=== PATIENT | male | born 1935 | race Caucasian/White ===

== ENCOUNTER 2017-06-01 05:54 | Day surgery (SDC) | END 2017-06-01 11:50 | disposition home or self-care (01) ==

== ENCOUNTER 2018-05-30 15:20 | Inpatient (IN) | payer OTHER ==
[~2018-05-30] VITALS: Ht 180.3 cm; Wt 90.9 kg
[~2018-05-30 15:20] MED LIST: ATOR40TA68 PO; CHOL100062 PO; CLOP75TA27 PO; HYDR25TA6 PO; INSU100V3 IJ; LANT3I SC; LISI-471 PO; NIFE30TA23 PO; RANI150T5 PO
--- NOTE | 2018-05-30 15:32 | ERD ---
ER Documentation Chief Complaint Chief Complaint weakness HPI The patient is a 83-year-old male, presenting to the ER because of generalized weakness for 1 week. The history is mostly obtained from his son because he is unable to provide any history due to language barrier. He normally walks with a cane however he has not been able to do that for the last week, complains of decreased appetite, not feeling well in general, abdominal distention for the last 2 weeks. He was seen by his oncologist Dr. Michelle today in the office who sent him to the ER for admission. He is being worked up for cancer He fell about 4 weeks ago and was told that he has L3-L4 compression fracture Past medical history: History of CVA, history of proximal atrial fibrillation, dyslipidemia, diabetes mellitus, hypertension, chronic kidney disease on hemodialysis Wednesday, Wednesday, Wednesday, cholelithiasis Past surgical history: Left AV fistula, appendectomy ROS All systems reviewed and are negative except as per history of present illness. Medications Home Meds Reported Medications Insulin Regular, Human (Humulin R) 100 Unit/1 Ml Vial, IJ, VIAL 06/01/17 Cholecalciferol* (Vitamin D3*) 1,000 Unit Tablet, 2000 UNIT PO DAILY, TAB 06/01/17 Atorvastatin* (Atorvastatin*) 40 Mg Tablet, 40 MG PO QHS, #30 TAB 06/01/17 Ranitidine Hcl* (Ranitidine Hcl*) 150 Mg Tablet, 150 MG PO HS, #30 TAB 06/01/17 Clopidogrel Bisulfate (Clopidogrel) 75 Mg Tablet, 75 MG PO DAILY, #30 TAB 06/01/17 Insulin Glargine* (Lantus*) 100 Unit/Ml Soln, 42 UNIT SC DAILY, #1 VIAL 06/01/17 Hydrochlorothiazide* (Hydrochlorothiazide*) 25 Mg Tab, 25 MG PO BID, #60 TAB 06/01/17 Lisinopril* (Lisinopril*) 20 Mg Tablet, 20 MG PO BID, #30 TAB 06/01/17 Nifedipine* (Nifedipine ER*) 30 Mg Tablet.sa, 30 MG PO DAILY, TAB.SA 06/01/17 Allergies Allergies: Coded Allergies: Penicillins (Unverified Allergy, Unknown, 05/31/17) Sulfa (Sulfonamide Antibiotics) (Unverified Allergy, Unknown, 05/31/17) PMhx/Soc History of Surgery: Yes (appendectomy) Anesthesia Reaction: No Hx Neurological Disorder: No Hx Respiratory Disorders: No Hx Cardiac Disorders: Yes (htn, high cholest) Hx Psychiatric Problems: No Hx Miscellaneous Medical Probl: No Hx Alcohol Use: No Hx Substance Use: No Hx Tobacco Use: No Physical Exam Vitals Vital Signs Date Temp Pulse Resp B/P (MAP) Pulse Ox O2 O2 Flow FiO2 Time Delivery Rate 05/30/18 102 15 134/70 94 Room Air 19:00 (91) 05/30/18 97.8 96 18 127/65 98 Nasal 2.0 17:42 (85) Cannula 05/30/18 97.5 94 18 139/63 94 15:28 (88) Physical Exam Const: No acute distress. Head: Atraumatic. Eyes: Normal Conjunctiva. ENT: Normal External Ears, Nose and Mouth. Neck: Full range of motion. No meningismus. Resp: Clear to auscultation bilaterally. Cardio: Regular rate and rhythm. Abd: Soft, mild ascites, normal bowel sounds, non tender. Skin: No petechiae or rashes. Back: No midline or flank tenderness. Ext: No cyanosis, or edema. Neur: Awake and alert. No focal deficit Psych: Normal Mood and Affect. Result Diagram: 05/30/18 1607 05/30/18 1607 Results 24 hrs Laboratory Tests Test 05/30/18 16:07 White Blood Count 4.1 10^3/ul Red Blood Count 2.62 10^6/ul Hemoglobin 8.3 g/dl Hematocrit 25.9 % Mean Corpuscular Volume 98.9 fl Mean Corpuscular Hemoglobin 31.7 pg Mean Corpuscular Hemoglobin Concent 32.0 g/dl Red Cell Distribution Width 18.8 % Platelet Count 93 10^3/UL Mean Platelet Volume 11.4 fl Immature Granulocytes % 0.500 % Neutrophils % 74.1 % Lymphocytes % 9.2 % Monocytes % 11.4 % Eosinophils % 4.1 % Basophils % 0.7 % Nucleated Red Blood Cells % 0.0 /100WBC Immature Granulocytes # 0.020 10^3/ul Neutrophils # 3.0 10^3/ul Lymphocytes # 0.4 10^3/ul Monocytes # 0.5 10^3/ul Eosinophils # 0.2 10^3/ul Basophils # 0.0 10^3/ul Nucleated Red Blood Cells # 0.0 10^3/ul Prothrombin Time 17.7 Sec Prothrombin Time Ratio 1.4 INR International Normalized Ratio 1.45 Activated Partial Thromboplast Time 37.4 Sec Sodium Level 138 mmol/L Potassium Level 4.1 mmol/L Chloride Level 92 mmol/L Carbon Dioxide Level 25 mmol/L Anion Gap 21 Blood Urea Nitrogen 36 mg/dl Creatinine 6.02 mg/dl Est Glomerular Filtrat Rate mL/min mL/min Glucose Level 98 mg/dl Calcium Level 10.5 mg/dl Total Bilirubin 0.3 mg/dl Direct Bilirubin 0.00 mg/dl Indirect Bilirubin 0.3 mg/dl Aspartate Amino Transf (AST/SGOT) 23 IU/L Alanine Aminotransferase (ALT/SGPT) 10 IU/L Alkaline Phosphatase 190 IU/L Lactate Dehydrogenase 350 IU/L Total Protein 12.5 g/dl Albumin 3.9 g/dl Globulin 8.60 g/dl Albumin/Globulin Ratio 0.45 Lipase 212 U/L [facility]/[place] [address] Radiology Main Line: [phone] DIAGNOSTIC IMAGING REPORT Patient: BORIS AWAD : 1935 Age: 83 Sex: M MR #: [id number] DOS: 05/30/18 [facility] Ordering MD: LISSETT TONEY MD Location: E/R Room/Bed: PROCEDURE: CT Abdomen and Pelvis Without Intravenous Contrast CLINICAL INDICATION: Abdominal pain. TECHNIQUE: Axial computed tomography images of the abdomen and pelvis without intravenous contrast. Sagittal and coronal reformatted images were created and reviewed. CTDIvol (mGy) = 17.96; total DLP (mGy-cm) = 1238.86. This CT exam was performed using one or more of the following dose reduction techniques: automated exposure control, adjustment of the mA and/or kV according to patient size, and/or use of iterative reconstruction technique. DICOM images are available. COMPARISON: None FINDINGS: LUNG BASES: Atelectasis versus consolidation/infiltrate at the lung bases, right worse than left. PLEURAL SPACE: Small bilateral pleural effusions, right larger than left. HEART: Small pericardial effusion. Mild cardiomegaly noted. ABDOMEN: LIVER: Unremarkable. GALLBLADDER AND BILE DUCTS: Multiple small calcified gallstones are demonstrated in the gallbladder. No gallbladder wall thickening. No biliary dilatation. PANCREAS: Unremarkable. No ductal dilation. SPLEEN: Unremarkable. No splenomegaly. ADRENALS: Unremarkable. No mass. KIDNEYS AND URETERS: Bilateral renal cysts noted, measuring up to 5.5 cm in diameter. Vascular calcifications are noted in the kidneys. No nephrolithiasis or hydronephrosis. STOMACH AND BOWEL: Moderate retained stool throughout the colon. No inflammatory changes of the colon. The stomach is unremarkable in appearance. No acute abnormality of the small bowel. No obstruction. No mucosal thickening. PELVIS: APPENDIX: No findings to suggest acute appendicitis. BLADDER: Unremarkable. No stones. REPRODUCTIVE: Unremarkable as visualized. ABDOMEN and PELVIS: INTRAPERITONEAL SPACE: Mild ascites in the abdomen and pelvis. No free air. BONES/JOINTS: Nondisplaced acute fracture of the left ischial tuberosity. The fracture appears to have occurred through a preexisting lucent bone lesion, and is consistent with pathologic fracture. Infiltrated appearance of the L3 and the vertebra. There is moderate acute compression fracture of L3. This also concerning for osseous metastatic disease. No dislocation. SOFT TISSUES: Mild gynecomastia bilaterally. Small bilateral inguinal hernias noted, containing only fat. Small umbilical hernia noted, containing only fat. Mild diffuse subcutaneous edema. VASCULATURE: The abdominal aorta is atherosclerotic. No aneurysm. LYMPH NODES: Unremarkable. No enlarged lymph nodes. IMPRESSION: 1. Nondisplaced acute fracture of the left ischial tuberosity. The fracture appears to have occurred through a preexisting lucent bone lesion, and is consistent with pathologic fracture. This is suspicious for osseous metastatic disease. A primary neoplastic lesion is not identified on this study. 2. Atelectasis versus consolidation/infiltrate at the lung bases, right worse than left. 3. Small bilateral pleural effusions, right larger than left. 4. Mild ascites in the abdomen and pelvis. 5. Multiple small calcified gallstones are demonstrated in the gallbladder. No gallbladder wall thickening. No biliary dilatation. 6. Bilateral renal cysts noted, measuring up to 5.5 cm in diameter. Vascular calcifications are noted in the kidneys. No nephrolithiasis or hydronephrosis. RPTAT: [facility] R-Anderson Blount, Physician Hospital Receptionist Date Time Electronically viewed and signed by Ethan Blount Physician Hospital Receptionist on 05/30/2018 18:26 RmC/ CC: LISSETT TONEY MD [id number] [place] [address] Radiology Main Line: [phone] DIAGNOSTIC IMAGING REPORT Patient: BORIS AWAD : 1935 Age: 83 Sex: M MR #: [id number] DOS: 05/30/18 1556 Ordering MD: LISSETT TONEY MD Location: E/R Room/Bed: PROCEDURE: US Abdomen (right upper quadrant). CLINICAL INDICATION: Right upper quadrant abdomen pain. TECHNIQUE: Multiple real-time longitudinal and transverse images of the right upper quadrant of the abdomen were acquired utilizing a curved array transducer. Images were reviewed on a high-resolution PACS workstation. COMPARISON: None FINDINGS: The liver is normal in size and normal in echogenicity. There is no focal hepatic lesion. Color Doppler and pulsed Doppler sonography demonstrate normal antegrade flow in the portal vein. The gallbladder contains gallstones. There is no gallbladder wall thickening or fluid around the gallbladder. The bile ducts are normal with the common bile duct measuring 4.4 mm in diameter. The pancreas is not visualized due to overlying bowel gas. There is mild ascites. There is a right pleural effusion. The right kidney measures 10.1 cm. There is diffusely increased echogenicity of the right kidney. There is no perinephric fluid collection. No hydronephrosis, mass, or calculus is seen. IMPRESSION: 1. Gallstones in the gallbladder. No evidence of cholecystitis. 2. Pancreas not visualized. 3. Mild ascites. 4. Right pleural effusion. 5. Hyperechoic right kidney which may indicate medical renal disease. 6. Otherwise unremarkable right upper quadrant abdomen ultrasound. RPTAT: QQ .Joe Norman MD, MD Date Time Electronically viewed and signed by .Joe Norman MD, MD on 05/30/2018 17:04 .R/ CC: LISSETT TONEY MD [id number] Pending MEDICAL MAKING DECISION: The patient is a 83-year-old male, presented with acute pathologic fracture of the left ischial tuberosity, acute ascites, pancytopenia, bilateral pleural effusion, coagulopathy. He is able to the emergency department The differential diagnoses considered include but are not limited to metastatic CA, multiple myeloma, hematological disorder Consultation: I discussed the patient with oncologist Dr. Smith 06:40 pm, who was made aware of the lab, the treatment and she accepted the consult I discussed the patient with the oncall orthopedist Dr. Burton 06:45 pm, who was made aware of the lab, the treatment and she accepted the consult Departure Diagnosis: Primary Impression: Pathologic fracture of ischium Additional Impressions: Pancytopenia Bilateral pleural effusion Ascites Cholelithiasis Coagulopathy Abnormal LFTs Condition: Stable Comments I discussed the findings with the patient. I discussed the patient with the hospitalist Dr Santos at 6:50 p who was made aware of the lab, the treatment, the patient condition. The patient is admitted to [facility]. He was aware that Dr. Smith recommended SPEP and skeletal survey and and would perform bone marrow biopsy tomorrow Disclaimer: Inadvertent spelling and grammatical errors are likely due to EHR/dictation software use and do not reflect on the overall quality of patient care. Also, please note that the electronic time recorded on this note does not necessarily reflect the actual time of the patient encounter. LISSETT TONEY MD May 30, 2018 15:32
--- NOTE | 2018-05-30 19:38 | HP ---
Date/Time of Note Date/Time of Note DATE: 05/30/18 TIME: 19:30 Assessment/Plan VTE Prophylaxis Pharmacological prophylaxis: heparin Assessment/Plan Hospital Course 83 yo male with ESRD, DMII who has been referred for MM workup after found to have hypercalcemia and pathologic hip fracture Multiple myeloma: - Workup per Dr khoury - ELLIE, skeletal survery, bone marrow biopsy ESRD: - HD per renal - Last dialyzed today Pancytopenia: - likely consistent with MM Cholelithiasis: - Unlikely causing any symptoms at this time. Had planned for elective cholecystectomy as outpatient but no acute indication DMII: - Basal/bolus insulin Hypercalcemia: - Consistent with MM, mild, no acute need for intervention Pathologic hip fracture: - management per Dr Burton Result Diagram: 05/30/18 1607 05/30/18 1607 Results 24hrs Laboratory Tests Test 05/30/18 16:07 White Blood Count 4.1 L Red Blood Count 2.62 L Hemoglobin 8.3 L Hematocrit 25.9 L Mean Corpuscular Volume 98.9 Mean Corpuscular Hemoglobin 31.7 Mean Corpuscular Hemoglobin Concent 32.0 Red Cell Distribution Width 18.8 H Platelet Count 93 L Mean Platelet Volume 11.4 H Immature Granulocytes % 0.500 H Neutrophils % 74.1 Lymphocytes % 9.2 L Monocytes % 11.4 H Eosinophils % 4.1 Basophils % 0.7 Nucleated Red Blood Cells % 0.0 Immature Granulocytes # 0.020 Neutrophils # 3.0 Lymphocytes # 0.4 L Monocytes # 0.5 Eosinophils # 0.2 Basophils # 0.0 Nucleated Red Blood Cells # 0.0 Prothrombin Time 17.7 H Prothrombin Time Ratio 1.4 INR International Normalized Ratio 1.45 Activated Partial Thromboplast Time 37.4 H Sodium Level 138 Potassium Level 4.1 Chloride Level 92 L Carbon Dioxide Level 25 Anion Gap 21 H Blood Urea Nitrogen 36 H Creatinine 6.02 H Est Glomerular Filtrat Rate mL/min Glucose Level 98 Calcium Level 10.5 H Total Bilirubin 0.3 Direct Bilirubin 0.00 Indirect Bilirubin 0.3 Aspartate Amino Transf (AST/SGOT) 23 Alanine Aminotransferase (ALT/SGPT) 10 L Alkaline Phosphatase 190 H Lactate Dehydrogenase 350 Total Protein 12.5 H Albumin 3.9 Globulin 8.60 H Albumin/Globulin Ratio 0.45 Lipase 212 HPI/ROS Admit Date/Time Admit Date/Time Hx of Present Illness 37 yo male with ho DMII and ESRD who has been referred by Dr Khoury for multiple myeloma workup Patient suffered fall a few weeks ago leading to pain in hip. Pain has continued and become more and more severe. [employer] has also noticed worsening hypercalcemia. He was thus referred to Dr Khoury for onc workup who has found evidence of MM and he has been referred here. He has also noticed progressive abdominal distension. Major comlaint is of pain in hip/buttocks ROS Constitutional: no complaints, improved Eyes: no complaints ENT: no complaints Respiratory: no complaints Cardiovascular: no complaints Gastrointestinal: no complaints Genitourinary: no complaints Musculoskeletal: no complaints Skin: no complaints Neurologic: no complaints Endocrine: no complaints Lymphatic: no complaints Psychological: no complaints, nl mood/affect Immunologic: no complaints PMH/Family/Social Past Medical History Medical History: diabetes, renal disease Coded Allergies: Penicillins (Unverified Allergy, Unknown, 05/31/17) Sulfa (Sulfonamide Antibiotics) (Unverified Allergy, Unknown, 05/31/17) Past Surgical History Past Surgical Hx: no surgical history Family History Significant Family History: no pertinent family hx Social History Alcohol Use: none Smoking Status: Never smoker Drug Use: none Exam/Review of Systems Vital Signs Vitals Vital Signs Date Temp Pulse Resp B/P (MAP) Pulse Ox O2 O2 Flow FiO2 Time Delivery Rate 05/30/18 97.8 96 18 127/65 98 Nasal 2.0 17:42 (85) Cannula Exam Exam Appears well, no distress AOx3 Comfortable + JVD RRR Breathing comfortably Abdomen firm/distended but nontender Ext warm without edema SRAVANTHI THOMPSON MD May 30, 2018 19:38
[2018-05-30] MEDS ORDERED: INSULIN GLARGINE [LANTus] (100 UNITS/ML) SYG SC SCH (20:00)
[2018-05-30] MEDS ORDERED: HYDROmorphONE 0.5 MG/0.5 ML SYG IV PRN (20:00)
[2018-05-30] MEDS ORDERED: NACL 0.9% 3 ML SYG IV SCH (20:00)
[2018-05-30] MEDS ORDERED: GLUCOSE GEL 15 GRAM TUBE PO PRN ×2 (20:30)
[2018-05-30] MEDS ORDERED: GLUCAGON 1 MG INJ IM PRN (20:30)
[2018-05-30] MEDS ORDERED: GLUCOSE GEL 15 GRAM TUBE BUCCAL PRN (20:30)
[2018-05-30] MEDS ORDERED: DEXTROSE 50% 50 ML SYRINGE IV PRN ×2 (20:30)
[2018-05-30 20:53] VITALS: Ht 180.3 cm; Wt 90.9 kg
[2018-05-30] MEDS ORDERED: LISINOPRIL 20 MG TAB PO SCH (21:00)
[2018-05-30] MEDS ORDERED: INSULIN ASPART [NOVOLOG] 3 ML PEN SC SCH (21:00)
[2018-05-30] MEDS: RANITIDINE 150 MG TAB PO SCH (21:00)
[2018-05-30] MEDS ORDERED: CARV25TA79 PO (21:15)
[2018-05-30] MEDS ORDERED: APIX2.5T PO (21:15)
[2018-05-30] MEDS ORDERED: CARV12.579 PO (21:15)
[2018-05-30 21:19] VITALS: BP 122/56; PULSE 112
[2018-05-31] VITALS (19 sets, daily range): BP systolic 89–141; BP diastolic 48–83; PULSE 89–109; RESP 11–24
[2018-05-31] MEDS ORDERED: ACCU-CHEK XX SCH (02:00)
[2018-05-31] MEDS ORDERED: ATROPINE 1 MG/10 ML SYRINGE ONE (07:00)
[2018-05-31] MEDS: APIXABAN 5 MG TABLET PO SCH (09:00)
[2018-05-31] MEDS ORDERED: NIFEdipine (XL) 30 MG TAB PO SCH (09:00)
[2018-05-31] MEDS: CLOPIDOGREL 75 MG TAB PO SCH (09:00)
--- NOTE | 2018-05-31 09:09 | CONS ---
DATE OF ADMISSION: 05/30/2018 DATE OF CONSULTATION: 05/31/2018 REASON FOR CONSULTATION: End-stage renal disease. PHYSICIAN REQUESTING CONSULT: Dr. Santos. HISTORY OF PRESENT ILLNESS: This is an 83-year-old male with a past medical history of end-stage anna marie al disease on dialysis Wednesday, Wednesday, Wednesday, access left AV fistula. Primary clinical appeals rn is un clear. History of hypertension, history of diabetes who presented to [facility] to generalized weakness. The patient also noted 4 weeks ago to have a compression fracture L3-L4 a nd has had dominant hypercalcemia. The patient was subsequently admitted to med/surg for further mykel luation. Upon my evaluation of the patient at this time, he is currently stable. He denies any fevers, chills , nausea, or vomiting. PAST MEDICAL HISTORY: As stated above, history of end-stage renal disease, history of diabetes. PAST SURGICAL HISTORY: History of pancytopenia. FAMILY HISTORY: No family history of kidney disease. SOCIAL HISTORY: He does not drink, smoke, or do drugs. MEDICATIONS: The patient's medications have been reviewed. ALLERGIES: PLEASE SEE LIST. REVIEW OF SYSTEMS: A 14-point review of systems was conducted. Pertinent positives stated in HPI, o therwise negative. PHYSICAL EXAMINATION: VITAL SIGNS: Blood pressure is 135/72, respirations 20, pulse 109, temperature 98.0. HEENT: Head is normocephalic. NECK: Supple. HEART: Regular rate. LUNGS: Show diminished breath sounds at the base. ABDOMEN: Soft, nontender to palpation without rebound or guarding. EXTREMITIES: Negative for clubbing, cyanosis, no edema. DERMATOLOGIC: No rashes. MUSCULOSKELETAL: No joint effusion. NEUROLOGIC: No focal deficits. LABORATORY DATA: Reviewed. ASSESSMENT AND PLAN: This is an 83-year-old male who presents with: 1. End-stage renal disease. The patient is on dialysis Wednesday, Wednesday, Wednesday with access left A V fistula. Plan is for hemodialysis tomorrow. We will dialyze for 3 hours 2k bath, calcium 2.5, ult rafiltrate as tolerated. 2. Anemia. Continue to monitor hemoglobin and hematocrit levels. We will give Epogen as needed. 3. Mineral bone disorder. The patient is hypocalcemic, continue dialysis on low calcium bath and mo nitor. 4. Hypertension. Continue current blood pressure regimen. 5. Diabetes. Continue current insulin regimen. 6. Hypercalcemia. The patient is being worked up for possible multiple myeloma, pending bone marrow biopsy and follow up with hematology. 7. Cholelithiasis. Continue to monitor. 8. Pathological hip fracture. We will follow up with orthopedist, Dr. Burton. Thank you, Dr. Santos, for this interesting consult. It will be a pleasure to follow patient with aj olguin throughout the hospital course. Dictated By: TAYLOR GROVE DO NR/NTS Conf#: [id number] DID#: [id number] CC: CHEYENNE BURTON MD; SRAVANTHI SANTOS MD;*[facility]*
[2018-05-31] MEDS: HYDROCODONE/APAP (5/325) TAB PO PRN ×2 (09:57→22:20)
--- NOTE | 2018-05-31 11:46 | PREAC ---
Date/Time of Note Date/Time of Note DATE: 05/31/18 TIME: 11:43 Anesthesia Eval and Record Evaluation Time Pre-Procedure Interview DATE: 05/31/18 TIME: 11:43 Age 83 Sex male NPO: 8 hrs Preoperative diagnosis lt leg pathological fracture Planned procedure Bone diaz aspiration Past Medical History Past Medical History: Includes Cardio: HTN, Dyslipidemia Endo: Diabetes GI: GERD Heme: Anemia Surgery & Anesthesia Issues No known issue Meds Anticoagulation: No Beta Clarence within 24 hr: No Reason Beta Clarence not given: Pt. not on B-Clarence Reported Medications Carvedilol* (Carvedilol*) 12.5 Mg Tablet, 12.5 MG PO QHS, #60 TAB 05/30/18 Carvedilol* (Carvedilol*) 25 Mg Tablet, 25 MG PO DAILY, #60 TAB 05/30/18 Apixaban* (Eliquis*) 2.5 Mg Tablet, 2.5 MG PO DAILY, TAB 05/30/18 Insulin Regular, Human (Humulin R) 100 Unit/1 Ml Vial, IJ, VIAL 06/01/17 Cholecalciferol* (Vitamin D3*) 1,000 Unit Tablet, 2000 UNIT PO DAILY, TAB 06/01/17 Atorvastatin* (Atorvastatin*) 40 Mg Tablet, 40 MG PO QHS, #30 TAB 06/01/17 Ranitidine Hcl* (Ranitidine Hcl*) 150 Mg Tablet, 150 MG PO HS, #30 TAB 06/01/17 Clopidogrel Bisulfate (Clopidogrel) 75 Mg Tablet, 75 MG PO DAILY, #30 TAB 06/01/17 Insulin Glargine* (Lantus*) 100 Unit/Ml Soln, 42 UNIT SC DAILY, #1 VIAL 06/01/17 Hydrochlorothiazide* (Hydrochlorothiazide*) 25 Mg Tab, 25 MG PO BID, #60 TAB 06/01/17 Lisinopril* (Lisinopril*) 20 Mg Tablet, 20 MG PO BID, #30 TAB 06/01/17 Nifedipine* (Nifedipine ER*) 30 Mg Tablet.sa, 30 MG PO DAILY, TAB.SA 06/01/17 Current Medications IV Flush (NS 3 ml) 3 ml PER PROTOCOL IV ; Start 05/30/18 at 20:00 Hydromorphone HCl (Dilaudid) 0.5 mg Q4H PRN IV .SEVERE PAIN 7-10 Last administered on 05/30/18at 21:36; Admin Dose 0.5 MG; Start 05/30/18 at 20:00 Ranitidine HCl (Zantac) 150 mg HS PO ; Start 05/30/18 at 21:00 Miscellaneous Information 1 ea NOTE XX ; Start 05/30/18 at 20:30 Glucose (Glutose) 15 gm Q15M PRN PO DECREASED GLUCOSE; Start 05/30/18 at 20:30 Glucose (Glutose) 22.5 gm Q15M PRN PO DECREASED GLUCOSE; Start 05/30/18 at 20:30 Dextrose (D50w Syringe) 25 ml Q15M PRN IV DECREASED GLUCOSE; Start 05/30/18 at 20:30 Dextrose (D50w Syringe) 50 ml Q15M PRN IV DECREASED GLUCOSE; Start 05/30/18 at 20:30 Glucagon (Glucagen) 1 mg Q15M PRN IM DECREASED GLUCOSE; Start 05/30/18 at 20:30 Glucose (Glutose) 15 gm Q15M PRN BUCCAL DECREASED GLUCOSE; Start 05/30/18 at 20:30 Apixaban (Eliquis) 2.5 mg DAILY PO ; Start 05/31/18 at 09:00 Atorvastatin Calcium (Lipitor) 40 mg QHS PO ; Start 05/31/18 at 21:00 Carvedilol (Coreg) 12.5 mg QHS PO ; Start 05/31/18 at 21:00 Carvedilol (Coreg) 25 mg DAILY PO Last administered on 05/31/18at 09:55; Admin Dose 25 MG; Start 05/31/18 at 09:00 Clopidogrel Bisulfate (plaVIX) 75 mg DAILY PO ; Start 05/31/18 at 09:00 Acetaminophen/ Hydrocodone Bitart ([place] (5/325)) 1 tab Q4H PRN PO MODERATE PAIN LEVEL 4-6 Last administered on 05/31/18at 09:57; Admin Dose 1 TAB; Start 05/31/18 at 00:00 Meds reviewed: Yes Allergies Coded Allergies: Penicillins (Unverified Allergy, Unknown, 05/31/17) Sulfa (Sulfonamide Antibiotics) (Unverified Allergy, Unknown, 05/31/17) Allergies Reviewed: Yes Labs/Studies Labs Reviewed: Reviewed by anesthesiologist Result Diagram: 05/31/1842105/31/18421 Laboratory Tests 05/31/18 04:22 test: N/A Studies: ECG Pre-procedure Exam Last vitals Vital Signs Date Temp Pulse Resp B/P (MAP) Pulse Ox O2 O2 Flow FiO2 Time Delivery Rate 05/31/18 98.0 109 20 135/72 96 07:22 (93) 05/30/18 Nasal 2.0 21:00 Cannula Airway: Adequate mouth opening, Adequate thyromental dist Mallampati: Mallampati II Teeth: Normal Lung: Normal Heart: Normal ASA Physical Status ASA physical status: 4 Emergency: None Planned Anesthetic General/MAC: MAC Planned Pain Management Parenteral pain med Pre-operative Attestations Prior to commencing anesthesia and surgery, the patient was re-evaluated, there was verification of: *The patient's identity *The results of appropriate recent lab work and preoperative vital signs *The above evaluation not changing prior to induction *Anesthetic plan, risk benefits, alternative and complications discussed with patient/family; questions answered; patient/family understands, accepts and wishes to proceed. MADELINE LEON MD May 31, 2018 11:46
[2018-05-31] MEDS ORDERED: MIDAZOLAM 1 MG/ML 2 ML INJ ONE (11:47)
[2018-05-31] MEDS ORDERED: FENTAnyl 50 MCG/ML VIAL ONE (11:47)
[2018-05-31] MEDS ORDERED: LIDOCAINE 2% (SDV) 5 ML INJ ONE (11:47)
[2018-05-31] MEDS ORDERED: PROPOFOL 40 ML ONE (11:47)
[2018-05-31] MEDS ORDERED: LIDOCAINE 1% (MDV) 20 ML INJ ONE (12:01)
[2018-05-31] MEDS ORDERED: EPHEDrine 25 MG/5 ML SYG ONE (12:38)
[2018-05-31] MEDS ORDERED: GLYCOPYRROLATE 0.4 MG INJ ONE (12:38)
--- NOTE | 2018-05-31 13:00 | CONS ---
Assessment/Plan Assessment/Plan Hospital Course (Demo Recall) #Monoclonal protein -I am franky concerned for multiple myeloma especially given the IgG level of greater than 7 grams -will follow up SPEP, Marion/ Lambda Free Light chain ratio and serum immunofix ation -f/u skeletal survey -pt to have bone marrow bx today #BAck pain -pt has L3 compression fracture on CT -will order MRI without contrast of T and L spine #ESRD -continue HD #DM -continue current medications #HTN -continue current medications Thank you for the opportunity to participate in this patients care A total of 40 minutes of face to face time was spent speaking with the patient, of which greater than 50% was spent in counseling and coordination of care and the detailed question and answer session. Consultation Date/Type/Reason Admit Date/Time May 30 Date of Consultation: May 31, 2018 Type of Consult oncology Reason for Consultation concern for multiple myeloma Requesting Provider: SRAVANTHI YEPEZ MD Date/Time of Note DATE: 05/31/18 TIME: 11:41 Hx of Present Illness 82 yo [place] speaking male with concern for multiple myeloma whose history is as follows: 12/2017 pt was diagnosed with Diabetic Nephropathy and was started on Dialysis1 03/2018 started experiencing Chest pain. was diagnosed with Afib and started on Coreg, Diltiazam, and Eliquis. Admitted to [facility] 04/2015 1 week after discharge from [facility] pt experienced hypotension and was in the ICU. Pt was eventually discharged on Coreg alone as it was though that the Diltiazam caused the severe hypotension. 04/2015 after dc from [facility] pt presented to wednesday am dialysis and fell and supposedly sustained a L3/L5 fracture and has since become progressively weaker. On labs patients Ca was also noted to be elevated to 11.9. Out patient myeloma labs were drawn and were very concerning for multiple myeloma with an abnormal band 6.4 [place] Free Light chain 210, total protein of 11.3 Patient's son states he is getting progressively weaker and that his abdomen is more severely distended. 05/30/17 admitted to [facility] for further workup. CT A/P reveals a Nondisplaced acute fracture of the left ischial tuberosity as well as an acute compression fracture of the L3 vertebrae. PT was also noted have mild ascites and mild pleural effus ions Constitutional: diaphoresis, poor po ENT: no complaints Respiratory: shortness of breath Cardiovascular: no complaints, lightheadedness Gastrointestinal: no complaints Musculoskeletal: back pain Skin: no complaints Neurologic: no complaints Endocrine: no complaints Lymphatic: no complaints Psychological: anxiety, depression Past Medical History Medical History: diabetes, renal disease Home Meds Reported Medications Carvedilol* (Carvedilol*) 12.5 Mg Tablet, 12.5 MG PO QHS, #60 TAB 05/30/18 Carvedilol* (Carvedilol*) 25 Mg Tablet, 25 MG PO DAILY, #60 TAB 05/30/18 Apixaban* (Eliquis*) 2.5 Mg Tablet, 2.5 MG PO DAILY, TAB 05/30/18 Insulin Regular, Human (Humulin R) 100 Unit/1 Ml Vial, IJ, VIAL 06/01/17 Cholecalciferol* (Vitamin D3*) 1,000 Unit Tablet, 2000 UNIT PO DAILY, TAB 06/01/17 Atorvastatin* (Atorvastatin*) 40 Mg Tablet, 40 MG PO QHS, #30 TAB 06/01/17 Ranitidine Hcl* (Ranitidine Hcl*) 150 Mg Tablet, 150 MG PO HS, #30 TAB 06/01/17 Clopidogrel Bisulfate (Clopidogrel) 75 Mg Tablet, 75 MG PO DAILY, #30 TAB 06/01/17 Insulin Glargine* (Lantus*) 100 Unit/Ml Soln, 42 UNIT SC DAILY, #1 VIAL 06/01/17 Hydrochlorothiazide* (Hydrochlorothiazide*) 25 Mg Tab, 25 MG PO BID, #60 TAB 06/01/17 Lisinopril* (Lisinopril*) 20 Mg Tablet, 20 MG PO BID, #30 TAB 06/01/17 Nifedipine* (Nifedipine ER*) 30 Mg Tablet.sa, 30 MG PO DAILY, TAB.SA 06/01/17 Medications Current Medications IV Flush (NS 3 ml) 3 ml PER PROTOCOL IV ; Start 05/30/18 at 20:00 Hydromorphone HCl (Dilaudid) 0.5 mg Q4H PRN IV .SEVERE PAIN 7-10 Last administered on 05/30/18at 21:36; Admin Dose 0.5 MG; Start 05/30/18 at 20:00 Ranitidine HCl (Zantac) 150 mg HS PO ; Start 05/30/18 at 21:00 Miscellaneous Information 1 ea NOTE XX ; Start 05/30/18 at 20:30 Glucose (Glutose) 15 gm Q15M PRN PO DECREASED GLUCOSE; Start 05/30/18 at 20:30 Glucose (Glutose) 22.5 gm Q15M PRN PO DECREASED GLUCOSE; Start 05/30/18 at 20:30 Dextrose (D50w Syringe) 25 ml Q15M PRN IV DECREASED GLUCOSE; Start 05/30/18 at 20:30 Dextrose (D50w Syringe) 50 ml Q15M PRN IV DECREASED GLUCOSE; Start 05/30/18 at 2 0:30 Glucagon (Glucagen) 1 mg Q15M PRN IM DECREASED GLUCOSE; Start 05/30/18 at 20:30 Glucose (Glutose) 15 gm Q15M PRN BUCCAL DECREASED GLUCOSE; Start 05/30/18 at 20:30 Apixaban (Eliquis) 2.5 mg DAILY PO ; Start 05/31/18 at 09:00 Atorvastatin Calcium (Lipitor) 40 mg QHS PO ; Start 05/31/18 at 21:00 Carvedilol (Coreg) 12.5 mg QHS PO ; Start 05/31/18 at 21:00 Carvedilol (Coreg) 25 mg DAILY PO Last administered on 05/31/18at 09:55; Admin Dose 25 MG; Start 05/31/18 at 09:00 Clopidogrel Bisulfate (plaVIX) 75 mg DAILY PO ; Start 05/31/18 at 09:00 Acetaminophen/ Hydrocodone Bitart ([place] (5/325)) 1 tab Q4H PRN PO MODERATE PAIN LEVEL 4-6 Last administered on 05/31/18at 09:57; Admin Dose 1 TAB; Start 05/31/18 at 00:00 Allergies: Coded Allergies: Penicillins (Unverified Allergy, Unknown, 05/31/17) Sulfa (Sulfonamide Antibiotics) (Unverified Allergy, Unknown, 05/31/17) Past Surgical History Past Surgical Hx: no surgical history Family History Significant Family History: no pertinent family hx Social History Alcohol Use: none Smoking Status: Never smoker Drug Use: none Exam/Review of Systems Exam Vitals Vital Signs Date Temp Pulse Resp B/P (MAP) Pulse Ox O2 O2 Flow FiO2 Time Delivery Rate 05/31/18 98.0 109 20 135/72 96 07:22 (93) 05/30/18 Nasal 2.0 21:00 Cannula Constitutional: alert, oriented, distress, frail Psych: anxiety, depression Head: normocephalic Eyes: nl conjunctiva ENMT: nl external ears & nose Neck: supple Respiratory: diminished breath sounds Cardiovascular: irregular rhythm Gastrointestinal: distended Musculoskeletal: nl extremities to inspection Results Result Diagram: 05/31/18 0422 05/31/18 0422 Results 24hrs Laboratory Tests Test 05/30/18 16:04 05/30/18 16:07 05/31/18 04:22 Immunoglobulin A 45 L Immunoglobulin G 7083 H Immunoglobulin M < 25 L White Blood Count 4.1 L 4.8 Red Blood Count 2.62 L 2.67 L Hemoglobin 8.3 L 8.6 L Hematocrit 25.9 L 26.6 L Mean Corpuscular Volume 98.9 99.6 Mean Corpuscular Hemoglobin 31.7 32.2 Mean Corpuscular Hemoglobin Concent 32.0 32.3 Red Cell Distribution Width 18.8 H 19.2 H Platelet Count 93 L 92 L Mean Platelet Volume 11.4 H 12.8 H Immature Granulocytes % 0.500 H 0.400 Neutrophils % 74.1 75.3 Lymphocytes % 9.2 L 10.1 L Monocytes % 11.4 H 10.5 Eosinophils % 4.1 2.9 Basophils % 0.7 0.8 Nucleated Red Blood Cells % 0.0 0.0 Immature Granulocytes # 0.020 0.020 Neutrophils # 3.0 3.6 Lymphocytes # 0.4 L 0.5 L Monocytes # 0.5 0.5 Eosinophils # 0.2 0.1 Basophils # 0.0 0.0 Nucleated Red Blood Cells # 0.0 0.0 Prothrombin Time 17.7 H Prothrombin Time Ratio 1.4 INR International Normalized Ratio 1.45 Activated Partial Thromboplast Time 37.4 H Sodium Level 138 140 Potassium Level 4.1 4.4 Chloride Level 92 L 93 L Carbon Dioxide Level 25 25 Anion Gap 21 H 22 H Blood Urea Nitrogen 36 H 46 H Creatinine 6.02 H 6.85 H Est Glomerular Filtrat Rate mL/min Glucose Level 98 98 Calcium Level 10.5 H 10.8 H Total Bilirubin 0.3 0.3 Direct Bilirubin 0.00 0.00 Indirect Bilirubin 0.3 0.3 Aspartate Amino Transf (AST/SGOT) 23 25 Alanine Aminotransferase (ALT/SGPT) 10 L 11 L Alkaline Phosphatase 190 H 174 H Lactate Dehydrogenase 350 Total Protein 12.5 H 12.1 H Albumin 3.9 3.7 Globulin 8.60 H 8.40 H Albumin/Globulin Ratio 0.45 0.44 Lipase 212 Hemoglobin A1c 5.6 Medications Medication Current Medications IV Flush (NS 3 ml) 3 ml PER PROTOCOL IV ; Start 05/30/18 at 20:00 Hydromorphone HCl (Dilaudid) 0.5 mg Q4H PRN IV .SEVERE PAIN 7-10 Last administered on 05/30/18at 21:36; Admin Dose 0.5 MG; Start 05/30/18 at 20:00 Ranitidine HCl (Zantac) 150 mg HS PO ; Start 05/30/18 at 21:00 Miscellaneous Information 1 ea NOTE XX ; Start 05/30/18 at 20:30 Glucose (Glutose) 15 gm Q15M PRN PO DECREASED GLUCOSE; Start 05/30/18 at 20:30 Glucose (Glutose) 22.5 gm Q15M PRN PO DECREASED GLUCOSE; Start 05/30/18 at 20:30 Dextrose (D50w Syringe) 25 ml Q15M PRN IV DECREASED GLUCOSE; Start 05/30/18 at 20:30 Dextrose (D50w Syringe) 50 ml Q15M PRN IV DECREASED GLUCOSE; Start 05/30/18 at 20:30 Glucagon (Glucagen) 1 mg Q15M PRN IM DECREASED GLUCOSE; Start 05/30/18 at 20:30 Glucose (Glutose) 15 gm Q15M PRN BUCCAL DECREASED GLUCOSE; Start 05/30/18 at 20:30 Apixaban (Eliquis) 2.5 mg DAILY PO ; Start 05/31/18 at 09:00 Atorvastatin Calcium (Lipitor) 40 mg QHS PO ; Start 05/31/18 at 21:00 Carvedilol (Coreg) 12.5 mg QHS PO ; Start 05/31/18 at 21:00 Carvedilol (Coreg) 25 mg DAILY PO Last administered on 05/31/18at 09:55; Admin Dose 25 MG; Start 05/31/18 at 09:00 Clopidogrel Bisulfate (plaVIX) 75 mg DAILY PO ; Start 05/31/18 at 09:00 Acetaminophen/ Hydrocodone Bitart ([place] (5/325)) 1 tab Q4H PRN PO MODERATE PAIN LEVEL 4-6 Last administered on 05/31/18at 09:57; Admin Dose 1 TAB; Start 05/31/18 at 00:00 LITA BASS M.D. May 31, 2018 13:00
--- NOTE | 2018-05-31 13:19 | HPN ---
Date/Time of Note Date/Time of Note DATE: 05/31/18 TIME: 13:18 Interval H&P Admission Note Pt. seen H&P reviewed: Systems changes noted below ASA Category 3. Therefore consulted Anesthesia. KATEY ELISE MD May 31, 2018 13:19
--- NOTE | 2018-05-31 13:32 | PAC ---
Date/Time of Note Date/Time of Note DATE: 05/31/18 TIME: 13:14 Post-Anesthesia Notes Post-Anesthesia Note Last documented vital signs Vital Signs Date Temp Pulse Resp B/P (MAP) Pulse Ox O2 O2 Flow FiO2 Time Delivery Rate 05/31/18 98.0 109 20 135/72 96 07:22 (93) 05/30/18 Nasal 2.0 21:00 Cannula Activity: Other (Patient repond to stimuli, open eyes and moving extremities) Respiratory function: Other (Pt was intubated by Anesthesia bc respiratory insufficiency) Cardiovascular function: WNL Mental status: Baseline (Pt open eyes and respond to stimuli) Pain reasonably controlled: Yes Hydration appropriate: Yes Nausea/Vomiting absent: Yes Comments Pt became apnic and bradycardic with HR dropping to 40s and saturation to 70% at the end of the procedure before being transferred to bed.He was ambu baged and intubated by Anesthesiologist and Transferred to ICU. Pt was extubated within 5 minutes of arrival in ICU in stable condition by Anesthesiologist. BP:116/67, P:88, Spo2:98% on 2 lit NC,T:98,9 MADELINE LEON MD May 31, 2018 13:28
[2018-05-31] MEDS ORDERED: NALOXONE (0.4 MG/ML) INJ ONE (14:08)
[2018-05-31] MEDS ORDERED: NALOXONE (0.4 MG/ML) INJ IV ONE (14:30)
--- NOTE | 2018-05-31 16:20 | PN ---
Date/Time of Note Date/Time of Note DATE: 05/31/18 TIME: 16:19 Assessment/Plan VTE Prophylaxis Risk score (from Ns)>0 risk: 5 SCD applied (from Nsg): Yes Pharmacological prophylaxis: heparin Lines/Catheters IV Catheter Type (from Nrsg): Saline Lock Urinary Cath still in place: No Assessment/Plan Hospital Course 83 yo male with ESRD, DMII who has been referred for MM workup after found to have hypercalcemia and pathologic hip fracture Oversedation reaction: - Monitor for narcotic effect. Narcan PRN Multiple myeloma: - Workup per Dr khoury - ELLIE, skeletal survery, bone marrow biopsy completed ESRD: - HD per renal Atrial fibrillation: - Hold AC for now Pancytopenia: - likely consistent with MM Cholelithiasis: - Unlikely causing any symptoms at this time. Had planned for elective cholecystectomy as outpatient but no acute indication DMII: - Basal/bolus insulin Hypercalcemia: - Consistent with MM, mild, no acute need for intervention Pathologic hip fracture: - management per Dr Burton Result Diagram: 05/31/182 05/31/18 0422 Results 24hrs Laboratory Tests Test 05/31/18 04:22 White Blood Count 4.8 Red Blood Count 2.67 L Hemoglobin 8.6 L Hematocrit 26.6 L Mean Corpuscular Volume 99.6 Mean Corpuscular Hemoglobin 32.2 Mean Corpuscular Hemoglobin Concent 32.3 Red Cell Distribution Width 19.2 H Platelet Count 92 L Mean Platelet Volume 12.8 H Immature Granulocytes % 0.400 Neutrophils % 75.3 Lymphocytes % 10.1 L Monocytes % 10.5 Eosinophils % 2.9 Basophils % 0.8 Nucleated Red Blood Cells % 0.0 Immature Granulocytes # 0.020 Neutrophils # 3.6 Lymphocytes # 0.5 L Monocytes # 0.5 Eosinophils # 0.1 Basophils # 0.0 Nucleated Red Blood Cells # 0.0 Sodium Level 140 Potassium Level 4.4 Chloride Level 93 L Carbon Dioxide Level 25 Anion Gap 22 H Blood Urea Nitrogen 46 H Creatinine 6.85 H Est Glomerular Filtrat Rate mL/min Glucose Level 98 Hemoglobin A1c 5.6 Calcium Level 10.8 H Total Bilirubin 0.3 Direct Bilirubin 0.00 Indirect Bilirubin 0.3 Aspartate Amino Transf (AST/SGOT) 25 Alanine Aminotransferase (ALT/SGPT) 11 L Alkaline Phosphatase 174 H Total Protein 12.1 H Albumin 3.7 Globulin 8.40 H Albumin/Globulin Ratio 0.44 Subjective 24 Hr Interval Summary Free Text/Dictation Had BM biopsy today and bradycardia/apneic reaction requiring intubation and transfer to ICU. Promptly extubated Exam/Review of Systems Exam Vitals Vital Signs Date Temp Pulse Resp B/P (MAP) Pulse Ox O2 O2 Flow FiO2 Time Delivery Rate 05/31/18 95 5.0 14:12 05/31/18 98 13:05 05/31/18 98.0 20 135/72 07:22 (93) 05/30/18 Nasal 21:00 Cannula Constitutional: alert, oriented, well developed Psych: no complaints, nl mood/affect Head: normocephalic, atraumatic Eyes: nl conjunctiva, EOMI, nl lids, nl sclera, PERRL ENMT: nl external ears & nose, nl lips & teeth, nl nasal mucosa & septum Neck: supple, non-tender Respiratory: clear to auscultation, normal air movement Cardiovascular: regular rate and rhythm, nl pulses Gastrointestinal: soft, nl liver, spleen, non-tender Musculoskeletal: nl extremities to inspection, nl gait and stance Extremities: normal pulses Neurological: DIRECTOR [employer] II-XII intact, nl mental status, nl speech, nl strength Skin: nl turgor; No rash or lesions Lymph: nl lymph nodes Results Results 24hrs Laboratory Tests Test 05/31/18 04:22 White Blood Count 4.8 Red Blood Count 2.67 L Hemoglobin 8.6 L Hematocrit 26.6 L Mean Corpuscular Volume 99.6 Mean Corpuscular Hemoglobin 32.2 Mean Corpuscular Hemoglobin Concent 32.3 Red Cell Distribution Width 19.2 H Platelet Count 92 L Mean Platelet Volume 12.8 H Immature Granulocytes % 0.400 Neutrophils % 75.3 Lymphocytes % 10.1 L Monocytes % 10.5 Eosinophils % 2.9 Basophils % 0.8 Nucleated Red Blood Cells % 0.0 Immature Granulocytes # 0.020 Neutrophils # 3.6 Lymphocytes # 0.5 L Monocytes # 0.5 Eosinophils # 0.1 Basophils # 0.0 Nucleated Red Blood Cells # 0.0 Sodium Level 140 Potassium Level 4.4 Chloride Level 93 L Carbon Dioxide Level 25 Anion Gap 22 H Blood Urea Nitrogen 46 H Creatinine 6.85 H Est Glomerular Filtrat Rate mL/min Glucose Level 98 Hemoglobin A1c 5.6 Calcium Level 10.8 H Total Bilirubin 0.3 Direct Bilirubin 0.00 Indirect Bilirubin 0.3 Aspartate Amino Transf (AST/SGOT) 25 Alanine Aminotransferase (ALT/SGPT) 11 L Alkaline Phosphatase 174 H Total Protein 12.1 H Albumin 3.7 Globulin 8.40 H Albumin/Globulin Ratio 0.44 Medications Medication Current Medications IV Flush (NS 3 ml) 3 ml PER PROTOCOL IV ; Start 05/30/18 at 20:00 Hydromorphone HCl (Dilaudid) 0.5 mg Q4H PRN IV .SEVERE PAIN 7-10 Last administered on 05/30/18at 21:36; Admin Dose 0.5 MG; Start 05/30/18 at 20:00 Ranitidine HCl (Zantac) 150 mg HS PO ; Start 05/30/18 at 21:00 Miscellaneous Information 1 ea NOTE XX ; Start 05/30/18 at 20:30 Glucose (Glutose) 15 gm Q15M PRN PO DECREASED GLUCOSE; Start 05/30/18 at 20:30 Glucose (Glutose) 22.5 gm Q15M PRN PO DECREASED GLUCOSE; Start 05/30/18 at 20:30 Dextrose (D50w Syringe) 25 ml Q15M PRN IV DECREASED GLUCOSE; Start 05/30/18 at 20:30 Dextrose (D50w Syringe) 50 ml Q15M PRN IV DECREASED GLUCOSE; Start 05/30/18 at 20:30 Glucagon (Glucagen) 1 mg Q15M PRN IM DECREASED GLUCOSE; Start 05/30/18 at 20:30 Glucose (Glutose) 15 gm Q15M PRN BUCCAL DECREASED GLUCOSE; Start 05/30/18 at 20:30 Apixaban (Eliquis) 2.5 mg DAILY PO ; Start 05/31/18 at 09:00 Atorvastatin Calcium (Lipitor) 40 mg QHS PO ; Start 05/31/18 at 21:00 Carvedilol (Coreg) 12.5 mg QHS PO ; Start 05/31/18 at 21:00 Carvedilol (Coreg) 25 mg DAILY PO Last administered on 05/31/18at 09:55; Admin D ose 25 MG; Start 05/31/18 at 09:00 Clopidogrel Bisulfate (plaVIX) 75 mg DAILY PO ; Start 05/31/18 at 09:00 Acetaminophen/ Hydrocodone Bitart ([place] (5/325)) 1 tab Q4H PRN PO MODERATE PAIN LEVEL 4-6 Last administered on 05/31/18at 09:57; Admin Dose 1 TAB; Start 05/31/18 at 00:00 SRAVANTHI YEPEZ MD May 31, 2018 16:20
[2018-05-31] MEDS ORDERED: BISACODYL (EC) 5 MG TAB PO ONE (18:30)
--- NOTE | 2018-05-31 19:09 | CONS ---
DATE OF ADMISSION: 05/30/2018 DATE OF CONSULTATION: 05/31/2018 TYPE OF CONSULTATION: Orthopedic surgical. HISTORY OF PRESENT ILLNESS: The patient is an 83-year-old male with a known history of multiple myel norris who was admitted on 05/30/2018 when he came to the emergency room complaining of generalized weak ness of 1 week's duration. According to available information, he was usually ambulatory with a cane ; however, he was not able to walk for a couple of weeks now. He reportedly had a fall on his buttoc k and back about 4 weeks ago and at that time, he was seen in an emergency room and was told that he had compression fracture involving his spine. PAST MEDICAL HISTORY: He is known to have multiple medical problems including history of CVA, histor y of atrial fibrillation, diabetes mellitus, hypertension, chronic kidney disease on dialysis, cholel ithiasis. PAST SURGICAL HISTORY: He had an appendectomy and the creation of the left AV fistula in the past. PHYSICAL EXAMINATION: My examination revealed an 83-year-old male who seems to be alert and oriented at this time. He was complaining of some pain in the right side of the low back with some radiation to the right buttock area. There was no other localized tenderness over both buttocks right over th e ischial tuberosity. There were no signs of radiculopathy such as change in the sensation or motor weakness in the lower extremities. Straight leg raising was positive on the right side at about 60 d egrees. During the leg raising, he did not have any pain or discomfort over the area of ischial tube rosity. DIAGNOSTIC DATA: CT scan of the abdomen and pelvis revealed the followin. There was fracture over the left ischial tuberosity through the area of possible metastatic lesio n. There was a fracture over the tip of left ischial tuberosity through the area which seems to have a metastatic lesion. The fracture itself is in good alignment. 2. There is a compression fracture involving the vertebral body of L3 and L5. The compression fract ure of the L3 seems to be through recent area in the vertebral body of L3 most probably involving the area of bony metastasis. There was a minimal retropulsion at the fracture site causing mild spinal stenosis, similar-appearing compression fracture involving the vertebral body of L5 also again involv ing the area of bony lucency suggesting that it is involving the area of metastatic lesion. DIAGNOSTIC IMPRESSION: 1. Pathologic fracture involving the left ischial tuberosity probably pathologic in nature, in accep table alignment and minimally symptomatic. 2. Pathologic fracture involving vertebral body of L3 and L5 causing minimal spinal stenosis and for aminal stenosis at the level of L3 without any obvious signs of radiculopathy. RECOMMENDATIONS FOR TREATMENT: 1. Lumbosacral brace for the compression fracture of the L3 and L5 and this has been ordered. 2. Ambulation as tolerated with PT with weightbearing as tolerated. Dictated By: CHEYENNE WATSON MD IK/NTS Conf#: [id number] DID#: [id number] CC: SRAVANTHI YEPEZ MD;*EndCC*
[2018-05-31] MEDS: ATORVASTATIN 40 MG TAB PO SCH (20:34)
[2018-05-31] MEDS: RANITIDINE 150 MG TAB PO SCH (20:35)
[2018-06-01] VITALS (20 sets, daily range): BP systolic 85–128; BP diastolic 46–59; PULSE 80–106; RESP 16–18
[2018-06-01] MEDS ORDERED: ONDANSETRON 4 MG INJ IV PRN
--- NOTE | 2018-06-01 09:27 | PN ---
DATE: 06/01/2018 SUBJECTIVE: Yesterday, the patient after a bone marrow biopsy was hypotensive, was intubated, transf erred to intensive care unit where he was extubated and transferred back to med/surg. The patient re zoya confused scheduled for hemodialysis today. No other events noted. OBJECTIVE: VITAL SIGNS: Blood pressure is 114/59, respirations 18, pulse 103, temperature 98.0. HEENT: Head is normocephalic. NECK: Supple. HEART: Regular rate. LUNGS: Show diminished breath sounds at the base. ABDOMEN: Soft, nontender to palpation without rebound or guarding. EXTREMITIES: Negative for clubbing, cyanosis, no edema. DERMATOLOGIC: No rashes. MUSCULOSKELETAL: No joint effusion. NEUROLOGIC: No change in exam. MEDICATIONS: Reviewed. LABORATORY DATA: From 05/31/2018 was reviewed. ASSESSMENT AND PLAN: 1. End-stage renal disease. Plan is for hemodialysis today. We will dialyze for 3 hours 3k bath, c alcium 2.5. 2. Anemia. Monitor hemoglobin and hematocrit levels. We will give Epogen as needed. 3. Mineral bone disorder, monitor calcium and phosphorus levels. The patient is hypocalcemic. Cont inue dialysis on low calcium bath. 4. Hypertension. Continue current blood pressure regimen. 5. Diabetes. Continue current insulin regimen. 6. Hypercalcemia. The patient is being monitored for possible multiple myeloma. The patient is sta tus post biopsy. Continue to monitor. Follow up with pathology. Follow up with hematology. 7. Pathological hip fracture. Continue to monitor. Follow up with orthopedist, Dr. Watson. 8. Status post respiratory failure, likely due to anesthesia, resolved. Continue to monitor. Dictated By: TAYLOR GROVE DO NR/NTS Conf#: [id number] DID#: [id number] CC: CHEYENNE WATSON MD; SRAVANTHI YEPEZ MD;*EndCC*
[2018-06-01] MEDS: CLOPIDOGREL 75 MG TAB PO SCH (09:46)
[2018-06-01] MEDS: APIXABAN 5 MG TABLET PO SCH (09:48)
--- NOTE | 2018-06-01 10:10 | RADRPT ---
Vent Rate: 99 bpm RR Interval: 0 msec MI Interval: 174 msec QRS Duration: 84 msec QT Interval: 366 msec QTC Interval: 469 msec P-R-T [place]: -11 - 64 - 0 degrees Normal sinus rhythm Marked ST abnormality, possible inferior subendocardial injury Abnormal ECG Electronically Signed By: Jose L Carrera
[2018-06-01] MEDS ORDERED: PAMIDRONATE 30 MG in SOD CHLORIDE 0.9% 500 ML IV ONE (12:00)
[2018-06-01] MEDS ORDERED: NA PHOSPHATE/BIPHOS 133 ML ENEMA PR ONE (12:00)
--- NOTE | 2018-06-01 14:04 | CONS ---
Assessment/Plan Assessment/Plan Hospital Course (Demo Recall) #Monoclonal protein -I am very concerned for multiple myeloma especially given the IgG level of greater than 7 grams -will follow up SPEP, [place]/ Lambda Free [place] chain ratio and serum immunofi xation -f/u skeletal survey -pt to have bone marrow bx today #BAck pain -pt has L3 compression fracture on CT -will order MRI without contrast of T and L spine #Hypercalcemia -will given pamidronate 30 mg today #ESRD -continue HD #DM -continue current medications #HTN -continue current medications Thank you for the opportunity to participate in this patients care A total of 40 minutes of face to face time was spent speaking with the patient, of which greater than 50% was spent in counseling and coordination of care and the detailed question and answer session. Consultation Date/Type/Reason Admit Date/Time May 30, 2018 at 19:04 Initial Consult Date 05/31/18 Type of Consult oncology Reason for Consultation multiple myeloma Requesting Provider: SRAVANTHI YEPEZ MD Date/Time of Note DATE: 06/01/18 TIME: 13:11 24 HR Interval Summary Free Text/Dictation pt c/o diarrhea Exam/Review of Systems Exam Vitals Vital Signs Date Temp Pulse Resp B/P (MAP) Pulse Ox O2 O2 Flow FiO2 Time Delivery Rate 06/01/18 98.0 103 18 114/59 98 Nasal 07:45 (77) Cannula 06/01/18 3.0 04:26 Intake and Output 05/31/18 05/31/18 06/01/18 1515:00 23:00 07:00 IntakeIntake Total 120 ml BalanceBalance 120 ml Constitutional: alert, oriented Psych: anxiety, depression ENMT: nl external ears & nose Neck: supple Respiratory: clear to auscultation Cardiovascular: regular rate and rhythm Gastrointestinal: soft Musculoskeletal: nl extremities to inspection Extremities: normal pulses Results Result Diagram: 05/31/1842105/31/18421 Medications Medication Current Medications IV Flush (NS 3 ml) 3 ml PER PROTOCOL IV ; Start 05/30/18 at 20:00 Hydromorphone HCl (Dilaudid) 0.5 mg Q4H PRN IV .SEVERE PAIN 7-10 Last administered on 05/30/18at 21:36; Admin Dose 0.5 MG; Start 05/30/18 at 20:00 Ranitidine HCl (Zantac) 150 mg HS PO ; Start 05/30/18 at 21:00 Miscellaneous Information 1 ea NOTE XX ; Start 05/30/18 at 20:30 Glucose (Glutose) 15 gm Q15M PRN PO DECREASED GLUCOSE; Start 05/30/18 at 20:30 Glucose (Glutose) 22.5 gm Q15M PRN PO DECREASED GLUCOSE; Start 05/30/18 at 20:30 Dextrose (D50w Syringe) 25 ml Q15M PRN IV DECREASED GLUCOSE; Start 05/30/18 at 20:30 Dextrose (D50w Syringe) 50 ml Q15M PRN IV DECREASED GLUCOSE; Start 05/30/18 at 20:30 Glucagon (Glucagen) 1 mg Q15M PRN IM DECREASED GLUCOSE; Start 05/30/18 at 20:30 Glucose (Glutose) 15 gm Q15M PRN BUCCAL DECREASED GLUCOSE; Start 05/30/18 at 20:30 Apixaban (Eliquis) 2.5 mg DAILY PO Last administered on 06/01/18at 09:48; Admin Dose 2.5 MG; Start 05/31/18 at 09:00 Atorvastatin Calcium (Lipitor) 40 mg QHS PO Last administered on 05/31/18at 20:34; Admin Dose 40 MG; Start 05/31/18 at 21:00 Carvedilol (Coreg) 12.5 mg QHS PO Last administered on 05/31/18at 20:35; Admin Dose 12.5 MG; Start 05/31/18 at 21:00 Carvedilol (Coreg) 25 mg DAILY PO Last administered on 06/01/18 09:47; Admin Dose 25 MG; Start 05/31/18 at 09:00 Clopidogrel Bisulfate (plaVIX) 75 mg DAILY PO Last administered on 06/01/18 09:46; Admin Dose 75 MG; Start 05/31/18 at 09:00 Acetaminophen/ Hydrocodone Bitart ([place] (5/325)) 1 tab Q4H PRN PO MODERATE PAIN LEVEL 4-6 Last administered on 05/31/18at 22:20; Admin Dose 1 TAB; Start 05/31/18 at 00:00 Ondansetron HCl (Zofran Inj) 4 mg Q4H PRN IV NAUSEA AND/OR VOMITING Last administered on 4/3/19at 00:10; Admin Dose 4 MG; Start 06/01/18 at 00:00 Pamidronate Disodium 30 mg/ Sodium Chloride 500 ml @ 83.333 mls/ hr Q6H ONCE IV ; Start 06/01/18 at 12:00; Stop 06/01/18 at 17:59 LITA BASS M.D. Jun 01, 2018 13:23
[2018-06-01] MEDS: BALSAM PERU/CASTOR OIL 60 GM TUBE TOP SCH ×2 (16:33→20:46)
[2018-06-01] MEDS: HYDROCODONE/APAP (5/325) TAB PO PRN ×2 (16:41→22:01)
--- NOTE | 2018-06-01 17:13 | PN ---
Date/Time of Note Date/Time of Note DATE: 06/01/18 TIME: 17:09 Assessment/Plan VTE Prophylaxis Risk score (from Nsg)>0 risk: 6 SCD applied (from Nsg): Yes Pharmacological prophylaxis: heparin Lines/Catheters IV Catheter Type (from Nrsg): [place] Urinary Cath still in place: No Assessment/Plan Hospital Course 83 yo male with ESRD, DMII who has been referred for MM workup after found to have hypercalcemia and pathologic hip fracture Oversedation reaction: - resolved Multiple myeloma: - Awaits MRI - Workup per Dr khoury - ELLIE, skeletal survery, bone marrow biopsy completed ESRD: - HD per renal Atrial fibrillation: - Continue AC Pancytopenia: - likely consistent with MM Cholelithiasis: - Unlikely causing any symptoms at this time. Had planned for elective cholecystectomy as outpatient but no acute indication DMII: - Basal/bolus insulin Hypercalcemia: - Consistent with MM, mild, no acute need for intervention Pathologic hip fracture: - management per Dr Burton Discharge home following MRI Result Diagram: 05/31/18 0422 05/31/18 0422 Results 24hrs Laboratory Tests Test 06/01/18 12:43 Hepatitis B Surface Antigen NEGATIVE Hepatitis B Core Total Antibody NEGATIVE Hepatitis C Antibody NEGATIVE Subjective 24 Hr Interval Summary Free Text/Dictation Patient stable today Received HD Pain in hip is only complaint Exam/Review of Systems Exam Vitals Vital Signs Date Temp Pulse Resp B/P (MAP) Pulse Ox O2 O2 Flow FiO2 Time Delivery Rate 06/01/18 106 114/59 98 Nasal 2.0 15:46 (77) Cannula 06/01/18 98.1 17 14:23 Intake and Output 05/31/18 05/31/18 06/01/18 1515:00 23:00 07:00 IntakeIntake Total 120 ml BalanceBalance 120 ml Constitutional: alert, oriented, well developed Psych: no complaints, nl mood/affect Head: normocephalic, atraumatic Eyes: nl conjunctiva, EOMI, nl lids, nl sclera, PERRL ENMT: nl external ears & nose, nl lips & teeth, nl nasal mucosa & septum Neck: supple, non-tender Respiratory: clear to auscultation, normal air movement Cardiovascular: regular rate and rhythm, nl pulses Gastrointestinal: soft, nl liver, spleen, non-tender Musculoskeletal: nl extremities to inspection, nl gait and stance Extremities: normal pulses Neurological: BLOCK CAPTAIN II-XII intact, nl mental status, nl speech, nl strength Skin: nl turgor; No rash or lesions Lymph: nl lymph nodes Results Results 24hrs Laboratory Tests Test 06/01/18 12:43 Hepatitis B Surface Antigen NEGATIVE Hepatitis B Core Total Antibody NEGATIVE Hepatitis C Antibody NEGATIVE Medications Medication Current Medications IV Flush (NS 3 ml) 3 ml PER PROTOCOL IV ; Start 05/30/18 at 20:00 Hydromorphone HCl (Dilaudid) 0.5 mg Q4H PRN IV .SEVERE PAIN 7-10 Last administered on 05/30/18at 21:36; Admin Dose 0.5 MG; Start 05/30/18 at 20:00 Ranitidine HCl (Zantac) 150 mg HS PO ; Start 05/30/18 at 21:00 Miscellaneous Information 1 ea NOTE XX ; Start 05/30/18 at 20:30 Glucose (Glutose) 15 gm Q15M PRN PO DECREASED GLUCOSE; Start 05/30/18 at 20:30 Glucose (Glutose) 22.5 gm Q15M PRN PO DECREASED GLUCOSE; Start 05/30/18 at 20:30 Dextrose (D50w Syringe) 25 ml Q15M PRN IV DECREASED GLUCOSE; Start 05/30/18 at 20:30 Dextrose (D50w Syringe) 50 ml Q15M PRN IV DECREASED GLUCOSE; Start 05/30/18 at 20:30 Glucagon (Glucagen) 1 mg Q15M PRN IM DECREASED GLUCOSE; Start 05/30/18 at 20:30 Glucose (Glutose) 15 gm Q15M PRN BUCCAL DECREASED GLUCOSE; Start 05/30/18 at 20:30 Apixaban (Eliquis) 2.5 mg DAILY PO Last administered on 06/01/18at 09:48; Admin Dose 2.5 MG; Start 05/31/18 at 09:00 Atorvastatin Calcium (Lipitor) 40 mg QHS PO Last administered on 05/31/18at 20:34; Admin Dose 40 MG; Start 05/31/18 at 21:00 Carvedilol (Coreg) 12.5 mg QHS PO Last administered on 05/31/18at 20:35; Admin Dose 12.5 MG; Start 05/31/18 at 21:00 Carvedilol (Coreg) 25 mg DAILY PO Last administered on 06/01/18 09:47; Admin Dose 25 MG; Start 05/31/18 at 09:00 Clopidogrel Bisulfate (plaVIX) 75 mg DAILY PO Last administered on 06/01/18 09:46; Admin Dose 75 MG; Start 05/31/18 at 09:00 Acetaminophen/ Hydrocodone Bitart ([place] (5/325)) 1 tab Q4H PRN PO MODERATE PAIN LEVEL 4-6 Last administered on 06/01/18 16:41; Admin Dose 1 TAB; Start 05/31/18 at 00:00 Ondansetron HCl (Zofran Inj) 4 mg Q4H PRN IV NAUSEA AND/OR VOMITING Last administered on 06/01/18 00:10; Admin Dose 4 MG; Start 06/01/18 at 00:00 Pamidronate Disodium 30 mg/ Sodium Chloride 500 ml @ 83.333 mls/ hr Q6H ONCE IV Last administered on 06/01/18 16:33; Admin Dose 83.333 MLS/HR; Start 06/01/18 at 12:00; Stop 06/01/18 at 17:59 SRAVANTHI YEPEZ MD Jun 01, 2018 17:13
[2018-06-01] MEDS: RANITIDINE 150 MG TAB PO SCH (20:45)
[2018-06-01] MEDS: ATORVASTATIN 40 MG TAB PO SCH (20:45)
[2018-06-02] VITALS (76 sets, daily range): BP systolic 74–184; BP diastolic 44–119; PULSE 43–104; RESP 14–24
[2018-06-02] MEDS ORDERED: NORepinephrine 8MG/250 ML (PMX 250 ML ONE (02:13)
[2018-06-02] MEDS: NORepinephrine 8MG/250 ML (PMX 250 ML IV SCH ×2 (02:16→09:30)
[2018-06-02] MEDS ORDERED: SOD CHLORIDE 0.9% 500 ML IV ONE (03:00)
[2018-06-02] MEDS ORDERED: NALOXONE (0.4 MG/ML) INJ IV ONE ×2 (03:00→04:30)
--- NOTE | 2018-06-02 03:04 | EN ---
Date/Time of Note Date/Time of Note DATE: 06/02/18 TIME: 02:54 Event Note Medicine Medicine Event Note Acute event note/CODE BLUE note CODE BLUE was called overhead and initiated at approximately 1:15 AM. Patient originally was in the room and the last well-known time was 1 AM. Nurse reported that she went to the room and the patient was doing fine at 1 AM. When she returned at approximately 1:13 AM she noticed that the patient was not breathing. Unsure of total down time. No pulses were noted. CODE BLUE was initiated. High-grade chest compressions with ACLS were initiated. The ED physician along with the CODE BLUE team arrived at the bedside. Please see code sheet for full details of rhythms and medications etc. Code was run for approximately 8 minutes and and MICKY was established at approximately 1:23 AM. During this time patient was also intubated and a central line was placed by the ED physician. Patient was taken emergently to the CT scanner for a CT scan of the brain without contrast. And then taken to the ICU. Nurse reports that he did receive a [place] earlier in the night secondary to pain. Post code physical exam: General: Patient nonresponsive, pupils sluggish to light bilaterally CVS: Atrial fibrillation Lungs: Coarse breath sounds bilaterally Neuro: Pupils sluggish to light bilaterally, slightly pinpoint Assessment and plan: #1 cardiopulmonary arrest: Etiology unknown at the current time. Transfer patient to ICU for closer monitoring. Stat CBC CMP cardiac enzymes, lactic acid blood cultures. Stat EKG. Stat chest x-ray for ET tube placement, and central line confirmation.. Stat CT of the brain without contrast. Echocardiogram in the a.m., consult cardiology Given that the patient does have possible underlying multiple myeloma this may be exclusion criteria for hypothermia protocol. The bitumastic applier on-call has been paged will discuss the case with him in regards to whether we need to ini tiate hypothermia protocol. I did speak with the son on the phone after the code as well as at the bedside he is aware of the patient's clinical condition. Greater than 45 minutes of critical care time spent on care management this patient. PHILOMENA JONSE Jun 02, 2018 03:04
[2018-06-02] MEDS ORDERED: EPINEPHrine 0.1 MG/ML SYG ONE (04:00)
[2018-06-02] MEDS ORDERED: CA CHLORIDE 10% 10 ML SYRINGE ONE (04:00)
[2018-06-02] MEDS ORDERED: DEXTROSE 50% 50 ML SYRINGE ONE (04:00)
[2018-06-02] MEDS ORDERED: SUCCINYLCHOLINE CHLORIDE 100 MG/5 ML SYG IV ONE (04:00)
[2018-06-02] MEDS ORDERED: NA BICARBONATE 8.4% 50 ML SYG ONE (04:00)
[2018-06-02] MEDS ORDERED: ETOMIDATE 20 MG INJ ONE (04:00)
[2018-06-02] MEDS ORDERED: SOD CHLORIDE 0.9% 1,000 ML IV SCH (04:30)
[2018-06-02] MEDS ORDERED: INSULIN ASPART [NOVOLOG] 3 ML PEN SC SCH (05:00)
[2018-06-02] MEDS ORDERED: PROPOFOL 100 ML ONE (06:22)
[2018-06-02] MEDS: ACCU-CHEK XX SCH ×6 (07:00→20:00)
[2018-06-02] MEDS ORDERED: ACETAMINOPHEN 650MG/20.3ML CUP PO PRN (07:00)
[2018-06-02] MEDS ORDERED: DEXTROSE 50% 50 ML SYRINGE IV PRN ×4 (07:00→09:30)
[2018-06-02] MEDS ORDERED: ACETAMINOPHEN 650 MG SUPP PR PRN (07:00)
[2018-06-02] MEDS ORDERED: MEPERIDINE 25 MG INJ IV PRN ×3 (07:00→07:30)
[2018-06-02] MEDS ORDERED: VECURONIUM 10 MG VIAL IV SCH (07:30)
[2018-06-02] MEDS ORDERED: BUSPIRONE 5 MG TAB GTB SCH (07:30)
[2018-06-02] MEDS ORDERED: PROPOFOL 100 ML IV ONE (07:30)
[2018-06-02] MEDS ORDERED: VECURONIUM 100 MG in DEXTROSE 5% 100 ML IV PRN (07:30)
[2018-06-02] MEDS ORDERED: INSULIN HUMAN REGULAR 100 UNIT in SOD CHLORIDE 0.9% 99 ML IV SCH (08:00)
--- NOTE | 2018-06-02 08:32 | PN ---
DATE: 06/02/2018 SUBJECTIVE: The patient yesterday underwent cardiac arrest early in the morning. The patient was th en subsequently transferred to the intensive care unit. The patient has been initiated on hypothermi c protocol. The patient yesterday also received dialysis earlier in the afternoon and tolerated well . No other events noted. The patient is also noted to be intubated on full ventilatory support. OBJECTIVE: VITAL SIGNS: Blood pressure is 135/64, respirations 20, pulse 90, temperature 98.6. HEENT: Head is normocephalic. NECK: Supple. HEART: Regular rate. LUNGS: Show diminished breath sounds at the base. ABDOMEN: Soft, nontender to palpation without rebound or guarding. EXTREMITIES: Negative for clubbing, cyanosis, no edema. DERMATOLOGIC: No rashes. MUSCULOSKELETAL: No joint effusion. NEUROLOGIC: No change in exam. MEDICATIONS: Reviewed. LABORATORY DATA: Shows sodium 141, potassium 5.0, BUN 36, creatinine 5.73, calcium 11.0. White coun t 5.6, hemoglobin 8.1, platelet count is 87. The patient's immunology has been reviewed. IMAGING STUDIES: Reviewed. ASSESSMENT AND PLAN: 1. End-stage renal disease. The patient had hemodialysis yesterday, tolerated well. Plan is for he modialysis tomorrow. The patient is hemodynamically stable. 2. Cardiac arrest. Etiology is unclear, possible cardiac versus respiratory. The patient's EKG was reviewed. CT scan of the brain was reviewed. CBC and BMP were reviewed. At this point, we will co ntinue to monitor. Continue hypothermic protocol. Follow up with Cardiology for recommendations. 3. Anemia. Monitor hemoglobin and hematocrit levels. 4. Hypercalcemia, etiology is concerning for possible multiple myeloma. The patient's calcium level s remain elevated. We will continue dialysis on a low calcium bath. Consider bisphosphonate. We wi ll follow up with hematology. 5. Hypertension. Continue current blood pressure regimen. 6. Diabetes. Continue current insulin regimen. 7. Pathological hip fracture. Continue to monitor. Follow up with orthopedist. 8. Ventilator-dependent respiratory failure. Vent settings and ABG was reviewed. Continue to monit or. Please note I spent over 30 minutes of critical care time with this patient. Dictated By: TAYLOR MCCRAY/KILLIAN Conf#: [id number] DID#: [id number] CC: CHEYENNE WATSON MD; SRAVANTHI YEPEZ MD;*[facility]*
[2018-06-02] MEDS: APIXABAN 5 MG TABLET PO SCH (09:00)
[2018-06-02] MEDS: BALSAM PERU/CASTOR OIL 60 GM TUBE TOP SCH ×2 (09:00→23:20)
[2018-06-02] MEDS: CLOPIDOGREL 75 MG TAB PO SCH (09:00)
[2018-06-02] MEDS ORDERED: GLUCOSE GEL 15 GRAM TUBE BUCCAL PRN (09:30)
[2018-06-02] MEDS ORDERED: GLUCAGON 1 MG INJ IM PRN (09:30)
[2018-06-02] MEDS ORDERED: (Nursing Note) XX SCH (09:30)
[2018-06-02] MEDS ORDERED: GLUCOSE GEL 15 GRAM TUBE PO PRN ×2 (09:30)
--- NOTE | 2018-06-02 09:48 | CONS ---
Assessment/Plan Assessment/Plan Assessment/Plan (Daily) Chest x-ray showing bilateral pneumonia with pleural effusions. Ventilator setting; AC of 16, tidal volume 500, PEEP of 5, 50% FiO2. Patient is currently on propofol 42 mics per kilogram per minute, off Levophed. Assessment recommendations; 1. Patient with history of chronic renal failure admitted for workup of multiple myeloma, status post 2 cardiac arrest events. Currently on hypothermia protocol. 2. Bilateral pneumonia with pleural effusions. 3. Anemia and thrombocytopenia. 4. Interval resolution of hypotension. 5. History of hypertension. Continue with supportive care. Add vancomycin and Azactam. Obtain follow-up chest x-ray 24 hours. Prognosis is guarded at this point. 40 minutes of critical care time was spent evaluating the patient. Consultation Date/Type/Reason Admit Date/Time May 30, 2018 at 19:04 Date of Consultation: Jun 02, 2018 Type of Consult Pulmonary/critical care Patient is an 83-year-old male who was admitted for workup for possible multiple myeloma with history of hypercalcemia and pathological fracture. Patient underwent bone marrow biopsy but had a cardiac arrest event requiring intubation. Patient required brief intubation was extubated transferred to medical floor where the patient again had a cardiac arrest event last evening requiring CPR lasting 10 minutes, currently patient is orally intubated and is on hypothermia protocol. History was obtained from medical records. Past medical history; 1. Chronic renal failure, on hemodialysis. 2. Possibly underlying multiple myeloma. 3. Anemia and thrombocytopenia. 4. History of hypertension. Medications; reviewed. Allergies; penicillin. Social history; not available. Family history; not available, apparently he has a supportive family. Occupational history; not available. Review of system; unable to be obtained. General exam; elderly male, orally intubated, on hypothermia protocol. Date/Time of Note DATE: 06/02/18 TIME: 09:44 Past Medical History Medical History: diabetes, renal disease Home Meds Reported Medications Carvedilol* (Carvedilol*) 12.5 Mg Tablet, 12.5 MG PO QHS, #60 TAB 05/30/18 Carvedilol* (Carvedilol*) 25 Mg Tablet, 25 MG PO DAILY, #60 TAB 05/30/18 Apixaban* (Eliquis*) 2.5 Mg Tablet, 2.5 MG PO DAILY, TAB 05/30/18 Insulin Regular, Human (Humulin R) 100 Unit/1 Ml Vial, IJ, VIAL 06/01/17 Cholecalciferol* (Vitamin D3*) 1,000 Unit Tablet, 2000 UNIT PO DAILY, TAB 06/01/17 Atorvastatin* (Atorvastatin*) 40 Mg Tablet, 40 MG PO QHS, #30 TAB 06/01/17 Ranitidine Hcl* (Ranitidine Hcl*) 150 Mg Tablet, 150 MG PO HS, #30 TAB 06/01/17 Clopidogrel Bisulfate (Clopidogrel) 75 Mg Tablet, 75 MG PO DAILY, #30 TAB 06/01/17 Insulin Glargine* (Lantus*) 100 Unit/Ml Soln, 42 UNIT SC DAILY, #1 VIAL 06/01/17 Hydrochlorothiazide* (Hydrochlorothiazide*) 25 Mg Tab, 25 MG PO BID, #60 TAB 06/01/17 Lisinopril* (Lisinopril*) 20 Mg Tablet, 20 MG PO BID, #30 TAB 06/01/17 Nifedipine* (Nifedipine ER*) 30 Mg Tablet.sa, 30 MG PO DAILY, TAB.SA 06/01/17 Medications Current Medications IV Flush (NS 3 ml) 3 ml PER PROTOCOL IV ; Start 05/30/18 at 20:00 Ranitidine HCl (Zantac) 150 mg HS PO Last administered on 06/01/18 20:45; Admin Dose 150 MG; Start 05/30/18 at 21:00 Apixaban (Eliquis) 2.5 mg DAILY PO Last administered on 06/01/18 09:48; Admin Dose 2.5 MG; Start 05/31/18 at 09:00 Atorvastatin Calcium (Lipitor) 40 mg QHS PO Last administered on 06/01/18 20:45; Admin Dose 40 MG; Start 05/31/18 at 21:00 Carvedilol (Coreg) 12.5 mg QHS PO Last administered on 05/31/18 20:35; Admin Dose 12.5 MG; Start 05/31/18 at 21:00 Carvedilol (Coreg) 25 mg DAILY PO Last administered on 06/01/18 09:47; Admin Dose 25 MG; Start 05/31/18 at 09:00 Clopidogrel Bisulfate (plaVIX) 75 mg DAILY PO Last administered on 06/01/18 09:46; Admin Dose 75 MG; Start 05/31/18 at 09:00 Ondansetron HCl (Zofran Inj) 4 mg Q4H PRN IV NAUSEA AND/OR VOMITING Last administered on 06/01/18at 00:10; Admin Dose 4 MG; Start 06/01/18 at 00:00 Norepinephrine 250 ml @ 1.875 mls/ hr TITRATE IV Last administered on 06/02/18at 02:16; Admin Dose 1.875 MLS/HR; Start 06/02/18 at 02:30 Sodium Chloride 1,000 ml @ 40 mls/hr Q24H IV Last administered on 06/02/18at 04:40; Admin Dose 40 MLS/HR; Start 06/02/18 at 04:30 Acetaminophen (Tylenol Supp) 650 mg Q4H PRN NV TEMP > 37C; Start 06/02/18 at 07:00 Acetaminophen (Tylenol Liquid) 650 mg Q4H PRN PO TEMP > 37C; Start 06/02/18 at 07:00 Acetaminophen (Tylenol Supp) 500 mg Q6H NV ; Start 06/03/18 at 07:00 Acetaminophen (Tylenol Liquid) 500 mg Q6H PO ; Start 06/03/18 at 07:00 Meperidine HCl (Demerol) 12.5 mg Q4H PRN IV POST OPERATIVE SHIVERING; Start 06/02/18 at 07:00 Meperidine HCl (Demerol) 25 mg Q4H PRN IV POST OPERATIVE SHIVERING; Start 06/02/18 at 07:00 Eye Lubricant (Artificial Tears Oph) 2 drop Q6 BOTH EYES ; Start 06/02/18 at 12:00 Diagnostic Test (Pha) (Accu-Chek) 1 ea Q1H XX ; Start 06/02/18 at 07:00 Insulin Human Regular 100 unit/ Sodium Chloride 100 ml @ 0.2 mls/hr PER PROTOCOL IV ; Start 06/02/18 at 08:00 Miscellaneous Information (* Miscellaneous Pharmacy Order) Treatment of Hypoglycemia: 1.BG 51... Per protocol XX ; Start 06/02/18 at 07:00 Dextrose (D50w Syringe) 25 ml Q15M PRN IV .DECREASED GLUCOSE; Start 06/02/18 at 07:00 Dextrose (D50w Syringe) 50 ml Q15M PRN IV .DECREASED GLUCOSE; Start 06/02/18 at 07:00 Vecuronium Union 100 mg/ Dextrose 100 ml @ 4.55 mls/hr TITRATE PRN IV POST OPERATIVE SHIVERING; Start 06/02/18 at 07:30 Meperidine HCl (Demerol) 12.5 mg Q2 PRN IV POST OPERATIVE SHIVERING; Start 06/02/18 at 07:30 Hypromellose (Genteal Severe) 1 applic Q6 BOTH EYES ; Start 06/02/18 at 12:00 Miscellaneous Information 1 ea NOTE XX ; Start 06/02/18 at 09:30; Status UNV Glucose (Glutose) 15 gm Q15M PRN PO DECREASED GLUCOSE; Start 06/02/18 at 09:30; Status UNV Glucose (Glutose) 22.5 gm Q15M PRN PO DECREASED GLUCOSE; Start 06/02/18 at 09:3 0; Status UNV Dextrose (D50w Syringe) 25 ml Q15M PRN IV DECREASED GLUCOSE; Start 06/02/18 at 09:30; Status UNV Dextrose (D50w Syringe) 50 ml Q15M PRN IV DECREASED GLUCOSE; Start 06/02/18 at 09:30; Status UNV Glucagon (Glucagen) 1 mg Q15M PRN IM DECREASED GLUCOSE; Start 06/02/18 at 09:30; Status UNV Glucose (Glutose) 15 gm Q15M PRN BUCCAL DECREASED GLUCOSE; Start 06/02/18 at 09:30; Status UNV Eye Lubricant (Akwa Oint) 1 applic Q6 BOTH EYES ; Start 06/02/18 at 12:00; Status UNV Miscellaneous Information (* Miscellaneous Pharmacy Order) Discontinue all previ... PROTOCOL ONCE XX ; Start 06/02/18 at 09:30; Stop 06/02/18 at 09:31; Status UNV Allergies: Coded Allergies: Penicillins (Unverified Allergy, Unknown, 05/31/17) Sulfa (Sulfonamide Antibiotics) (Unverified Allergy, Unknown, 05/31/17) Past Surgical History Past Surgical Hx: no surgical history Social History Alcohol Use: none Smoking Status: Never smoker Drug Use: none Exam/Review of Systems Exam Vitals Vital Signs Date Temp Pulse Resp B/P (MAP) Pulse Ox O2 O2 Flow FiO2 Time Delivery Rate 06/02/18 94.1 57 16 90/50 (63) 100 09:00 65 06/02/18 40 05:40 06/02/18 Mechanical 05:00 Ventilator 06/01/18 2.0 20:00 Intake and Output 06/01/18 06/01/18 06/02/18 1515:00 23:00 07:00 IntakeIntake Total 500 ml 98.75 ml OutputOutput Total 200 ml 700 ml 10 ml BalanceBalance -200 ml -200 ml 88.75 ml Exam H EENT exam; supple neck, no JVD. No lymphadenopathy. Midline trachea. No thyromegaly. Orally intubated. Patient has fair dentition. No neck masses. Chest exam; diminished breath sounds throughout. S1-S2 audible, no murmurs. Regular rhythm. Abdomen exam; soft, no organomegaly. Bowel sounds are sluggish to absent.. Extremity exam; no peripheral edema. HEEL COMPRESSOR exam; patient is sedated. Results Result Diagram: 06/02/18 0500 06/02/18 0500 Results 24hrs Laboratory Tests Test 06/01/18 12:43 06/02/18 01:19 06/02/18 02:26 06/02/18 02:52 Hepatitis B NEGATIVE Surface Antigen Hepatitis B Core NEGATIVE Total Antibody Hepatitis C NEGATIVE Antibody Bedside Glucose 135 Blood Gas Blood arterial Specimen Source Arterial Blood 06/02/2018 2:50:24 Date Drawn AM Arterial Blood 7.358 pH (Temp corrected) Arterial Blood 41.0 pCO2 (Temp correct) Arterial Blood 103.1 H pO2 (Temp corrected) Arterial Blood 22.5 HCO3 Arterial Blood -2.7 Base Excess Arterial Blood 96.8 Oxygen Saturatio n Ramon Test ACCEPTAB Arterial Blood Right Radial Gas Puncture Site Arterial 0.8 Blood Carboxyhem oglobin Arterial Blood 0.2 Methemoglobin Blood Gas A-a O2 207.3 H Differential Oxyhemoglobin 95.8 Percent Blood Gas 37.0 Temperature Blood Gas 16.0 Respiration Rate Blood Gas Actual 16 Respiration Rate Blood Gas VENT - AC Modality FiO2 50.0 Blood Gas Tidal 500.0 Volume Blood Gas Low 5.0 PEEP Setting Blood Gas [place] Notified Whom Blood Gas 06/02/2018 3:01:12 Notified Time AM White Blood 4.5 L Count Red Blood Count 2.47 L Hemoglobin 7.8 L Hematocrit 25.1 L Mean Corpuscular 101.6 H Volume Mean Corpuscular 31.6 Hemoglobin Mean Corpuscular 31.1 L Hemoglobin Mary nt Red Cell 19.3 H Distribution Width Platelet Count 77 L Mean Platelet 12.4 H Volume Immature 1.600 H Granulocytes % Neutrophils % 83.6 H Lymphocytes % 7.2 L Monocytes % 5.6 Eosinophils % 1.6 Basophils % 0.4 Nucleated Red 0.0 Blood Cells % Immature 0.070 H Granulocytes # Neutrophils # 3.7 Lymphocytes # 0.3 L Monocytes # 0.3 Eosinophils # 0.1 Basophils # 0.0 Nucleated Red 0.0 Blood Cells # Lactic Acid 3.4 *H Level Creatine Kinase 103 Creatine Kinase 1.7 Index Creatinine 1.76 Kinase MB (Mass) Troponin I 0.040 Test 06/02/18 02:53 06/02/18 04:58 06/02/18 05:00 06/02/18 06:38 Sodium Level 143 141 Potassium Level 4.7 5.0 Chloride Level 103 # 99 Carbon Dioxide 23 23 Level Anion Gap 17 H 19 H Blood Urea 34 #H 36 H Nitrogen Creatinine 5.67 H 5.73 H Est Glomerular Filtrat Rate mL/min Glucose Level 122 142 Bedside Glucose 102 121 Calcium Level 11.1 H 11.0 H Total Bilirubin 0.3 Direct Bilirubin 0.00 Indirect 0.3 Bilirubin Aspartate Amino 48 #H Transf (AST/SGOT ) Alanine 27 Aminotransferase (ALT/SGPT) Alkaline 171 H Phosphatase Total Protein 10.7 H Albumin 3.3 Globulin 7.40 H Albumin/Globulin 0.44 Ratio White Blood 5.6 # Count Red Blood Count 2.57 L Hemoglobin 8.1 L Hematocrit 25.9 L Mean Corpuscular 100.8 Volume Mean Corpuscular 31.5 Hemoglobin Mean Corpuscular 31.3 L Hemoglobin Mary nt Red Cell 19.4 H Distribution Width Platelet Count 87 L Mean Platelet 12.5 H Volume Immature 0.700 H Granulocytes % Neutrophils % 79.9 H Lymphocytes % 9.6 L Monocytes % 8.9 Eosinophils % 0.5 Basophils % 0.4 Nucleated Red 0.4 H Blood Cells % Immature 0.040 H Granulocytes # Neutrophils # 4.5 Lymphocytes # 0.5 L Monocytes # 0.5 Eosinophils # 0.0 Basophils # 0.0 Nucleated Red 0.0 Blood Cells # Phosphorus Level 7.6 H Magnesium Level 2.0 Blood Gas Blood arterial Specimen Source Arterial Blood 06/02/2018 7:13:47 Date Drawn AM Arterial Blood 7.448 pH (Temp corrected) Arterial Blood 34.9 L pCO2 (Temp correct) Arterial Blood 115.6 H pO2 (Temp corrected) Arterial Blood 23.7 HCO3 Arterial Blood -0.3 Base Excess Arterial Blood 98.2 Oxygen Saturatio n Ramon Test ACCEPTAB Arterial Blood Right Radial Gas Puncture Site Arterial 0.6 Blood Carboxyhem oglobin Arterial Blood 0.1 Methemoglobin Blood Gas A-a O2 202.7 H Differential Oxyhemoglobin 97.5 Percent Blood Gas 36.2 Temperature Blood Gas 16.0 Respiration Rate Blood Gas Actual 19 Respiration Rate Blood Gas VENT - AC Modality FiO2 50.0 Blood Gas Tidal 500.0 Volume Blood Gas Low 5.0 PEEP Setting Blood Gas TM Notified Whom Blood Gas 06/02/2018 8:02:48 Notified Time AM Test 06/02/18 07:37 06/02/18 09:16 Prothrombin Time 20.3 H Prothrombin Time 1.6 Ratio INR 1.73 International Normalized Ratio Activated 36.3 H Partial Thrombop last Time Fibrinogen 239.0 D-Dimer 5884.17 H D-Dimer Comment Lactic Acid 1.4 Level Phosphorus Level 7.8 H Magnesium Level 2.1 Creatine Kinase 79 Creatine Kinase 3.5 Index Creatinine 2.77 H Kinase MB (Mass) Troponin I 0.222 *H Amylase Level 57 Lipase 133 Bedside Glucose 143 Medications Medication Current Medications IV Flush (NS 3 ml) 3 ml PER PROTOCOL IV ; Start 05/30/18 at 20:00 Ranitidine HCl (Zantac) 150 mg HS PO Last administered on 06/01/18at 20:45; Admin Dose 150 MG; Start 05/30/18 at 21:00 Apixaban (Eliquis) 2.5 mg DAILY PO Last administered on 06/01/18 09:48; Admin Dose 2.5 MG; Start 05/31/18 at 09:00 Atorvastatin Calcium (Lipitor) 40 mg QHS PO Last administered on 06/01/18 20:45; Admin Dose 40 MG; Start 05/31/18 at 21:00 Carvedilol (Coreg) 12.5 mg QHS PO Last administered on 05/31/18at 20:35; Admin Dose 12.5 MG; Start 05/31/18 at 21:00 Carvedilol (Coreg) 25 mg DAILY PO Last administered on 06/01/18at 09:47; Admin Dose 25 MG; Start 05/31/18 at 09:00 Clopidogrel Bisulfate (plaVIX) 75 mg DAILY PO Last administered on 06/01/18at 09:46; Admin Dose 75 MG; Start 05/31/18 at 09:00 Ondansetron HCl (Zofran Inj) 4 mg Q4H PRN IV NAUSEA AND/OR VOMITING Last administered on 06/01/18at 00:10; Admin Dose 4 MG; Start 06/01/18 at 00:00 Norepinephrine 250 ml @ 1.875 mls/ hr TITRATE IV Last administered on 06/02/18at 02:16; Admin Dose 1.875 MLS/HR; Start 06/02/18 at 02:30 Sodium Chloride 1,000 ml @ 40 mls/hr Q24H IV Last administered on 06/02/18at 04:40; Admin Dose 40 MLS/HR; Start 06/02/18 at 04:30 Acetaminophen (Tylenol Supp) 650 mg Q4H PRN NV TEMP > 37C; Start 06/02/18 at 07:00 Acetaminophen (Tylenol Liquid) 650 mg Q4H PRN PO TEMP > 37C; Start 06/02/18 at 07:00 Acetaminophen (Tylenol Supp) 500 mg Q6H NV ; Start 06/03/18 at 07:00 Acetaminophen (Tylenol Liquid) 500 mg Q6H PO ; Start 06/03/18 at 07:00 Meperidine HCl (Demerol) 12.5 mg Q4H PRN IV POST OPERATIVE SHIVERING; Start 06/02/18 at 07:00 Meperidine HCl (Demerol) 25 mg Q4H PRN IV POST OPERATIVE SHIVERING; Start 06/02/18 at 07:00 Eye Lubricant (Artificial Tears Oph) 2 drop Q6 BOTH EYES ; Start 06/02/18 at 12:00 Diagnostic Test (Pha) (Accu-Chek) 1 ea Q1H XX ; Start 06/02/18 at 07:00 Insulin Human Regular 100 unit/ Sodium Chloride 100 ml @ 0.2 mls/hr PER PROTOCOL IV ; Start 06/02/18 at 08:00 Miscellaneous Information (* Miscellaneous Pharmacy Order) Treatment of Hypoglycemia: 1.BG 51... Per protocol XX ; Start 06/02/18 at 07:00 Dextrose (D50w Syringe) 25 ml Q15M PRN IV .DECREASED GLUCOSE; Start 06/02/18 at 07:00 Dextrose (D50w Syringe) 50 ml Q15M PRN IV .DECREASED GLUCOSE; Start 06/02/18 at 07:00 Vecuronium Union 100 mg/ Dextrose 100 ml @ 4.55 mls/hr TITRATE PRN IV POST OPERATIVE SHIVERING; Start 06/02/18 at 07:30 Meperidine HCl (Demerol) 12.5 mg Q2 PRN IV POST OPERATIVE SHIVERING; Start 06/02/18 at 07:30 Hypromellose (Genteal Severe) 1 applic Q6 BOTH EYES ; Start 06/02/18 at 12:00 Miscellaneous Information 1 ea NOTE XX ; Start 06/02/18 at 09:30; Status UNV Glucose (Glutose) 15 gm Q15M PRN PO DECREASED GLUCOSE; Start 06/02/18 at 09:30; Status UNV Glucose (Glutose) 22.5 gm Q15M PRN PO DECREASED GLUCOSE; Start 06/02/18 at 09:30; Status UNV Dextrose (D50w Syringe) 25 ml Q15M PRN IV DECREASED GLUCOSE; Start 06/02/18 at 09:30; Status UNV Dextrose (D50w Syringe) 50 ml Q15M PRN IV DECREASED GLUCOSE; Start 06/02/18 at 09:30; Status UNV Glucagon (Glucagen) 1 mg Q15M PRN IM DECREASED GLUCOSE; Start 06/02/18 at 09:30; Status UNV Glucose (Glutose) 15 gm Q15M PRN BUCCAL DECREASED GLUCOSE; Start 06/02/18 at 09:30; Status UNV Eye Lubricant (Akwa Oint) 1 applic Q6 BOTH EYES ; Start 06/02/18 at 12:00; S maciej UNV Miscellaneous Information (* Miscellaneous Pharmacy Order) Discontinue all previ... PROTOCOL ONCE XX ; Start 06/02/18 at 09:30; Stop 06/02/18 at 09:31; Status UNV UDAY CHRISTENSEN Jun 02, 2018 09:48
[2018-06-02] MEDS ORDERED: VANCOMYCIN IV PER PHARMACY XX SCH (10:00)
--- NOTE | 2018-06-02 10:46 | CONS ---
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 Consultation Date/Type/Reason Admit Date/Time May 30, 2018 at 19:04 Initial Consult Date 05/31/18 Type of Consult oncology Reason for Consultation multiple myeloma Requesting Provider: SRAVANTHI YEPEZ MD Date/Time of Note DATE: 06/02/18 TIME: 10:41 24 HR Interval Summary Free Text/Dictation pt had a code BLue last night and is now intubated in ICU. currently on sedation but was now arousable prior to sedation Exam/Review of Systems Exam Vitals Vital Signs Date Temp Pulse Resp B/P (MAP) Pulse Ox O2 O2 Flow FiO2 Time Delivery Rate 06/02/18 43 09:50 06/02/18 94.1 16 90/50 (63) 100 09:00 06/02/18 40 05:40 06/02/18 Mechanical 05:00 Ventilator 06/01/18 2.0 20:00 Intake and Output 06/01/18 06/01/18 06/02/18 1515:00 23:00 07:00 IntakeIntake Total 500 ml 98.75 ml OutputOutput Total 200 ml 700 ml 10 ml BalanceBalance -200 ml -200 ml 88.75 ml Psych: no complaints Head: normocephalic Eyes: nl conjunctiva ENMT: nl external ears & nose, intubated Neck: supple Respiratory: clear to auscultation Cardiovascular: regular rate and rhythm Gastrointestinal: distended Musculoskeletal: nl extremities to inspection Results Result Diagram: 06/02/18 0500 06/02/18 0500 Results 24hrs Laboratory Tests Test 06/01/18 12:43 06/02/18 01:19 06/02/18 02:26 06/02/18 02:52 Hepatitis B NEGATIVE Surface Antigen Hepatitis B Core NEGATIVE Total Antibody Hepatitis C NEGATIVE Antibody Bedside Glucose 135 Blood Gas Blood arterial Specimen Source Arterial Blood 06/02/2018 2:50:24 Date Drawn AM Arterial Blood 7.358 pH (Temp corrected) Arterial Blood 41.0 pCO2 (Temp correct) Arterial Blood 103.1 H pO2 (Temp corrected) Arterial Blood 22.5 HCO3 Arterial Blood -2.7 Base Excess Arterial Blood 96.8 Oxygen Saturatio n Ramon Test ACCEPTAB Arterial Blood Right Radial Gas Puncture Site Arterial 0.8 Blood Carboxyhem oglobin Arterial Blood 0.2 Methemoglobin Blood Gas A-a O2 207.3 H Differential Oxyhemoglobin 95.8 Percent Blood Gas 37.0 Temperature Blood Gas 16.0 Respiration Rate Blood Gas Actual 16 Respiration Rate Blood Gas VENT - AC Modality FiO2 50.0 Blood Gas Tidal 500.0 Volume Blood Gas Low 5.0 PEEP Setting Blood Gas NC Notified Whom Blood Gas 06/02/2018 3:01:12 Notified Time AM White Blood 4.5 L Count Red Blood Count 2.47 L Hemoglobin 7.8 L Hematocrit 25.1 L Mean Corpuscular 101.6 H Volume Mean Corpuscular 31.6 Hemoglobin Mean Corpuscular 31.1 L Hemoglobin Mary nt Red Cell 19.3 H Distribution Width Platelet Count 77 L Mean Platelet 12.4 H Volume Immature 1.600 H Granulocytes % Neutrophils % 83.6 H Lymphocytes % 7.2 L Monocytes % 5.6 Eosinophils % 1.6 Basophils % 0.4 Nucleated Red 0.0 Blood Cells % Immature 0.070 H Granulocytes # Neutrophils # 3.7 Lymphocytes # 0.3 L Monocytes # 0.3 Eosinophils # 0.1 Basophils # 0.0 Nucleated Red 0.0 Blood Cells # Lactic Acid 3.4 *H Level Creatine Kinase 103 Creatine Kinase 1.7 Index Creatinine 1.76 Kinase MB (Mass) Troponin I 0.040 Test 06/02/18 02:53 4/4/19 04:58 06/02/18 05:00 06/02/18 06:38 Sodium Level 143 141 Potassium Level 4.7 5.0 Chloride Level 103 # 99 Carbon Dioxide 23 23 Level Anion Gap 17 H 19 H Blood Urea 34 #H 36 H Nitrogen Creatinine 5.67 H 5.73 H Est Glomerular Filtrat Rate mL/min Glucose Level 122 142 Bedside Glucose 102 121 Calcium Level 11.1 H 11.0 H Total Bilirubin 0.3 Direct Bilirubin 0.00 Indirect 0.3 Bilirubin Aspartate Amino 48 #H Transf (AST/SGOT ) Alanine 27 Aminotransferase (ALT/SGPT) Alkaline 171 H Phosphatase Total Protein 10.7 H Albumin 3.3 Globulin 7.40 H Albumin/Globulin 0.44 Ratio White Blood 5.6 # Count Red Blood Count 2.57 L Hemoglobin 8.1 L Hematocrit 25.9 L Mean Corpuscular 100.8 Volume Mean Corpuscular 31.5 Hemoglobin Mean Corpuscular 31.3 L Hemoglobin Mary nt Red Cell 19.4 H Distribution Width Platelet Count 87 L Mean Platelet 12.5 H Volume Immature 0.700 H Granulocytes % Neutrophils % 79.9 H Lymphocytes % 9.6 L Monocytes % 8.9 Eosinophils % 0.5 Basophils % 0.4 Nucleated Red 0.4 H Blood Cells % Immature 0.040 H Granulocytes # Neutrophils # 4.5 Lymphocytes # 0.5 L Monocytes # 0.5 Eosinophils # 0.0 Basophils # 0.0 Nucleated Red 0.0 Blood Cells # Phosphorus Level 7.6 H Magnesium Level 2.0 Blood Gas Blood arterial Specimen Source Arterial Blood 06/02/2018 7:13:47 Date Drawn AM Arterial Blood 7.448 pH (Temp corrected) Arterial Blood 34.9 L pCO2 (Temp correct) Arterial Blood 115.6 H pO2 (Temp corrected) Arterial Blood 23.7 HCO3 Arterial Blood -0.3 Base Excess Arterial Blood 98.2 Oxygen Saturatio n Ramon Test ACCEPTAB Arterial Blood Right Radial Gas Puncture Site Arterial 0.6 Blood Carboxyhem oglobin Arterial Blood 0.1 Methemoglobin Blood Gas A-a O2 202.7 H Differential Oxyhemoglobin 97.5 Percent Blood Gas 36.2 Temperature Blood Gas 16.0 Respiration Rate Blood Gas Actual 19 Respiration Rate Blood Gas VENT - AC Modality FiO2 50.0 Blood Gas Tidal 500.0 Volume Blood Gas Low 5.0 PEEP Setting Blood Gas TM Notified Whom Blood Gas 06/02/2018 8:02:48 Notified Time AM Test 06/02/18 07:37 06/02/18 09:16 Prothrombin Time 20.3 H Prothrombin Time 1.6 Ratio INR 1.73 International Normalized Ratio Activated 36.3 H Partial Thrombop last Time Fibrinogen 239.0 D-Dimer 5884.17 H D-Dimer Comment Lactic Acid 1.4 Level Phosphorus Level 7.8 H Magnesium Level 2.1 Creatine Kinase 79 Creatine Kinase 3.5 Index Creatinine 2.77 H Kinase MB (Mass) Troponin I 0.222 *H Amylase Level 57 Lipase 133 Bedside Glucose 143 Medications Medication Current Medications IV Flush (NS 3 ml) 3 ml PER PROTOCOL IV ; Start 05/30/18 at 20:00 Ranitidine HCl (Zantac) 150 mg HS PO Last administered on 06/01/18 20:45; Admin Dose 150 MG; Start 05/30/18 at 21:00 Apixaban (Eliquis) 2.5 mg DAILY PO Last administered on 06/01/18 09:48; Admin Dose 2.5 MG; Start 05/31/18 at 09:00 Atorvastatin Calcium (Lipitor) 40 mg QHS PO Last administered on 06/01/18 20:45 ; Admin Dose 40 MG; Start 05/31/18 at 21:00 Carvedilol (Coreg) 12.5 mg QHS PO Last administered on 05/31/18 20:35; Admin Dose 12.5 MG; Start 05/31/18 at 21:00 Carvedilol (Coreg) 25 mg DAILY PO Last administered on 06/01/18 09:47; Admin Dose 25 MG; Start 05/31/18 at 09:00 Clopidogrel Bisulfate (plaVIX) 75 mg DAILY PO Last administered on 06/01/18 09:46; Admin Dose 75 MG; Start 05/31/18 at 09:00 Ondansetron HCl (Zofran Inj) 4 mg Q4H PRN IV NAUSEA AND/OR VOMITING Last administered on 06/01/18 00:10; Admin Dose 4 MG; Start 06/01/18 at 00:00 Norepinephrine 250 ml @ 1.875 mls/ hr TITRATE IV Last administered on 06/02/18 02:16; Admin Dose 1.875 MLS/HR; Start 06/02/18 at 02:30 Sodium Chloride 1,000 ml @ 40 mls/hr Q24H IV Last administered on 06/02/18at 04:40; Admin Dose 40 MLS/HR; Start 06/02/18 at 04:30 Acetaminophen (Tylenol Supp) 650 mg Q4H PRN [place] TEMP > 37C; Start 06/02/18 at 07:00 Acetaminophen (Tylenol Liquid) 650 mg Q4H PRN PO TEMP > 37C; Start 06/02/18 at 07:00 Acetaminophen (Tylenol Supp) 500 mg Q6H [place] ; Start 06/03/18 at 07:00 Acetaminophen (Tylenol Liquid) 500 mg Q6H PO ; Start 06/03/18 at 07:00 Meperidine HCl (Demerol) 12.5 mg Q4H PRN IV POST OPERATIVE SHIVERING; Start 06/02/18 at 07:00 Meperidine HCl (Demerol) 25 mg Q4H PRN IV POST OPERATIVE SHIVERING; Start 06/02/18 at 07:00 Eye Lubricant (Artificial Tears Oph) 2 drop Q6 BOTH EYES ; Start 06/02/18 at 12:00 Diagnostic Test (Pha) (Accu-Chek) 1 ea Q1H XX ; Start 06/02/18 at 07:00 Insulin Human Regular 100 unit/ Sodium Chloride 100 ml @ 0.2 mls/hr PER PROTOCOL IV ; Start 06/02/18 at 08:00 Miscellaneous Information (* Miscellaneous Pharmacy Order) Treatment of Hypoglycemia: 1.BG 51... Per protocol XX ; Start 06/02/18 at 07:00 Dextrose (D50w Syringe) 25 ml Q15M PRN IV .DECREASED GLUCOSE; Start 06/02/18 at 07:00 Dextrose (D50w Syringe) 50 ml Q15M PRN IV .DECREASED GLUCOSE; Start 06/02/18 at 07:00 Vecuronium [place] 100 mg/ Dextrose 100 ml @ 4.55 mls/hr TITRATE PRN IV POST OPERATIVE SHIVERING Last administered on 06/02/18at 09:55; Admin Dose 4.55 MLS/HR; Start 06/02/18 at 07:30 Meperidine HCl (Demerol) 12.5 mg Q2 PRN IV POST OPERATIVE SHIVERING; Start 06/02/18 at 07:30 Hypromellose (Genteal Severe) 1 applic Q6 BOTH EYES ; Start 06/02/18 at 12:00 Eye Lubricant ([place] Oint) 1 applic Q6 BOTH EYES ; Start 06/02/18 at 12:00 Aztreonam 50 ml @ 100 mls/hr Q12 IVPB Last administered on 06/02/18at 10:38; Admin Dose 100 MLS/HR; Start 06/02/18 at 11:00 Vancomycin HCl (Vanco Iv Per Pharmacy) VANCOMYCIN PER PHARMACY PER PROTOCOL XX ; Start 06/02/18 at 10:00 Vancomycin HCl 1.75 gm/Sodium Chloride 500 ml @ 125 mls/hr ONCE ONCE IVPB ; Start 06/02/18 at 12:00; Stop 06/02/18 at 15:59 Famotidine (Pepcid Iv) 20 mg DAILY IV ; Start 06/03/18 at 09:00; Status UNV Propofol 100 ml @ 2.727 mls/ hr Q12H IV ; Start 06/02/18 at 12:00; Status UNV LITA BASS M.D. Jun 02, 2018 10:46
[2018-06-02] MEDS ORDERED: AZTREONAM 1 GM/NS (PMX) 50 ML IVPB SCH (11:00)
--- NOTE | 2018-06-02 11:16 | CONS ---
Assessment/Plan Assessment/Plan Hospital Course 83 M c/ multiple comorbidities, who is admitted to the [facility] ICU following cardiac arrest. Now undergoing TTM.. Head CT 06/02 is unremarkable. P: Continue TTM per protocol Will follow with you Consultation Date/Type/Reason Admit Date/Time May 30, 2018 at 19:04 Type of Consult Neurology Reason for Consultation ams Requesting Provider: CARMEN STERLING MD, [facility] Date/Time of Note DATE: 06/02/18 TIME: 11:15 Hx of Present Illness Patient is comatose, unable to contribute a Hx. It is elsewhere noted: 83 yo male with ho DMII and ESRD who has been referred for multiple myeloma workup. Patient suffered fall a few weeks ago leading to pain in hip. Pain continued and became more and more severe. Life Skills Specialist noticed worsening hypercalcemia. He was thus referred for onc workup, and was since found to have evidence of MM...for which he was ultimately admitted for further evaluation and management. A couple of days into his hospitalization, he was found unresponsive -- > code blue. limited by critical illness Subjective hx not possible: pt non-verbal, pt critical Exam/Review of Systems Exam Vitals Vital Signs Date Temp Pulse Resp B/P (MAP) Pulse Ox O2 O2 Flow FiO2 Time Delivery Rate 06/02/18 43 09:50 06/02/18 94.1 16 90/50 (63) 100 09:00 06/02/18 40 05:40 06/02/18 Mechanical 05:00 Ventilator 06/01/18 2.0 20:00 Intake and Output 06/01/18 06/01/18 06/02/18 1515:00 23:00 07:00 IntakeIntake Total 500 ml 98.75 ml OutputOutput Total 200 ml 700 ml 10 ml BalanceBalance -200 ml -200 ml 88.75 ml Exam PE: Gen Appearance: No Apparent Distress HEENT: Intubated Cardiovascular: Regular rate Abdomen: Soft Extremities: Dry NE: The patient was comatose Cranial nerve examination was limited by mental status. Pupils were equal and reactive to light. There was no afferent pupillary defect. Funduscopic examination was limited. Face was grossly symmetric, w/ present corneal and cough reflexes. Tone was normal. Muscle bulk was normal. I did not see fasciculations. The patient minimally withdrew to noxious stimulation on the L Coordination and gait testing was limited by mental status. Arm and leg reflexes were within normal limits and symmetric. Willams's sign was absent. Plantar responses were flexor. Results Result Diagram: 06/02/18 0500 06/02/18 0500 Results 24hrs Laboratory Tests Test 06/01/18 12:43 06/02/18 01:19 06/02/18 02:26 06/02/18 02:52 Hepatitis B NEGATIVE Surface Antigen Hepatitis B Core NEGATIVE Total Antibody Hepatitis C NEGATIVE Antibody Bedside Glucose 135 Blood Gas Blood arterial Specimen Source Arterial Blood 06/02/2018 2:50:24 Date Drawn AM Arterial Blood 7.358 pH (Temp corrected) Arterial Blood 41.0 pCO2 (Temp correct) Arterial Blood 103.1 H pO2 (Temp corrected) Arterial Blood 22.5 HCO3 Arterial Blood -2.7 Base Excess Arterial Blood 96.8 Oxygen Saturatio n Ramon Test ACCEPTAB Arterial Blood Right Radial Gas Puncture Site Arterial 0.8 Blood Carboxyhem oglobin Arterial Blood 0.2 Methemoglobin Blood Gas A-a O2 207.3 H Differential Oxyhemoglobin 95.8 Percent Blood Gas 37.0 Temperature Blood Gas 16.0 Respiration Rate Blood Gas Actual 16 Respiration Rate Blood Gas VENT - AC Modality FiO2 50.0 Blood Gas Tidal 500.0 Volume Blood Gas Low 5.0 PEEP Setting Blood Gas IL Notified Whom Blood Gas 06/02/2018 3:01:12 Notified Time AM White Blood 4.5 L Count Red Blood Count 2.47 L Hemoglobin 7.8 L Hematocrit 25.1 L Mean Corpuscular 101.6 H Volume Mean Corpuscular 31.6 Hemoglobin Mean Corpuscular 31.1 L Hemoglobin Mary nt Red Cell 19.3 H Distribution Width Platelet Count 77 L Mean Platelet 12.4 H Volume Immature 1.600 H Granulocytes % Neutrophils % 83.6 H Lymphocytes % 7.2 L Monocytes % 5.6 Eosinophils % 1.6 Basophils % 0.4 Nucleated Red 0.0 Blood Cells % Immature 0.070 H Granulocytes # Neutrophils # 3.7 Lymphocytes # 0.3 L Monocytes # 0.3 Eosinophils # 0.1 Basophils # 0.0 Nucleated Red 0.0 Blood Cells # Lactic Acid 3.4 *H Level Creatine Kinase 103 Creatine Kinase 1.7 Index Creatinine 1.76 Kinase MB (Mass) Troponin I 0.040 Test 4/4/19 02:53 06/02/18 04:58 06/02/18 05:00 06/02/18 06:38 Sodium Level 143 141 Potassium Level 4.7 5.0 Chloride Level 103 # 99 Carbon Dioxide 23 23 Level Anion Gap 17 H 19 H Blood Urea 34 #H 36 H Nitrogen Creatinine 5.67 H 5.73 H Est Glomerular Filtrat Rate mL/min Glucose Level 122 142 Bedside Glucose 102 121 Calcium Level 11.1 H 11.0 H Total Bilirubin 0.3 Direct Bilirubin 0.00 Indirect 0.3 Bilirubin Aspartate Amino 48 #H Transf (AST/SGOT ) Alanine 27 Aminotransferase (ALT/SGPT) Alkaline 171 H Phosphatase Total Protein 10.7 H Albumin 3.3 Globulin 7.40 H Albumin/Globulin 0.44 Ratio White Blood 5.6 # Count Red Blood Count 2.57 L Hemoglobin 8.1 L Hematocrit 25.9 L Mean Corpuscular 100.8 Volume Mean Corpuscular 31.5 Hemoglobin Mean Corpuscular 31.3 L Hemoglobin Mary nt Red Cell 19.4 H Distribution Width Platelet Count 87 L Mean Platelet 12.5 H Volume Immature 0.700 H Granulocytes % Neutrophils % 79.9 H Lymphocytes % 9.6 L Monocytes % 8.9 Eosinophils % 0.5 Basophils % 0.4 Nucleated Red 0.4 H Blood Cells % Immature 0.040 H Granulocytes # Neutrophils # 4.5 Lymphocytes # 0.5 L Monocytes # 0.5 Eosinophils # 0.0 Basophils # 0.0 Nucleated Red 0.0 Blood Cells # Phosphorus Level 7.6 H Magnesium Level 2.0 Blood Gas Blood arterial Specimen Source Arterial Blood 06/02/2018 7:13:47 Date Drawn AM Arterial Blood 7.448 pH (Temp corrected) Arterial Blood 34.9 L pCO2 (Temp correct) Arterial Blood 115.6 H pO2 (Temp corrected) Arterial Blood 23.7 HCO3 Arterial Blood -0.3 Base Excess Arterial Blood 98.2 Oxygen Saturatio n Ramon Test ACCEPTAB Arterial Blood Right Radial Gas Puncture Site Arterial 0.6 Blood Carboxyhem oglobin Arterial Blood 0.1 Methemoglobin Blood Gas A-a O2 202.7 H Differential Oxyhemoglobin 97.5 Percent Blood Gas 36.2 Temperature Blood Gas 16.0 Respiration Rate Blood Gas Actual 19 Respiration Rate Blood Gas VENT - AC Modality FiO2 50.0 Blood Gas Tidal 500.0 Volume Blood Gas Low 5.0 PEEP Setting Blood Gas TM Notified Whom Blood Gas 06/02/2018 8:02:48 Notified Time AM Test 06/02/18 07:37 06/02/18 09:16 Prothrombin Time 20.3 H Prothrombin Time 1.6 Ratio INR 1.73 International Normalized Ratio Activated 36.3 H Partial Thrombop last Time Fibrinogen 239.0 D-Dimer 5884.17 H D-Dimer Comment Lactic Acid 1.4 Level Phosphorus Level 7.8 H Magnesium Level 2.1 Creatine Kinase 79 Creatine Kinase 3.5 Index Creatinine 2.77 H Kinase MB (Mass) Troponin I 0.222 *H Amylase Level 57 Lipase 133 Bedside Glucose 143 Medications Medication Current Medications IV Flush (NS 3 ml) 3 ml PER PROTOCOL IV ; Start 05/30/18 at 20:00 Ranitidine HCl (Zantac) 150 mg HS PO Last administered on 06/01/18 20:45; Admin Dose 150 MG; Start 05/30/18 at 21:00 Apixaban (Eliquis) 2.5 mg DAILY PO Last administered on 06/01/18 09:48; Admin Dose 2.5 MG; Start 05/31/18 at 09:00 Atorvastatin Calcium (Lipitor) 40 mg QHS PO Last administered on 06/01/18 20:45; Admin Dose 40 MG; Start 05/31/18 at 21:00 Carvedilol (Coreg) 12.5 mg QHS PO Last administered on 05/31/18 20:35; Admin Dose 12.5 MG; Start 05/31/18 at 21:00 Carvedilol (Coreg) 25 mg DAILY PO Last administered on 06/01/18 09:47; Admin Dose 25 MG; Start 05/31/18 at 09:00 Clopidogrel Bisulfate (plaVIX) 75 mg DAILY PO Last administered on 06/01/18 09:46; Admin Dose 75 MG; Start 05/31/18 at 09:00 Ondansetron HCl (Zofran Inj) 4 mg Q4H PRN IV NAUSEA AND/OR VOMITING Last administered on 06/01/18 00:10; Admin Dose 4 MG; Start 06/01/18 at 00:00 Norepinephrine 250 ml @ 1.875 mls/ hr TITRATE IV Last administered on 06/02/18 02:16; Admin Dose 1.875 MLS/HR; Start 06/02/18 at 02:30 Sodium Chloride 1,000 ml @ 40 mls/hr Q24H IV Last administered on 06/02/18at 04:40; Admin Dose 40 MLS/HR; Start 06/02/18 at 04:30 Acetaminophen (Tylenol Supp) 650 mg Q4H PRN MD TEMP > 37C; Start 06/02/18 at 07:00 Acetaminophen (Tylenol Liquid) 650 mg Q4H PRN PO TEMP > 37C; Start 06/02/18 at 07:00 Acetaminophen (Tylenol Supp) 500 mg Q6H MD ; Start 06/03/18 at 07:00 Acetaminophen (Tylenol Liquid) 500 mg Q6H PO ; Start 06/03/18 at 07:00 Meperidine HCl (Demerol) 12.5 mg Q4H PRN IV POST OPERATIVE SHIVERING; Start 06/02/18 at 07:00 Meperidine HCl (Demerol) 25 mg Q4H PRN IV POST OPERATIVE SHIVERING; Start 06/02/18 at 07:00 Eye Lubricant (Artificial Tears Oph) 2 drop Q6 BOTH EYES ; Start 06/02/18 at 12:00 Diagnostic Test (Pha) (Accu-Chek) 1 ea Q1H XX ; Start 06/02/18 at 07:00 Insulin Human Regular 100 unit/ Sodium Chloride 100 ml @ 0.2 mls/hr PER PROTOCOL IV ; Start 06/02/18 at 08:00 Miscellaneous Information (* Miscellaneous Pharmacy Order) Treatment of Hypoglycemia: 1.BG 51... Per protocol XX ; Start 06/02/18 at 07:00 Dextrose (D50w Syringe) 25 ml Q15M PRN IV .DECREASED GLUCOSE; Start 06/02/18 at 07:00 Dextrose (D50w Syringe) 50 ml Q15M PRN IV .DECREASED GLUCOSE; Start 06/02/18 at 07:00 Vecuronium Galva 100 mg/ Dextrose 100 ml @ 4.55 mls/hr TITRATE PRN IV POST OPERATIVE SHIVERING Last administered on 06/02/18at 09:55; Admin Dose 4.55 MLS/HR; Start 06/02/18 at 07:30 Meperidine HCl (Demerol) 12.5 mg Q2 PRN IV POST OPERATIVE SHIVERING; Start 06/02/18 at 07:30 Hypromellose (Genteal Severe) 1 applic Q6 BOTH EYES ; Start 06/02/18 at 12:00 Eye Lubricant (Akwa Oint) 1 applic Q6 BOTH EYES ; Start 06/02/18 at 12:00 Aztreonam 50 ml @ 100 mls/hr Q12 IVPB Last administered on 06/02/18at 10:38; Admin Dose 100 MLS/HR; Start 06/02/18 at 11:00 Vancomycin HCl (Vanco Iv Per Pharmacy) VANCOMYCIN PER PHARMACY PER PROTOCOL XX ; Start 06/02/18 at 10:00 Vancomycin HCl 1.75 gm/Sodium Chloride 500 ml @ 125 mls/hr ONCE ONCE IVPB ; Start 06/02/18 at 12:00; Stop 06/02/18 at 15:59 Famotidine (Pepcid Iv) 20 mg DAILY IV ; Start 06/03/18 at 09:00; Status UNV Propofol 100 ml @ 2.727 mls/ hr Q12H IV ; Start 06/02/18 at 12:00; Status UNV Past Medical History Medical History: diabetes, renal disease Home Meds Reported Medications Carvedilol* (Carvedilol*) 12.5 Mg Tablet, 12.5 MG PO QHS, #60 TAB 05/30/18 Carvedilol* (Carvedilol*) 25 Mg Tablet, 25 MG PO DAILY, #60 TAB 05/30/18 Apixaban* (Eliquis*) 2.5 Mg Tablet, 2.5 MG PO DAILY, TAB 05/30/18 Insulin Regular, Human (Humulin R) 100 Unit/1 Ml Vial, IJ, VIAL 06/01/17 Cholecalciferol* (Vitamin D3*) 1,000 Unit Tablet, 2000 UNIT PO DAILY, TAB 06/01/17 Atorvastatin* (Atorvastatin*) 40 Mg Tablet, 40 MG PO QHS, #30 TAB 06/01/17 Ranitidine Hcl* (Ranitidine Hcl*) 150 Mg Tablet, 150 MG PO HS, #30 TAB 06/01/17 Clopidogrel Bisulfate (Clopidogrel) 75 Mg Tablet, 75 MG PO DAILY, #30 TAB 06/01/17 Insulin Glargine* (Lantus*) 100 Unit/Ml Soln, 42 UNIT SC DAILY, #1 VIAL 06/01/17 Hydrochlorothiazide* (Hydrochlorothiazide*) 25 Mg Tab, 25 MG PO BID, #60 TAB 06/01/17 Lisinopril* (Lisinopril*) 20 Mg Tablet, 20 MG PO BID, #30 TAB 06/01/17 Nifedipine* (Nifedipine ER*) 30 Mg Tablet.sa, 30 MG PO DAILY, TAB.SA 06/01/17 Medications Current Medications IV Flush (NS 3 ml) 3 ml PER PROTOCOL IV ; Start 05/30/18 at 20:00 Ranitidine HCl (Zantac) 150 mg HS PO Last administered on 06/01/18 20:45; Admin Dose 150 MG; Start 05/30/18 at 21:00 Apixaban (Eliquis) 2.5 mg DAILY PO Last administered on 06/01/18 09:48; Admin Dose 2.5 MG; Start 05/31/18 at 09:00 Atorvastatin Calcium (Lipitor) 40 mg QHS PO Last administered on 06/01/18 20:45; Admin Dose 40 MG; Start 05/31/18 at 21:00 Carvedilol (Coreg) 12.5 mg QHS PO Last administered on 05/31/18 20:35; Admin Dose 12.5 MG; Start 05/31/18 at 21:00 Carvedilol (Coreg) 25 mg DAILY PO Last administered on 06/01/18 09:47; Admin Dose 25 MG; Start 05/31/18 at 09:00 Clopidogrel Bisulfate (plaVIX) 75 mg DAILY PO Last administered on 06/01/18 09:46; Admin Dose 75 MG; Start 05/31/18 at 09:00 Ondansetron HCl (Zofran Inj) 4 mg Q4H PRN IV NAUSEA AND/OR VOMITING Last administered on 06/01/18 00:10; Admin Dose 4 MG; Start 06/01/18 at 00:00 Norepinephrine 250 ml @ 1.875 mls/ hr TITRATE IV Last administered on 06/02/18 02:16; Admin Dose 1.875 MLS/HR; Start 06/02/18 at 02:30 Sodium Chloride 1,000 ml @ 40 mls/hr Q24H IV Last administered on 06/02/18 04:40; Admin Dose 40 MLS/HR; Start 06/02/18 at 04:30 Acetaminophen (Tylenol Supp) 650 mg Q4H PRN MD TEMP > 37C; Start 06/02/18 at 07:00 Acetaminophen (Tylenol Liquid) 650 mg Q4H PRN PO TEMP > 37C; Start 06/02/18 at 0 7:00 Acetaminophen (Tylenol Supp) 500 mg Q6H MD ; Start 06/03/18 at 07:00 Acetaminophen (Tylenol Liquid) 500 mg Q6H PO ; Start 06/03/18 at 07:00 Meperidine HCl (Demerol) 12.5 mg Q4H PRN IV POST OPERATIVE SHIVERING; Start 06/02/18 at 07:00 Meperidine HCl (Demerol) 25 mg Q4H PRN IV POST OPERATIVE SHIVERING; Start 06/02/18 at 07:00 Eye Lubricant (Artificial Tears Oph) 2 drop Q6 BOTH EYES ; Start 06/02/18 at 12:00 Diagnostic Test (Pha) (Accu-Chek) 1 ea Q1H XX ; Start 06/02/18 at 07:00 Insulin Human Regular 100 unit/ Sodium Chloride 100 ml @ 0.2 mls/hr PER PROTOCOL IV ; Start 06/02/18 at 08:00 Miscellaneous Information (* Miscellaneous Pharmacy Order) Treatment of Hypoglycemia: 1.BG 51... Per protocol XX ; Start 06/02/18 at 07:00 Dextrose (D50w Syringe) 25 ml Q15M PRN IV .DECREASED GLUCOSE; Start 06/02/18 at 07:00 Dextrose (D50w Syringe) 50 ml Q15M PRN IV .DECREASED GLUCOSE; Start 06/02/18 at 07:00 Vecuronium Galva 100 mg/ Dextrose 100 ml @ 4.55 mls/hr TITRATE PRN IV POST OPERATIVE SHIVERING Last administered on 06/02/18at 09:55; Admin Dose 4.55 MLS/HR; Start 06/02/18 at 07:30 Meperidine HCl (Demerol) 12.5 mg Q2 PRN IV POST OPERATIVE SHIVERING; Start 06/02/18 at 07:30 Hypromellose (Genteal Severe) 1 applic Q6 BOTH EYES ; Start 06/02/18 at 12:00 Eye Lubricant (Akwa Oint) 1 applic Q6 BOTH EYES ; Start 06/02/18 at 12:00 Aztreonam 50 ml @ 100 mls/hr Q12 IVPB Last administered on 06/02/18at 10:38; Admin Dose 100 MLS/HR; Start 06/02/18 at 11:00 Vancomycin HCl (Vanco Iv Per Pharmacy) VANCOMYCIN PER PHARMACY PER PROTOCOL XX ; Start 06/02/18 at 10:00 Vancomycin HCl 1.75 gm/Sodium Chloride 500 ml @ 125 mls/hr ONCE ONCE IVPB ; Start 06/02/18 at 12:00; Stop 06/02/18 at 15:59 Famotidine (Pepcid Iv) 20 mg DAILY IV ; Start 06/03/18 at 09:00; Status UNV Propofol 100 ml @ 2.727 mls/ hr Q12H IV ; Start 06/02/18 at 12:00; Status UNV Allergies: Coded Allergies: Penicillins (Unverified Allergy, Unknown, 05/31/17) Sulfa (Sulfonamide Antibiotics) (Unverified Allergy, Unknown, 05/31/17) Past Surgical History Past Surgical Hx: no surgical history Social History Alcohol Use: none Smoking Status: Never smoker Drug Use: none MARY JO HOLMAN Jun 02, 2018 11:15 CAMRYN GARRIDO NP Jun 02, 2018 14:54
[2018-06-02] MEDS ORDERED: OCULAR LUBRICANT 3.5 GM OPH OINT BOTH EYES SCH ×2 (12:00)
[2018-06-02] MEDS ORDERED: VANCOMYCIN HCL 1.75 GM in SOD CHLORIDE 0.9% 500 ML IVPB ONE (12:00)
[2018-06-02] MEDS: ARTIFICIAL TEARS 15 ML OPH BOTH EYES SCH ×3 (12:04→23:21)
[2018-06-02] MEDS: HYPROMELLOSE OPHTHALMIC LUBRICANT GEL (10 GM) BOTH EYES SCH ×3 (12:06→23:22)
[2018-06-02] MEDS: PROPOFOL 100 ML IV SCH ×2 (12:07→18:02)
--- NOTE | 2018-06-02 14:28 | CONS ---
Assessment/Plan Assessment/Plan Assessment/Plan (Daily) Status post cardiac arrest x2 currently on hypothermia protocol Bilateral pneumonia with pleural effusions Pancytopenia Questionable history of multiple myeloma Hypercalcemia Chronic renal disease on hemodialysis Type 2 diabetes Hypertension For now I will remain available follow patient's clinical course throughout the day review medical records. Only introduced myself to family members as barba pportive care. Consultation Date/Type/Reason Admit Date/Time May 30, 2018 at 19:04 Date/Time of Note DATE: 06/02/18 TIME: 14:25 Hx of Present Illness Asked to see this 83-year-old gentleman palliative care consultation. This gentleman has end-stage renal disease type 2 diabetes, atrial fibrillation cholelithiasis and was admitted to [facility] for workup of multiple myeloma. All information is taken from patient's medical records. Comorbid medical problems include a history of hypertension presented with generalized weakness. Other comorbid problems include a 1 month history of compression fracture of L3-L4 and a history of hypercalcemia. Also was noted on CT scan the patient has a fracture over the left ischial tuberosity through an area of possible metastatic lesion also history of elevated IgG levels greater than 7 gms, pancytopenia. On on 06/01/2018 patient was transferred to the in tensive care unit post cardiac arrest currently on hypothermia protocol. At the time I examined him he has been on protocol for 2 hours. On 05/31/2018 during bone marrow biopsy patient became apneic and bradycardic heart rate 40 patient was intubated at that time. Past Medical History Medical History: diabetes, renal disease Home Meds Reported Medications Carvedilol* (Carvedilol*) 12.5 Mg Tablet, 12.5 MG PO QHS, #60 TAB 05/30/18 Carvedilol* (Carvedilol*) 25 Mg Tablet, 25 MG PO DAILY, #60 TAB 05/30/18 Apixaban* (Eliquis*) 2.5 Mg Tablet, 2.5 MG PO DAILY, TAB 05/30/18 Insulin Regular, Human (Humulin R) 100 Unit/1 Ml Vial, IJ, VIAL 06/01/17 Cholecalciferol* (Vitamin D3*) 1,000 Unit Tablet, 2000 UNIT PO DAILY, TAB 06/01/17 Atorvastatin* (Atorvastatin*) 40 Mg Tablet, 40 MG PO QHS, #30 TAB 06/01/17 Ranitidine Hcl* (Ranitidine Hcl*) 150 Mg Tablet, 150 MG PO HS, #30 TAB 06/01/17 Clopidogrel Bisulfate (Clopidogrel) 75 Mg Tablet, 75 MG PO DAILY, #30 TAB 06/01/17 Insulin Glargine* (Lantus*) 100 Unit/Ml Soln, 42 UNIT SC DAILY, #1 VIAL 06/01/17 Hydrochlorothiazide* (Hydrochlorothiazide*) 25 Mg Tab, 25 MG PO BID, #60 TAB 06/01/17 Lisinopril* (Lisinopril*) 20 Mg Tablet, 20 MG PO BID, #30 TAB 06/01/17 Nifedipine* (Nifedipine ER*) 30 Mg Tablet.sa, 30 MG PO DAILY, TAB.SA 06/01/17 Medications Current Medications IV Flush (NS 3 ml) 3 ml PER PROTOCOL IV ; Start 05/30/18 at 20:00 Ranitidine HCl (Zantac) 150 mg HS PO Last administered on 06/01/18at 20:45; Admin Dose 150 MG; Start 05/30/18 at 21:00 Apixaban (Eliquis) 2.5 mg DAILY PO Last administered on 06/01/18 09:48; Admin Dose 2.5 MG; Start 05/31/18 at 09:00 Atorvastatin Calcium (Lipitor) 40 mg QHS PO Last administered on 06/01/18 20:45; Admin Dose 40 MG; Start 05/31/18 at 21:00 Carvedilol (Coreg) 12.5 mg QHS PO Last administered on 05/31/18 20:35; Admin Dose 12.5 MG; Start 05/31/18 at 21:00 Carvedilol (Coreg) 25 mg DAILY PO Last administered on 06/01/18 09:47; Admin Dose 25 MG; Start 05/31/18 at 09:00 Clopidogrel Bisulfate (plaVIX) 75 mg DAILY PO Last administered on 06/01/18 09:46; Admin Dose 75 MG; Start 05/31/18 at 09:00 Ondansetron HCl (Zofran Inj) 4 mg Q4H PRN IV NAUSEA AND/OR VOMITING Last administered on 06/01/18at 00:10; Admin Dose 4 MG; Start 06/01/18 at 00:00 Norepinephrine 250 ml @ 1.875 mls/ hr TITRATE IV Last administered on 06/02/18at 02:16; Admin Dose 1.875 MLS/HR; Start 06/02/18 at 02:30 Sodium Chloride 1,000 ml @ 40 mls/hr Q24H IV Last administered on 06/02/18at 04:40; Admin Dose 40 MLS/HR; Start 06/02/18 at 04:30 Acetaminophen (Tylenol Supp) 650 mg Q4H PRN CA TEMP > 37C; Start 06/02/18 at 07:00 Acetaminophen (Tylenol Liquid) 650 mg Q4H PRN PO TEMP > 37C; Start 06/02/18 at 07:00 Acetaminophen (Tylenol Supp) 500 mg Q6H CA ; Start 06/03/18 at 07:00 Acetaminophen (Tylenol Liquid) 500 mg Q6H PO ; Start 06/03/18 at 07:00 Meperidine HCl (Demerol) 12.5 mg Q4H PRN IV POST OPERATIVE SHIVERING; Start at 07:00 Meperidine HCl (Demerol) 25 mg Q4H PRN IV POST OPERATIVE SHIVERING; Start 06/02/18 at 07:00 Eye Lubricant (Artificial Tears Oph) 2 drop Q6 BOTH EYES Last administered on 06/02/18at 12:04; Admin Dose 2 DROP; Start 06/02/18 at 12:00 Diagnostic Test (Pha) (Accu-Chek) 1 ea Q1H XX ; Start 06/02/18 at 07:00 Insulin Human Regular 100 unit/ Sodium Chloride 100 ml @ 0.2 mls/hr PER PROTOCOL IV ; Start 06/02/18 at 08:00 Miscellaneous Information (* Miscellaneous Pharmacy Order) Treatment of Hyp oglycemia: 1.BG 51... Per protocol XX ; Start 06/02/18 at 07:00 Dextrose (D50w Syringe) 25 ml Q15M PRN IV .DECREASED GLUCOSE; Start 06/02/18 at 07:00 Dextrose (D50w Syringe) 50 ml Q15M PRN IV .DECREASED GLUCOSE; Start 06/02/18 at 07:00 Vecuronium [place] 100 mg/ Dextrose 100 ml @ 4.55 mls/hr TITRATE PRN IV POST OPERATIVE SHIVERING Last administered on 06/02/18at 09:55; Admin Dose 4.55 MLS/HR; Start 06/02/18 at 07:30 Meperidine HCl (Demerol) 12.5 mg Q2 PRN IV POST OPERATIVE SHIVERING; Start 06/02/18 at 07:30 Hypromellose (Genteal Severe) 1 applic Q6 BOTH EYES Last administered on 06/02/18at 12:06; Admin Dose 1 APPLIC; Start 06/02/18 at 12:00 Eye Lubricant (Akwa Oint) 1 applic Q6 BOTH EYES ; Start 06/02/18 at 12:00 Aztreonam 50 ml @ 100 mls/hr Q12 IVPB Last administered on 06/02/18at 10:38; Admin Dose 100 MLS/HR; Start 06/02/18 at 11:00 Vancomycin HCl (Vanco Iv Per Pharmacy) VANCOMYCIN PER PHARMACY PER PROTOCOL XX ; Start 06/02/18 at 10:00 Vancomycin HCl 1.75 gm/Sodium Chloride 500 ml @ 125 mls/hr ONCE ONCE IVPB Last administered on 06/02/18at 14:04; Admin Dose 125 MLS/HR; Start 06/02/18 at 1 2:00; Stop 06/02/18 at 15:59 Famotidine (Pepcid Iv) 20 mg DAILY IV ; Start 06/03/18 at 09:00 Propofol 100 ml @ 2.727 mls/ hr Q12H IV Last administered on 06/02/18at 12:07; Admin Dose 21.816 MLS/HR; Start 06/02/18 at 12:00 Allergies: Coded Allergies: Penicillins (Unverified Allergy, Unknown, 05/31/17) Sulfa (Sulfonamide Antibiotics) (Unverified Allergy, Unknown, 05/31/17) Past Surgical History Past Surgical Hx: no surgical history Social History Alcohol Use: none Smoking Status: Never smoker Drug Use: none Exam/Review of Systems Exam Vitals Vital Signs Date Temp Pulse Resp B/P (MAP) Pulse Ox O2 O2 Flow FiO2 Time Delivery Rate 06/02/18 89.9 62 16 114/60 100 12:00 (78) 06/02/18 40 11:15 06/02/18 Mechanical 05:00 Ventilator 06/01/18 2.0 20:00 Intake and Output 06/01/18 06/01/18 06/02/18 1515:00 23:00 07:00 IntakeIntake Total 500 ml 98.75 ml OutputOutput Total 200 ml 700 ml 10 ml BalanceBalance -200 ml -200 ml 88.75 ml Exam Deferred as patient is on hypothermia protocol at this time Results Result Diagram: 06/02/18 1213 06/02/18 1213 Results 24hrs Laboratory Tests Test 06/02/18 01:19 06/02/18 02:26 06/02/18 02:52 06/02/18 02:53 Bedside Glucose 135 102 Blood Gas Blood arterial Specimen Source Arterial Blood 06/02/2018 2:50:2 Date Drawn 4 AM Arterial Blood 7.358 pH (Temp corrected ) Arterial Blood 41.0 pCO2 (Temp correct) Arterial Blood 103.1 H pO2 (Temp corrected ) Arterial Blood 22.5 HCO3 Arterial Blood -2.7 Base Excess Arterial Blood 96.8 Oxygen Saturati on Ramon Test ACCEPTAB Arterial Blood Right Radial Gas Puncture Site Arterial 0.8 Blood Carboxyhe moglobin Arterial Blood 0.2 Methemoglobin Blood Gas A-a 207.3 H O2 Differential Oxyhemoglobin 95.8 Percent Blood Gas 37.0 Temperature Blood Gas 16.0 Respiration Rate Blood Gas 16 Actual Respiration Rat e Blood Gas VENT - AC Modality FiO2 50.0 Blood Gas Tidal 500.0 Volume Blood Gas Low 5.0 PEEP Setting Blood Gas [place] Notified Whom Blood Gas 06/02/2018 3:01:1 Notified Time 2 AM White Blood 4.5 L Count Red Blood Count 2.47 L Hemoglobin 7.8 L Hematocrit 25.1 L Mean 101.6 H Corpuscular Volume Mean 31.6 Corpuscular Hemoglobin Mean 31.1 L Corpuscular Hemoglobin Conc ent Red Cell 19.3 H Distribution Width Platelet Count 77 L Mean Platelet 12.4 H Volume Immature 1.600 H Granulocytes % Neutrophils % 83.6 H Lymphocytes % 7.2 L Monocytes % 5.6 Eosinophils % 1.6 Basophils % 0.4 Nucleated Red 0.0 Blood Cells % Immature 0.070 H Granulocytes # Neutrophils # 3.7 Lymphocytes # 0.3 L Monocytes # 0.3 Eosinophils # 0.1 Basophils # 0.0 Nucleated Red 0.0 Blood Cells # Lactic Acid 3.4 *H Level Creatine Kinase 103 Creatine Kinase 1.7 Index Creatinine 1.76 Kinase MB (Mass) Troponin I 0.040 Amylase Level 67 Lipase 122 Sodium Level 143 Potassium Level 4.7 Chloride Level 103 # Carbon Dioxide 23 Level Anion Gap 17 H Blood Urea 34 #H Nitrogen Creatinine 5.67 H Est Glomerular Filtrat Rate mL/min Glucose Level 122 Calcium Level 11.1 H Total Bilirubin 0.3 Direct 0.00 Bilirubin Indirect 0.3 Bilirubin Aspartate Amino 48 #H Transf (AST/SGO T) Alanine 27 Aminotransferas e (ALT/SGPT) Alkaline 171 H Phosphatase Total Protein 10.7 H Albumin 3.3 Globulin 7.40 H Albumin/Globuli 0.44 n Ratio Test 06/02/18 04:58 06/02/18 05:00 06/02/18 06:38 06/02/18 07:37 Bedside Glucose 121 White Blood 5.6 # Count Red Blood Count 2.57 L Hemoglobin 8.1 L Hematocrit 25.9 L Mean 100.8 Corpuscular Volume Mean 31.5 Corpuscular Hemoglobin Mean 31.3 L Corpuscular Hemoglobin Conc ent Red Cell 19.4 H Distribution Width Platelet Count 87 L Mean Platelet 12.5 H Volume Immature 0.700 H Granulocytes % Neutrophils % 79.9 H Lymphocytes % 9.6 L Monocytes % 8.9 Eosinophils % 0.5 Basophils % 0.4 Nucleated Red 0.4 H Blood Cells % Immature 0.040 H Granulocytes # Neutrophils # 4.5 Lymphocytes # 0.5 L Monocytes # 0.5 Eosinophils # 0.0 Basophils # 0.0 Nucleated Red 0.0 Blood Cells # Sodium Level 141 Potassium Level 5.0 Chloride Level 99 Carbon Dioxide 23 Level Anion Gap 19 H Blood Urea 36 H Nitrogen Creatinine 5.73 H Est Glomerular Filtrat Rate mL/min Glucose Level 142 Calcium Level 11.0 H Phosphorus 7.6 H 7.8 H Level Magnesium Level 2.0 2.1 Blood Gas Blood arterial Specimen Source Arterial Blood 06/02/2018 7:13:4 Date Drawn 7 AM Arterial Blood 7.448 pH (Temp corrected ) Arterial Blood 34.9 L pCO2 (Temp correct) Arterial Blood 115.6 H pO2 (Temp corrected ) Arterial Blood 23.7 HCO3 Arterial Blood -0.3 Base Excess Arterial Blood 98.2 Oxygen Saturati on Ramon Test ACCEPTAB Arterial Blood Right Radial Gas Puncture Site Arterial 0.6 Blood Carboxyhe moglobin Arterial Blood 0.1 Methemoglobin Blood Gas A-a 202.7 H O2 Differential Oxyhemoglobin 97.5 Percent Blood Gas 36.2 Temperature Blood Gas 16.0 Respiration Rate Blood Gas 19 Actual Respiration Rat e Blood Gas VENT - AC Modality FiO2 50.0 Blood Gas Tidal 500.0 Volume Blood Gas Low 5.0 PEEP Setting Blood Gas TM Notified Whom Blood Gas 06/02/2018 8:02:4 Notified Time 8 AM Prothrombin 20.3 H Time Prothrombin 1.6 Time Ratio INR 1.73 International Normalized Rati o Activated 36.3 H Partial Thrombo plast Time Fibrinogen 239.0 D-Dimer 5884.17 H D-Dimer Comment Lactic Acid 1.4 Level Creatine Kinase 79 Creatine Kinase 3.5 Index Creatinine 2.77 H Kinase MB (Mass) Troponin I 0.222 *H Amylase Level 57 Lipase 133 Test 06/02/18 09:16 06/02/18 12:12 06/02/18 12:13 06/02/18 12:16 Bedside Glucose 143 141 Prothrombin 20.9 H Time Prothrombin 1.6 Time Ratio INR 1.79 International Normalized Rati o Activated 36.2 H Partial Thrombo plast Time Fibrinogen 233.0 White Blood 5.0 Count Red Blood Count 2.54 L Hemoglobin 8.2 L Hematocrit 25.6 L Mean 100.8 Corpuscular Volume Mean 32.3 Corpuscular Hemoglobin Mean 32.0 Corpuscular Hemoglobin Conc ent Red Cell 19.2 H Distribution Width Platelet Count 70 L Mean Platelet 12.1 H Volume Immature 0.800 H Granulocytes % Neutrophils % 83.4 H Lymphocytes % 7.9 L Monocytes % 7.5 Eosinophils % 0.2 Basophils % 0.2 Nucleated Red 0.0 Blood Cells % Immature 0.040 H Granulocytes # Neutrophils # 4.1 Lymphocytes # 0.4 L Monocytes # 0.4 Eosinophils # 0.0 Basophils # 0.0 Nucleated Red 0.0 Blood Cells # Sodium Level 142 Potassium Level 4.4 Chloride Level 99 Carbon Dioxide 21 Level Anion Gap 22 H Blood Urea 39 H Nitrogen Creatinine 6.41 H Est Glomerular Filtrat Rate mL/min Glucose Level 147 Lactic Acid 1.2 Level Calcium Level 11.0 H Phosphorus 8.2 H Level Magnesium Level 2.1 Creatine Kinase 67 Creatine Kinase 4.9 Index Creatinine 3.26 H Kinase MB (Mass) Troponin I 0.291 *H Test 06/02/18 12:38 Blood Gas Blood arterial Specimen Source Arterial Blood 06/02/2018 12:53: Date Drawn 07 PM Arterial Blood 7.469 H pH (Temp corrected ) Arterial Blood 32.6 L pCO2 (Temp correct) Arterial Blood 69.1 L pO2 (Temp corrected ) Arterial Blood 24.1 HCO3 Arterial Blood -0.5 Base Excess Arterial Blood 96.2 Oxygen Saturati on Ramon Test ACCEPTAB Arterial Blood Right Radial Gas Puncture Site Arterial 0.7 Blood Carboxyhe moglobin Arterial Blood 0.3 Methemoglobin Blood Gas A-a 182.7 H O2 Differential Oxyhemoglobin 95.2 Percent Blood Gas 32.6 Temperature Blood Gas 16.0 Respiration Rate Blood Gas 16 Actual Respiration Rat e Blood Gas VENT - AC Modality FiO2 40.0 Blood Gas Tidal 500.0 Volume Blood Gas Low 5.0 PEEP Setting Blood Gas RR Notified Whom Blood Gas 06/02/2018 1:08:3 Notified Time 0 PM Medications Medication Current Medications IV Flush (NS 3 ml) 3 ml PER PROTOCOL IV ; Start 05/30/18 at 20:00 Ranitidine HCl (Zantac) 150 mg HS PO Last administered on 06/01/18 20:45; Admin Dose 150 MG; Start 05/30/18 at 21:00 Apixaban (Eliquis) 2.5 mg DAILY PO Last administered on 06/01/18 09:48; Admin Dose 2.5 MG; Start 05/31/18 at 09:00 Atorvastatin Calcium (Lipitor) 40 mg QHS PO Last administered on 06/01/18 20:45; Admin Dose 40 MG; Start 05/31/18 at 21:00 Carvedilol (Coreg) 12.5 mg QHS PO Last administered on 05/31/18 20:35; Admin Dose 12.5 MG; Start 05/31/18 at 21:00 Carvedilol (Coreg) 25 mg DAILY PO Last administered on 06/01/18 09:47; Admin Dose 25 MG; Start 05/31/18 at 09:00 Clopidogrel Bisulfate (plaVIX) 75 mg DAILY PO Last administered on 06/01/18 09:46; Admin Dose 75 MG; Start 05/31/18 at 09:00 Ondansetron HCl (Zofran Inj) 4 mg Q4H PRN IV NAUSEA AND/OR VOMITING Last administered on 06/01/18 00:10; Admin Dose 4 MG; Start 06/01/18 at 00:00 Norepinephrine 250 ml @ 1.875 mls/ hr TITRATE IV Last administered on 06/02/18at 02:16; Admin Dose 1.875 MLS/HR; Start 06/02/18 at 02:30 Sodium Chloride 1,000 ml @ 40 mls/hr Q24H IV Last administered on 06/02/18at 04:40; Admin Dose 40 MLS/HR; Start 06/02/18 at 04:30 Acetaminophen (Tylenol Supp) 650 mg Q4H PRN CA TEMP > 37C; Start 06/02/18 at 07:00 Acetaminophen (Tylenol Liquid) 650 mg Q4H PRN PO TEMP > 37C; Start 06/02/18 at 07:00 Acetaminophen (Tylenol Supp) 500 mg Q6H CA ; Start 06/03/18 at 07:00 Acetaminophen (Tylenol Liquid) 500 mg Q6H PO ; Start 06/03/18 at 07:00 Meperidine HCl (Demerol) 12.5 mg Q4H PRN IV POST OPERATIVE SHIVERING; Start 06/02/18 at 07:00 Meperidine HCl (Demerol) 25 mg Q4H PRN IV POST OPERATIVE SHIVERING; Start 06/02/18 at 07:00 Eye Lubricant (Artificial Tears Oph) 2 drop Q6 BOTH EYES Last administered on 06/02/18at 12:04; Admin Dose 2 DROP; Start 06/02/18 at 12:00 Diagnostic Test (Pha) (Accu-Chek) 1 ea Q1H XX ; Start 06/02/18 at 07:00 Insulin Human Regular 100 unit/ Sodium Chloride 100 ml @ 0.2 mls/hr PER PROTOCOL IV ; Start 06/02/18 at 08:00 Miscellaneous Information (* Miscellaneous Pharmacy Order) Treatment of Hypoglycemia: 1.BG 51... Per protocol XX ; Start 06/02/18 at 07:00 Dextrose (D50w Syringe) 25 ml Q15M PRN IV .DECREASED GLUCOSE; Start 06/02/18 at 07:00 Dextrose (D50w Syringe) 50 ml Q15M PRN IV .DECREASED GLUCOSE; Start 06/02/18 at 07:00 Vecuronium [place] 100 mg/ Dextrose 100 ml @ 4.55 mls/hr TITRATE PRN IV POST OPERATIVE SHIVERING Last administered on 06/02/18at 09:55; Admin Dose 4.55 MLS/HR; Start 06/02/18 at 07:30 Meperidine HCl (Demerol) 12.5 mg Q2 PRN IV POST OPERATIVE SHIVERING; Start 06/02/18 at 07:30 Hypromellose (Genteal Severe) 1 applic Q6 BOTH EYES Last administered on 06/02/18at 12:06; Admin Dose 1 APPLIC; Start 06/02/18 at 12:00 Eye Lubricant (Akwa Oint) 1 applic Q6 BOTH EYES ; Start 06/02/18 at 12:00 Aztreonam 50 ml @ 100 mls/hr Q12 IVPB Last administered on 06/02/18at 10:38; Admin Dose 100 MLS/HR; Start 06/02/18 at 11:00 Vancomycin HCl (Vanco Iv Per Pharmacy) VANCOMYCIN PER PHARMACY PER PROTOCOL XX ; Start 06/02/18 at 10:00 Vancomycin HCl 1.75 gm/Sodium Chloride 500 ml @ 125 mls/hr ONCE ONCE IVPB Last administered on 06/02/18at 14:04; Admin Dose 125 MLS/HR; Start 06/02/18 at 12:00; Stop 06/02/18 at 15:59 Famotidine (Pepcid Iv) 20 mg DAILY IV ; Start 06/03/18 at 09:00 Propofol 100 ml @ 2.727 mls/ hr Q12H IV Last administered on 06/02/18at 12:07; Admin Dose 21.816 MLS/HR; Start 06/02/18 at 12:00 CHRISTA SANCHEZ Jun 02, 2018 14:28
--- NOTE | 2018-06-02 15:21 | PN ---
Date/Time of Note Date/Time of Note DATE: 06/02/18 TIME: 15:19 Assessment/Plan VTE Prophylaxis Risk score (from Ns)>0 risk: 17 SCD applied (from Ns): Yes Pharmacological prophylaxis: heparin Lines/Catheters IV Catheter Type (from Nrsg): Central Line Central line still needed: Yes Urinary Cath still in place: Yes Reason Cath still needed: urinary retention Assessment/Plan Hospital Course 83 yo male with ESRD, DMII who has been referred for MM workup after found to have hypercalcemia and pathologic hip fracture. Then suffered cardiac arrest. Now underoing hypothermia protocol Cardiac arrest: - Unclear precipitant - Therapeutic hypothermia underway Multiple myeloma: - Awaits MRI - Workup per Dr khoury - ELLIE, skeletal survery, bone marrow biopsy completed ESRD: - HD per renal Atrial fibrillation: - Continue AC Pancytopenia: - likely consistent with MM Cholelithiasis: - Unlikely causing any symptoms at this time. Had planned for elective cholecystectomy as outpatient but no acute indication DMII: - Basal/bolus insulin Hypercalcemia: - Consistent with MM, mild, no acute need for intervention Pathologic hip fracture: - management per Dr Burton Discharge home following MRI Result Diagram: 06/02/18 1213 06/02/18 1213 Results 24hrs Laboratory Tests Test 06/02/18 01:19 06/02/18 02:26 06/02/18 02:52 06/02/18 02:53 Bedside Glucose 135 102 Blood Gas Blood arterial Specimen Source Arterial Blood 06/02/2018 2:50:2 Date Drawn 4 AM Arterial Blood 7.358 pH (Temp corrected ) Arterial Blood 41.0 pCO2 (Temp correct) Arterial Blood 103.1 H pO2 (Temp corrected ) Arterial Blood 22.5 HCO3 Arterial Blood -2.7 Base Excess Arterial Blood 96.8 Oxygen Saturati on Ramon Test ACCEPTAB Arterial Blood Right Radial Gas Puncture Site Arterial 0.8 Blood Carboxyhe moglobin Arterial Blood 0.2 Methemoglobin Blood Gas A-a 207.3 H O2 Differential Oxyhemoglobin 95.8 Percent Blood Gas 37.0 Temperature Blood Gas 16.0 Respiration Rate Blood Gas 16 Actual Respiration Rat e Blood Gas VENT - AC Modality FiO2 50.0 Blood Gas Tidal 500.0 Volume Blood Gas Low 5.0 PEEP Setting Blood Gas [place] Notified Whom Blood Gas 06/02/2018 3:01:1 Notified Time 2 AM White Blood 4.5 L Count Red Blood Count 2.47 L Hemoglobin 7.8 L Hematocrit 25.1 L Mean 101.6 H Corpuscular Volume Mean 31.6 Corpuscular Hemoglobin Mean 31.1 L Corpuscular Hemoglobin Conc ent Red Cell 19.3 H Distribution Width Platelet Count 77 L Mean Platelet 12.4 H Volume Immature 1.600 H Granulocytes % Neutrophils % 83.6 H Lymphocytes % 7.2 L Monocytes % 5.6 Eosinophils % 1.6 Basophils % 0.4 Nucleated Red 0.0 Blood Cells % Immature 0.070 H Granulocytes # Neutrophils # 3.7 Lymphocytes # 0.3 L Monocytes # 0.3 Eosinophils # 0.1 Basophils # 0.0 Nucleated Red 0.0 Blood Cells # Lactic Acid 3.4 *H Level Creatine Kinase 103 Creatine Kinase 1.7 Index Creatinine 1.76 Kinase MB (Mass) Troponin I 0.040 Amylase Level 67 Lipase 122 Sodium Level 143 Potassium Level 4.7 Chloride Level 103 # Carbon Dioxide 23 Level Anion Gap 17 H Blood Urea 34 #H Nitrogen Creatinine 5.67 H Est Glomerular Filtrat Rate mL/min Glucose Level 122 Calcium Level 11.1 H Total Bilirubin 0.3 Direct 0.00 Bilirubin Indirect 0.3 Bilirubin Aspartate Amino 48 #H Transf (AST/SGO T) Alanine 27 Aminotransferas e (ALT/SGPT) Alkaline 171 H Phosphatase Total Protein 10.7 H Albumin 3.3 Globulin 7.40 H Albumin/Globuli 0.44 n Ratio Test 06/02/18 04:58 06/02/18 05:00 06/02/18 06:38 06/02/18 07:37 Bedside Glucose 121 White Blood 5.6 # Count Red Blood Count 2.57 L Hemoglobin 8.1 L Hematocrit 25.9 L Mean 100.8 Corpuscular Volume Mean 31.5 Corpuscular Hemoglobin Mean 31.3 L Corpuscular Hemoglobin Conc ent Red Cell 19.4 H Distribution Width Platelet Count 87 L Mean Platelet 12.5 H Volume Immature 0.700 H Granulocytes % Neutrophils % 79.9 H Lymphocytes % 9.6 L Monocytes % 8.9 Eosinophils % 0.5 Basophils % 0.4 Nucleated Red 0.4 H Blood Cells % Immature 0.040 H Granulocytes # Neutrophils # 4.5 Lymphocytes # 0.5 L Monocytes # 0.5 Eosinophils # 0.0 Basophils # 0.0 Nucleated Red 0.0 Blood Cells # Sodium Level 141 Potassium Level 5.0 Chloride Level 99 Carbon Dioxide 23 Level Anion Gap 19 H Blood Urea 36 H Nitrogen Creatinine 5.73 H Est Glomerular Filtrat Rate mL/min Glucose Level 142 Calcium Level 11.0 H Phosphorus 7.6 H 7.8 H Level Magnesium Level 2.0 2.1 Blood Gas Blood arterial Specimen Source Arterial Blood 06/02/2018 7:13:4 Date Drawn 7 AM Arterial Blood 7.448 pH (Temp corrected ) Arterial Blood 34.9 L pCO2 (Temp correct) Arterial Blood 115.6 H pO2 (Temp corrected ) Arterial Blood 23.7 HCO3 Arterial Blood -0.3 Base Excess Arterial Blood 98.2 Oxygen Saturati on Ramon Test ACCEPTAB Arterial Blood Right Radial Gas Puncture Site Arterial 0.6 Blood Carboxyhe moglobin Arterial Blood 0.1 Methemoglobin Blood Gas A-a 202.7 H O2 Differential Oxyhemoglobin 97.5 Percent Blood Gas 36.2 Temperature Blood Gas 16.0 Respiration Rate Blood Gas 19 Actual Respiration Rat e Blood Gas VENT - AC Modality FiO2 50.0 Blood Gas Tidal 500.0 Volume Blood Gas Low 5.0 PEEP Setting Blood Gas TM Notified Whom Blood Gas 06/02/2018 8:02:4 Notified Time 8 AM Prothrombin 20.3 H Time Prothrombin 1.6 Time Ratio INR 1.73 International Normalized Rati o Activated 36.3 H Partial Thrombo plast Time Fibrinogen 239.0 D-Dimer 5884.17 H D-Dimer Comment Lactic Acid 1.4 Level Creatine Kinase 79 Creatine Kinase 3.5 Index Creatinine 2.77 H Kinase MB (Mass) Troponin I 0.222 *H Amylase Level 57 Lipase 133 Test 06/02/18 09:16 06/02/18 12:12 06/02/18 12:13 06/02/18 12:16 Bedside Glucose 143 141 Prothrombin 20.9 H Time Prothrombin 1.6 Time Ratio INR 1.79 International Normalized Rati o Activated 36.2 H Partial Thrombo plast Time Fibrinogen 233.0 White Blood 5.0 Count Red Blood Count 2.54 L Hemoglobin 8.2 L Hematocrit 25.6 L Mean 100.8 Corpuscular Volume Mean 32.3 Corpuscular Hemoglobin Mean 32.0 Corpuscular Hemoglobin Conc ent Red Cell 19.2 H Distribution Width Platelet Count 70 L Mean Platelet 12.1 H Volume Immature 0.800 H Granulocytes % Neutrophils % 83.4 H Lymphocytes % 7.9 L Monocytes % 7.5 Eosinophils % 0.2 Basophils % 0.2 Nucleated Red 0.0 Blood Cells % Immature 0.040 H Granulocytes # Neutrophils # 4.1 Lymphocytes # 0.4 L Monocytes # 0.4 Eosinophils # 0.0 Basophils # 0.0 Nucleated Red 0.0 Blood Cells # Sodium Level 142 Potassium Level 4.4 Chloride Level 99 Carbon Dioxide 21 Level Anion Gap 22 H Blood Urea 39 H Nitrogen Creatinine 6.41 H Est Glomerular Filtrat Rate mL/min Glucose Level 147 Lactic Acid 1.2 Level Calcium Level 11.0 H Phosphorus 8.2 H Level Magnesium Level 2.1 Creatine Kinase 67 Creatine Kinase 4.9 Index Creatinine 3.26 H Kinase MB (Mass) Troponin I 0.291 *H Test 06/02/18 12:38 Blood Gas Blood arterial Specimen Source Arterial Blood 06/02/2018 12:53: Date Drawn 07 PM Arterial Blood 7.469 H pH (Temp corrected ) Arterial Blood 32.6 L pCO2 (Temp correct) Arterial Blood 69.1 L pO2 (Temp corrected ) Arterial Blood 24.1 HCO3 Arterial Blood -0.5 Base Excess Arterial Blood 96.2 Oxygen Saturati on Ramon Test ACCEPTAB Arterial Blood Right Radial Gas Puncture Site Arterial 0.7 Blood Carboxyhe moglobin Arterial Blood 0.3 Methemoglobin Blood Gas A-a 182.7 H O2 Differential Oxyhemoglobin 95.2 Percent Blood Gas 32.6 Temperature Blood Gas 16.0 Respiration Rate Blood Gas 16 Actual Respiration Rat e Blood Gas VENT - AC Modality FiO2 40.0 Blood Gas Tidal 500.0 Volume Blood Gas Low 5.0 PEEP Setting Blood Gas RR Notified Whom Blood Gas 06/02/2018 1:08:3 Notified Time 0 PM Subjective 24 Hr Interval Summary Free Text/Dictation The patient suffered a spontaneous cardiac arrest last night. CPR given. ROSC achieved. Now undergoing therapuetic hypothermia Exam/Review of Systems Exam Vitals Vital Signs Date Temp Pulse Resp B/P (MAP) Pulse Ox O2 O2 Flow FiO2 Time Delivery Rate 06/02/18 89.9 62 16 114/60 100 12:00 (78) 06/02/18 40 11:15 06/02/18 Mechanical 05:00 Ventilator 06/01/18 2.0 20:00 Intake and Output 06/01/18 06/01/18 06/02/18 1515:00 23:00 07:00 IntakeIntake Total 500 ml 98.75 ml OutputOutput Total 200 ml 700 ml 10 ml BalanceBalance -200 ml -200 ml 88.75 ml Exam Intubated, sedated on paralytics Clear anteriorly Belly is soft No edema Results Results 24hrs Laboratory Tests Test 06/02/18 01:19 06/02/18 02:26 06/02/18 02:52 06/02/18 02:53 Bedside Glucose 135 102 Blood Gas Blood arterial Specimen Source Arterial Blood 06/02/2018 2:50:2 Date Drawn 4 AM Arterial Blood 7.358 pH (Temp corrected ) Arterial Blood 41.0 pCO2 (Temp correct) Arterial Blood 103.1 H pO2 (Temp corrected ) Arterial Blood 22.5 HCO3 Arterial Blood -2.7 Base Excess Arterial Blood 96.8 Oxygen Saturati on Ramon Test ACCEPTAB Arterial Blood Right Radial Gas Puncture Site Arterial 0.8 Blood Carboxyhe moglobin Arterial Blood 0.2 Methemoglobin Blood Gas A-a 207.3 H O2 Differential Oxyhemoglobin 95.8 Percent Blood Gas 37.0 Temperature Blood Gas 16.0 Respiration Rate Blood Gas 16 Actual Respiration Rat e Blood Gas VENT - AC Modality FiO2 50.0 Blood Gas Tidal 500.0 Volume Blood Gas Low 5.0 PEEP Setting Blood Gas AK Notified Whom Blood Gas 06/02/2018 3:01:1 Notified Time 2 AM White Blood 4.5 L Count Red Blood Count 2.47 L Hemoglobin 7.8 L Hematocrit 25.1 L Mean 101.6 H Corpuscular Volume Mean 31.6 Corpuscular Hemoglobin Mean 31.1 L Corpuscular Hemoglobin Conc ent Red Cell 19.3 H Distribution Width Platelet Count 77 L Mean Platelet 12.4 H Volume Immature 1.600 H Granulocytes % Neutrophils % 83.6 H Lymphocytes % 7.2 L Monocytes % 5.6 Eosinophils % 1.6 Basophils % 0.4 Nucleated Red 0.0 Blood Cells % Immature 0.070 H Granulocytes # Neutrophils # 3.7 Lymphocytes # 0.3 L Monocytes # 0.3 Eosinophils # 0.1 Basophils # 0.0 Nucleated Red 0.0 Blood Cells # Lactic Acid 3.4 *H Level Creatine Kinase 103 Creatine Kinase 1.7 Index Creatinine 1.76 Kinase MB (Mass) Troponin I 0.040 Amylase Level 67 Lipase 122 Sodium Level 143 Potassium Level 4.7 Chloride Level 103 # Carbon Dioxide 23 Level Anion Gap 17 H Blood Urea 34 #H Nitrogen Creatinine 5.67 H Est Glomerular Filtrat Rate mL/min Glucose Level 122 Calcium Level 11.1 H Total Bilirubin 0.3 Direct 0.00 Bilirubin Indirect 0.3 Bilirubin Aspartate Amino 48 #H Transf (AST/SGO T) Alanine 27 Aminotransferas e (ALT/SGPT) Alkaline 171 H Phosphatase Total Protein 10.7 H Albumin 3.3 Globulin 7.40 H Albumin/Globuli 0.44 n Ratio Test 06/02/18 04:58 06/02/18 05:00 06/02/18 06:38 06/02/18 07:37 Bedside Glucose 121 White Blood 5.6 # Count Red Blood Count 2.57 L Hemoglobin 8.1 L Hematocrit 25.9 L Mean 100.8 Corpuscular Volume Mean 31.5 Corpuscular Hemoglobin Mean 31.3 L Corpuscular Hemoglobin Conc ent Red Cell 19.4 H Distribution Width Platelet Count 87 L Mean Platelet 12.5 H Volume Immature 0.700 H Granulocytes % Neutrophils % 79.9 H Lymphocytes % 9.6 L Monocytes % 8.9 Eosinophils % 0.5 Basophils % 0.4 Nucleated Red 0.4 H Blood Cells % Immature 0.040 H Granulocytes # Neutrophils # 4.5 Lymphocytes # 0.5 L Monocytes # 0.5 Eosinophils # 0.0 Basophils # 0.0 Nucleated Red 0.0 Blood Cells # Sodium Level 141 Potassium Level 5.0 Chloride Level 99 Carbon Dioxide 23 Level Anion Gap 19 H Blood Urea 36 H Nitrogen Creatinine 5.73 H Est Glomerular Filtrat Rate mL/min Glucose Level 142 Calcium Level 11.0 H Phosphorus 7.6 H 7.8 H Level Magnesium Level 2.0 2.1 Blood Gas Blood arterial Specimen Source Arterial Blood 06/02/2018 7:13:4 Date Drawn 7 AM Arterial Blood 7.448 pH (Temp corrected ) Arterial Blood 34.9 L pCO2 (Temp correct) Arterial Blood 115.6 H pO2 (Temp corrected ) Arterial Blood 23.7 HCO3 Arterial Blood -0.3 Base Excess Arterial Blood 98.2 Oxygen Saturati on Ramon Test ACCEPTAB Arterial Blood Right Radial Gas Puncture Site Arterial 0.6 Blood Carboxyhe moglobin Arterial Blood 0.1 Methemoglobin Blood Gas A-a 202.7 H O2 Differential Oxyhemoglobin 97.5 Percent Blood Gas 36.2 Temperature Blood Gas 16.0 Respiration Rate Blood Gas 19 Actual Respiration Rat e Blood Gas VENT - AC Modality FiO2 50.0 Blood Gas Tidal 500.0 Volume Blood Gas Low 5.0 PEEP Setting Blood Gas TM Notified Whom Blood Gas 06/02/2018 8:02:4 Notified Time 8 AM Prothrombin 20.3 H Time Prothrombin 1.6 Time Ratio INR 1.73 International Normalized Rati o Activated 36.3 H Partial Thrombo plast Time Fibrinogen 239.0 D-Dimer 5884.17 H D-Dimer Comment Lactic Acid 1.4 Level Creatine Kinase 79 Creatine Kinase 3.5 Index Creatinine 2.77 H Kinase MB (Mass) Troponin I 0.222 *H Amylase Level 57 Lipase 133 Test 06/02/18 09:16 06/02/18 12:12 06/02/18 12:13 06/02/18 12:16 Bedside Glucose 143 141 Prothrombin 20.9 H Time Prothrombin 1.6 Time Ratio INR 1.79 International Normalized Rati o Activated 36.2 H Partial Thrombo plast Time Fibrinogen 233.0 White Blood 5.0 Count Red Blood Count 2.54 L Hemoglobin 8.2 L Hematocrit 25.6 L Mean 100.8 Corpuscular Volume Mean 32.3 Corpuscular Hemoglobin Mean 32.0 Corpuscular Hemoglobin Conc ent Red Cell 19.2 H Distribution Width Platelet Count 70 L Mean Platelet 12.1 H Volume Immature 0.800 H Granulocytes % Neutrophils % 83.4 H Lymphocytes % 7.9 L Monocytes % 7.5 Eosinophils % 0.2 Basophils % 0.2 Nucleated Red 0.0 Blood Cells % Immature 0.040 H Granulocytes # Neutrophils # 4.1 Lymphocytes # 0.4 L Monocytes # 0.4 Eosinophils # 0.0 Basophils # 0.0 Nucleated Red 0.0 Blood Cells # Sodium Level 142 Potassium Level 4.4 Chloride Level 99 Carbon Dioxide 21 Level Anion Gap 22 H Blood Urea 39 H Nitrogen Creatinine 6.41 H Est Glomerular Filtrat Rate mL/min Glucose Level 147 Lactic Acid 1.2 Level Calcium Level 11.0 H Phosphorus 8.2 H Level Magnesium Level 2.1 Creatine Kinase 67 Creatine Kinase 4.9 Index Creatinine 3.26 H Kinase MB (Mass) Troponin I 0.291 *H Test 06/02/18 12:38 Blood Gas Blood arterial Specimen Source Arterial Blood 06/02/2018 12:53: Date Drawn 07 PM Arterial Blood 7.469 H pH (Temp corrected ) Arterial Blood 32.6 L pCO2 (Temp correct) Arterial Blood 69.1 L pO2 (Temp corrected ) Arterial Blood 24.1 HCO3 Arterial Blood -0.5 Base Excess Arterial Blood 96.2 Oxygen Saturati on Ramon Test ACCEPTAB Arterial Blood Right Radial Gas Puncture Site Arterial 0.7 Blood Carboxyhe moglobin Arterial Blood 0.3 Methemoglobin Blood Gas A-a 182.7 H O2 Differential Oxyhemoglobin 95.2 Percent Blood Gas 32.6 Temperature Blood Gas 16.0 Respiration Rate Blood Gas 16 Actual Respiration Rat e Blood Gas VENT - AC Modality FiO2 40.0 Blood Gas Tidal 500.0 Volume Blood Gas Low 5.0 PEEP Setting Blood Gas RR Notified Whom Blood Gas 06/02/2018 1:08:3 Notified Time 0 PM Medications Medication Current Medications IV Flush (NS 3 ml) 3 ml PER PROTOCOL IV ; Start 05/30/18 at 20:00 Ranitidine HCl (Zantac) 150 mg HS PO Last administered on 06/01/18 20:45; Admin Dose 150 MG; Start 05/30/18 at 21:00 Apixaban (Eliquis) 2.5 mg DAILY PO Last administered on 06/01/18 09:48; Admin Dose 2.5 MG; Start 05/31/18 at 09:00 Atorvastatin Calcium (Lipitor) 40 mg QHS PO Last administered on 06/01/18 20:45; Admin Dose 40 MG; Start 05/31/18 at 21:00 Carvedilol (Coreg) 12.5 mg QHS PO Last administered on 05/31/18 20:35; Admin Dose 12.5 MG; Start 05/31/18 at 21:00 Carvedilol (Coreg) 25 mg DAILY PO Last administered on 06/01/18 09:47; Admin Dose 25 MG; Start 05/31/18 at 09:00 Clopidogrel Bisulfate (plaVIX) 75 mg DAILY PO Last administered on 06/01/18 09:46; Admin Dose 75 MG; Start 05/31/18 at 09:00 Ondansetron HCl (Zofran Inj) 4 mg Q4H PRN IV NAUSEA AND/OR VOMITING Last administered on 06/01/18 00:10; Admin Dose 4 MG; Start 06/01/18 at 00:00 Norepinephrine 250 ml @ 1.875 mls/ hr TITRATE IV Last administered on 06/02/18at 02:16; Admin Dose 1.875 MLS/HR; Start 06/02/18 at 02:30 Sodium Chloride 1,000 ml @ 40 mls/hr Q24H IV Last administered on 06/02/18at 04:40; Admin Dose 40 MLS/HR; Start 06/02/18 at 04:30 Acetaminophen (Tylenol Supp) 650 mg Q4H PRN AK TEMP > 37C; Start 06/02/18 at 07:00 Acetaminophen (Tylenol Liquid) 650 mg Q4H PRN PO TEMP > 37C; Start 06/02/18 at 07:00 Acetaminophen (Tylenol Supp) 500 mg Q6H AK ; Start 06/03/18 at 07:00 Acetaminophen (Tylenol Liquid) 500 mg Q6H PO ; Start 06/03/18 at 07:00 Meperidine HCl (Demerol) 12.5 mg Q4H PRN IV POST OPERATIVE SHIVERING; Start 06/02/18 at 07:00 Meperidine HCl (Demerol) 25 mg Q4H PRN IV POST OPERATIVE SHIVERING; Start 06/02/18 at 07:00 Eye Lubricant (Artificial Tears Oph) 2 drop Q6 BOTH EYES Last administered on 06/02/18at 12:04; Admin Dose 2 DROP; Start 06/02/18 at 12:00 Diagnostic Test (Pha) (Accu-Chek) 1 ea Q1H XX ; Start 06/02/18 at 07:00 Insulin Human Regular 100 unit/ Sodium Chloride 100 ml @ 0.2 mls/hr PER PROTOCOL IV ; Start 06/02/18 at 08:00 Miscellaneous Information (* Miscellaneous Pharmacy Order) Treatment of Hypoglycemia: 1.BG 51... Per protocol XX ; Start 06/02/18 at 07:00 Dextrose (D50w Syringe) 25 ml Q15M PRN IV .DECREASED GLUCOSE; Start 06/02/18 at 07:00 Dextrose (D50w Syringe) 50 ml Q15M PRN IV .DECREASED GLUCOSE; Start 06/02/18 at 07:00 Vecuronium [place] 100 mg/ Dextrose 100 ml @ 4.55 mls/hr TITRATE PRN IV POST OPERATIVE SHIVERING Last administered on 06/02/18at 09:55; Admin Dose 4.55 MLS/HR; Start 06/02/18 at 07:30 Meperidine HCl (Demerol) 12.5 mg Q2 PRN IV POST OPERATIVE SHIVERING; Start 06/02/18 at 07:30 Hypromellose (Genteal Severe) 1 applic Q6 BOTH EYES Last administered on 06/02/18at 12:06; Admin Dose 1 APPLIC; Start 06/02/18 at 12:00 Aztreonam 50 ml @ 100 mls/hr Q12 IVPB Last administered on 06/02/18at 10:38; Admin Dose 100 MLS/HR; Start 06/02/18 at 11:00 Vancomycin HCl (Vanco Iv Per Pharmacy) VANCOMYCIN PER PHARMACY PER PROTOCOL XX ; Start 06/02/18 at 10:00 Vancomycin HCl 1.75 gm/Sodium Chloride 500 ml @ 125 mls/hr ONCE ONCE IVPB Last administered on 06/02/18at 14:04; Admin Dose 125 MLS/HR; Start 06/02/18 at 12:00; Stop 06/02/18 at 15:59 Famotidine (Pepcid Iv) 20 mg DAILY IV ; Start 06/03/18 at 09:00 Propofol 100 ml @ 2.727 mls/ hr Q12H IV Last administered on 06/02/18at 12:07; Admin Dose 21.816 MLS/HR; Start 06/02/18 at 12:00 SRAVANTHI YEPEZ MD Jun 02, 2018 15:21
--- NOTE | 2018-06-02 16:46 | CONS ---
Assessment/Plan Cardiology Heart Failure Type: Acute Heart Failure Type: Systolic Assessment/Plan Hospital Course (Demo Recall) Cardiac arrest: PEA and unclear etiology at this time. Unclear how long pt was down as he was on med/surg. Doubt cardiac. CXR 05/31 and post arrest both with pulmonary edema so possibly respiratory. PE in differential as well. Under hypothermia protocol NSTEMI: Mild trops 0.3 in setting of cardiac arrest. No acute EKG changes. Likely type II Shock: possible cardiogenic component +/- septic Acute respiratory failure: intubated briefly 05/31 post procedure and then extubated. Now intubated during code. Acute ?diastolic vs systolic CHF: unknown EF. Significant pulm edema by CXR Chronic afib: previously on Eliquis ESRD on HD HTN DM Recent diagnosis of MM Pathologic ischial tuberosity and L3/5 fractures Thrombocytopenia Anemia -continue hypothermia protocol -for now hold off on antiplatelets and anticoagulation with anemia/thrombocytopenia and no evidence of true acute coronary syndrome -wean levophed to keep MAP >65 -check echo to eval EF -HD for volume management Very poor prognosis >40 min critical care time Consultation Date/Type/Reason Admit Date/Time May 30, 2018 at 19:04 Date of Consultation: Jun 02, 2018 Type of Consult Cardiology Reason for Consultation Cardiac arrest Requesting Provider: PHILOMENA JONES Date/Time of Note DATE: 06/02/18 TIME: 16:42 Hx of Present Illness 83 yo M with a h/o chronic afib on Eliquis, ESRD on HD, HTN, DM, recent diagnosis of MM, who was sent to the hospital for BM biopsy and pathologic ischial tuberosity and L3/5 fractures. He underwent BM biopsy 05/31 and had respirator failure afterwards leading to brief intubation and extubation. He was eventually transferred to med surg where 06/02 around 1 am he was found to be unresponsive and in PEA arrest. CPR was initiated and he was eventually resuscitated. Hypothermia protocol was initiated as he was unresponsive post code. EKG was unremarkable but troponins increased mildly to 0.3. CT head was unremarkable. He was started on levophed which was initially weaned but now back on. CXR shows diffuse pulm edema. unable to obtain Past Medical History per hPI Home Meds Reported Medications Carvedilol* (Carvedilol*) 12.5 Mg Tablet, 12.5 MG PO QHS, #60 TAB 05/30/18 Carvedilol* (Carvedilol*) 25 Mg Tablet, 25 MG PO DAILY, #60 TAB 05/30/18 Apixaban* (Eliquis*) 2.5 Mg Tablet, 2.5 MG PO DAILY, TAB 05/30/18 Insulin Regular, Human (Humulin R) 100 Unit/1 Ml Vial, IJ, VIAL 06/01/17 Cholecalciferol* (Vitamin D3*) 1,000 Unit Tablet, 2000 UNIT PO DAILY, TAB 06/01/17 Atorvastatin* (Atorvastatin*) 40 Mg Tablet, 40 MG PO QHS, #30 TAB 06/01/17 Ranitidine Hcl* (Ranitidine Hcl*) 150 Mg Tablet, 150 MG PO HS, #30 TAB 06/01/17 Clopidogrel Bisulfate (Clopidogrel) 75 Mg Tablet, 75 MG PO DAILY, #30 TAB 06/01/17 Insulin Glargine* (Lantus*) 100 Unit/Ml Soln, 42 UNIT SC DAILY, #1 VIAL 06/01/17 Hydrochlorothiazide* (Hydrochlorothiazide*) 25 Mg Tab, 25 MG PO BID, #60 TAB 06/01/17 Lisinopril* (Lisinopril*) 20 Mg Tablet, 20 MG PO BID, #30 TAB 06/01/17 Nifedipine* (Nifedipine ER*) 30 Mg Tablet.sa, 30 MG PO DAILY, TAB.SA 06/01/17 Medications Current Medications IV Flush (NS 3 ml) 3 ml PER PROTOCOL IV ; Start 05/30/18 at 20:00 Ranitidine HCl (Zantac) 150 mg HS PO Last administered on 06/01/18at 20:45; Admin Dose 150 MG; Start 05/30/18 at 21:00 Apixaban (Eliquis) 2.5 mg DAILY PO Last administered on 06/01/18at 09:48; Admin Dose 2.5 MG; Start 05/31/18 at 09:00; Status Hold Atorvastatin Calcium (Lipitor) 40 mg QHS PO Last administered on 06/01/18at 20:45; Admin Dose 40 MG; Start 05/31/18 at 21:00 Carvedilol (Coreg) 12.5 mg QHS PO Last administered on 05/31/18at 20:35; Admin Dose 12.5 MG; Start 05/31/18 at 21:00; Status Hold Carvedilol (Coreg) 25 mg DAILY PO Last administered on 06/01/18at 09:47; Admin Dose 25 MG; Start 05/31/18 at 09:00; Status Hold Clopidogrel Bisulfate (plaVIX) 75 mg DAILY PO Last administered on 06/01/18at 09:46; Admin Dose 75 MG; Start 05/31/18 at 09:00; Status Hold Ondansetron HCl (Zofran Inj) 4 mg Q4H PRN IV NAUSEA AND/OR VOMITING Last administered on 06/01/18at 00:10; Admin Dose 4 MG; Start 06/01/18 at 00:00 Norepinephrine 250 ml @ 1.875 mls/ hr TITRATE IV Last administered on 06/02/18at 02:16; Admin Dose 1.875 MLS/HR; Start 06/02/18 at 02:30 Sodium Chloride 1,000 ml @ 40 mls/hr Q24H IV Last administered on 06/02/18at 04:40; Admin Dose 40 MLS/HR; Start 06/02/18 at 04:30 Acetaminophen (Tylenol Supp) 650 mg Q4H PRN [place] TEMP > 37C; Start 06/02/18 at 07:00 Acetaminophen (Tylenol Liquid) 650 mg Q4H PRN PO TEMP > 37C; Start 06/02/18 at 07:00 Acetaminophen (Tylenol Supp) 500 mg Q6H [place] ; Start 06/03/18 at 07:00 Acetaminophen (Tylenol Liquid) 500 mg Q6H PO ; Start 06/03/18 at 07:00 Meperidine HCl (Demerol) 12.5 mg Q4H PRN IV POST OPERATIVE SHIVERING; Start 06/02/18 at 07:00 Meperidine HCl (Demerol) 25 mg Q4H PRN IV POST OPERATIVE SHIVERING; Start 06/02/18 at 07:00 Eye Lubricant (Artificial Tears Oph) 2 drop Q6 BOTH EYES Last administered on 06/02/18at 12:04; Admin Dose 2 DROP; Start 06/02/18 at 12:00 Diagnostic Test (Pha) (Accu-Chek) 1 ea Q1H XX ; Start 06/02/18 at 07:00 Insulin Human Regular 100 unit/ Sodium Chloride 100 ml @ 0.2 mls/hr PER PROTOCOL IV ; Start 06/02/18 at 08:00 Miscellaneous Information (* Miscellaneous Pharmacy Order) Treatment of Hypoglycemia: 1.BG 51... Per protocol XX ; Start 06/02/18 at 07:00 Dextrose (D50w Syringe) 25 ml Q15M PRN IV .DECREASED GLUCOSE; Start 06/02/18 at 07:00 Dextrose (D50w Syringe) 50 ml Q15M PRN IV .DECREASED GLUCOSE; Start 06/02/18 at 07:00 Vecuronium [place] 100 mg/ Dextrose 100 ml @ 4.55 mls/hr TITRATE PRN IV POST OPERATIVE SHIVERING Last administered on 06/02/18at 09:55; Admin Dose 4.55 MLS/HR; Start 06/02/18 at 07:30 Meperidine HCl (Demerol) 12.5 mg Q2 PRN IV POST OPERATIVE SHIVERING; Start 06/02/18 at 07:30 Hypromellose (Genteal Severe) 1 applic Q6 BOTH EYES Last administered on 06/02/18at 12:06; Admin Dose 1 APPLIC; Start 06/02/18 at 12:00 Aztreonam 50 ml @ 100 mls/hr Q12 IVPB Last administered on 06/02/18at 10:38; Admin Dose 100 MLS/HR; Start 06/02/18 at 11:00 Vancomycin HCl (Vanco Iv Per Pharmacy) VANCOMYCIN PER PHARMACY PER PROTOCOL XX ; Start 06/02/18 at 10:00 Famotidine (Pepcid Iv) 20 mg DAILY IV ; Start 06/03/18 at 09:00 Propofol 100 ml @ 2.727 mls/ hr Q12H IV Last administered on 06/02/18at 12:07; Admin Dose 21.816 MLS/HR; Start 06/02/18 at 12:00 Allergies: Coded Allergies: Penicillins (Unverified Allergy, Unknown, 05/31/17) Sulfa (Sulfonamide Antibiotics) (Unverified Allergy, Unknown, 05/31/17) Past Surgical History Past Surgical Hx: no surgical history Social History Alcohol Use: none Smoking Status: Never smoker Drug Use: none Exam/Review of Systems Vital Signs Vitals Vital Signs Date Temp Pulse Resp B/P (MAP) Pulse Ox O2 O2 Flow FiO2 Time Delivery Rate 06/02/18 92.8 68 16 118/59 100 16:00 (78) 06/02/18 40 11:15 06/02/18 Mechanical 05:00 Ventilator 06/01/18 2.0 20:00 Intake and Output 06/01/18 06/01/18 06/02/18 1414:59 22:59 06:59 IntakeIntake Total 500 ml 79.75 ml OutputOutput Total 200 ml 700 ml 10 ml BalanceBalance -200 ml -200 ml 69.75 ml Exam Constitutional: No alert ENMT: intubated Neck: No jvd (unable to assess ) Respiratory: diminished breath sounds; No clear to auscultation Cardiovascular: No regular rate and rhythm (IRIR), No edema, No systolic murmur Gastrointestinal: soft; No distended Neurological: No nl mental status, No nl speech Labs Result Diagram: 06/02/18 1213 06/02/18 1213 Results 24hrs Laboratory Tests Test 06/02/18 01:19 06/02/18 02:26 06/02/18 02:52 06/02/18 02:53 Bedside Glucose 135 102 Blood Gas Blood arterial Specimen Source Arterial Blood 06/02/2018 2:50:2 Date Drawn 4 AM Arterial Blood 7.358 pH (Temp corrected ) Arterial Blood 41.0 pCO2 (Temp correct) Arterial Blood 103.1 H pO2 (Temp corrected ) Arterial Blood 22.5 HCO3 Arterial Blood -2.7 Base Excess Arterial Blood 96.8 Oxygen Saturati on Ramon Test ACCEPTAB Arterial Blood Right Radial Gas Puncture Site Arterial 0.8 Blood Carboxyhe moglobin Arterial Blood 0.2 Methemoglobin Blood Gas A-a 207.3 H O2 Differential Oxyhemoglobin 95.8 Percent Blood Gas 37.0 Temperature Blood Gas 16.0 Respiration Rate Blood Gas 16 Actual Respiration Rat e Blood Gas VENT - AC Modality FiO2 50.0 Blood Gas Tidal 500.0 Volume Blood Gas Low 5.0 PEEP Setting Blood Gas MA Notified Whom Blood Gas 06/02/2018 3:01:1 Notified Time 2 AM White Blood 4.5 L Count Red Blood Count 2.47 L Hemoglobin 7.8 L Hematocrit 25.1 L Mean 101.6 H Corpuscular Volume Mean 31.6 Corpuscular Hemoglobin Mean 31.1 L Corpuscular Hemoglobin Conc ent Red Cell 19.3 H Distribution Width Platelet Count 77 L Mean Platelet 12.4 H Volume Immature 1.600 H Granulocytes % Neutrophils % 83.6 H Lymphocytes % 7.2 L Monocytes % 5.6 Eosinophils % 1.6 Basophils % 0.4 Nucleated Red 0.0 Blood Cells % Immature 0.070 H Granulocytes # Neutrophils # 3.7 Lymphocytes # 0.3 L Monocytes # 0.3 Eosinophils # 0.1 Basophils # 0.0 Nucleated Red 0.0 Blood Cells # Lactic Acid 3.4 *H Level Creatine Kinase 103 Creatine Kinase 1.7 Index Creatinine 1.76 Kinase MB (Mass) Troponin I 0.040 Amylase Level 67 Lipase 122 Sodium Level 143 Potassium Level 4.7 Chloride Level 103 # Carbon Dioxide 23 Level Anion Gap 17 H Blood Urea 34 #H Nitrogen Creatinine 5.67 H Est Glomerular Filtrat Rate mL/min Glucose Level 122 Calcium Level 11.1 H Total Bilirubin 0.3 Direct 0.00 Bilirubin Indirect 0.3 Bilirubin Aspartate Amino 48 #H Transf (AST/SGO T) Alanine 27 Aminotransferas e (ALT/SGPT) Alkaline 171 H Phosphatase Total Protein 10.7 H Albumin 3.3 Globulin 7.40 H Albumin/Globuli 0.44 n Ratio Test 06/02/18 04:58 06/02/18 05:00 06/02/18 06:38 06/02/18 07:37 Bedside Glucose 121 White Blood 5.6 # Count Red Blood Count 2.57 L Hemoglobin 8.1 L Hematocrit 25.9 L Mean 100.8 Corpuscular Volume Mean 31.5 Corpuscular Hemoglobin Mean 31.3 L Corpuscular Hemoglobin Conc ent Red Cell 19.4 H Distribution Width Platelet Count 87 L Mean Platelet 12.5 H Volume Immature 0.700 H Granulocytes % Neutrophils % 79.9 H Lymphocytes % 9.6 L Monocytes % 8.9 Eosinophils % 0.5 Basophils % 0.4 Nucleated Red 0.4 H Blood Cells % Immature 0.040 H Granulocytes # Neutrophils # 4.5 Lymphocytes # 0.5 L Monocytes # 0.5 Eosinophils # 0.0 Basophils # 0.0 Nucleated Red 0.0 Blood Cells # Sodium Level 141 Potassium Level 5.0 Chloride Level 99 Carbon Dioxide 23 Level Anion Gap 19 H Blood Urea 36 H Nitrogen Creatinine 5.73 H Est Glomerular Filtrat Rate mL/min Glucose Level 142 Calcium Level 11.0 H Phosphorus 7.6 H 7.8 H Level Magnesium Level 2.0 2.1 Blood Gas Blood arterial Specimen Source Arterial Blood 06/02/2018 7:13:4 Date Drawn 7 AM Arterial Blood 7.448 pH (Temp corrected ) Arterial Blood 34.9 L pCO2 (Temp correct) Arterial Blood 115.6 H pO2 (Temp corrected ) Arterial Blood 23.7 HCO3 Arterial Blood -0.3 Base Excess Arterial Blood 98.2 Oxygen Saturati on Ramon Test ACCEPTAB Arterial Blood Right Radial Gas Puncture Site Arterial 0.6 Blood Carboxyhe moglobin Arterial Blood 0.1 Methemoglobin Blood Gas A-a 202.7 H O2 Differential Oxyhemoglobin 97.5 Percent Blood Gas 36.2 Temperature Blood Gas 16.0 Respiration Rate Blood Gas 19 Actual Respiration Rat e Blood Gas VENT - AC Modality FiO2 50.0 Blood Gas Tidal 500.0 Volume Blood Gas Low 5.0 PEEP Setting Blood Gas TM Notified Whom Blood Gas 06/02/2018 8:02:4 Notified Time 8 AM Prothrombin 20.3 H Time Prothrombin 1.6 Time Ratio INR 1.73 International Normalized Rati o Activated 36.3 H Partial Thrombo plast Time Fibrinogen 239.0 D-Dimer 5884.17 H D-Dimer Comment Lactic Acid 1.4 Level Creatine Kinase 79 Creatine Kinase 3.5 Index Creatinine 2.77 H Kinase MB (Mass) Troponin I 0.222 *H Amylase Level 57 Lipase 133 Test 06/02/18 09:16 06/02/18 12:12 06/02/18 12:13 06/02/18 12:16 Bedside Glucose 143 141 Prothrombin 20.9 H Time Prothrombin 1.6 Time Ratio INR 1.79 International Normalized Rati o Activated 36.2 H Partial Thrombo plast Time Fibrinogen 233.0 White Blood 5.0 Count Red Blood Count 2.54 L Hemoglobin 8.2 L Hematocrit 25.6 L Mean 100.8 Corpuscular Volume Mean 32.3 Corpuscular Hemoglobin Mean 32.0 Corpuscular Hemoglobin Conc ent Red Cell 19.2 H Distribution Width Platelet Count 70 L Mean Platelet 12.1 H Volume Immature 0.800 H Granulocytes % Neutrophils % 83.4 H Lymphocytes % 7.9 L Monocytes % 7.5 Eosinophils % 0.2 Basophils % 0.2 Nucleated Red 0.0 Blood Cells % Immature 0.040 H Granulocytes # Neutrophils # 4.1 Lymphocytes # 0.4 L Monocytes # 0.4 Eosinophils # 0.0 Basophils # 0.0 Nucleated Red 0.0 Blood Cells # Sodium Level 142 Potassium Level 4.4 Chloride Level 99 Carbon Dioxide 21 Level Anion Gap 22 H Blood Urea 39 H Nitrogen Creatinine 6.41 H Est Glomerular Filtrat Rate mL/min Glucose Level 147 Lactic Acid 1.2 Level Calcium Level 11.0 H Phosphorus 8.2 H Level Magnesium Level 2.1 Creatine Kinase 67 Creatine Kinase 4.9 Index Creatinine 3.26 H Kinase MB (Mass) Troponin I 0.291 *H Test 06/02/18 12:38 06/02/18 15:41 Blood Gas Blood arterial Specimen Source Arterial Blood 06/02/2018 12:53: Date Drawn 07 PM Arterial Blood 7.469 H pH (Temp corrected ) Arterial Blood 32.6 L pCO2 (Temp correct) Arterial Blood 69.1 L pO2 (Temp corrected ) Arterial Blood 24.1 HCO3 Arterial Blood -0.5 Base Excess Arterial Blood 96.2 Oxygen Saturati on Ramon Test ACCEPTAB Arterial Blood Right Radial Gas Puncture Site Arterial 0.7 Blood Carboxyhe moglobin Arterial Blood 0.3 Methemoglobin Blood Gas A-a 182.7 H O2 Differential Oxyhemoglobin 95.2 Percent Blood Gas 32.6 Temperature Blood Gas 16.0 Respiration Rate Blood Gas 16 Actual Respiration Rat e Blood Gas VENT - AC Modality FiO2 40.0 Blood Gas Tidal 500.0 Volume Blood Gas Low 5.0 PEEP Setting Blood Gas RR Notified Whom Blood Gas 06/02/2018 1:08:3 Notified Time 0 PM Bedside Glucose 139 Medications Medications Current Medications IV Flush (NS 3 ml) 3 ml PER PROTOCOL IV ; Start 05/30/18 at 20:00 Ranitidine HCl (Zantac) 150 mg HS PO Last administered on 06/01/18at 20:45; Admin Dose 150 MG; Start 05/30/18 at 21:00 Apixaban (Eliquis) 2.5 mg DAILY PO Last administered on 06/01/18 09:48; Admin Dose 2.5 MG; Start 05/31/18 at 09:00; Status Hold Atorvastatin Calcium (Lipitor) 40 mg QHS PO Last administered on 06/01/18 20:45; Admin Dose 40 MG; Start 05/31/18 at 21:00 Carvedilol (Coreg) 12.5 mg QHS PO Last administered on 05/31/18at 20:35; Admin Dose 12.5 MG; Start 05/31/18 at 21:00; Status Hold Carvedilol (Coreg) 25 mg DAILY PO Last administered on 06/01/18at 09:47; Admin Dose 25 MG; Start 05/31/18 at 09:00; Status Hold Clopidogrel Bisulfate (plaVIX) 75 mg DAILY PO Last administered on 06/01/18at 09:46; Admin Dose 75 MG; Start 05/31/18 at 09:00; Status Hold Ondansetron HCl (Zofran Inj) 4 mg Q4H PRN IV NAUSEA AND/OR VOMITING Last administered on 06/01/18at 00:10; Admin Dose 4 MG; Start 06/01/18 at 00:00 Norepinephrine 250 ml @ 1.875 mls/ hr TITRATE IV Last administered on 06/02/18at 02:16; Admin Dose 1.875 MLS/HR; Start 06/02/18 at 02:30 Sodium Chloride 1,000 ml @ 40 mls/hr Q24H IV Last administered on 06/02/18at 04:40; Admin Dose 40 MLS/HR; Start 06/02/18 at 04:30 Acetaminophen (Tylenol Supp) 650 mg Q4H PRN [place] TEMP > 37C; Start 06/02/18 at 07:00 Acetaminophen (Tylenol Liquid) 650 mg Q4H PRN PO TEMP > 37C; Start 06/02/18 at 07:00 Acetaminophen (Tylenol Supp) 500 mg Q6H [place] ; Start 06/03/18 at 07:00 Acetaminophen (Tylenol Liquid) 500 mg Q6H PO ; Start 06/03/18 at 07:00 Meperidine HCl (Demerol) 12.5 mg Q4H PRN IV POST OPERATIVE SHIVERING; Start 06/02/18 at 07:00 Meperidine HCl (Demerol) 25 mg Q4H PRN IV POST OPERATIVE SHIVERING; Start 06/02/18 at 07:00 Eye Lubricant (Artificial Tears Oph) 2 drop Q6 BOTH EYES Last administered on 06/02/18at 12:04; Admin Dose 2 DROP; Start 06/02/18 at 12:00 Diagnostic Test (Pha) (Accu-Chek) 1 ea Q1H XX ; Start 06/02/18 at 07:00 Insulin Human Regular 100 unit/ Sodium Chloride 100 ml @ 0.2 mls/hr PER PROTOCOL IV ; Start 06/02/18 at 08:00 Miscellaneous Information (* Miscellaneous Pharmacy Order) Treatment of Hy poglycemia: 1.BG 51... Per protocol XX ; Start 06/02/18 at 07:00 Dextrose (D50w Syringe) 25 ml Q15M PRN IV .DECREASED GLUCOSE; Start 06/02/18 at 07:00 Dextrose (D50w Syringe) 50 ml Q15M PRN IV .DECREASED GLUCOSE; Start 06/02/18 at 07:00 Vecuronium [place] 100 mg/ Dextrose 100 ml @ 4.55 mls/hr TITRATE PRN IV POST OPERATIVE SHIVERING Last administered on 06/02/18at 09:55; Admin Dose 4.55 MLS/HR; Start 06/02/18 at 07:30 Meperidine HCl (Demerol) 12.5 mg Q2 PRN IV POST OPERATIVE SHIVERING; Start 06/02/18 at 07:30 Hypromellose (Genteal Severe) 1 applic Q6 BOTH EYES Last administered on 06/02/18at 12:06; Admin Dose 1 APPLIC; Start 06/02/18 at 12:00 Aztreonam 50 ml @ 100 mls/hr Q12 IVPB Last administered on 06/02/18at 10:38; Admin Dose 100 MLS/HR; Start 06/02/18 at 11:00 Vancomycin HCl (Vanco Iv Per Pharmacy) VANCOMYCIN PER PHARMACY PER PROTOCOL XX ; Start 06/02/18 at 10:00 Famotidine (Pepcid Iv) 20 mg DAILY IV ; Start 06/03/18 at 09:00 Propofol 100 ml @ 2.727 mls/ hr Q12H IV Last administered on 06/02/18at 12:07; Admin Dose 21.816 MLS/HR; Start 06/02/18 at 12:[address] Jun 02, 2018 16:46
[2018-06-02] MEDS: ATORVASTATIN 40 MG TAB PO SCH (21:45)
[2018-06-02] MEDS: RANITIDINE 150 MG TAB PO SCH (21:45)
[2018-06-02] MEDS: AZTREONAM 0.5 GM in SOD CHLORIDE 0.9% 50 ML IV SCH (21:47)
[2018-06-03] VITALS (119 sets, daily range): BP systolic 65–160; BP diastolic 46–99; PULSE 61–113; RESP 14–32
[2018-06-03] MEDS ORDERED: ACCU-CHEK XX SCH (02:00)
[2018-06-03] MEDS: PROPOFOL 100 ML IV SCH ×5 (02:04→23:09)
[2018-06-03] MEDS: ACCU-CHEK XX SCH ×6 (04:00→20:00)
[2018-06-03] MEDS: ARTIFICIAL TEARS 15 ML OPH BOTH EYES SCH ×4 (05:35→23:39)
[2018-06-03] MEDS: HYPROMELLOSE OPHTHALMIC LUBRICANT GEL (10 GM) BOTH EYES SCH ×4 (05:36→23:39)
[2018-06-03] MEDS: ACETAMINOPHEN 650MG/20.3ML CUP PO SCH ×3 (06:49→19:00)
[2018-06-03] MEDS: ACETAMINOPHEN 650 MG SUPP PR SCH ×3 (06:49→19:25)
--- NOTE | 2018-06-03 07:42 | CONS ---
Assessment/Plan Assessment/Plan Hospital Course 83 M c/ multiple comorbidities, who is admitted to the [facility] ICU following cardiac arrest. Now undergoing TTM. Head CT 06/02 is unremarkable. P: Continue medical management and supportive care per primary Will follow with you. Consultation Date/Type/Reason Admit Date/Time May 30, 2018 at 19:04 Type of Consult Neurology Reason for Consultation ams Requesting Provider: PHILOMENA JONES Date/Time of Note DATE: 06/03/18 TIME: 07:42 24 HR Interval Summary Free Text/Dictation Continues critical care. Will be rewarmed at 10am. Pt remains on sedatives/paralytics for TTM. Subjective hx not possible: pt non-verbal, pt critical, pt critical status Exam Vital Signs Vitals Vital Signs Date Temp Pulse Resp B/P (MAP) Pulse Ox O2 O2 Flow FiO2 Time Delivery Rate 06/03/18 92.1 73 16 86/54 (65) 100 07:00 06/03/18 45 06:20 06/02/18 Mechanical 05:00 Ventilator 06/01/18 2.0 20:00 Intake and Output 06/02/18 06/02/18 06/03/18 1515:00 23:00 07:00 IntakeIntake Total 320.10 ml 652.397 ml 225.273 ml OutputOutput Total 0 ml 500 ml 400 ml BalanceBalance 320.10 ml 152.397 ml -174.727 ml Exam PE: Gen Appearance: No Apparent Distress. On vecuronium HEENT: Intubated Cardiovascular: Regular rate Abdomen: Soft Extremities: Dry NE: The patient was comatose Cranial nerve examination was limited by mental status. Pupils were equal and unreactive to light. There was no afferent pupillary defect. Funduscopic examination was limited. Face was grossly symmetric, w/out present corneal and cough reflexes. Tone was normal. Muscle bulk was normal. I did not see fasciculations. The patient did not withdraw to noxious stimuli. Coordination and gait testing was limited by mental status. Arm and leg reflexes were symmetric. Willams's sign was absent. Plantar responses were mute. MARY JO HOLMAN Jun 03, 2018 07:42 CAMRYN GARRIDO NP Jun 03, 2018 12:07
--- NOTE | 2018-06-03 08:23 | PN ---
DATE: 06/03/2018 SUBJECTIVE: The patient remains critically ill on pressor support, currently on hypothermic protocol . The patient remains on paralytics. No noted myoclonic twitching or seizures. No other events not ed. No hemoptysis, hematemesis or hematochezia. Please note I did discuss the case with Dr. Jojo Conway yesterday. OBJECTIVE: VITAL SIGNS: Blood pressure is 86/54, respirations 16, pulse 73, temperature 92.1. HEENT: Head is normocephalic. NECK: Supple. HEART: Regular rate. LUNGS: Show diminished breath sounds at the base. ABDOMEN: Soft, nontender to palpation. No rebound or guarding. EXTREMITIES: Negative for clubbing, cyanosis. Trace edema. DERMATOLOGIC: No rashes. MUSCULOSKELETAL: No joint effusions. NEUROLOGIC: No change in exam. MEDICATIONS: The patient's medications have been reviewed. LABORATORY DATA: The laboratory data has been reviewed. IMAGING STUDIES: The patient's imaging studies were reviewed. ASSESSMENT AND PLAN: 1. End-stage renal disease. Patient's last hemodialysis was 2 days ago. Anticipate possible hemodi alysis tomorrow after completion of hypothermic protocol. Will dialyze for 3-1/2 hours 3k bath, low calcium bath. 2. Hypercalcemia, etiology secondary to multiple myeloma. The patient's biopsy was reviewed. Antic ipate hemodialysis on a low calcium bath. 3. Anemia. Monitor hemoglobin and hematocrit levels. Will give Epogen as needed. 4. Mineral bone disorder. The patient is hyperphosphatemic secondary to end-stage renal disease. W ill plan for hemodialysis for solute clearance. 5. Status post cardiac arrest. The patient has currently been initiated on hypothermic protocol. E tiology is unclear, possible PEA. Unclear how long patient has been down. Continue current medical management. Follow up with Cardiology for recommendations. 6. Ventilator-dependent respiratory failure. Vent settings and ABG was reviewed. Continue to monit or. Follow up with pulmonary. 7. Non-STEMI. current medical management per cardiology. 8. Encephalopathy, possible anoxic injury. The patient is being evaluated by neurology. Will campos nue to monitor. 9. Shock, etiology is unclear, possible cardiogenic, questionable sepsis. The patient remains on pr essor support and antibiotic therapy. Cultures have been reviewed. Will continue to monitor. 10. Chronic atrial fibrillation, continue medical management. Follow up with Cardiology. 11. Multiple myeloma. The patient's pathology was reviewed. We will follow up with hematology for further recommendations. 12. Thrombocytopenia. Continue to monitor. 13. History of hypertension. 14. Diabetes. Continue current insulin regimen. 15. Pathological hip fracture. Please note I spent over 30 minutes of critical care time with this patient. Dictated By: TAYLOR GROVE DO NR/NTS Conf#: [id number] DID#: [id number] CC: CHEYENNE WATSON MD; SRAVANTHI YEPEZ MD;*EndCC*
--- NOTE | 2018-06-03 08:50 | CONS ---
Assessment/Plan Assessment/Plan Assessment/Plan (Daily) Ventilator setting; AC of 16, tidal volume 500, PEEP of 5, 45% FiO2. Patient is currently on propofol 35 mics per kilogram per minute, Levophed 5 mics per minute. Chest x-ray showing persistent mild pulmonary vascular congestion. Difficult to rule out superimposed pneumonia. Assessment and recommendations; 1. Patient admitted with cardiac arrest to ICU status post bone marrow biopsy for workup of edema or myeloma history of hypercalcemia. Patient so far has had 2 cardiac arrest events. CPR lasted approximately 10-15 minutes. 2. Patient on hypothermia protocol right now. 3. CHF with possibly superimposed pneumonia. Currently on appropriate antimicrobial regimen. 4. Anemia and thrombocytopenia. 5. History of chronic renal failure, on hemodialysis. 6. Persistent mild hypotension. Requiring low-dose Levophed. 7. History of atrial fibrillation. Continue current supportive care. Mental status will be evaluated once patient is off hypothermia protocol. Hemodialysis per front loader residential driver. Obtain follow-up chest x-ray 24 hours. Prognosis is guarded. 35 minutes of critical care time was spent evaluating the patient. Consultation Date/Type/Reason Admit Date/Time May 30, 2018 at 19:04 Initial Consult Date 06/02/18 Type of Consult Pulmonary/critical care Patient is an 83-year-old male who was admitted for workup for possible multiple myeloma with history of hypercalcemia and pathological fracture. Patient underwent bone marrow biopsy but had a cardiac arrest event requiring intubation. Patient required brief intubation was extubated transferred to medical floor where the patient again had a cardiac arrest event last evening requiring CPR lasting 10 minutes, currently patient is orally intubated and is on hypothermia protocol. History was obtained from medical records. Past medical history; 1. Chronic renal failure, on hemodialysis. 2. Possibly underlying multiple myeloma. 3. Anemia and thrombocytopenia. 4. History of hypertension. Medications; reviewed. Allergies; penicillin. Social history; not available. Family history; not available, apparently he has a supportive family. Occupational history; not available. Review of system; unable to be obtained. General exam; elderly male, orally intubated, on hypothermia protocol. Requesting Provider: PHILOMENA JONES Date/Time of Note DATE: 06/03/18 TIME: 08:46 24 HR Interval Summary Free Text/Dictation Patient's condition remains critical. Currently on hypothermia protocol. Patient however has remained hemodynamically stable. General exam; elderly male, orally intubated, sedated, currently in no distress. Exam/Review of Systems Exam Vitals Vital Signs Date Temp Pulse Resp B/P (MAP) Pulse Ox O2 O2 Flow FiO2 Time Delivery Rate 06/03/18 40 08:00 06/03/18 92.1 73 16 86/54 (65) 100 07:00 06/02/18 Mechanical 05:00 Ventilator 06/01/18 2.0 20:00 Intake and Output 06/02/18 06/02/18 06/03/18 1515:00 23:00 07:00 IntakeIntake Total 320.10 ml 652.397 ml 225.273 ml OutputOutput Total 0 ml 500 ml 400 ml BalanceBalance 320.10 ml 152.397 ml -174.727 ml Exam H EENT exam; supple neck, positive JVD. No lymphadenopathy. Midline trachea. No thyromegaly. Orogastric tube in place. Patient is edentulous.. Chest exam; diminished but clear breath sounds. S1-S2 audible, no murmurs, irregular rhythm. Abdomen exam; soft, no organomegaly. Bowel sounds are absent. Abdomen is nondistended. Extremity exam; no edema. FARM FACILITY MANAGER exam; patient is sedated. Results Result Diagram: 06/03/18 0545 06/03/18 0545 Results 24hrs Laboratory Tests Test 06/02/18 09:16 06/02/18 12:12 06/02/18 12:13 06/02/18 12:16 Bedside Glucose 143 141 Prothrombin 20.9 H Time Prothrombin 1.6 Time Ratio INR 1.79 International Normalized Rati o Activated 36.2 H Partial Thrombo plast Time Fibrinogen 233.0 White Blood 5.0 Count Red Blood Count 2.54 L Hemoglobin 8.2 L Hematocrit 25.6 L Mean 100.8 Corpuscular Volume Mean 32.3 Corpuscular Hemoglobin Mean 32.0 Corpuscular Hemoglobin Conc ent Red Cell 19.2 H Distribution Width Platelet Count 70 L Mean Platelet 12.1 H Volume Immature 0.800 H Granulocytes % Neutrophils % 83.4 H Lymphocytes % 7.9 L Monocytes % 7.5 Eosinophils % 0.2 Basophils % 0.2 Nucleated Red 0.0 Blood Cells % Immature 0.040 H Granulocytes # Neutrophils # 4.1 Lymphocytes # 0.4 L Monocytes # 0.4 Eosinophils # 0.0 Basophils # 0.0 Nucleated Red 0.0 Blood Cells # Sodium Level 142 Potassium Level 4.4 Chloride Level 99 Carbon Dioxide 21 Level Anion Gap 22 H Blood Urea 39 H Nitrogen Creatinine 6.41 H Est Glomerular Filtrat Rate mL/min Glucose Level 147 Lactic Acid 1.2 Level Calcium Level 11.0 H Phosphorus 8.2 H Level Magnesium Level 2.1 Creatine Kinase 67 Creatine Kinase 4.9 Index Creatinine 3.26 H Kinase MB (Mass) Troponin I 0.291 *H Test 06/02/18 12:38 06/02/18 15:41 06/02/18 17:53 06/02/18 18:38 Blood Gas Blood arterial Blood arterial Specimen Source Arterial Blood 06/02/2018 12:53: 06/02/2018 6:30:1 Date Drawn 07 PM 1 PM Arterial Blood 7.469 H 7.495 H pH (Temp corrected ) Arterial Blood 32.6 L 26.7 L pCO2 (Temp correct) Arterial Blood 69.1 L 78.5 L pO2 (Temp corrected ) Arterial Blood 24.1 21.1 L HCO3 Arterial Blood -0.5 -2.9 Base Excess Arterial Blood 96.2 97.2 Oxygen Saturati on Ramon Test ACCEPTAB ACCEPTAB Arterial Blood Right Radial Right Radial Gas Puncture Site Arterial 0.7 0.3 Blood Carboxyhe moglobin Arterial Blood 0.3 0.3 Methemoglobin Blood Gas A-a 182.7 H 217.0 H O2 Differential Oxyhemoglobin 95.2 96.6 Percent Blood Gas 32.6 32.1 Temperature Blood Gas 16.0 16.0 Respiration Rate Blood Gas 16 16 Actual Respiration Rat e Blood Gas VENT - AC VENT - AC Modality FiO2 40.0 45.0 Blood Gas Tidal 500.0 500.0 Volume Blood Gas Low 5.0 5.0 PEEP Setting Blood Gas RR AT Notified Whom Blood Gas 06/02/2018 1:08:3 06/02/2018 6:45:3 Notified Time 0 PM 6 PM Bedside Glucose 139 White Blood 5.1 Count Red Blood Count 2.53 L Hemoglobin 8.1 L Hematocrit 25.5 L Mean 100.8 Corpuscular Volume Mean 32.0 Corpuscular Hemoglobin Mean 31.8 L Corpuscular Hemoglobin Conc ent Red Cell 19.4 H Distribution Width Platelet Count 67 L Mean Platelet 12.5 H Volume Immature 0.600 H Granulocytes % Neutrophils % 83.2 H Lymphocytes % 8.4 L Monocytes % 7.4 Eosinophils % 0.2 Basophils % 0.2 Nucleated Red 0.0 Blood Cells % Immature 0.030 Granulocytes # Neutrophils # 4.3 Lymphocytes # 0.4 L Monocytes # 0.4 Eosinophils # 0.0 Basophils # 0.0 Nucleated Red 0.0 Blood Cells # Sodium Level 140 Potassium Level 4.3 Chloride Level 99 Carbon Dioxide 22 Level Anion Gap 19 H Blood Urea 44 H Nitrogen Creatinine 6.37 H Est Glomerular Filtrat Rate mL/min Glucose Level 146 Lactic Acid 1.1 Level Calcium Level 11.0 H Phosphorus 9.0 H Level Magnesium Level 2.1 Creatine Kinase 39 Creatine Kinase 7.9 Index Creatinine 3.08 H Kinase MB (Mass) Troponin I 0.359 *H Test 06/02/18 20:41 06/02/18 23:55 06/03/18 00:32 06/03/18 00:38 Bedside Glucose 131 125 White Blood 5.0 Count Red Blood Count 2.50 L Hemoglobin 8.1 L Hematocrit 25.3 L Mean 101.2 H Corpuscular Volume Mean 32.4 Corpuscular Hemoglobin Mean 32.0 Corpuscular Hemoglobin Conc ent Red Cell 19.3 H Distribution Width Platelet Count 72 L Mean Platelet 12.6 H Volume Immature 0.400 Granulocytes % Neutrophils % 83.8 H Lymphocytes % 6.5 L Monocytes % 8.9 Eosinophils % 0.2 Basophils % 0.2 Nucleated Red 0.0 Blood Cells % Immature 0.020 Granulocytes # Neutrophils # 4.2 Lymphocytes # 0.3 L Monocytes # 0.4 Eosinophils # 0.0 Basophils # 0.0 Nucleated Red 0.0 Blood Cells # Prothrombin 19.7 H Time Prothrombin 1.5 Time Ratio INR 1.66 International Normalized Rati o Activated 34.6 Partial Thrombo plast Time Fibrinogen 287.0 # Sodium Level 140 Potassium Level 4.4 Chloride Level 98 Carbon Dioxide 22 Level Anion Gap 20 H Blood Urea 49 H Nitrogen Creatinine 6.74 H Est Glomerular Filtrat Rate mL/min Glucose Level 133 Lactic Acid 1.1 Level Calcium Level 11.1 H Phosphorus 10.2 H Level Magnesium Level 2.2 Creatine Kinase 28 Creatine Kinase 10.2 Index Creatinine 2.86 H Kinase MB (Mass) Troponin I 0.334 *H Amylase Level 75 Lipase 151 Blood Gas Blood arterial Specimen Source Arterial Blood 06/03/2018 12:20: Date Drawn 25 AM Arterial Blood 7.500 H pH (Temp corrected ) Arterial Blood 31.1 L pCO2 (Temp correct) Arterial Blood 117.4 H pO2 (Temp corrected ) Arterial Blood 24.6 HCO3 Arterial Blood 0.6 Base Excess Arterial Blood 98.4 Oxygen Saturati on Ramon Test N/A Arterial Blood Right Brachial Gas Puncture Site Arterial 0.2 Blood Carboxyhe moglobin Arterial Blood 0 Methemoglobin Blood Gas A-a 172.4 H O2 Differential Oxyhemoglobin 98.2 Percent Blood Gas 32.9 Temperature Blood Gas 16.0 Respiration Rate Blood Gas 16 Actual Respiration Rat e Blood Gas VENT - AC Modality FiO2 45.0 Blood Gas Tidal 500.0 Volume Blood Gas Low 5.0 PEEP Setting Blood Gas UP Notified Whom Blood Gas 06/03/2018 12:32: Notified Time 21 AM Test 06/03/18 03:42 06/03/18 05:45 06/03/18 06:38 Bedside Glucose 122 White Blood 6.2 # Count Red Blood Count 2.58 L Hemoglobin 8.3 L Hematocrit 25.9 L Mean 100.4 Corpuscular Volume Mean 32.2 Corpuscular Hemoglobin Mean 32.0 Corpuscular Hemoglobin Conc ent Red Cell 19.2 H Distribution Width Platelet Count 83 L Mean Platelet 12.6 H Volume Immature 0.500 H Granulocytes % Neutrophils % 85.7 H Lymphocytes % 5.8 L Monocytes % 7.6 Eosinophils % 0.2 Basophils % 0.2 Nucleated Red 0.3 H Blood Cells % Immature 0.030 Granulocytes # Neutrophils # 5.3 Lymphocytes # 0.4 L Monocytes # 0.5 Eosinophils # 0.0 Basophils # 0.0 Nucleated Red 0.0 Blood Cells # Sodium Level 141 Potassium Level 4.8 Chloride Level 102 Carbon Dioxide 21 Level Anion Gap 18 H Blood Urea 51 H Nitrogen Creatinine 7.03 H Est Glomerular Filtrat Rate mL/min Glucose Level 133 Lactic Acid 1.3 Level Calcium Level 11.1 H Phosphorus 11.3 H Level Magnesium Level 2.2 Creatine Kinase 27 Creatine Kinase 10.1 Index Creatinine 2.73 H Kinase MB (Mass) Troponin I 0.278 *H Blood Gas Blood arterial Specimen Source Arterial Blood 06/03/2018 7:06:1 Date Drawn 7 AM Arterial Blood 7.481 H pH (Temp corrected ) Arterial Blood 28.2 L pCO2 (Temp correct) Arterial Blood 149.0 H pO2 (Temp corrected ) Arterial Blood 21.3 L HCO3 Arterial Blood -2.6 Base Excess Arterial Blood 99.2 Oxygen Saturati on Ramon Test N/A Arterial Blood Right Brachial Gas Puncture Site Arterial 0.6 Blood Carboxyhe moglobin Arterial Blood 0.3 Methemoglobin Blood Gas A-a 143.7 H O2 Differential Oxyhemoglobin 98.3 Percent Blood Gas 33.4 Temperature Blood Gas 16.0 Respiration Rate Blood Gas 16 Actual Respiration Rat e Blood Gas VENT - AC Modality FiO2 45.0 Blood Gas Tidal 500.0 Volume Blood Gas Low 5.0 PEEP Setting Blood Gas CP Notified Whom Blood Gas 06/03/2018 7:15:2 Notified Time 1 AM Medications Medication Current Medications IV Flush (NS 3 ml) 3 ml PER PROTOCOL IV ; Start 05/30/18 at 20:00 Ranitidine HCl (Zantac) 150 mg HS PO Last administered on 06/02/18at 21:45; Admin Dose 150 MG; Start 05/30/18 at 21:00 Atorvastatin Calcium (Lipitor) 40 mg QHS PO Last administered on 06/02/18at 2 1:45; Admin Dose 40 MG; Start 05/31/18 at 21:00 Ondansetron HCl (Zofran Inj) 4 mg Q4H PRN IV NAUSEA AND/OR VOMITING Last administered on 06/01/18at 00:10; Admin Dose 4 MG; Start 06/01/18 at 00:00 Norepinephrine 250 ml @ 1.875 mls/ hr TITRATE IV Last administered on 06/02/18at 09:30; Admin Dose 5.625 MLS/HR; Start 06/02/18 at 02:30 Acetaminophen (Tylenol Supp) 650 mg Q4H PRN IN TEMP > 37C; Start 06/02/18 at 07:00 Acetaminophen (Tylenol Liquid) 650 mg Q4H PRN PO TEMP > 37C; Start 06/02/18 at 07:00 Acetaminophen (Tylenol Supp) 500 mg Q6H IN ; Start 06/03/18 at 07:00 Acetaminophen (Tylenol Liquid) 500 mg Q6H PO Last administered on 06/03/18at 06:49; Admin Dose 500 MG; Start 06/03/18 at 07:00 Meperidine HCl (Demerol) 12.5 mg Q4H PRN IV POST OPERATIVE SHIVERING; Start 06/02/18 at 07:00 Meperidine HCl (Demerol) 25 mg Q4H PRN IV POST OPERATIVE SHIVERING; Start 06/02/18 at 07:00 Eye Lubricant (Artificial Tears Oph) 2 drop Q6 BOTH EYES Last administered on 06/03/18at 05:35; Admin Dose 2 DROP; Start 06/02/18 at 12:00 Insulin Human Regular 100 unit/ Sodium Chloride 100 ml @ 0.2 mls/hr PER PROTOCOL IV ; Start 06/02/18 at 08:00 Miscellaneous Information (* Miscellaneous Pharmacy Order) Treatment of Hypog lycemia: 1.BG 51... Per protocol XX ; Start 06/02/18 at 07:00 Dextrose (D50w Syringe) 25 ml Q15M PRN IV .DECREASED GLUCOSE; Start 06/02/18 at 07:00 Dextrose (D50w Syringe) 50 ml Q15M PRN IV .DECREASED GLUCOSE; Start 06/02/18 at 07:00 Vecuronium [place] 100 mg/ Dextrose 100 ml @ 4.55 mls/hr TITRATE PRN IV POST OPERATIVE SHIVERING Last administered on 06/02/18at 09:55; Admin Dose 4.55 MLS/HR; Start 06/02/18 at 07:30 Meperidine HCl (Demerol) 12.5 mg Q2 PRN IV POST OPERATIVE SHIVERING; Start 06/02/18 at 07:30 Vancomycin HCl (Vanco Iv Per Pharmacy) VANCOMYCIN PER PHARMACY PER PROTOCOL XX ; Start 06/02/18 at 10:00 Famotidine (Pepcid Iv) 20 mg DAILY IV ; Start 06/03/18 at 09:00 Propofol 100 ml @ 2.727 mls/ hr Q12H IV Last administered on 06/03/18at 06:49; Admin Dose 21.816 MLS/HR; Start 06/02/18 at 12:00 Aztreonam 0.5 gm/ Sodium Chloride 50 ml @ 100 mls/hr Q12 IV Last administered on 06/02/18at 21:47; Admin Dose 100 MLS/HR; Start 06/02/18 at 21:00 Diagnostic Test (Pha) (Accu-Chek) 1 ea Q4H XX ; Start 06/02/18 at 20:00 Hypromellose (Genteal Severe) 1 applic Q6 BOTH EYES ; Start 06/03/18 at 12:00 Miscellaneous Information (*Rx Drug Level Order Reminder*) VANCO RANDOM W/ AM LABS... 0500 ONCE XX ; Start 06/04/18 at 05:00; Stop 06/04/18 at 05:01 UDAY CHRISTENSEN Jun 03, 2018 08:50
[2018-06-03] MEDS: AZTREONAM 0.5 GM in SOD CHLORIDE 0.9% 50 ML IV SCH ×2 (09:18→21:41)
[2018-06-03] MEDS: FAMOTIDINE 20 MG INJ IV SCH (09:58)
[2018-06-03] MEDS: BALSAM PERU/CASTOR OIL 60 GM TUBE TOP SCH ×2 (09:58→21:45)
[2018-06-03] MEDS: NORepinephrine 8MG/250 ML (PMX 250 ML IV SCH ×2 (12:04→12:22)
--- NOTE | 2018-06-03 12:27 | RADRPT ---
Echocardiogram Report Patient Name: Danya AWAD ID: [id number] : 1935 (83y 2m)Study Date: 06/03/2018 9:06:11 AM Gender: MAccession #: [id number] Tech: Jose David Hanna [facility] Location: [address] Ref.Physician: LANE BUSH Height(Cm): BSA: Weight(Kg): Quality: AdequateAccount #: Procedures: Echocardiographic Report: Transthoracic echocardiogram with complete 2D, M-Mode, and doppler examination. Indications: Cardiac Arrest. Measurements: 2D/M Mode Doppler Measurement Value Normal Range Measurement Value Normal Range LVIDd 2D 2.7 [ 4.2 - 5.8 ] cm AV Peak Binh 1.2 [ 100.0 - 170.0 ] cm/sec LVIDs 2D 1.7 [ 2.5 - 4.0 ] cm AV Peak PG 6.0 [ 2.0 - 9.0 ] mmHg LVPWd 2D 1.8 [ 0.6 - 1.0 ] cm LVOT Peak Binh 1.3 [ 70.0 - 110.0 ] cm/sec IVSd 2D 1.8 [ 0.6 - 1.0 ] cm LVOT Peak PG 7.0 [ 2.0 - 6.0 ] mmHg AoR Diam 2D 3.0 [ 2.6 - 3.4 ] cm MV E Peak Binh 1.1 [ 60.0 - 130.0 ] cm/sec EDV 2D 26.8 [ 62.0 - 150.0 ] ml MV Decel Time 63 [ 104 - 258 ] msec ESV 2D 7.9 [ 21.0 - 61.0 ] ml Lat E` Binh 0.0 [ 10.0 - 15.0 ] cm/sec EF 2D 70.6 [ 52.0 - 72.0 ] percent Lateral E/E` 24.9 [ 1.0 - 2.0 ] ratio LA Dimen 2D 3.7 [ 3.0 - 4.0 ] cm TR Peak Binh 2.7 [ 100.0 - 280.0 ] cm/sec TR Peak PG 28.0 mmHg RVSP 43.0 [ 10.0 - 36.0 ] mmHg Findings: Left Ventricle: Normal left ventricular systolic function. Normal left ventricular cavity size. Severe concentric left ventricular hypertrophy. Ejection fraction is visually estimated at 65 %. Right Ventricle: Normal right ventricular size. Normal right ventricular systolic function. Left Atrium: There is severe enlargement of left atrium. Right Atrium: There is severe enlargement of right atrium. Mitral Valve: Mild mitral annular calcification. Trace mitral regurgitation. Aortic Valve: Aortic sclerosis without significant stenosis. No aortic regurgitation. Tricuspid Valve: Normal appearance of the tricuspid valve. Estimated peak PA systolic pressure 43 mmHg. There is mild tricuspid regurgitation. Pericardium: Trivial pericardial effusion. Left pleural effusion seen. Aorta: Ascending aorta is dilated. Ascending Aorta 4.10 cm. IVC: Dilated IVC without respiratory collapse, however, patient on ventilator. Conclusions: Normal left ventricular systolic function. Normal left ventricular cavity size. Severe concentric left ventricular hypertrophy. Ejection fraction is visually estimated at 65 %. Aortic sclerosis without significant stenosis. Ascending aorta is dilated. Ascending Aorta 4.10 cm. Trivial pericardial effusion. Left pleural effusion seen. There is severe enlargement of left atrium.There is severe enlargement of right atrium. Estimated peak PA systolic pressure 43 mmHg. Dilated IVC without respiratory collapse, however, patient on ventilator. Dilated IVC without respiratory collapse, however, patient on ventilator. Electronically Signed By: Lane Bush 2018-06-03 12:26:28 PDT
--- NOTE | 2018-06-03 12:37 | PN ---
Date/Time of Note Date/Time of Note DATE: 06/03/18 TIME: 12:36 Assessment/Plan VTE Prophylaxis Risk score (from Ns)>0 risk: 13 SCD applied (from Ns): Yes Pharmacological prophylaxis: heparin Lines/Catheters IV Catheter Type (from Nrsg): Central Line Central line still needed: Yes Urinary Cath still in place: Yes Reason Cath still needed: urinary retention Assessment/Plan Hospital Course Intubated, sedated Clear lungs anteriorly RRR LUE AFG Soft nt nd No edema 83 yo male with ESRD, DMII who has been referred for MM workup after found to have hypercalcemia and pathologic hip fracture. Then suffered cardiac arrest. Now underoing hypothermia protocol Cardiac arrest: - Unclear precipitant - Therapeutic hypothermia underway Multiple myeloma: - MRI - Workup per Dr peng ARGUETA, skeletal survery, bone marrow biopsy completed ESRD: - HD per renal Atrial fibrillation: - Continue AC Pancytopenia: - likely consistent with MM Cholelithiasis: - Unlikely causing any symptoms at this time. Had planned for elective cholecystectomy as outpatient but no acute indication DMII: - Basal/bolus insulin Hypercalcemia: - Consistent with MM Pathologic hip fracture: - management per Dr Burton CC time 30 mintus Result Diagram: 06/03/18 1202 06/03/18 0545 Results 24hrs Laboratory Tests Test 06/02/18 12:38 06/02/18 15:41 06/02/18 17:53 06/02/18 18:38 Blood Gas Blood arterial Blood arterial Specimen Source Arterial Blood 06/02/2018 12:53: 06/02/2018 6:30:1 Date Drawn 07 PM 1 PM Arterial Blood 7.469 H 7.495 H pH (Temp corrected ) Arterial Blood 32.6 L 26.7 L pCO2 (Temp correct) Arterial Blood 69.1 L 78.5 L pO2 (Temp corrected ) Arterial Blood 24.1 21.1 L HCO3 Arterial Blood -0.5 -2.9 Base Excess Arterial Blood 96.2 97.2 Oxygen Saturati on Ramon Test ACCEPTAB ACCEPTAB Arterial Blood Right Radial Right Radial Gas Puncture Site Arterial 0.7 0.3 Blood Carboxyhe moglobin Arterial Blood 0.3 0.3 Methemoglobin Blood Gas A-a 182.7 H 217.0 H O2 Differential Oxyhemoglobin 95.2 96.6 Percent Blood Gas 32.6 32.1 Temperature Blood Gas 16.0 16.0 Respiration Rate Blood Gas 16 16 Actual Respiration Rat e Blood Gas VENT - AC VENT - AC Modality FiO2 40.0 45.0 Blood Gas Tidal 500.0 500.0 Volume Blood Gas Low 5.0 5.0 PEEP Setting Blood Gas RR AT Notified Whom Blood Gas 06/02/2018 1:08:3 06/02/2018 6:45:3 Notified Time 0 PM 6 PM Bedside Glucose 139 White Blood 5.1 Count Red Blood Count 2.53 L Hemoglobin 8.1 L Hematocrit 25.5 L Mean 100.8 Corpuscular Volume Mean 32.0 Corpuscular Hemoglobin Mean 31.8 L Corpuscular Hemoglobin Conc ent Red Cell 19.4 H Distribution Width Platelet Count 67 L Mean Platelet 12.5 H Volume Immature 0.600 H Granulocytes % Neutrophils % 83.2 H Lymphocytes % 8.4 L Monocytes % 7.4 Eosinophils % 0.2 Basophils % 0.2 Nucleated Red 0.0 Blood Cells % Immature 0.030 Granulocytes # Neutrophils # 4.3 Lymphocytes # 0.4 L Monocytes # 0.4 Eosinophils # 0.0 Basophils # 0.0 Nucleated Red 0.0 Blood Cells # Sodium Level 140 Potassium Level 4.3 Chloride Level 99 Carbon Dioxide 22 Level Anion Gap 19 H Blood Urea 44 H Nitrogen Creatinine 6.37 H Est Glomerular Filtrat Rate mL/min Glucose Level 146 Lactic Acid 1.1 Level Calcium Level 11.0 H Phosphorus 9.0 H Level Magnesium Level 2.1 Creatine Kinase 39 Creatine Kinase 7.9 Index Creatinine 3.08 H Kinase MB (Mass) Troponin I 0.359 *H Test 06/02/18 20:41 06/02/18 23:55 06/03/18 00:32 06/03/18 00:38 Bedside Glucose 131 125 White Blood 5.0 Count Red Blood Count 2.50 L Hemoglobin 8.1 L Hematocrit 25.3 L Mean 101.2 H Corpuscular Volume Mean 32.4 Corpuscular Hemoglobin Mean 32.0 Corpuscular Hemoglobin Conc ent Red Cell 19.3 H Distribution Width Platelet Count 72 L Mean Platelet 12.6 H Volume Immature 0.400 Granulocytes % Neutrophils % 83.8 H Lymphocytes % 6.5 L Monocytes % 8.9 Eosinophils % 0.2 Basophils % 0.2 Nucleated Red 0.0 Blood Cells % Immature 0.020 Granulocytes # Neutrophils # 4.2 Lymphocytes # 0.3 L Monocytes # 0.4 Eosinophils # 0.0 Basophils # 0.0 Nucleated Red 0.0 Blood Cells # Prothrombin 19.7 H Time Prothrombin 1.5 Time Ratio INR 1.66 International Normalized Rati o Activated 34.6 Partial Thrombo plast Time Fibrinogen 287.0 # Sodium Level 140 Potassium Level 4.4 Chloride Level 98 Carbon Dioxide 22 Level Anion Gap 20 H Blood Urea 49 H Nitrogen Creatinine 6.74 H Est Glomerular Filtrat Rate mL/min Glucose Level 133 Lactic Acid 1.1 Level Calcium Level 11.1 H Phosphorus 10.2 H Level Magnesium Level 2.2 Creatine Kinase 28 Creatine Kinase 10.2 Index Creatinine 2.86 H Kinase MB (Mass) Troponin I 0.334 *H Amylase Level 75 Lipase 151 Blood Gas Blood arterial Specimen Source Arterial Blood 06/03/2018 12:20: Date Drawn 25 AM Arterial Blood 7.500 H pH (Temp corrected ) Arterial Blood 31.1 L pCO2 (Temp correct) Arterial Blood 117.4 H pO2 (Temp corrected ) Arterial Blood 24.6 HCO3 Arterial Blood 0.6 Base Excess Arterial Blood 98.4 Oxygen Saturati on Ramon Test N/A Arterial Blood Right Brachial Gas Puncture Site Arterial 0.2 Blood Carboxyhe moglobin Arterial Blood 0 Methemoglobin Blood Gas A-a 172.4 H O2 Differential Oxyhemoglobin 98.2 Percent Blood Gas 32.9 Temperature Blood Gas 16.0 Respiration Rate Blood Gas 16 Actual Respiration Rat e Blood Gas VENT - AC Modality FiO2 45.0 Blood Gas Tidal 500.0 Volume Blood Gas Low 5.0 PEEP Setting Blood Gas UP Notified Whom Blood Gas 06/03/2018 12:32: Notified Time 21 AM Test 06/03/18 03:42 06/03/18 05:45 06/03/18 06:38 06/03/18 09:45 Bedside Glucose 122 131 White Blood 6.2 # Count Red Blood Count 2.58 L Hemoglobin 8.3 L Hematocrit 25.9 L Mean 100.4 Corpuscular Volume Mean 32.2 Corpuscular Hemoglobin Mean 32.0 Corpuscular Hemoglobin Conc ent Red Cell 19.2 H Distribution Width Platelet Count 83 L Mean Platelet 12.6 H Volume Immature 0.500 H Granulocytes % Neutrophils % 85.7 H Lymphocytes % 5.8 L Monocytes % 7.6 Eosinophils % 0.2 Basophils % 0.2 Nucleated Red 0.3 H Blood Cells % Immature 0.030 Granulocytes # Neutrophils # 5.3 Lymphocytes # 0.4 L Monocytes # 0.5 Eosinophils # 0.0 Basophils # 0.0 Nucleated Red 0.0 Blood Cells # Sodium Level 141 Potassium Level 4.8 Chloride Level 102 Carbon Dioxide 21 Level Anion Gap 18 H Blood Urea 51 H Nitrogen Creatinine 7.03 H Est Glomerular Filtrat Rate mL/min Glucose Level 133 Lactic Acid 1.3 Level Calcium Level 11.1 H Phosphorus 11.3 H Level Magnesium Level 2.2 Creatine Kinase 27 Creatine Kinase 10.1 Index Creatinine 2.73 H Kinase MB (Mass) Troponin I 0.278 *H Blood Gas Blood arterial Specimen Source Arterial Blood 06/03/2018 7:06:1 Date Drawn 7 AM Arterial Blood 7.481 H pH (Temp corrected ) Arterial Blood 28.2 L pCO2 (Temp correct) Arterial Blood 149.0 H pO2 (Temp corrected ) Arterial Blood 21.3 L HCO3 Arterial Blood -2.6 Base Excess Arterial Blood 99.2 Oxygen Saturati on Ramon Test N/A Arterial Blood Right Brachial Gas Puncture Site Arterial 0.6 Blood Carboxyhe moglobin Arterial Blood 0.3 Methemoglobin Blood Gas A-a 143.7 H O2 Differential Oxyhemoglobin 98.3 Percent Blood Gas 33.4 Temperature Blood Gas 16.0 Respiration Rate Blood Gas 16 Actual Respiration Rat e Blood Gas VENT - AC Modality FiO2 45.0 Blood Gas Tidal 500.0 Volume Blood Gas Low 5.0 PEEP Setting Blood Gas CP Notified Whom Blood Gas 06/03/2018 7:15:2 Notified Time 1 AM Test 06/03/18 12:01 06/03/18 12:02 Sodium Level 139 Potassium Level 4.6 Chloride Level 99 Carbon Dioxide 20 L Level Anion Gap 20 H Blood Urea 55 H Nitrogen Creatinine 7.00 H Est Glomerular Filtrat Rate mL/min Glucose Level 137 Calcium Level 10.7 H Phosphorus 11.1 H Level Magnesium Level 2.2 White Blood 6.9 Count Red Blood Count 2.58 L Hemoglobin 8.4 L Hematocrit 25.7 L Mean 99.6 Corpuscular Volume Mean 32.6 Corpuscular Hemoglobin Mean 32.7 Corpuscular Hemoglobin Conc ent Red Cell 19.2 H Distribution Width Platelet Count 84 L Mean Platelet 12.4 H Volume Immature 0.700 H Granulocytes % Neutrophils % 86.3 H Lymphocytes % 5.7 L Monocytes % 6.7 Eosinophils % 0.3 Basophils % 0.3 Nucleated Red 0.0 Blood Cells % Immature 0.050 H Granulocytes # Neutrophils # 5.9 Lymphocytes # 0.4 L Monocytes # 0.5 Eosinophils # 0.0 Basophils # 0.0 Nucleated Red 0.0 Blood Cells # Lactic Acid 1.3 Level Subjective 24 Hr Interval Summary Free Text/Dictation Completing hypothermia protocol today Exam/Review of Systems Exam Vitals Vital Signs Date Temp Pulse Resp B/P (MAP) Pulse Ox O2 O2 Flow FiO2 Time Delivery Rate 06/03/18 92.7 94 16 84/47 (59) 100 12:00 06/03/18 45 11:00 06/02/18 Mechanical 05:00 Ventilator 06/01/18 2.0 20:00 Intake and Output 06/02/18 06/02/18 06/03/18 1515:00 23:00 07:00 IntakeIntake Total 320.10 ml 652.397 ml 225.273 ml OutputOutput Total 0 ml 500 ml 400 ml BalanceBalance 320.10 ml 152.397 ml -174.727 ml Results Results 24hrs Laboratory Tests Test 06/02/18 12:38 06/02/18 15:41 06/02/18 17:53 06/02/18 18:38 Blood Gas Blood arterial Blood arterial Specimen Source Arterial Blood 06/02/2018 12:53: 06/02/2018 6:30:1 Date Drawn 07 PM 1 PM Arterial Blood 7.469 H 7.495 H pH (Temp corrected ) Arterial Blood 32.6 L 26.7 L pCO2 (Temp correct) Arterial Blood 69.1 L 78.5 L pO2 (Temp corrected ) Arterial Blood 24.1 21.1 L HCO3 Arterial Blood -0.5 -2.9 Base Excess Arterial Blood 96.2 97.2 Oxygen Saturati on Ramon Test ACCEPTAB ACCEPTAB Arterial Blood Right Radial Right Radial Gas Puncture Site Arterial 0.7 0.3 Blood Carboxyhe moglobin Arterial Blood 0.3 0.3 Methemoglobin Blood Gas A-a 182.7 H 217.0 H O2 Differential Oxyhemoglobin 95.2 96.6 Percent Blood Gas 32.6 32.1 Temperature Blood Gas 16.0 16.0 Respiration Rate Blood Gas 16 16 Actual Respiration Rat e Blood Gas VENT - AC VENT - AC Modality FiO2 40.0 45.0 Blood Gas Tidal 500.0 500.0 Volume Blood Gas Low 5.0 5.0 PEEP Setting Blood Gas RR AT Notified Whom Blood Gas 06/02/2018 1:08:3 06/02/2018 6:45:3 Notified Time 0 PM 6 PM Bedside Glucose 139 White Blood 5.1 Count Red Blood Count 2.53 L Hemoglobin 8.1 L Hematocrit 25.5 L Mean 100.8 Corpuscular Volume Mean 32.0 Corpuscular Hemoglobin Mean 31.8 L Corpuscular Hemoglobin Conc ent Red Cell 19.4 H Distribution Width Platelet Count 67 L Mean Platelet 12.5 H Volume Immature 0.600 H Granulocytes % Neutrophils % 83.2 H Lymphocytes % 8.4 L Monocytes % 7.4 Eosinophils % 0.2 Basophils % 0.2 Nucleated Red 0.0 Blood Cells % Immature 0.030 Granulocytes # Neutrophils # 4.3 Lymphocytes # 0.4 L Monocytes # 0.4 Eosinophils # 0.0 Basophils # 0.0 Nucleated Red 0.0 Blood Cells # Sodium Level 140 Potassium Level 4.3 Chloride Level 99 Carbon Dioxide 22 Level Anion Gap 19 H Blood Urea 44 H Nitrogen Creatinine 6.37 H Est Glomerular Filtrat Rate mL/min Glucose Level 146 Lactic Acid 1.1 Level Calcium Level 11.0 H Phosphorus 9.0 H Level Magnesium Level 2.1 Creatine Kinase 39 Creatine Kinase 7.9 Index Creatinine 3.08 H Kinase MB (Mass) Troponin I 0.359 *H Test 06/02/18 20:41 06/02/18 23:55 06/03/18 00:32 06/03/18 00:38 Bedside Glucose 131 125 White Blood 5.0 Count Red Blood Count 2.50 L Hemoglobin 8.1 L Hematocrit 25.3 L Mean 101.2 H Corpuscular Volume Mean 32.4 Corpuscular Hemoglobin Mean 32.0 Corpuscular Hemoglobin Conc ent Red Cell 19.3 H Distribution Width Platelet Count 72 L Mean Platelet 12.6 H Volume Immature 0.400 Granulocytes % Neutrophils % 83.8 H Lymphocytes % 6.5 L Monocytes % 8.9 Eosinophils % 0.2 Basophils % 0.2 Nucleated Red 0.0 Blood Cells % Immature 0.020 Granulocytes # Neutrophils # 4.2 Lymphocytes # 0.3 L Monocytes # 0.4 Eosinophils # 0.0 Basophils # 0.0 Nucleated Red 0.0 Blood Cells # Prothrombin 19.7 H Time Prothrombin 1.5 Time Ratio INR 1.66 International Normalized Rati o Activated 34.6 Partial Thrombo plast Time Fibrinogen 287.0 # Sodium Level 140 Potassium Level 4.4 Chloride Level 98 Carbon Dioxide 22 Level Anion Gap 20 H Blood Urea 49 H Nitrogen Creatinine 6.74 H Est Glomerular Filtrat Rate mL/min Glucose Level 133 Lactic Acid 1.1 Level Calcium Level 11.1 H Phosphorus 10.2 H Level Magnesium Level 2.2 Creatine Kinase 28 Creatine Kinase 10.2 Index Creatinine 2.86 H Kinase MB (Mass) Troponin I 0.334 *H Amylase Level 75 Lipase 151 Blood Gas Blood arterial Specimen Source Arterial Blood 06/03/2018 12:20: Date Drawn 25 AM Arterial Blood 7.500 H pH (Temp corrected ) Arterial Blood 31.1 L pCO2 (Temp correct) Arterial Blood 117.4 H pO2 (Temp corrected ) Arterial Blood 24.6 HCO3 Arterial Blood 0.6 Base Excess Arterial Blood 98.4 Oxygen Saturati on Ramon Test N/A Arterial Blood Right Brachial Gas Puncture Site Arterial 0.2 Blood Carboxyhe moglobin Arterial Blood 0 Methemoglobin Blood Gas A-a 172.4 H O2 Differential Oxyhemoglobin 98.2 Percent Blood Gas 32.9 Temperature Blood Gas 16.0 Respiration Rate Blood Gas 16 Actual Respiration Rat e Blood Gas VENT - AC Modality FiO2 45.0 Blood Gas Tidal 500.0 Volume Blood Gas Low 5.0 PEEP Setting Blood Gas UP Notified Whom Blood Gas 06/03/2018 12:32: Notified Time 21 AM Test 06/03/18 03:42 06/03/18 05:45 06/03/18 06:38 06/03/18 09:45 Bedside Glucose 122 131 White Blood 6.2 # Count Red Blood Count 2.58 L Hemoglobin 8.3 L Hematocrit 25.9 L Mean 100.4 Corpuscular Volume Mean 32.2 Corpuscular Hemoglobin Mean 32.0 Corpuscular Hemoglobin Conc ent Red Cell 19.2 H Distribution Width Platelet Count 83 L Mean Platelet 12.6 H Volume Immature 0.500 H Granulocytes % Neutrophils % 85.7 H Lymphocytes % 5.8 L Monocytes % 7.6 Eosinophils % 0.2 Basophils % 0.2 Nucleated Red 0.3 H Blood Cells % Immature 0.030 Granulocytes # Neutrophils # 5.3 Lymphocytes # 0.4 L Monocytes # 0.5 Eosinophils # 0.0 Basophils # 0.0 Nucleated Red 0.0 Blood Cells # Sodium Level 141 Potassium Level 4.8 Chloride Level 102 Carbon Dioxide 21 Level Anion Gap 18 H Blood Urea 51 H Nitrogen Creatinine 7.03 H Est Glomerular Filtrat Rate mL/min Glucose Level 133 Lactic Acid 1.3 Level Calcium Level 11.1 H Phosphorus 11.3 H Level Magnesium Level 2.2 Creatine Kinase 27 Creatine Kinase 10.1 Index Creatinine 2.73 H Kinase MB (Mass) Troponin I 0.278 *H Blood Gas Blood arterial Specimen Source Arterial Blood 06/03/2018 7:06:1 Date Drawn 7 AM Arterial Blood 7.481 H pH (Temp corrected ) Arterial Blood 28.2 L pCO2 (Temp correct) Arterial Blood 149.0 H pO2 (Temp corrected ) Arterial Blood 21.3 L HCO3 Arterial Blood -2.6 Base Excess Arterial Blood 99.2 Oxygen Saturati on Ramon Test N/A Arterial Blood Right Brachial Gas Puncture Site Arterial 0.6 Blood Carboxyhe moglobin Arterial Blood 0.3 Methemoglobin Blood Gas A-a 143.7 H O2 Differential Oxyhemoglobin 98.3 Percent Blood Gas 33.4 Temperature Blood Gas 16.0 Respiration Rate Blood Gas 16 Actual Respiration Rat e Blood Gas VENT - AC Modality FiO2 45.0 Blood Gas Tidal 500.0 Volume Blood Gas Low 5.0 PEEP Setting Blood Gas CP Notified Whom Blood Gas 06/03/2018 7:15:2 Notified Time 1 AM Test 06/03/18 12:02 White Blood 6.9 Count Red Blood Count 2.58 L Hemoglobin 8.4 L Hematocrit 25.7 L Mean 99.6 Corpuscular Volume Mean 32.6 Corpuscular Hemoglobin Mean 32.7 Corpuscular Hemoglobin Conc ent Red Cell 19.2 H Distribution Width Platelet Count 84 L Mean Platelet 12.4 H Volume Immature 0.700 H Granulocytes % Neutrophils % 86.3 H Lymphocytes % 5.7 L Monocytes % 6.7 Eosinophils % 0.3 Basophils % 0.3 Nucleated Red 0.0 Blood Cells % Immature 0.050 H Granulocytes # Neutrophils # 5.9 Lymphocytes # 0.4 L Monocytes # 0.5 Eosinophils # 0.0 Basophils # 0.0 Nucleated Red 0.0 Blood Cells # Medications Medication Current Medications IV Flush (NS 3 ml) 3 ml PER PROTOCOL IV ; Start 05/30/18 at 20:00 Ranitidine HCl (Zantac) 150 mg HS PO Last administered on 06/02/18at 21:45; Admin Dose 150 MG; Start 05/30/18 at 21:00 Atorvastatin Calcium (Lipitor) 40 mg QHS PO Last administered on 06/02/18at 21:45; Admin Dose 40 MG; Start 05/31/18 at 21:00 Ondansetron HCl (Zofran Inj) 4 mg Q4H PRN IV NAUSEA AND/OR VOMITING Last administered on 06/01/18at 00:10; Admin Dose 4 MG; Start 06/01/18 at 00:00 Norepinephrine 250 ml @ 1.875 mls/ hr TITRATE IV Last administered on 06/03/18at 12:22; Admin Dose 9.375 MLS/HR; Start 06/02/18 at 02:30 Acetaminophen (Tylenol Supp) 650 mg Q4H PRN LA TEMP > 37C; Start 06/02/18 at 07:00 Acetaminophen (Tylenol Liquid) 650 mg Q4H PRN PO TEMP > 37C; Start 06/02/18 at 07:00 Acetaminophen (Tylenol Supp) 500 mg Q6H LA ; Start 06/03/18 at 07:00 Acetaminophen (Tylenol Liquid) 500 mg Q6H PO Last administered on 06/03/18at 06:49; Admin Dose 500 MG; Start 06/03/18 at 07:00 Meperidine HCl (Demerol) 12.5 mg Q4H PRN IV POST OPERATIVE SHIVERING; Start 06/02/18 at 07:00 Meperidine HCl (Demerol) 25 mg Q4H PRN IV POST OPERATIVE SHIVERING; Start 06/02/18 at 07:00 Eye Lubricant (Artificial Tears Oph) 2 drop Q6 BOTH EYES Last administered on 06/03/18at 05:35; Admin Dose 2 DROP; Start 06/02/18 at 12:00 Insulin Human Regular 100 unit/ Sodium Chloride 100 ml @ 0.2 mls/hr PER PROTOCOL IV ; Start 06/02/18 at 08:00 Miscellaneous Information (* Miscellaneous Pharmacy Order) Treatment of Hypoglycemia: 1.BG 51... Per protocol XX ; Start 06/02/18 at 07:00 Dextrose (D50w Syringe) 25 ml Q15M PRN IV .DECREASED GLUCOSE; Start 06/02/18 at 07:00 Dextrose (D50w Syringe) 50 ml Q15M PRN IV .DECREASED GLUCOSE; Start 06/02/18 at 07:00 Vecuronium [place] 100 mg/ Dextrose 100 ml @ 4.55 mls/hr TITRATE PRN IV POST OPERATIVE SHIVERING Last administered on 06/02/18at 09:55; Admin Dose 4.55 MLS/HR; Start 06/02/18 at 07:30 Meperidine HCl (Demerol) 12.5 mg Q2 PRN IV POST OPERATIVE SHIVERING; Start at 07:30 Vancomycin HCl (Vanco Iv Per Pharmacy) VANCOMYCIN PER PHARMACY PER PROTOCOL XX ; Start 06/02/18 at 10:00 Famotidine (Pepcid Iv) 20 mg DAILY IV Last administered on 06/03/18at 09:58; Admin Dose 20 MG; Start 06/03/18 at 09:00 Propofol 100 ml @ 2.727 mls/ hr Q12H IV Last administered on 06/03/18at 06:49; Admin Dose 21.816 MLS/HR; Start 06/02/18 at 12:00 Aztreonam 0.5 gm/ Sodium Chloride 50 ml @ 100 mls/hr Q12 IV Last administered on 06/03/18at 09:18; Admin Dose 100 MLS/HR; Start 06/02/18 at 21:00 Diagnostic Test (Pha) (Accu-Chek) 1 ea Q4H XX ; Start 06/02/18 at 20:00 Hypromellose (Genteal Severe) 1 applic Q6 BOTH EYES ; Start 06/03/18 at 12:00 Miscellaneous Information (*Rx Drug Level Order Reminder*) VANCO RANDOM W/ AM LABS... 0500 ONCE XX ; Start 06/04/18 at 05:00; Stop 06/04/18 at 05:01 Aspirin (Aspirin) 81 mg DAILY PO ; Start 06/03/18 at 12:30 SRAVANTHI YEPEZ MD Jun 03, 2018 12:37
--- NOTE | 2018-06-03 12:40 | CONS ---
Assessment/Plan Cardiology Heart Failure Type: Acute Heart Failure Type: Systolic Assessment/Plan Hospital Course (Demo Recall) Cardiac arrest: PEA and unclear etiology at this time. Unclear how long pt was down as he was on med/surg. Doubt cardiac. CXR 05/31 and post arrest both with pulmonary edema so possibly respiratory. PE in differential as well. Under hypothermia protocol, now rewarming NSTEMI: Mild trops 0.35 in setting of cardiac arrest. No acute EKG changes. Likely type II. Echo with preserved EF Shock: possible cardiogenic component +/- septic. Improving Acute respiratory failure: intubated briefly 05/31 post procedure and then extubated. Now intubated during code. Acute diastolic CHF: EF preserved. 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 Trops peaked at 0.35. AFib is controlled. Plts slightly bett er today Exam/Review of Systems Vital Signs Vitals Vital Signs Date Temp Pulse Resp B/P (MAP) Pulse Ox O2 O2 Flow FiO2 Time Delivery Rate 06/03/18 92.7 94 16 84/47 (59) 100 12:00 06/03/18 45 11:00 06/02/18 Mechanical 05:00 Ventilator 06/01/18 2.0 20:00 Intake and Output 06/02/18 06/02/18 06/03/18 1515:00 23:00 07:00 IntakeIntake Total 320.10 ml 652.397 ml 225.273 ml OutputOutput Total 0 ml 500 ml 400 ml BalanceBalance 320.10 ml 152.397 ml -174.727 ml Exam Constitutional: No alert, No oriented ENMT: intubated Neck: supple; No jvd (unable to assess) Respiratory: diminished breath sounds; No clear to auscultation Cardiovascular: systolic murmur (2/6 YESSENIA); No regular rate and rhythm, No edema Gastrointestinal: soft; No distended Neurological: No nl mental status, No nl speech Labs Result Diagram: 06/03/18 1202 06/03/18 1201 Results 24hrs Laboratory Tests Test 06/02/18 12:38 06/02/18 15:41 06/02/18 17:53 06/02/18 18:38 Blood Gas Blood arterial Blood arterial Specimen Source Arterial Blood 06/02/2018 12:53: 06/02/2018 6:30:1 Date Drawn 07 PM 1 PM Arterial Blood 7.469 H 7.495 H pH (Temp corrected ) Arterial Blood 32.6 L 26.7 L pCO2 (Temp correct) Arterial Blood 69.1 L 78.5 L pO2 (Temp corrected ) Arterial Blood 24.1 21.1 L HCO3 Arterial Blood -0.5 -2.9 Base Excess Arterial Blood 96.2 97.2 Oxygen Saturati on Ramon Test ACCEPTAB ACCEPTAB Arterial Blood Right Radial Right Radial Gas Puncture Site Arterial 0.7 0.3 Blood Carboxyhe moglobin Arterial Blood 0.3 0.3 Methemoglobin Blood Gas A-a 182.7 H 217.0 H O2 Differential Oxyhemoglobin 95.2 96.6 Percent Blood Gas 32.6 32.1 Temperature Blood Gas 16.0 16.0 Respiration Rate Blood Gas 16 16 Actual Respiration Rat e Blood Gas VENT - AC VENT - AC Modality FiO2 40.0 45.0 Blood Gas Tidal 500.0 500.0 Volume Blood Gas Low 5.0 5.0 PEEP Setting Blood Gas RR AT Notified Whom Blood Gas 06/02/2018 1:08:3 06/02/2018 6:45:3 Notified Time 0 PM 6 PM Bedside Glucose 139 White Blood 5.1 Count Red Blood Count 2.53 L Hemoglobin 8.1 L Hematocrit 25.5 L Mean 100.8 Corpuscular Volume Mean 32.0 Corpuscular Hemoglobin Mean 31.8 L Corpuscular Hemoglobin Conc ent Red Cell 19.4 H Distribution Width Platelet Count 67 L Mean Platelet 12.5 H Volume Immature 0.600 H Granulocytes % Neutrophils % 83.2 H Lymphocytes % 8.4 L Monocytes % 7.4 Eosinophils % 0.2 Basophils % 0.2 Nucleated Red 0.0 Blood Cells % Immature 0.030 Granulocytes # Neutrophils # 4.3 Lymphocytes # 0.4 L Monocytes # 0.4 Eosinophils # 0.0 Basophils # 0.0 Nucleated Red 0.0 Blood Cells # Sodium Level 140 Potassium Level 4.3 Chloride Level 99 Carbon Dioxide 22 Level Anion Gap 19 H Blood Urea 44 H Nitrogen Creatinine 6.37 H Est Glomerular Filtrat Rate mL/min Glucose Level 146 Lactic Acid 1.1 Level Calcium Level 11.0 H Phosphorus 9.0 H Level Magnesium Level 2.1 Creatine Kinase 39 Creatine Kinase 7.9 Index Creatinine 3.08 H Kinase MB (Mass) Troponin I 0.359 *H Test 06/02/18 20:41 06/02/18 23:55 06/03/18 00:32 06/03/18 00:38 Bedside Glucose 131 125 White Blood 5.0 Count Red Blood Count 2.50 L Hemoglobin 8.1 L Hematocrit 25.3 L Mean 101.2 H Corpuscular Volume Mean 32.4 Corpuscular Hemoglobin Mean 32.0 Corpuscular Hemoglobin Conc ent Red Cell 19.3 H Distribution Width Platelet Count 72 L Mean Platelet 12.6 H Volume Immature 0.400 Granulocytes % Neutrophils % 83.8 H Lymphocytes % 6.5 L Monocytes % 8.9 Eosinophils % 0.2 Basophils % 0.2 Nucleated Red 0.0 Blood Cells % Immature 0.020 Granulocytes # Neutrophils # 4.2 Lymphocytes # 0.3 L Monocytes # 0.4 Eosinophils # 0.0 Basophils # 0.0 Nucleated Red 0.0 Blood Cells # Prothrombin 19.7 H Time Prothrombin 1.5 Time Ratio INR 1.66 International Normalized Rati o Activated 34.6 Partial Thrombo plast Time Fibrinogen 287.0 # Sodium Level 140 Potassium Level 4.4 Chloride Level 98 Carbon Dioxide 22 Level Anion Gap 20 H Blood Urea 49 H Nitrogen Creatinine 6.74 H Est Glomerular Filtrat Rate mL/min Glucose Level 133 Lactic Acid 1.1 Level Calcium Level 11.1 H Phosphorus 10.2 H Level Magnesium Level 2.2 Creatine Kinase 28 Creatine Kinase 10.2 Index Creatinine 2.86 H Kinase MB (Mass) Troponin I 0.334 *H Amylase Level 75 Lipase 151 Blood Gas Blood arterial Specimen Source Arterial Blood 06/03/2018 12:20: Date Drawn 25 AM Arterial Blood 7.500 H pH (Temp corrected ) Arterial Blood 31.1 L pCO2 (Temp correct) Arterial Blood 117.4 H pO2 (Temp corrected ) Arterial Blood 24.6 HCO3 Arterial Blood 0.6 Base Excess Arterial Blood 98.4 Oxygen Saturati on Ramon Test N/A Arterial Blood Right Brachial Gas Puncture Site Arterial 0.2 Blood Carboxyhe moglobin Arterial Blood 0 Methemoglobin Blood Gas A-a 172.4 H O2 Differential Oxyhemoglobin 98.2 Percent Blood Gas 32.9 Temperature Blood Gas 16.0 Respiration Rate Blood Gas 16 Actual Respiration Rat e Blood Gas VENT - AC Modality FiO2 45.0 Blood Gas Tidal 500.0 Volume Blood Gas Low 5.0 PEEP Setting Blood Gas UP Notified Whom Blood Gas 06/03/2018 12:32: Notified Time 21 AM Test 06/03/18 03:42 06/03/18 05:45 06/03/18 06:38 06/03/18 09:45 Bedside Glucose 122 131 White Blood 6.2 # Count Red Blood Count 2.58 L Hemoglobin 8.3 L Hematocrit 25.9 L Mean 100.4 Corpuscular Volume Mean 32.2 Corpuscular Hemoglobin Mean 32.0 Corpuscular Hemoglobin Conc ent Red Cell 19.2 H Distribution Width Platelet Count 83 L Mean Platelet 12.6 H Volume Immature 0.500 H Granulocytes % Neutrophils % 85.7 H Lymphocytes % 5.8 L Monocytes % 7.6 Eosinophils % 0.2 Basophils % 0.2 Nucleated Red 0.3 H Blood Cells % Immature 0.030 Granulocytes # Neutrophils # 5.3 Lymphocytes # 0.4 L Monocytes # 0.5 Eosinophils # 0.0 Basophils # 0.0 Nucleated Red 0.0 Blood Cells # Sodium Level 141 Potassium Level 4.8 Chloride Level 102 Carbon Dioxide 21 Level Anion Gap 18 H Blood Urea 51 H Nitrogen Creatinine 7.03 H Est Glomerular Filtrat Rate mL/min Glucose Level 133 Lactic Acid 1.3 Level Calcium Level 11.1 H Phosphorus 11.3 H Level Magnesium Level 2.2 Creatine Kinase 27 Creatine Kinase 10.1 Index Creatinine 2.73 H Kinase MB (Mass) Troponin I 0.278 *H Blood Gas Blood arterial Specimen Source Arterial Blood 06/03/2018 7:06:1 Date Drawn 7 AM Arterial Blood 7.481 H pH (Temp corrected ) Arterial Blood 28.2 L pCO2 (Temp correct) Arterial Blood 149.0 H pO2 (Temp corrected ) Arterial Blood 21.3 L HCO3 Arterial Blood -2.6 Base Excess Arterial Blood 99.2 Oxygen Saturati on Ramon Test N/A Arterial Blood Right Brachial Gas Puncture Site Arterial 0.6 Blood Carboxyhe moglobin Arterial Blood 0.3 Methemoglobin Blood Gas A-a 143.7 H O2 Differential Oxyhemoglobin 98.3 Percent Blood Gas 33.4 Temperature Blood Gas 16.0 Respiration Rate Blood Gas 16 Actual Respiration Rat e Blood Gas VENT - AC Modality FiO2 45.0 Blood Gas Tidal 500.0 Volume Blood Gas Low 5.0 PEEP Setting Blood Gas CP Notified Whom Blood Gas 06/03/2018 7:15:2 Notified Time 1 AM Test 06/03/18 12:01 06/03/18 12:02 Sodium Level 139 Potassium Level 4.6 Chloride Level 99 Carbon Dioxide 20 L Level Anion Gap 20 H Blood Urea 55 H Nitrogen Creatinine 7.00 H Est Glomerular Filtrat Rate mL/min Glucose Level 137 Calcium Level 10.7 H Phosphorus 11.1 H Level Magnesium Level 2.2 White Blood 6.9 Count Red Blood Count 2.58 L Hemoglobin 8.4 L Hematocrit 25.7 L Mean 99.6 Corpuscular Volume Mean 32.6 Corpuscular Hemoglobin Mean 32.7 Corpuscular Hemoglobin Conc ent Red Cell 19.2 H Distribution Width Platelet Count 84 L Mean Platelet 12.4 H Volume Immature 0.700 H Granulocytes % Neutrophils % 86.3 H Lymphocytes % 5.7 L Monocytes % 6.7 Eosinophils % 0.3 Basophils % 0.3 Nucleated Red 0.0 Blood Cells % Immature 0.050 H Granulocytes # Neutrophils # 5.9 Lymphocytes # 0.4 L Monocytes # 0.5 Eosinophils # 0.0 Basophils # 0.0 Nucleated Red 0.0 Blood Cells # Lactic Acid 1.3 Level Medications Medications Current Medications IV Flush (NS 3 ml) 3 ml PER PROTOCOL IV ; Start 05/30/18 at 20:00 Ranitidine HCl (Zantac) 150 mg HS PO Last administered on 06/02/18at 21:45; Admin Dose 150 MG; Start 05/30/18 at 21:00 Atorvastatin Calcium (Lipitor) 40 mg QHS PO Last administered on 06/02/18at 21:45; Admin Dose 40 MG; Start 05/31/18 at 21:00 Ondansetron HCl (Zofran Inj) 4 mg Q4H PRN IV NAUSEA AND/OR VOMITING Last administered on 06/01/18at 00:10; Admin Dose 4 MG; Start 06/01/18 at 00:00 Norepinephrine 250 ml @ 1.875 mls/ hr TITRATE IV Last administered on 06/03/18at 12:22; Admin Dose 9.375 MLS/HR; Start 06/02/18 at 02:30 Acetaminophen (Tylenol Supp) 650 mg Q4H PRN [place] TEMP > 37C; Start 06/02/18 at 07: 00 Acetaminophen (Tylenol Liquid) 650 mg Q4H PRN PO TEMP > 37C; Start 06/02/18 at 07:00 Acetaminophen (Tylenol Supp) 500 mg Q6H [place] ; Start 06/03/18 at 07:00 Acetaminophen (Tylenol Liquid) 500 mg Q6H PO Last administered on 06/03/18at 06:49; Admin Dose 500 MG; Start 06/03/18 at 07:00 Meperidine HCl (Demerol) 12.5 mg Q4H PRN IV POST OPERATIVE SHIVERING; Start 06/02/18 at 07:00 Meperidine HCl (Demerol) 25 mg Q4H PRN IV POST OPERATIVE SHIVERING; Start 06/02/18 at 07:00 Eye Lubricant (Artificial Tears Oph) 2 drop Q6 BOTH EYES Last administered on 06/03/18at 05:35; Admin Dose 2 DROP; Start 06/02/18 at 12:00 Insulin Human Regular 100 unit/ Sodium Chloride 100 ml @ 0.2 mls/hr PER PROTOCOL IV ; Start 06/02/18 at 08:00 Miscellaneous Information (* Miscellaneous Pharmacy Order) Treatment of Hypoglycemia: 1.BG 51... Per protocol XX ; Start 06/02/18 at 07:00 Dextrose (D50w Syringe) 25 ml Q15M PRN IV .DECREASED GLUCOSE; Start 06/02/18 at 07:00 Dextrose (D50w Syringe) 50 ml Q15M PRN IV .DECREASED GLUCOSE; Start 06/02/18 at 07:00 Vecuronium Dawson 100 mg/ Dextrose 100 ml @ 4.55 mls/hr TITRATE PRN IV POST OPERATIVE SHIVERING Last administered on 06/02/18at 09:55; Admin Dose 4.55 MLS/HR; Start 06/02/18 at 07:30 Meperidine HCl (Demerol) 12.5 mg Q2 PRN IV POST OPERATIVE SHIVERING; Start 06/02/18 at 07:30 Vancomycin HCl (Vanco Iv Per Pharmacy) VANCOMYCIN PER PHARMACY PER PROTOCOL XX ; Start 06/02/18 at 10:00 Famotidine (Pepcid Iv) 20 mg DAILY IV Last administered on 06/03/18at 09:58; Admin Dose 20 MG; Start 06/03/18 at 09:00 Propofol 100 ml @ 2.727 mls/ hr Q12H IV Last administered on 06/03/18at 06:49; Admin Dose 21.816 MLS/HR; Start 06/02/18 at 12:00 Aztreonam 0.5 gm/ Sodium Chloride 50 ml @ 100 mls/hr Q12 IV Last administered on 06/03/18at 09:18; Admin Dose 100 MLS/HR; Start 06/02/18 at 21:00 Diagnostic Test (Pha) (Accu-Chek) 1 ea Q4H XX ; Start 06/02/18 at 20:00 Hypromellose (Genteal Severe) 1 applic Q6 BOTH EYES ; Start 06/03/18 at 12:00 Miscellaneous Information (*Rx Drug Level Order Reminder*) VANCO RANDOM W/ AM LABS... 0500 ONCE XX ; Start 06/04/18 at 05:00; Stop 06/04/18 at 05:01 Aspirin (Aspirin) 81 mg DAILY PO ; Start 06/03/18 at 12:[address] Jun 03, 2018 12:40
--- NOTE | 2018-06-03 12:48 | CONS ---
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 As explained to son and daughter in law, I will star the treatment in house if patient is stable enough #s/p code blue -although pt is hemodynamically stable it is unlcear how much neurologic function he will be able to regain -will continue to monitor -pt now on hypothermic protocol -appreciate neurology recs #Afib -currently rate controlled -now off eliquis #BAck pain -MRI of L spine demonstrates myelomatous replacement and disease at L3 and L5 -again if patient is able to stabilize will refer to rad onc #Hypercalcemia -s/p pamidronate 30 mg #ESRD -continue HD #DM -continue current medications #HTN -continue current medications Thank you for the opportunity to participate in this patients care A total of 40 minutes of face to face time was spent speaking with the patient, of which greater than 50% was spent in counseling and coordination of care and the detailed question and answer session. Consultation Date/Type/Reason Admit Date/Time May 30, 2018 at 19:04 Initial Consult Date 05/31/18 Type of Consult oncology Reason for Consultation Multiple myeloma Requesting Provider: PHILOMENA JONES Date/Time of Note DATE: 06/03/18 TIME: 12:45 24 HR Interval Summary Free Text/Dictation continues on hypothermic protocol. still intubated Exam/Review of Systems Exam Vitals Vital Signs Date Temp Pulse Resp B/P (MAP) Pulse Ox O2 O2 Flow FiO2 Time Delivery Rate 06/03/18 92.7 94 16 84/47 (59) 100 12:00 06/03/18 45 11:00 06/02/18 Mechanical 05:00 Ventilator 06/01/18 2.0 20:00 Intake and Output 06/02/18 06/02/18 06/03/18 1414:59 22:59 06:59 IntakeIntake Total 184.95 ml 729.106 ml 273.398 ml OutputOutput Total 0 ml 500 ml 400 ml BalanceBalance 184.95 ml 229.106 ml -126.602 ml Constitutional: non-verbal Eyes: icteric ENMT: nl external ears & nose Neck: supple Respiratory: clear to auscultation Cardiovascular: regular rate and rhythm, other Gastrointestinal: soft Musculoskeletal: swelling Results Result Diagram: 06/03/18 1202 06/03/18 1201 Results 24hrs Laboratory Tests Test 06/02/18 15:41 06/02/18 17:53 06/02/18 18:38 06/02/18 20:41 Bedside Glucose 139 131 White Blood 5.1 Count Red Blood Count 2.53 L Hemoglobin 8.1 L Hematocrit 25.5 L Mean Corpuscular 100.8 Volume Mean Corpuscular 32.0 Hemoglobin Mean Corpuscular 31.8 L Hemoglobin Mary nt Red Cell 19.4 H Distribution Width Platelet Count 67 L Mean Platelet 12.5 H Volume Immature 0.600 H Granulocytes % Neutrophils % 83.2 H Lymphocytes % 8.4 L Monocytes % 7.4 Eosinophils % 0.2 Basophils % 0.2 Nucleated Red 0.0 Blood Cells % Immature 0.030 Granulocytes # Neutrophils # 4.3 Lymphocytes # 0.4 L Monocytes # 0.4 Eosinophils # 0.0 Basophils # 0.0 Nucleated Red 0.0 Blood Cells # Sodium Level 140 Potassium Level 4.3 Chloride Level 99 Carbon Dioxide 22 Level Anion Gap 19 H Blood Urea 44 H Nitrogen Creatinine 6.37 H Est Glomerular Filtrat Rate mL/min Glucose Level 146 Lactic Acid 1.1 Level Calcium Level 11.0 H Phosphorus Level 9.0 H Magnesium Level 2.1 Creatine Kinase 39 Creatine Kinase 7.9 Index Creatinine 3.08 H Kinase MB (Mass) Troponin I 0.359 *H Blood Gas Blood arterial Specimen Source Arterial Blood 06/02/2018 6:30:11 Date Drawn PM Arterial Blood 7.495 H pH (Temp corrected) Arterial Blood 26.7 L pCO2 (Temp correct) Arterial Blood 78.5 L pO2 (Temp corrected) Arterial Blood 21.1 L HCO3 Arterial Blood -2.9 Base Excess Arterial Blood 97.2 Oxygen Saturatio n Ramon Test ACCEPTAB Arterial Blood Right Radial Gas Puncture Site Arterial 0.3 Blood Carboxyhem oglobin Arterial Blood 0.3 Methemoglobin Blood Gas A-a O2 217.0 H Differential Oxyhemoglobin 96.6 Percent Blood Gas 32.1 Temperature Blood Gas 16.0 Respiration Rate Blood Gas Actual 16 Respiration Rate Blood Gas VENT - AC Modality FiO2 45.0 Blood Gas Tidal 500.0 Volume Blood Gas Low 5.0 PEEP Setting Blood Gas AT Notified Whom Blood Gas 06/02/2018 6:45:36 Notified Time PM Test 06/02/18 23:55 06/03/18 00:32 06/03/18 00:38 06/03/18 03:42 White Blood 5.0 Count Red Blood Count 2.50 L Hemoglobin 8.1 L Hematocrit 25.3 L Mean Corpuscular 101.2 H Volume Mean Corpuscular 32.4 Hemoglobin Mean Corpuscular 32.0 Hemoglobin Mary nt Red Cell 19.3 H Distribution Width Platelet Count 72 L Mean Platelet 12.6 H Volume Immature 0.400 Granulocytes % Neutrophils % 83.8 H Lymphocytes % 6.5 L Monocytes % 8.9 Eosinophils % 0.2 Basophils % 0.2 Nucleated Red 0.0 Blood Cells % Immature 0.020 Granulocytes # Neutrophils # 4.2 Lymphocytes # 0.3 L Monocytes # 0.4 Eosinophils # 0.0 Basophils # 0.0 Nucleated Red 0.0 Blood Cells # Prothrombin Time 19.7 H Prothrombin Time 1.5 Ratio INR 1.66 International Normalized Ratio Activated 34.6 Partial Thrombop last Time Fibrinogen 287.0 # Sodium Level 140 Potassium Level 4.4 Chloride Level 98 Carbon Dioxide 22 Level Anion Gap 20 H Blood Urea 49 H Nitrogen Creatinine 6.74 H Est Glomerular Filtrat Rate mL/min Glucose Level 133 Lactic Acid 1.1 Level Calcium Level 11.1 H Phosphorus Level 10.2 H Magnesium Level 2.2 Creatine Kinase 28 Creatine Kinase 10.2 Index Creatinine 2.86 H Kinase MB (Mass) Troponin I 0.334 *H Amylase Level 75 Lipase 151 Bedside Glucose 125 122 Blood Gas Blood arterial Specimen Source Arterial Blood 06/03/2018 12:20:2 Date Drawn 5 AM Arterial Blood 7.500 H pH (Temp corrected) Arterial Blood 31.1 L pCO2 (Temp correct) Arterial Blood 117.4 H pO2 (Temp corrected) Arterial Blood 24.6 HCO3 Arterial Blood 0.6 Base Excess Arterial Blood 98.4 Oxygen Saturatio n Ramon Test N/A Arterial Blood Right Brachial Gas Puncture Site Arterial 0.2 Blood Carboxyhem oglobin Arterial Blood 0 Methemoglobin Blood Gas A-a O2 172.4 H Differential Oxyhemoglobin 98.2 Percent Blood Gas 32.9 Temperature Blood Gas 16.0 Respiration Rate Blood Gas Actual 16 Respiration Rate Blood Gas VENT - AC Modality FiO2 45.0 Blood Gas Tidal 500.0 Volume Blood Gas Low 5.0 PEEP Setting Blood Gas UP Notified Whom Blood Gas 06/03/2018 12:32:2 Notified Time 1 AM Test 06/03/18 05:45 06/03/18 06:38 06/03/18 09:45 06/03/18 12:01 White Blood 6.2 # Count Red Blood Count 2.58 L Hemoglobin 8.3 L Hematocrit 25.9 L Mean Corpuscular 100.4 Volume Mean Corpuscular 32.2 Hemoglobin Mean Corpuscular 32.0 Hemoglobin Mary nt Red Cell 19.2 H Distribution Width Platelet Count 83 L Mean Platelet 12.6 H Volume Immature 0.500 H Granulocytes % Neutrophils % 85.7 H Lymphocytes % 5.8 L Monocytes % 7.6 Eosinophils % 0.2 Basophils % 0.2 Nucleated Red 0.3 H Blood Cells % Immature 0.030 Granulocytes # Neutrophils # 5.3 Lymphocytes # 0.4 L Monocytes # 0.5 Eosinophils # 0.0 Basophils # 0.0 Nucleated Red 0.0 Blood Cells # Sodium Level 141 139 Potassium Level 4.8 4.6 Chloride Level 102 99 Carbon Dioxide 21 20 L Level Anion Gap 18 H 20 H Blood Urea 51 H 55 H Nitrogen Creatinine 7.03 H 7.00 H Est Glomerular Filtrat Rate mL/min Glucose Level 133 137 Lactic Acid 1.3 Level Calcium Level 11.1 H 10.7 H Phosphorus Level 11.3 H 11.1 H Magnesium Level 2.2 2.2 Creatine Kinase 27 Pending Creatine Kinase 10.1 Pending Index Creatinine 2.73 H 2.71 H Kinase MB (Mass) Troponin I 0.278 *H 0.261 *H Blood Gas Blood arterial Specimen Source Arterial Blood 06/03/2018 7:06:17 Date Drawn AM Arterial Blood 7.481 H pH (Temp corrected) Arterial Blood 28.2 L pCO2 (Temp correct) Arterial Blood 149.0 H pO2 (Temp corrected) Arterial Blood 21.3 L HCO3 Arterial Blood -2.6 Base Excess Arterial Blood 99.2 Oxygen Saturatio n Ramon Test N/A Arterial Blood Right Brachial Gas Puncture Site Arterial 0.6 Blood Carboxyhem oglobin Arterial Blood 0.3 Methemoglobin Blood Gas A-a O2 143.7 H Differential Oxyhemoglobin 98.3 Percent Blood Gas 33.4 Temperature Blood Gas 16.0 Respiration Rate Blood Gas Actual 16 Respiration Rate Blood Gas VENT - AC Modality FiO2 45.0 Blood Gas Tidal 500.0 Volume Blood Gas Low 5.0 PEEP Setting Blood Gas CP Notified Whom Blood Gas 06/03/2018 7:15:21 Notified Time AM Bedside Glucose 131 Test 06/03/18 12:02 White Blood 6.9 Count Red Blood Count 2.58 L Hemoglobin 8.4 L Hematocrit 25.7 L Mean Corpuscular 99.6 Volume Mean Corpuscular 32.6 Hemoglobin Mean Corpuscular 32.7 Hemoglobin Mary nt Red Cell 19.2 H Distribution Width Platelet Count 84 L Mean Platelet 12.4 H Volume Immature 0.700 H Granulocytes % Neutrophils % 86.3 H Lymphocytes % 5.7 L Monocytes % 6.7 Eosinophils % 0.3 Basophils % 0.3 Nucleated Red 0.0 Blood Cells % Immature 0.050 H Granulocytes # Neutrophils # 5.9 Lymphocytes # 0.4 L Monocytes # 0.5 Eosinophils # 0.0 Basophils # 0.0 Nucleated Red 0.0 Blood Cells # Prothrombin Time 18.3 H Prothrombin Time 1.4 Ratio INR 1.51 International Normalized Ratio Activated 34.1 Partial Thrombop last Time Fibrinogen 279.0 Lactic Acid 1.3 Level Medications Medication Current Medications IV Flush (NS 3 ml) 3 ml PER PROTOCOL IV ; Start 05/30/18 at 20:00 Ranitidine HCl (Zantac) 150 mg HS PO Last administered on 06/02/18at 21:45; Admin Dose 150 MG; Start 05/30/18 at 21:00 Atorvastatin Calcium (Lipitor) 40 mg QHS PO Last administered on 06/02/18at 21:45; Admin Dose 40 MG; Start 05/31/18 at 21:00 Ondansetron HCl (Zofran Inj) 4 mg Q4H PRN IV NAUSEA AND/OR VOMITING Last administered on 06/01/18at 00:10; Admin Dose 4 MG; Start 06/01/18 at 00:00 Norepinephrine 250 ml @ 1.875 mls/ hr TITRATE IV Last administered on 06/03/18at 12:22; Admin Dose 9.375 MLS/HR; Start 06/02/18 at 02:30 Acetaminophen (Tylenol Supp) 650 mg Q4H PRN [place] TEMP > 37C; Start 06/02/18 at 07:00 Acetaminophen (Tylenol Liquid) 650 mg Q4H PRN PO TEMP > 37C; Start 06/02/18 at 07:00 Acetaminophen (Tylenol Supp) 500 mg Q6H [place] ; Start 06/03/18 at 07:00 Acetaminophen (Tylenol Liquid) 500 mg Q6H PO Last administered on 06/03/18at 06:49; Admin Dose 500 MG; Start 06/03/18 at 07:00 Meperidine HCl (Demerol) 12.5 mg Q4H PRN IV POST OPERATIVE SHIVERING; Start 06/02/18 at 07:00 Meperidine HCl (Demerol) 25 mg Q4H PRN IV POST OPERATIVE SHIVERING; Start 06/02/18 at 07:00 Eye Lubricant (Artificial Tears Oph) 2 drop Q6 BOTH EYES Last administered on 06/03/18at 05:35; Admin Dose 2 DROP; Start 06/02/18 at 12:00 Insulin Human Regular 100 unit/ Sodium Chloride 100 ml @ 0.2 mls/hr PER PROTOCOL IV ; Start 06/02/18 at 08:00 Miscellaneous Information (* Miscellaneous Pharmacy Order) Treatment of Hypoglycemia: 1.BG 51... Per protocol XX ; Start 06/02/18 at 07:00 Dextrose (D50w Syringe) 25 ml Q15M PRN IV .DECREASED GLUCOSE; Start 06/02/18 at 07:00 Dextrose (D50w Syringe) 50 ml Q15M PRN IV .DECREASED GLUCOSE; Start 06/02/18 at 07:00 Vecuronium Phenix 100 mg/ Dextrose 100 ml @ 4.55 mls/hr TITRATE PRN IV POST OPERATIVE SHIVERING Last administered on 06/02/18at 09:55; Admin Dose 4.55 MLS/HR; Start 06/02/18 at 07:30 Meperidine HCl (Demerol) 12.5 mg Q2 PRN IV POST OPERATIVE SHIVERING; Start 06/02/18 at 07:30 Vancomycin HCl (Vanco Iv Per Pharmacy) VANCOMYCIN PER PHARMACY PER PROTOCOL XX ; Start 06/02/18 at 10:00 Famotidine (Pepcid Iv) 20 mg DAILY IV Last administered on 06/03/18at 09:58; Admin Dose 20 MG; Start 06/03/18 at 09:00 Propofol 100 ml @ 2.727 mls/ hr Q12H IV Last administered on 06/03/18at 06:49; Admin Dose 21.816 MLS/HR; Start 06/02/18 at 12:00 Aztreonam 0.5 gm/ Sodium Chloride 50 ml @ 100 mls/hr Q12 IV Last administered on 06/03/18at 09:18; Admin Dose 100 MLS/HR; Start 06/02/18 at 21:00 Diagnostic Test (Pha) (Accu-Chek) 1 ea Q4H XX ; Start 06/02/18 at 20:00 Hypromellose (Genteal Severe) 1 applic Q6 BOTH EYES ; Start 06/03/18 at 12:00 Miscellaneous Information (*Rx Drug Level Order Reminder*) VANCO RANDOM W/ AM LABS... 0500 ONCE XX ; Start 06/04/18 at 05:00; Stop 06/04/18 at 05:01 Aspirin (Aspirin) 81 mg DAILY PO ; Start 06/03/18 at 12:30 LITA BASS M.D. Jun 03, 2018 12:48
[2018-06-03] MEDS: ASPIRIN 81 MG TAB PO SCH (13:20)
[2018-06-03] MEDS: RANITIDINE 150 MG TAB PO SCH (21:00)
[2018-06-03] MEDS: ATORVASTATIN 40 MG TAB PO SCH (21:44)
[2018-06-04] VITALS (110 sets, daily range): BP systolic 64–163; BP diastolic 41–76; PULSE 71–116; RESP 12–25
[2018-06-04] MEDS: ACETAMINOPHEN 650MG/20.3ML CUP PO SCH ×3 (01:00→12:20)
[2018-06-04] MEDS: ACCU-CHEK XX SCH ×7 (02:00→23:36)
[2018-06-04] MEDS: ACETAMINOPHEN 650 MG SUPP PR SCH ×3 (02:23→13:00)
[2018-06-04] MEDS: LORAZEPAM 2 MG INJ IV PRN ×5 (02:42→22:21)
[2018-06-04] MEDS: HYPROMELLOSE OPHTHALMIC LUBRICANT GEL (10 GM) BOTH EYES SCH ×4 (06:35→23:37)
[2018-06-04] MEDS: ARTIFICIAL TEARS 15 ML OPH BOTH EYES SCH ×4 (06:35→23:37)
[2018-06-04] MEDS: FAMOTIDINE 20 MG INJ IV SCH (09:04)
[2018-06-04] MEDS: AZTREONAM 0.5 GM in SOD CHLORIDE 0.9% 50 ML IV SCH ×2 (09:05→20:13)
[2018-06-04] MEDS: ASPIRIN 81 MG TAB PO SCH (09:07)
--- NOTE | 2018-06-04 09:38 | CONS ---
Assessment/Plan Cardiology Heart Failure Type: Acute Heart Failure Type: Systolic Assessment/Plan Hospital Course (Demo Recall) Cardiac arrest: PEA and unclear etiology at this time. Unclear how long pt was down as he was on med/surg. Doubt cardiac. CXR 05/31 and post arrest both with pulmonary edema so possibly respiratory. PE in differential as well. s/p hypothermia protocol NSTEMI: Mild trops 0.35 in setting of cardiac arrest. No acute EKG changes. Likely type II. Echo with preserved EF Shock: possible cardiogenic component +/- septic. Improving Acute respiratory failure: intubated briefly 05/31 post procedure and then extubated. Now intubated during code. Acute diastolic CHF: EF preserved. 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 Goals of care discussion Consultation Date/Type/Reason Admit Date/Time May 30, 2018 at 19:04 Initial Consult Date 06/02/18 Type of Consult Cardiology Requesting Provider: PHILOMENA JONES Date/Time of Note DATE: 06/04/18 TIME: 09:36 24 HR Interval Summary Free Text/Dictation No events. Remains on levophed. Had a seizure. No neurologic recovery Exam/Review of Systems Vital Signs Vitals Vital Signs Date Temp Pulse Resp B/P (MAP) Pulse Ox O2 O2 Flow FiO2 Time Delivery Rate 06/04/18 98.8 07:20 06/04/18 114 16 101/60 100 Mechanical 06:00 (74) Ventilator 06/04/18 40 05:21 06/01/18 2.0 20:00 Intake and Output 06/03/18 06/03/18 06/04/18 1515:00 23:00 07:00 IntakeIntake Total 299.960 ml 289.309 ml 64.563 ml OutputOutput Total 50 ml 50 ml 70 ml BalanceBalance 249.960 ml 239.309 ml -5.437 ml Exam Constitutional: No alert ENMT: intubated Neck: supple, jvd (9cm) Respiratory: diminished breath sounds; No clear to auscultation Cardiovascular: regular rate and rhythm, systolic murmur; No edema Gastrointestinal: soft; No distended Musculoskeletal: No nl extremities to inspection Neurological: No nl mental status, No nl speech Labs Result Diagram: 06/04/18 0550 06/04/18 0550 Results 24hrs Laboratory Tests Test 06/03/18 09:45 06/03/18 12:01 06/03/18 12:02 06/03/18 12:38 Bedside Glucose 131 Sodium Level 139 Potassium Level 4.6 Chloride Level 99 Carbon Dioxide 20 L Level Anion Gap 20 H Blood Urea 55 H Nitrogen Creatinine 7.00 H Est Glomerular Filtrat Rate mL/min Glucose Level 137 Calcium Level 10.7 H Phosphorus Level 11.1 H Magnesium Level 2.2 Creatine Kinase 30 Creatine Kinase 9.0 Index Creatinine 2.71 H Kinase MB (Mass) Troponin I 0.261 *H White Blood 6.9 Count Red Blood Count 2.58 L Hemoglobin 8.4 L Hematocrit 25.7 L Mean Corpuscular 99.6 Volume Mean Corpuscular 32.6 Hemoglobin Mean Corpuscular 32.7 Hemoglobin Mary nt Red Cell 19.2 H Distribution Width Platelet Count 84 L Mean Platelet 12.4 H Volume Immature 0.700 H Granulocytes % Neutrophils % 86.3 H Lymphocytes % 5.7 L Monocytes % 6.7 Eosinophils % 0.3 Basophils % 0.3 Nucleated Red 0.0 Blood Cells % Immature 0.050 H Granulocytes # Neutrophils # 5.9 Lymphocytes # 0.4 L Monocytes # 0.5 Eosinophils # 0.0 Basophils # 0.0 Nucleated Red 0.0 Blood Cells # Prothrombin Time 18.3 H Prothrombin Time 1.4 Ratio INR 1.51 International Normalized Ratio Activated 34.1 Partial Thrombop last Time Fibrinogen 279.0 Lactic Acid 1.3 Level Amylase Level 107 Lipase 507 H Blood Gas Blood arterial Specimen Source Arterial Blood 06/03/2018 12:27:0 Date Drawn 0 PM Arterial Blood 7.473 H pH (Temp corrected) Arterial Blood 31.2 L pCO2 (Temp correct) Arterial Blood 126.3 H pO2 (Temp corrected) Arterial Blood 23.0 HCO3 Arterial Blood -1.1 Base Excess Arterial Blood 98.7 Oxygen Saturatio n Ramon Test N/A Arterial Blood Right Brachial Gas Puncture Site Arterial 0.3 Blood Carboxyhem oglobin Arterial Blood 0.1 Methemoglobin Blood Gas A-a O2 162.3 H Differential Oxyhemoglobin 98.3 Percent Blood Gas 34.0 Temperature Blood Gas 16.0 Respiration Rate Blood Gas Actual 16 Respiration Rate Blood Gas VENT - AC Modality FiO2 45.0 Blood Gas Tidal 500.0 Volume Blood Gas Low 5.0 PEEP Setting Blood Gas [facility] Notified Whom Blood Gas 06/03/2018 12:47:0 Notified Time 0 PM Test 06/03/18 12:53 06/03/18 16:59 06/03/18 18:28 06/03/18 19:30 Bedside Glucose 120 111 109 White Blood 6.9 Count Red Blood Count 2.52 L Hemoglobin 8.2 L Hematocrit 25.2 L Mean Corpuscular 100.0 Volume Mean Corpuscular 32.5 Hemoglobin Mean Corpuscular 32.5 Hemoglobin Mary nt Red Cell 19.2 H Distribution Width Platelet Count 100 L Mean Platelet 13.2 H Volume Immature 0.700 H Granulocytes % Neutrophils % 85.2 H Lymphocytes % 6.2 L Monocytes % 6.4 Eosinophils % 1.2 Basophils % 0.3 Nucleated Red 0.0 Blood Cells % Immature 0.050 H Granulocytes # Neutrophils # 5.9 Lymphocytes # 0.4 L Monocytes # 0.4 Eosinophils # 0.1 Basophils # 0.0 Nucleated Red 0.0 Blood Cells # Sodium Level 141 Potassium Level 4.6 Chloride Level 98 Carbon Dioxide 22 Level Anion Gap 21 H Blood Urea 61 H Nitrogen Creatinine 6.40 H Est Glomerular Filtrat Rate mL/min Glucose Level 120 Lactic Acid 1.2 Level Calcium Level 10.4 H Phosphorus Level 10.3 H Magnesium Level 2.1 Test 06/03/18 20:00 06/04/18 00:14 06/04/18 00:17 06/04/18 02:00 Blood Gas Blood arterial Blood arterial Specimen Source Arterial Blood 06/03/2018 8:21:44 06/04/2018 2:12:17 Date Drawn PM AM Arterial Blood 7.424 7.410 pH (Temp corrected) Arterial Blood 36.0 38.1 pCO2 (Temp correct) Arterial Blood 102.2 H 115.4 H pO2 (Temp corrected) Arterial Blood 23.2 23.7 HCO3 Arterial Blood -1.1 -0.8 Base Excess Arterial Blood 97.5 97.9 Oxygen Saturatio n Ramon Test ACCEPTAB ACCEPTAB Arterial Blood Right Radial Right Radial Gas Puncture Site Arterial 0.6 0.1 Blood Carboxyhem oglobin Arterial Blood 0 0.1 Methemoglobin Blood Gas A-a O2 178.6 H 126.1 H Differential Oxyhemoglobin 96.9 97.7 Percent Blood Gas 36.2 36.9 Temperature Blood Gas 16.0 16.0 Respiration Rate Blood Gas Actual 16 16 Respiration Rate Blood Gas VENT - AC VENT - AC Modality FiO2 45.0 40.0 Blood Gas Tidal 500.0 500.0 Volume Blood Gas Low 5.0 5.0 PEEP Setting Blood Gas [facility] Notified Whom Blood Gas 06/03/2018 8:26:48 06/04/2018 2:19:21 Notified Time PM AM White Blood 7.5 Count Red Blood Count 2.49 L Hemoglobin 8.1 L Hematocrit 24.9 L Mean Corpuscular 100.0 Volume Mean Corpuscular 32.5 Hemoglobin Mean Corpuscular 32.5 Hemoglobin Mary nt Red Cell 19.3 H Distribution Width Platelet Count 88 L Mean Platelet 12.6 H Volume Immature 0.700 H Granulocytes % Neutrophils % 83.7 H Lymphocytes % 6.3 L Monocytes % 7.4 Eosinophils % 1.6 Basophils % 0.3 Nucleated Red 0.3 H Blood Cells % Immature 0.050 H Granulocytes # Neutrophils # 6.3 Lymphocytes # 0.5 L Monocytes # 0.6 Eosinophils # 0.1 Basophils # 0.0 Nucleated Red 0.0 Blood Cells # Prothrombin Time 16.8 H Prothrombin Time 1.3 Ratio INR 1.35 International Normalized Ratio Activated 32.7 Partial Thrombop last Time Fibrinogen 300.0 # Sodium Level 139 Potassium Level 4.7 Chloride Level 98 Carbon Dioxide 21 Level Anion Gap 20 H Blood Urea 62 H Nitrogen Creatinine 6.91 H Est Glomerular Filtrat Rate mL/min Glucose Level 103 Calcium Level 10.2 Phosphorus Level 10.2 H Magnesium Level 2.2 Total Bilirubin 0.0 L Direct Bilirubin 0.00 Indirect 0.0 Bilirubin Aspartate Amino 21 # Transf (AST/SGOT ) Alanine 17 Aminotransferase (ALT/SGPT) Alkaline 125 H Phosphatase Total Protein 10.0 H Albumin 3.1 L Globulin 6.90 H Albumin/Globulin 0.44 Ratio Amylase Level 210 H Lipase 1922 H Bedside Glucose 102 Test 06/04/18 04:05 06/04/18 05:50 06/04/18 08:45 Bedside Glucose 93 99 White Blood 7.5 Count Red Blood Count 2.59 L Hemoglobin 8.2 L Hematocrit 25.6 L Mean Corpuscular 98.8 Volume Mean Corpuscular 31.7 Hemoglobin Mean Corpuscular 32.0 Hemoglobin Mary nt Red Cell 19.4 H Distribution Width Platelet Count 95 L Mean Platelet 13.0 H Volume Immature 0.700 H Granulocytes % Neutrophils % 82.8 H Lymphocytes % 7.1 L Monocytes % 7.9 Eosinophils % 1.2 Basophils % 0.3 Nucleated Red 0.0 Blood Cells % Immature 0.050 H Granulocytes # Neutrophils # 6.2 Lymphocytes # 0.5 L Monocytes # 0.6 Eosinophils # 0.1 Basophils # 0.0 Nucleated Red 0.0 Blood Cells # Sodium Level 140 Potassium Level 4.7 Chloride Level 99 Carbon Dioxide 20 L Level Anion Gap 21 H Blood Urea 64 H Nitrogen Creatinine 7.16 H Est Glomerular Filtrat Rate mL/min Glucose Level 90 Calcium Level 10.1 Phosphorus Level 10.1 H Magnesium Level 2.3 Random 15.0 Vancomycin Level Medications Medications Current Medications IV Flush (NS 3 ml) 3 ml PER PROTOCOL IV ; Start 05/30/18 at 20:00 Ranitidine HCl (Zantac) 150 mg HS PO Last administered on 06/02/18at 21:45; Admin Dose 150 MG; Start 05/30/18 at 21:00; Status Hold Atorvastatin Calcium (Lipitor) 40 mg QHS PO Last administered on 06/03/18at 21:44; Admin Dose 40 MG; Start 05/31/18 at 21:00 Ondansetron HCl (Zofran Inj) 4 mg Q4H PRN IV NAUSEA AND/OR VOMITING Last administered on 06/01/18at 00:10; Admin Dose 4 MG; Start 06/01/18 at 00:00 Norepinephrine 250 ml @ 1.875 mls/ hr TITRATE IV Last administered on 06/03/18at 12:22; Admin Dose 9.375 MLS/HR; Start 06/02/18 at 02:30 Acetaminophen (Tylenol Supp) 650 mg Q4H PRN CO TEMP > 37C; Start 06/02/18 at 07:00 Acetaminophen (Tylenol Liquid) 650 mg Q4H PRN PO TEMP > 37C; Start 06/02/18 at 07:00 Acetaminophen (Tylenol Supp) 500 mg Q6H CO Last administered on 06/04/18at 06:34; Admin Dose 500 MG; Start 06/03/18 at 07:00 Acetaminophen (Tylenol Liquid) 500 mg Q6H PO Last administered on 06/03/18at 06:49; Admin Dose 500 MG; Start 06/03/18 at 07:00 Meperidine HCl (Demerol) 12.5 mg Q4H PRN IV POST OPERATIVE SHIVERING; Start 06/02/18 at 07:00 Meperidine HCl (Demerol) 25 mg Q4H PRN IV POST OPERATIVE SHIVERING; Start 06/02/18 at 07:00 Eye Lubricant (Artificial Tears Oph) 2 drop Q6 BOTH EYES Last administered on 06/04/18at 06:35; Admin Dose 2 DROP; Start 06/02/18 at 12:00 Insulin Human Regular 100 unit/ Sodium Chloride 100 ml @ 0.2 mls/hr PER PROTOCOL IV ; Start 06/02/18 at 08:00 Miscellaneous Information (* Miscellaneous Pharmacy Order) Treatment of Hypoglycemia: 1.BG 51... Per protocol XX ; Start 06/02/18 at 07:00 Dextrose (D50w Syringe) 25 ml Q15M PRN IV .DECREASED GLUCOSE; Start 06/02/18 at 07:00 Dextrose (D50w Syringe) 50 ml Q15M PRN IV .DECREASED GLUCOSE; Start 06/02/18 at 07:00 Vecuronium [place] 100 mg/ Dextrose 100 ml @ 4.55 mls/hr TITRATE PRN IV POST OPERATIVE SHIVERING Last administered on 06/02/18at 09:55; Admin Dose 4.55 MLS/HR; Start 06/02/18 at 07:30 Meperidine HCl (Demerol) 12.5 mg Q2 PRN IV POST OPERATIVE SHIVERING; Start 06/02/18 at 07:30 Vancomycin HCl (Vanco Iv Per Pharmacy) VANCOMYCIN PER PHARMACY PER PROTOCOL XX ; Start 06/02/18 at 10:00 Famotidine (Pepcid Iv) 20 mg DAILY IV Last administered on 06/04/18at 09:04; Admin Dose 20 MG; Start 06/03/18 at 09:00 Propofol 100 ml @ 2.727 mls/ hr Q12H IV Last administered on 06/03/18at 23:09; Admin Dose 19.089 MLS/HR; Start 06/02/18 at 12:00 Aztreonam 0.5 gm/ Sodium Chloride 50 ml @ 100 mls/hr Q12 IV Last administered on 06/04/18 09:05; Admin Dose 100 MLS/HR; Start 06/02/18 at 21:00 Diagnostic Test (Pha) (Accu-Chek) 1 ea Q4H XX Last administered on 06/04/18 08: 48; Admin Dose 1 EA; Start 06/02/18 at 20:00 Hypromellose (Genteal Severe) 1 applic Q6 BOTH EYES Last administered on 06/04/18 06:35; Admin Dose 1 APPLIC; Start 06/03/18 at 12:00 Aspirin (Aspirin) 81 mg DAILY PO Last administered on 06/04/18 09:07; Admin Dose 81 MG; Start 06/03/18 at 12:30 Lorazepam (Ativan) 2 mg Q15M PRN IV SEIZURES Last administered on 06/04/18 09:07; Admin Dose 2 MG; Start 06/04/18 at 02:[address] Jun 04, 2018 09:38
--- NOTE | 2018-06-04 10:25 | CONS ---
Assessment/Plan Assessment/Plan Hospital Course 83 M c/ multiple comorbidities, who is admitted to the [facility] ICU following cardiac arrest. Now s/p TTM. Noted to have a clinical seizure in early am of 06/04...once paralytic and sedative weaned..which raises concern for significant hypoxic cerebral injury. Nonconvulsive status is possible.. Head CT 06/02 is unremarkable. P: EEG to evaluate for nonconvulsive status Start (fos)phenytoin, to be titrated to goal level (~20) Ativan iv prn prolonged seizure or cluster Repeat head CT when clinically able Other medical management and supportive care per primary Will follow with you. Consultation Date/Type/Reason Admit Date/Time May 30, 2018 at 19:04 Type of Consult Neurology Reason for Consultation ams Requesting Provider: PHILOMENA JONES Date/Time of Note DATE: 06/04/18 TIME: 10:18 24 HR Interval Summary Free Text/Dictation suspected clinical seizure overnight when propofol held. Exam Vital Signs Vitals Vital Signs Date Temp Pulse Resp B/P (MAP) Pulse Ox O2 O2 Flow FiO2 Time Delivery Rate 06/04/18 93 08:00 06/04/18 98.8 07:20 06/04/18 16 101/60 100 Mechanical 06:00 (74) Ventilator 06/04/18 40 05:21 06/01/18 2.0 20:00 Intake and Output 06/03/18 06/03/18 06/04/18 1515:00 23:00 07:00 IntakeIntake Total 299.960 ml 289.309 ml 64.563 ml OutputOutput Total 50 ml 50 ml 70 ml BalanceBalance 249.960 ml 239.309 ml -5.437 ml Exam PE: Gen Appearance: No Apparent Distress HEENT: Intubated Cardiovascular: Regular rate Abdomen: Soft Extremities: Dry NE: The patient was obtunded and nonverbal. Cranial nerve examination was limited by mental status. Pupils were equal and reactive to light. There was no afferent pupillary defect. Funduscopic examinati on was limited. Face was grossly symmetric, w/ present corneal and cough reflexes. Tone was normal. Muscle bulk was normal. I did not see fasciculations. The patient withdrew to noxious stimulation x 4. Coordination and gait testing was limited by mental status. Arm and leg reflexes were within normal limits and symmetric. Willams's sign was absent. Plantar responses were flexor. MARY JO HOLMAN Jun 04, 2018 10:25
[2018-06-04] MEDS: NORepinephrine 8MG/250 ML (PMX 250 ML IV SCH ×2 (11:09→22:59)
--- NOTE | 2018-06-04 11:33 | CONS ---
Assessment/Plan Assessment/Plan Assessment/Plan (Daily) ASSESSMENT AND PLAN: 1. End-stage renal disease. HD today. 2. Hypercalcemia, etiology secondary to multiple myeloma. The patient's biopsy was reviewed. Anticipate hemodialysis on a low calcium bath. 3. Anemia. Monitor hemoglobin and hematocrit levels. Will give Epogen as needed. 4. Mineral bone disorder. The patient is hyperphosphatemic secondary to end- stage renal disease. Will plan for hemodialysis for solute clearance. and start sevelamer 5. Status post cardiac arrest. The patient has currently been initiated on hypothermic protocol. Etiology is unclear, possible PEA. Unclear how long patient has been down. Continue current medical management. Follow up with Cardiology for recommendations. 6. Ventilator-dependent respiratory failure. Vent settings and ABG was review ed. Continue to monitor. Follow up with pulmonary. 7. Non-STEMI. current medical management per cardiology. 8. Encephalopathy, possible anoxic injury. The patient is being evaluated by neurology. Will continue to monitor. 9. Shock, etiology is unclear, possible cardiogenic, questionable sepsis. The patient remains on pressor support and antibiotic therapy. Cultures have been reviewed. Will continue to monitor. 10. Chronic atrial fibrillation, continue medical management. Follow up with Cardiology. 11. Multiple myeloma. The patient's pathology was reviewed. We will follow up with hematology for further recommendations. 12. Thrombocytopenia. Continue to monitor. 13. History of hypertension. 14. Diabetes. Continue current insulin regimen. 15. Pathological hip fracture. Consultation Date/Type/Reason Admit Date/Time May 30, 2018 at 19:04 Initial Consult Date 06/02/18 Requesting Provider: PHILOMENA JONES Date/Time of Note DATE: 06/04/18 TIME: 11:31 24 HR Interval Summary Free Text/Dictation patient rewarmed from hypothermic protocol started on levophed for hypotension remains intubated d/w rn gen nad cv rrr pulm coarse bs abd soft, nd, nt +bs ext: no edema Exam/Review of Systems Exam Vitals Vital Signs Date Temp Pulse Resp B/P (MAP) Pulse Ox O2 O2 Flow FiO2 Time Delivery Rate 06/04/18 102 16 92/56 (68) 98 11:15 06/04/18 60 09:00 06/04/18 98.9 08:00 06/04/18 Mechanical 06:00 Ventilator 06/01/18 2.0 20:00 Intake and Output 06/03/18 06/03/18 06/04/18 1515:00 23:00 07:00 IntakeIntake Total 299.960 ml 289.309 ml 64.563 ml OutputOutput Total 50 ml 50 ml 70 ml BalanceBalance 249.960 ml 239.309 ml -5.437 ml Results Result Diagram: 06/04/18 0550 06/04/18 0550 Results 24hrs Laboratory Tests Test 06/03/18 12:01 06/03/18 12:02 06/03/18 12:38 06/03/18 12:53 Sodium Level 139 Potassium Level 4.6 Chloride Level 99 Carbon Dioxide 20 L Level Anion Gap 20 H Blood Urea 55 H Nitrogen Creatinine 7.00 H Est Glomerular Filtrat Rate mL/min Glucose Level 137 Calcium Level 10.7 H Phosphorus Level 11.1 H Magnesium Level 2.2 Creatine Kinase 30 Creatine Kinase 9.0 Index Creatinine 2.71 H Kinase MB (Mass) Troponin I 0.261 *H White Blood 6.9 Count Red Blood Count 2.58 L Hemoglobin 8.4 L Hematocrit 25.7 L Mean Corpuscular 99.6 Volume Mean Corpuscular 32.6 Hemoglobin Mean Corpuscular 32.7 Hemoglobin Mary nt Red Cell 19.2 H Distribution Width Platelet Count 84 L Mean Platelet 12.4 H Volume Immature 0.700 H Granulocytes % Neutrophils % 86.3 H Lymphocytes % 5.7 L Monocytes % 6.7 Eosinophils % 0.3 Basophils % 0.3 Nucleated Red 0.0 Blood Cells % Immature 0.050 H Granulocytes # Neutrophils # 5.9 Lymphocytes # 0.4 L Monocytes # 0.5 Eosinophils # 0.0 Basophils # 0.0 Nucleated Red 0.0 Blood Cells # Prothrombin Time 18.3 H Prothrombin Time 1.4 Ratio INR 1.51 International Normalized Ratio Activated 34.1 Partial Thrombop last Time Fibrinogen 279.0 Lactic Acid 1.3 Level Amylase Level 107 Lipase 507 H Blood Gas Blood arterial Specimen Source Arterial Blood 06/03/2018 12:27:0 Date Drawn 0 PM Arterial Blood 7.473 H pH (Temp corrected) Arterial Blood 31.2 L pCO2 (Temp correct) Arterial Blood 126.3 H pO2 (Temp corrected) Arterial Blood 23.0 HCO3 Arterial Blood -1.1 Base Excess Arterial Blood 98.7 Oxygen Saturatio n Ramon Test N/A Arterial Blood Right Brachial Gas Puncture Site Arterial 0.3 Blood Carboxyhem oglobin Arterial Blood 0.1 Methemoglobin Blood Gas A-a O2 162.3 H Differential Oxyhemoglobin 98.3 Percent Blood Gas 34.0 Temperature Blood Gas 16.0 Respiration Rate Blood Gas Actual 16 Respiration Rate Blood Gas VENT - AC Modality FiO2 45.0 Blood Gas Tidal 500.0 Volume Blood Gas Low 5.0 PEEP Setting Blood Gas [facility] Notified Whom Blood Gas 06/03/2018 12:47:0 Notified Time 0 PM Bedside Glucose 120 Test 06/03/18 16:59 06/03/18 18:28 06/03/18 19:30 06/03/18 20:00 Bedside Glucose 111 109 White Blood 6.9 Count Red Blood Count 2.52 L Hemoglobin 8.2 L Hematocrit 25.2 L Mean Corpuscular 100.0 Volume Mean Corpuscular 32.5 Hemoglobin Mean Corpuscular 32.5 Hemoglobin Mary nt Red Cell 19.2 H Distribution Width Platelet Count 100 L Mean Platelet 13.2 H Volume Immature 0.700 H Granulocytes % Neutrophils % 85.2 H Lymphocytes % 6.2 L Monocytes % 6.4 Eosinophils % 1.2 Basophils % 0.3 Nucleated Red 0.0 Blood Cells % Immature 0.050 H Granulocytes # Neutrophils # 5.9 Lymphocytes # 0.4 L Monocytes # 0.4 Eosinophils # 0.1 Basophils # 0.0 Nucleated Red 0.0 Blood Cells # Sodium Level 141 Potassium Level 4.6 Chloride Level 98 Carbon Dioxide 22 Level Anion Gap 21 H Blood Urea 61 H Nitrogen Creatinine 6.40 H Est Glomerular Filtrat Rate mL/min Glucose Level 120 Lactic Acid 1.2 Level Calcium Level 10.4 H Phosphorus Level 10.3 H Magnesium Level 2.1 Blood Gas Blood arterial Specimen Source Arterial Blood 06/03/2018 8:21:44 Date Drawn PM Arterial Blood 7.424 pH (Temp corrected) Arterial Blood 36.0 pCO2 (Temp correct) Arterial Blood 102.2 H pO2 (Temp corrected) Arterial Blood 23.2 HCO3 Arterial Blood -1.1 Base Excess Arterial Blood 97.5 Oxygen Saturatio n Ramon Test ACCEPTAB Arterial Blood Right Radial Gas Puncture Site Arterial 0.6 Blood Carboxyhem oglobin Arterial Blood 0 Methemoglobin Blood Gas A-a O2 178.6 H Differential Oxyhemoglobin 96.9 Percent Blood Gas 36.2 Temperature Blood Gas 16.0 Respiration Rate Blood Gas Actual 16 Respiration Rate Blood Gas VENT - AC Modality FiO2 45.0 Blood Gas Tidal 500.0 Volume Blood Gas Low 5.0 PEEP Setting Blood Gas [facility] Notified Whom Blood Gas 06/03/2018 8:26:48 Notified Time PM Test 06/04/18 00:14 06/04/18 00:17 06/04/18 02:00 06/04/18 04:05 White Blood 7.5 Count Red Blood Count 2.49 L Hemoglobin 8.1 L Hematocrit 24.9 L Mean Corpuscular 100.0 Volume Mean Corpuscular 32.5 Hemoglobin Mean Corpuscular 32.5 Hemoglobin Mary nt Red Cell 19.3 H Distribution Width Platelet Count 88 L Mean Platelet 12.6 H Volume Immature 0.700 H Granulocytes % Neutrophils % 83.7 H Lymphocytes % 6.3 L Monocytes % 7.4 Eosinophils % 1.6 Basophils % 0.3 Nucleated Red 0.3 H Blood Cells % Immature 0.050 H Granulocytes # Neutrophils # 6.3 Lymphocytes # 0.5 L Monocytes # 0.6 Eosinophils # 0.1 Basophils # 0.0 Nucleated Red 0.0 Blood Cells # Prothrombin Time 16.8 H Prothrombin Time 1.3 Ratio INR 1.35 International Normalized Ratio Activated 32.7 Partial Thrombop last Time Fibrinogen 300.0 # Sodium Level 139 Potassium Level 4.7 Chloride Level 98 Carbon Dioxide 21 Level Anion Gap 20 H Blood Urea 62 H Nitrogen Creatinine 6.91 H Est Glomerular Filtrat Rate mL/min Glucose Level 103 Calcium Level 10.2 Phosphorus Level 10.2 H Magnesium Level 2.2 Total Bilirubin 0.0 L Direct Bilirubin 0.00 Indirect 0.0 Bilirubin Aspartate Amino 21 # Transf (AST/SGOT ) Alanine 17 Aminotransferase (ALT/SGPT) Alkaline 125 H Phosphatase Total Protein 10.0 H Albumin 3.1 L Globulin 6.90 H Albumin/Globulin 0.44 Ratio Amylase Level 210 H Lipase 1922 H Bedside Glucose 102 93 Blood Gas Blood arterial Specimen Source Arterial Blood 06/04/2018 2:12:17 Date Drawn AM Arterial Blood 7.410 pH (Temp corrected) Arterial Blood 38.1 pCO2 (Temp correct) Arterial Blood 115.4 H pO2 (Temp corrected) Arterial Blood 23.7 HCO3 Arterial Blood -0.8 Base Excess Arterial Blood 97.9 Oxygen Saturatio n Ramon Test ACCEPTAB Arterial Blood Right Radial Gas Puncture Site Arterial 0.1 Blood Carboxyhem oglobin Arterial Blood 0.1 Methemoglobin Blood Gas A-a O2 126.1 H Differential Oxyhemoglobin 97.7 Percent Blood Gas 36.9 Temperature Blood Gas 16.0 Respiration Rate Blood Gas Actual 16 Respiration Rate Blood Gas VENT - AC Modality FiO2 40.0 Blood Gas Tidal 500.0 Volume Blood Gas Low 5.0 PEEP Setting Blood Gas Notified Whom Blood Gas 06/04/2018 2:19:21 Notified Time AM Test 06/04/18 05:50 06/04/18 08:45 White Blood 7.5 Count Red Blood Count 2.59 L Hemoglobin 8.2 L Hematocrit 25.6 L Mean Corpuscular 98.8 Volume Mean Corpuscular 31.7 Hemoglobin Mean Corpuscular 32.0 Hemoglobin Mary nt Red Cell 19.4 H Distribution Width Platelet Count 95 L Mean Platelet 13.0 H Volume Immature 0.700 H Granulocytes % Neutrophils % 82.8 H Lymphocytes % 7.1 L Monocytes % 7.9 Eosinophils % 1.2 Basophils % 0.3 Nucleated Red 0.0 Blood Cells % Immature 0.050 H Granulocytes # Neutrophils # 6.2 Lymphocytes # 0.5 L Monocytes # 0.6 Eosinophils # 0.1 Basophils # 0.0 Nucleated Red 0.0 Blood Cells # Sodium Level 140 Potassium Level 4.7 Chloride Level 99 Carbon Dioxide 20 L Level Anion Gap 21 H Blood Urea 64 H Nitrogen Creatinine 7.16 H Est Glomerular Filtrat Rate mL/min Glucose Level 90 Calcium Level 10.1 Phosphorus Level 10.1 H Magnesium Level 2.3 Random 15.0 Vancomycin Level Bedside Glucose 99 Medications Medication Current Medications IV Flush (NS 3 ml) 3 ml PER PROTOCOL IV ; Start 05/30/18 at 20:00 Ranitidine HCl (Zantac) 150 mg HS PO Last administered on 06/02/18at 21:45; Admin Dose 150 MG; Start 05/30/18 at 21:00; Status Hold Atorvastatin Calcium (Lipitor) 40 mg QHS PO Last administered on 06/03/18at 21:44; Admin Dose 40 MG; Start 05/31/18 at 21:00 Ondansetron HCl (Zofran Inj) 4 mg Q4H PRN IV NAUSEA AND/OR VOMITING Last administered on 06/01/18at 00:10; Admin Dose 4 MG; Start 06/01/18 at 00:00 Norepinephrine 250 ml @ 1.875 mls/ hr TITRATE IV Last administered on 06/04/18at 11:09; Admin Dose 13.125 MLS/HR; Start 06/02/18 at 02:30 Acetaminophen (Tylenol Supp) [address] TEMP > 37C; Start 06/02/18 at 07:00 Acetaminophen (Tylenol Liquid) 650 mg Q4H PRN PO TEMP > 37C; Start 06/02/18 at 07:00 Acetaminophen (Tylenol Supp) [address] Last administered on 06/04/18at 06:34; Admin Dose 500 MG; Start 06/03/18 at 07:00 Acetaminophen (Tylenol Liquid) 500 mg Q6H PO Last administered on 06/03/18at 06:49; Admin Dose 500 MG; Start 06/03/18 at 07:00 Meperidine HCl (Demerol) 12.5 mg Q4H PRN IV POST OPERATIVE SHIVERING; Start 06/02/18 at 07:00 Meperidine HCl (Demerol) 25 mg Q4H PRN IV POST OPERATIVE SHIVERING; Start 06/02/18 at 07:00 Eye Lubricant (Artificial Tears Oph) 2 drop Q6 BOTH EYES Last administered on 06/04/18at 06:35; Admin Dose 2 DROP; Start 06/02/18 at 12:00 Insulin Human Regular 100 unit/ Sodium Chloride 100 ml @ 0.2 mls/hr PER PROTOCOL IV ; Start 06/02/18 at 08:00 Miscellaneous Information (* Miscellaneous Pharmacy Order) Treatment of Hypoglycemia: 1.BG 51... Per protocol XX ; Start 06/02/18 at 07:00 Dextrose (D50w Syringe) 25 ml Q15M PRN IV .DECREASED GLUCOSE; Start 06/02/18 at 07:00 Dextrose (D50w Syringe) 50 ml Q15M PRN IV .DECREASED GLUCOSE; Start 06/02/18 at 07:00 Vecuronium [place] 100 mg/ Dextrose 100 ml @ 4.55 mls/hr TITRATE PRN IV POST OPERATIVE SHIVERING Last administered on 06/02/18at 09:55; Admin Dose 4.55 MLS/HR; Start 06/02/18 at 07:30 Meperidine HCl (Demerol) 12.5 mg Q2 PRN IV POST OPERATIVE SHIVERING; Start 06/02/18 at 07:30 Vancomycin HCl (Vanco Iv Per Pharmacy) VANCOMYCIN PER PHARMACY PER PROTOCOL XX ; Start 06/02/18 at 10:00 Famotidine (Pepcid Iv) 20 mg DAILY IV Last administered on 06/04/18 09:04; Admin Dose 20 MG; Start 06/03/18 at 09:00 Propofol 100 ml @ 2.727 mls/ hr Q12H IV Last administered on 06/03/18 23:09; Admin Dose 19.089 MLS/HR; Start 06/02/18 at 12:00 Aztreonam 0.5 gm/ Sodium Chloride 50 ml @ 100 mls/hr Q12 IV Last administered on 06/04/18 09:05; Admin Dose 100 MLS/HR; Start 06/02/18 at 21:00 Diagnostic Test (Pha) (Accu-Chek) 1 ea Q4H XX Last administered on 06/04/18 08:48; Admin Dose 1 EA; Start 06/02/18 at 20:00 Hypromellose (Genteal Severe) 1 applic Q6 BOTH EYES Last administered on 06/04/18 06:35; Admin Dose 1 APPLIC; Start 06/03/18 at 12:00 Aspirin (Aspirin) 81 mg DAILY PO Last administered on 06/04/18 09:07; Admin Dose 81 MG; Start 06/03/18 at 12:30 Lorazepam (Ativan) 2 mg Q15M PRN IV SEIZURES Last administered on 06/04/18 09:07; Admin Dose 2 MG; Start 06/04/18 at 02:00 Phenytoin 1500 mg/ Sodium Chloride 180 ml @ 180 mls/hr ONCE ONCE IV ; Start 06/04/18 at 12:00; Stop 06/04/18 at 12:59 MATTHEW LANCASTER MD Jun 04, 2018 11:33
[2018-06-04] MEDS ORDERED: PHENYTOIN 1,500 MG in SOD CHLORIDE 0.9% 150 ML IV ONE (12:00)
--- NOTE | 2018-06-04 12:59 | CONS ---
Consult Date/Type/Reason Admit Date/Time May 30, 2018 at 19:04 Initial Consult Date 06/02/18 Type of Consultation: Pulm/CCM Requesting Provider: PHILOMENA JONES Date/Time of Note DATE: 06/04/18 TIME: 12:52 Subjective Episodes of seizures noted. Off hypothermia protocol. Unresponsive. Objective Vitals Vital Signs Date Temp Pulse Resp B/P (MAP) Pulse Ox O2 O2 Flow FiO2 Time Delivery Rate 06/04/18 101 20 108/62 96 12:45 (77) 06/04/18 98.3 12:20 06/04/18 40 12:00 06/04/18 Mechanical 06:00 Ventilator 06/01/18 2.0 20:00 Intake and Output 06/03/18 06/03/18 06/04/18 1515:00 23:00 07:00 IntakeIntake Total 299.960 ml 289.309 ml 72.063 ml OutputOutput Total 50 ml 50 ml 70 ml BalanceBalance 249.960 ml 239.309 ml 2.063 ml Exam HEENT: Neck supple; no JVD; no LAD; + ET tube CVS: Irreg, tachy, S1 and S2 CHEST: Coarse BS bilaterally ABD: Soft, NT, + BS EXT: + edema NEURO: Comatose, unresponsive on vent. Results/Medications Result Diagram: 06/04/18 0550 06/04/18 0550 Results 24 hrs Laboratory Tests Test 06/03/18 12:53 06/03/18 16:59 06/03/18 18:28 06/03/18 19:30 Bedside Glucose 120 111 109 White Blood 6.9 Count Red Blood Count 2.52 L Hemoglobin 8.2 L Hematocrit 25.2 L Mean Corpuscular 100.0 Volume Mean Corpuscular 32.5 Hemoglobin Mean Corpuscular 32.5 Hemoglobin Mary nt Red Cell 19.2 H Distribution Width Platelet Count 100 L Mean Platelet 13.2 H Volume Immature 0.700 H Granulocytes % Neutrophils % 85.2 H Lymphocytes % 6.2 L Monocytes % 6.4 Eosinophils % 1.2 Basophils % 0.3 Nucleated Red 0.0 Blood Cells % Immature 0.050 H Granulocytes # Neutrophils # 5.9 Lymphocytes # 0.4 L Monocytes # 0.4 Eosinophils # 0.1 Basophils # 0.0 Nucleated Red 0.0 Blood Cells # Sodium Level 141 Potassium Level 4.6 Chloride Level 98 Carbon Dioxide 22 Level Anion Gap 21 H Blood Urea 61 H Nitrogen Creatinine 6.40 H Est Glomerular Filtrat Rate mL/min Glucose Level 120 Lactic Acid 1.2 Level Calcium Level 10.4 H Phosphorus Level 10.3 H Magnesium Level 2.1 Test 06/03/18 20:00 06/04/18 00:14 06/04/18 00:17 06/04/18 02:00 Blood Gas Blood arterial Blood arterial Specimen Source Arterial Blood 06/03/2018 8:21:44 06/04/2018 2:12:17 Date Drawn PM AM Arterial Blood 7.424 7.410 pH (Temp corrected) Arterial Blood 36.0 38.1 pCO2 (Temp correct) Arterial Blood 102.2 H 115.4 H pO2 (Temp corrected) Arterial Blood 23.2 23.7 HCO3 Arterial Blood -1.1 -0.8 Base Excess Arterial Blood 97.5 97.9 Oxygen Saturatio n Ramon Test ACCEPTAB ACCEPTAB Arterial Blood Right Radial Right Radial Gas Puncture Site Arterial 0.6 0.1 Blood Carboxyhem oglobin Arterial Blood 0 0.1 Methemoglobin Blood Gas A-a O2 178.6 H 126.1 H Differential Oxyhemoglobin 96.9 97.7 Percent Blood Gas 36.2 36.9 Temperature Blood Gas 16.0 16.0 Respiration Rate Blood Gas Actual 16 16 Respiration Rate Blood Gas VENT - AC VENT - AC Modality FiO2 45.0 40.0 Blood Gas Tidal 500.0 500.0 Volume Blood Gas Low 5.0 5.0 PEEP Setting Blood Gas [facility] Notified Whom Blood Gas 06/03/2018 8:26:48 06/04/2018 2:19:21 Notified Time PM AM White Blood 7.5 Count Red Blood Count 2.49 L Hemoglobin 8.1 L Hematocrit 24.9 L Mean Corpuscular 100.0 Volume Mean Corpuscular 32.5 Hemoglobin Mean Corpuscular 32.5 Hemoglobin Mary nt Red Cell 19.3 H Distribution Width Platelet Count 88 L Mean Platelet 12.6 H Volume Immature 0.700 H Granulocytes % Neutrophils % 83.7 H Lymphocytes % 6.3 L Monocytes % 7.4 Eosinophils % 1.6 Basophils % 0.3 Nucleated Red 0.3 H Blood Cells % Immature 0.050 H Granulocytes # Neutrophils # 6.3 Lymphocytes # 0.5 L Monocytes # 0.6 Eosinophils # 0.1 Basophils # 0.0 Nucleated Red 0.0 Blood Cells # Prothrombin Time 16.8 H Prothrombin Time 1.3 Ratio INR 1.35 International Normalized Ratio Activated 32.7 Partial Thrombop last Time Fibrinogen 300.0 # Sodium Level 139 Potassium Level 4.7 Chloride Level 98 Carbon Dioxide 21 Level Anion Gap 20 H Blood Urea 62 H Nitrogen Creatinine 6.91 H Est Glomerular Filtrat Rate mL/min Glucose Level 103 Calcium Level 10.2 Phosphorus Level 10.2 H Magnesium Level 2.2 Total Bilirubin 0.0 L Direct Bilirubin 0.00 Indirect 0.0 Bilirubin Aspartate Amino 21 # Transf (AST/SGOT ) Alanine 17 Aminotransferase (ALT/SGPT) Alkaline 125 H Phosphatase Total Protein 10.0 H Albumin 3.1 L Globulin 6.90 H Albumin/Globulin 0.44 Ratio Amylase Level 210 H Lipase 1922 H Bedside Glucose 102 Test 06/04/18 04:05 06/04/18 05:50 06/04/18 08:45 06/04/18 12:22 Bedside Glucose 93 99 90 White Blood 7.5 Count Red Blood Count 2.59 L Hemoglobin 8.2 L Hematocrit 25.6 L Mean Corpuscular 98.8 Volume Mean Corpuscular 31.7 Hemoglobin Mean Corpuscular 32.0 Hemoglobin Mary nt Red Cell 19.4 H Distribution Width Platelet Count 95 L Mean Platelet 13.0 H Volume Immature 0.700 H Granulocytes % Neutrophils % 82.8 H Lymphocytes % 7.1 L Monocytes % 7.9 Eosinophils % 1.2 Basophils % 0.3 Nucleated Red 0.0 Blood Cells % Immature 0.050 H Granulocytes # Neutrophils # 6.2 Lymphocytes # 0.5 L Monocytes # 0.6 Eosinophils # 0.1 Basophils # 0.0 Nucleated Red 0.0 Blood Cells # Sodium Level 140 Potassium Level 4.7 Chloride Level 99 Carbon Dioxide 20 L Level Anion Gap 21 H Blood Urea 64 H Nitrogen Creatinine 7.16 H Est Glomerular Filtrat Rate mL/min Glucose Level 90 Calcium Level 10.1 Phosphorus Level 10.1 H Magnesium Level 2.3 Random 15.0 Vancomycin Level Home Meds Reported Medications Carvedilol* (Carvedilol*) 12.5 Mg Tablet, 12.5 MG PO QHS, #60 TAB 05/30/18 Carvedilol* (Carvedilol*) 25 Mg Tablet, 25 MG PO DAILY, #60 TAB 4/1/19 Apixaban* (Eliquis*) 2.5 Mg Tablet, 2.5 MG PO DAILY, TAB 05/30/18 Insulin Regular, Human (Humulin R) 100 Unit/1 Ml Vial, IJ, VIAL 06/01/17 Cholecalciferol* (Vitamin D3*) 1,000 Unit Tablet, 2000 UNIT PO DAILY, TAB 06/01/17 Atorvastatin* (Atorvastatin*) 40 Mg Tablet, 40 MG PO QHS, #30 TAB 06/01/17 Ranitidine Hcl* (Ranitidine Hcl*) 150 Mg Tablet, 150 MG PO HS, #30 TAB 06/01/17 Clopidogrel Bisulfate (Clopidogrel) 75 Mg Tablet, 75 MG PO DAILY, #30 TAB 06/01/17 Insulin Glargine* (Lantus*) 100 Unit/Ml Soln, 42 UNIT SC DAILY, #1 VIAL 06/01/17 Hydrochlorothiazide* (Hydrochlorothiazide*) 25 Mg Tab, 25 MG PO BID, #60 TAB 06/01/17 Lisinopril* (Lisinopril*) 20 Mg Tablet, 20 MG PO BID, #30 TAB 06/01/17 Nifedipine* (Nifedipine ER*) 30 Mg Tablet.sa, 30 MG PO DAILY, TAB.SA 06/01/17 Medications Current Medications IV Flush (NS 3 ml) 3 ml PER PROTOCOL IV ; Start 05/30/18 at 20:00 Ranitidine HCl (Zantac) 150 mg HS PO Last administered on 06/02/18at 21:45; Admin Dose 150 MG; Start 05/30/18 at 21:00; Status Hold Atorvastatin Calcium (Lipitor) 40 mg QHS PO Last administered on 06/03/18at 21:44; Admin Dose 40 MG; Start 05/31/18 at 21:00 Ondansetron HCl (Zofran Inj) 4 mg Q4H PRN IV NAUSEA AND/OR VOMITING Last administered on 06/01/18at 00:10; Admin Dose 4 MG; Start 06/01/18 at 00:00 Norepinephrine 250 ml @ 1.875 mls/ hr TITRATE IV Last administered on 06/04/18at 11:09; Admin Dose 13.125 MLS/HR; Start 06/02/18 at 02:30 Acetaminophen (Tylenol Supp) 650 mg Q4H PRN SD TEMP > 37C; Start 06/02/18 at 07:00 Acetaminophen (Tylenol Liquid) 650 mg Q4H PRN PO TEMP > 37C; Start 06/02/18 at 07:00 Acetaminophen (Tylenol Supp) 500 mg Q6H SD Last administered on 06/04/18at 06:34; Admin Dose 500 MG; Start 06/03/18 at 07:00 Acetaminophen (Tylenol Liquid) 500 mg Q6H PO Last administered on 06/04/18at 12:20; Admin Dose 500 MG; Start 06/03/18 at 07:00 Meperidine HCl (Demerol) 12.5 mg Q4H PRN IV POST OPERATIVE SHIVERING; Start 06/02/18 at 07:00 Meperidine HCl (Demerol) 25 mg Q4H PRN IV POST OPERATIVE SHIVERING; Start 06/02/18 at 07:00 Eye Lubricant (Artificial Tears Oph) 2 drop Q6 BOTH EYES Last administered on 06/04/18at 12:19; Admin Dose 2 DROP; Start 06/02/18 at 12:00 Insulin Human Regular 100 unit/ Sodium Chloride 100 ml @ 0.2 mls/hr PER PROTOCOL IV ; Start 06/02/18 at 08:00 Miscellaneous Information (* Miscellaneous Pharmacy Order) Treatment of Hypog lycemia: 1.BG 51... Per protocol XX ; Start 06/02/18 at 07:00 Dextrose (D50w Syringe) 25 ml Q15M PRN IV .DECREASED GLUCOSE; Start 06/02/18 at 07:00 Dextrose (D50w Syringe) 50 ml Q15M PRN IV .DECREASED GLUCOSE; Start 06/02/18 at 07:00 Vecuronium [place] 100 mg/ Dextrose 100 ml @ 4.55 mls/hr TITRATE PRN IV POST OPERATIVE SHIVERING Last administered on 06/02/18at 09:55; Admin Dose 4.55 MLS/HR; Start 06/02/18 at 07:30 Meperidine HCl (Demerol) 12.5 mg Q2 PRN IV POST OPERATIVE SHIVERING; Start 06/02/18 at 07:30 Vancomycin HCl (Vanco Iv Per Pharmacy) VANCOMYCIN PER PHARMACY PER PROTOCOL XX ; Start 06/02/18 at 10:00 Famotidine (Pepcid Iv) 20 mg DAILY IV Last administered on 06/04/18 09:04; Admin Dose 20 MG; Start 06/03/18 at 09:00 Propofol 100 ml @ 2.727 mls/ hr Q12H IV Last administered on 06/03/18 23:09; Admin Dose 19.089 MLS/HR; Start 06/02/18 at 12:00 Aztreonam 0.5 gm/ Sodium Chloride 50 ml @ 100 mls/hr Q12 IV Last administered on 06/04/18 09:05; Admin Dose 100 MLS/HR; Start 06/02/18 at 21:00 Diagnostic Test (Pha) (Accu-Chek) 1 ea Q4H XX Last administered on 06/04/18 12:23; Admin Dose 1 EA; Start 06/02/18 at 20:00 Hypromellose (Genteal Severe) 1 applic Q6 BOTH EYES Last administered on 06/04/18 12:21; Admin Dose 1 APPLIC; Start 06/03/18 at 12:00 Aspirin (Aspirin) 81 mg DAILY PO Last administered on 06/04/18 09:07; Admin Dose 81 MG; Start 06/03/18 at 12:30 Lorazepam (Ativan) 2 mg Q15M PRN IV SEIZURES Last administered on 06/04/18 09:07; Admin Dose 2 MG; Start 06/04/18 at 02:00 Phenytoin 1500 mg/ Sodium Chloride 180 ml @ 180 mls/hr ONCE ONCE IV Last administered on 06/04/18 12:20; Admin Dose 180 MLS/HR; Start 06/04/18 at 12:00; Stop 06/04/18 at 12:59 Sevelamer Carbonate (Renvela) 1.6 gm Q8H NGT ; Start 06/04/18 at 11:30 Assessment/Plan Assessment/Plan (Daily) IMP: 1. s/p cardiopulmonary arrest 2. Encephalopathy--too early to determine severity of anoxic brain injury 3. Seizures--2/2 #1 4. Plasma Cell Dyscrasia 5. CKD RECS: 1. Vent support 2. Follow neuro status off hypothermia protocol 3. Neuro following for management of seizures 4. Vent support 5. HD/UF per renal 6. EEG and CT brain today prognosis very poor 40 min cc time LORE LANDIS MD Jun 04, 2018 12:59
[2018-06-04] MEDS: SEVELAMER CARBONATE 0.8 GM PKT NGT SCH ×2 (13:57→20:13)
[2018-06-04] MEDS: BALSAM PERU/CASTOR OIL 60 GM TUBE TOP SCH ×2 (13:58→20:13)
[2018-06-04] MEDS ORDERED: VANCOMYCIN 1 GM 250 ML IVPB SCH (14:00)
--- NOTE | 2018-06-04 18:25 | PN ---
Date/Time of Note Date/Time of Note DATE: 06/04/18 TIME: 18:22 Assessment/Plan VTE Prophylaxis Risk score (from Ns)>0 risk: 10 SCD applied (from Ns): Yes Pharmacological prophylaxis: heparin Lines/Catheters IV Catheter Type (from Nrsg): Central Line Central line still needed: Yes Urinary Cath still in place: Yes Reason Cath still needed: urinary retention Assessment/Plan Hospital Course 83 yo male with ESRD, DMII who has been referred for MM workup after found to have hypercalcemia and pathologic hip fracture. Then suffered cardiac arrest. 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 Anticipate palliative extubation in coming days. Family were not ready to talk about it when i infomred them today Cardiac arrest: - Unclear precipitant - s/p hypothermia Multiple myeloma: - Unlikely to receive treatment given anoxic event ESRD: - HD per renal Atrial fibrillation: - Continue AC Pancytopenia: - likely consistent with MM DMII: - Basal/bolus insulin Hypercalcemia: - Consistent with MM Pathologic hip fracture: - management per Dr Josephine CLAY time 30 mintus Result Diagram: 06/04/18 0550 06/04/18 0550 Results 24hrs Laboratory Tests Test 06/03/18 18:28 06/03/18 19:30 06/03/18 20:00 06/04/18 00:14 White Blood 6.9 7.5 Count Red Blood Count 2.52 L 2.49 L Hemoglobin 8.2 L 8.1 L Hematocrit 25.2 L 24.9 L Mean Corpuscular 100.0 100.0 Volume Mean Corpuscular 32.5 32.5 Hemoglobin Mean Corpuscular 32.5 32.5 Hemoglobin Mary nt Red Cell 19.2 H 19.3 H Distribution Width Platelet Count 100 L 88 L Mean Platelet 13.2 H 12.6 H Volume Immature 0.700 H 0.700 H Granulocytes % Neutrophils % 85.2 H 83.7 H Lymphocytes % 6.2 L 6.3 L Monocytes % 6.4 7.4 Eosinophils % 1.2 1.6 Basophils % 0.3 0.3 Nucleated Red 0.0 0.3 H Blood Cells % Immature 0.050 H 0.050 H Granulocytes # Neutrophils # 5.9 6.3 Lymphocytes # 0.4 L 0.5 L Monocytes # 0.4 0.6 Eosinophils # 0.1 0.1 Basophils # 0.0 0.0 Nucleated Red 0.0 0.0 Blood Cells # Sodium Level 141 139 Potassium Level 4.6 4.7 Chloride Level 98 98 Carbon Dioxide 22 21 Level Anion Gap 21 H 20 H Blood Urea 61 H 62 H Nitrogen Creatinine 6.40 H 6.91 H Est Glomerular Filtrat Rate mL/min Glucose Level 120 103 Lactic Acid 1.2 Level Calcium Level 10.4 H 10.2 Phosphorus Level 10.3 H 10.2 H Magnesium Level 2.1 2.2 Bedside Glucose 109 Blood Gas Blood arterial Specimen Source Arterial Blood 06/03/2018 8:21:44 Date Drawn PM Arterial Blood 7.424 pH (Temp corrected) Arterial Blood 36.0 pCO2 (Temp correct) Arterial Blood 102.2 H pO2 (Temp corrected) Arterial Blood 23.2 HCO3 Arterial Blood -1.1 Base Excess Arterial Blood 97.5 Oxygen Saturatio n Ramon Test ACCEPTAB Arterial Blood Right Radial Gas Puncture Site Arterial 0.6 Blood Carboxyhem oglobin Arterial Blood 0 Methemoglobin Blood Gas A-a O2 178.6 H Differential Oxyhemoglobin 96.9 Percent Blood Gas 36.2 Temperature Blood Gas 16.0 Respiration Rate Blood Gas Actual 16 Respiration Rate Blood Gas VENT - AC Modality FiO2 45.0 Blood Gas Tidal 500.0 Volume Blood Gas Low 5.0 PEEP Setting Blood Gas KB Notified Whom Blood Gas 06/03/2018 8:26:48 Notified Time PM Prothrombin Time 16.8 H Prothrombin Time 1.3 Ratio INR 1.35 International Normalized Ratio Activated 32.7 Partial Thrombop last Time Fibrinogen 300.0 # Total Bilirubin 0.0 L Direct Bilirubin 0.00 Indirect 0.0 Bilirubin Aspartate Amino 21 # Transf (AST/SGOT ) Alanine 17 Aminotransferase (ALT/SGPT) Alkaline 125 H Phosphatase Total Protein 10.0 H Albumin 3.1 L Globulin 6.90 H Albumin/Globulin 0.44 Ratio Amylase Level 210 H Lipase 1922 H Test 06/04/18 00:17 06/04/18 02:00 06/04/18 04:05 06/04/18 05:50 Bedside Glucose 102 93 Blood Gas Blood arterial Specimen Source Arterial Blood 06/04/2018 2:12:17 Date Drawn AM Arterial Blood 7.410 pH (Temp corrected) Arterial Blood 38.1 pCO2 (Temp correct) Arterial Blood 115.4 H pO2 (Temp corrected) Arterial Blood 23.7 HCO3 Arterial Blood -0.8 Base Excess Arterial Blood 97.9 Oxygen Saturatio n Ramon Test ACCEPTAB Arterial Blood Right Radial Gas Puncture Site Arterial 0.1 Blood Carboxyhem oglobin Arterial Blood 0.1 Methemoglobin Blood Gas A-a O2 126.1 H Differential Oxyhemoglobin 97.7 Percent Blood Gas 36.9 Temperature Blood Gas 16.0 Respiration Rate Blood Gas Actual 16 Respiration Rate Blood Gas VENT - AC Modality FiO2 40.0 Blood Gas Tidal 500.0 Volume Blood Gas Low 5.0 PEEP Setting Blood Gas Notified Whom Blood Gas 06/04/2018 2:19:21 Notified Time AM White Blood 7.5 Count Red Blood Count 2.59 L Hemoglobin 8.2 L Hematocrit 25.6 L Mean Corpuscular 98.8 Volume Mean Corpuscular 31.7 Hemoglobin Mean Corpuscular 32.0 Hemoglobin Mary nt Red Cell 19.4 H Distribution Width Platelet Count 95 L Mean Platelet 13.0 H Volume Immature 0.700 H Granulocytes % Neutrophils % 82.8 H Lymphocytes % 7.1 L Monocytes % 7.9 Eosinophils % 1.2 Basophils % 0.3 Nucleated Red 0.0 Blood Cells % Immature 0.050 H Granulocytes # Neutrophils # 6.2 Lymphocytes # 0.5 L Monocytes # 0.6 Eosinophils # 0.1 Basophils # 0.0 Nucleated Red 0.0 Blood Cells # Sodium Level 140 Potassium Level 4.7 Chloride Level 99 Carbon Dioxide 20 L Level Anion Gap 21 H Blood Urea 64 H Nitrogen Creatinine 7.16 H Est Glomerular Filtrat Rate mL/min Glucose Level 90 Calcium Level 10.1 Phosphorus Level 10.1 H Magnesium Level 2.3 Random 15.0 Vancomycin Level Test 06/04/18 08:45 06/04/18 12:22 06/04/18 14:02 06/04/18 16:54 Bedside Glucose 99 90 100 Phenytoin 15.2 (Dilantin) Level Subjective 24 Hr Interval Summary Free Text/Dictation Mert completed hypothermia protocol Now off of sedation. Appears to have very poor neurologic status. I infomred his son and at [facility]. Both began crying and left the room, saying the couldn't talk about it more Exam/Review of Systems Exam Vitals Vital Signs Date Temp Pulse Resp B/P (MAP) Pulse Ox O2 O2 Flow FiO2 Time Delivery Rate 06/04/18 109 18:05 06/04/18 18 138/69 99 18:00 (92) 06/04/18 40 17:01 06/04/18 Mechanical 16:05 Ventilator 06/04/18 98.1 16:00 06/01/18 2.0 20:00 Intake and Output 06/03/18 06/03/18 06/04/18 1515:00 23:00 07:00 IntakeIntake Total 299.960 ml 289.309 ml 72.063 ml OutputOutput Total 50 ml 50 ml 70 ml BalanceBalance 249.960 ml 239.309 ml 2.063 ml Exam Nonresponsive Pupils b/l constricted No gag, no corneal reflexes No response to noxious stimuli MV via ETT RRR Soft belly LUE fisulta No edema Results Results 24hrs Laboratory Tests Test 06/03/18 18:28 06/03/18 19:30 06/03/18 20:00 06/04/18 00:14 White Blood 6.9 7.5 Count Red Blood Count 2.52 L 2.49 L Hemoglobin 8.2 L 8.1 L Hematocrit 25.2 L 24.9 L Mean Corpuscular 100.0 100.0 Volume Mean Corpuscular 32.5 32.5 Hemoglobin Mean Corpuscular 32.5 32.5 Hemoglobin Mary nt Red Cell 19.2 H 19.3 H Distribution Width Platelet Count 100 L 88 L Mean Platelet 13.2 H 12.6 H Volume Immature 0.700 H 0.700 H Granulocytes % Neutrophils % 85.2 H 83.7 H Lymphocytes % 6.2 L 6.3 L Monocytes % 6.4 7.4 Eosinophils % 1.2 1.6 Basophils % 0.3 0.3 Nucleated Red 0.0 0.3 H Blood Cells % Immature 0.050 H 0.050 H Granulocytes # Neutrophils # 5.9 6.3 Lymphocytes # 0.4 L 0.5 L Monocytes # 0.4 0.6 Eosinophils # 0.1 0.1 Basophils # 0.0 0.0 Nucleated Red 0.0 0.0 Blood Cells # Sodium Level 141 139 Potassium Level 4.6 4.7 Chloride Level 98 98 Carbon Dioxide 22 21 Level Anion Gap 21 H 20 H Blood Urea 61 H 62 H Nitrogen Creatinine 6.40 H 6.91 H Est Glomerular Filtrat Rate mL/min Glucose Level 120 103 Lactic Acid 1.2 Level Calcium Level 10.4 H 10.2 Phosphorus Level 10.3 H 10.2 H Magnesium Level 2.1 2.2 Bedside Glucose 109 Blood Gas Blood arterial Specimen Source Arterial Blood 06/03/2018 8:21:44 Date Drawn PM Arterial Blood 7.424 pH (Temp corrected) Arterial Blood 36.0 pCO2 (Temp correct) Arterial Blood 102.2 H pO2 (Temp corrected) Arterial Blood 23.2 HCO3 Arterial Blood -1.1 Base Excess Arterial Blood 97.5 Oxygen Saturatio n Ramon Test ACCEPTAB Arterial Blood Right Radial Gas Puncture Site Arterial 0.6 Blood Carboxyhem oglobin Arterial Blood 0 Methemoglobin Blood Gas A-a O2 178.6 H Differential Oxyhemoglobin 96.9 Percent Blood Gas 36.2 Temperature Blood Gas 16.0 Respiration Rate Blood Gas Actual 16 Respiration Rate Blood Gas VENT - AC Modality FiO2 45.0 Blood Gas Tidal 500.0 Volume Blood Gas Low 5.0 PEEP Setting Blood Gas KB Notified Whom Blood Gas 06/03/2018 8:26:48 Notified Time PM Prothrombin Time 16.8 H Prothrombin Time 1.3 Ratio INR 1.35 International Normalized Ratio Activated 32.7 Partial Thrombop last Time Fibrinogen 300.0 # Total Bilirubin 0.0 L Direct Bilirubin 0.00 Indirect 0.0 Bilirubin Aspartate Amino 21 # Transf (AST/SGOT ) Alanine 17 Aminotransferase (ALT/SGPT) Alkaline 125 H Phosphatase Total Protein 10.0 H Albumin 3.1 L Globulin 6.90 H Albumin/Globulin 0.44 Ratio Amylase Level 210 H Lipase 1922 H Test 06/04/18 00:17 06/04/18 02:00 06/04/18 04:05 06/04/18 05:50 Bedside Glucose 102 93 Blood Gas Blood arterial Specimen Source Arterial Blood 06/04/2018 2:12:17 Date Drawn AM Arterial Blood 7.410 pH (Temp corrected) Arterial Blood 38.1 pCO2 (Temp correct) Arterial Blood 115.4 H pO2 (Temp corrected) Arterial Blood 23.7 HCO3 Arterial Blood -0.8 Base Excess Arterial Blood 97.9 Oxygen Saturatio n Ramon Test ACCEPTAB Arterial Blood Right Radial Gas Puncture Site Arterial 0.1 Blood Carboxyhem oglobin Arterial Blood 0.1 Methemoglobin Blood Gas A-a O2 126.1 H Differential Oxyhemoglobin 97.7 Percent Blood Gas 36.9 Temperature Blood Gas 16.0 Respiration Rate Blood Gas Actual 16 Respiration Rate Blood Gas VENT - AC Modality FiO2 40.0 Blood Gas Tidal 500.0 Volume Blood Gas Low 5.0 PEEP Setting Blood Gas Notified Whom Blood Gas 06/04/2018 2:19:21 Notified Time AM White Blood 7.5 Count Red Blood Count 2.59 L Hemoglobin 8.2 L Hematocrit 25.6 L Mean Corpuscular 98.8 Volume Mean Corpuscular 31.7 Hemoglobin Mean Corpuscular 32.0 Hemoglobin Mary nt Red Cell 19.4 H Distribution Width Platelet Count 95 L Mean Platelet 13.0 H Volume Immature 0.700 H Granulocytes % Neutrophils % 82.8 H Lymphocytes % 7.1 L Monocytes % 7.9 Eosinophils % 1.2 Basophils % 0.3 Nucleated Red 0.0 Blood Cells % Immature 0.050 H Granulocytes # Neutrophils # 6.2 Lymphocytes # 0.5 L Monocytes # 0.6 Eosinophils # 0.1 Basophils # 0.0 Nucleated Red 0.0 Blood Cells # Sodium Level 140 Potassium Level 4.7 Chloride Level 99 Carbon Dioxide 20 L Level Anion Gap 21 H Blood Urea 64 H Nitrogen Creatinine 7.16 H Est Glomerular Filtrat Rate mL/min Glucose Level 90 Calcium Level 10.1 Phosphorus Level 10.1 H Magnesium Level 2.3 Random 15.0 Vancomycin Level Test 06/04/18 08:45 06/04/18 12:22 06/04/18 14:02 06/04/18 16:54 Bedside Glucose 99 90 100 Phenytoin 15.2 (Dilantin) Level Medications Medication Current Medications IV Flush (NS 3 ml) 3 ml PER PROTOCOL IV ; Start 05/30/18 at 20:00 Ranitidine HCl (Zantac) 150 mg HS PO Last administered on 06/02/18at 21:45; Admin Dose 150 MG; Start 05/30/18 at 21:00; Status Hold Atorvastatin Calcium (Lipitor) 40 mg QHS PO Last administered on 06/03/18at 21:44; Admin Dose 40 MG; Start 05/31/18 at 21:00 Ondansetron HCl (Zofran Inj) 4 mg Q4H PRN IV NAUSEA AND/OR VOMITING Last administered on 06/01/18at 00:10; Admin Dose 4 MG; Start 06/01/18 at 00:00 Norepinephrine 250 ml @ 1.875 mls/ hr TITRATE IV Last administered on 06/04/18at 11:09; Admin Dose 13.125 MLS/HR; Start 06/02/18 at 02:30 Acetaminophen (Tylenol Liquid) 650 mg Q4H PRN PO TEMP > 37C; Start 06/02/18 at 07:00 Meperidine HCl (Demerol) 12.5 mg Q4H PRN IV POST OPERATIVE SHIVERING; Start 06/02/18 at 07:00 Meperidine HCl (Demerol) 25 mg Q4H PRN IV POST OPERATIVE SHIVERING; Start 06/02/18 at 07:00 Eye Lubricant (Artificial Tears Oph) 2 drop Q6 BOTH EYES Last administered on 06/04/18at 18:06; Admin Dose 2 DROP; Start 06/02/18 at 12:00 Insulin Human Regular 100 unit/ Sodium Chloride 100 ml @ 0.2 mls/hr PER PROTOCOL IV ; Start 06/02/18 at 08:00 Miscellaneous Information (* Miscellaneous Pharmacy Order) Treatment of Hypoglycemia: 1.BG 51... Per protocol XX ; Start 06/02/18 at 07:00 Dextrose (D50w Syringe) 25 ml Q15M PRN IV .DECREASED GLUCOSE; Start 06/02/18 at 07:00 Dextrose (D50w Syringe) 50 ml Q15M PRN IV .DECREASED GLUCOSE; Start 06/02/18 at 07:00 Vecuronium [place] 100 mg/ Dextrose 100 ml @ 4.55 mls/hr TITRATE PRN IV POST OPERATIVE SHIVERING Last administered on 06/02/18at 09:55; Admin Dose 4.55 MLS/HR; Start 06/02/18 at 07:30 Meperidine HCl (Demerol) 12.5 mg Q2 PRN IV POST OPERATIVE SHIVERING; Start 06/02/18 at 07:30 Vancomycin HCl (Vanco Iv Per Pharmacy) VANCOMYCIN PER PHARMACY PER PROTOCOL XX ; Start 06/02/18 at 10:00 Famotidine (Pepcid Iv) 20 mg DAILY IV Last administered on 06/04/18at 09:04; Admin Dose 20 MG; Start 06/03/18 at 09:00 Propofol 100 ml @ 2.727 mls/ hr Q12H IV Last administered on 06/03/18 23:09; Admin Dose 19.089 MLS/HR; Start 06/02/18 at 12:00 Aztreonam 0.5 gm/ Sodium Chloride 50 ml @ 100 mls/hr Q12 IV Last administered on 06/04/18 09:05; Admin Dose 100 MLS/HR; Start 06/02/18 at 21:00 Diagnostic Test (Pha) (Accu-Chek) 1 ea Q4H XX Last administered on 06/04/18 16:00; Admin Dose 1 EA; Start 06/02/18 at 20:00 Hypromellose (Genteal Severe) 1 applic Q6 BOTH EYES Last administered on 18:07; Admin Dose 1 APPLIC; Start 06/03/18 at 12:00 Aspirin (Aspirin) 81 mg DAILY PO Last administered on 06/04/18 09:07; Admin Dose 81 MG; Start 06/03/18 at 12:30 Lorazepam (Ativan) 2 mg Q15M PRN IV SEIZURES Last administered on 06/04/18 15:22; Admin Dose 2 MG; Start 06/04/18 at 02:00 Sevelamer Carbonate (Renvela) 1.6 gm Q8H NGT Last administered on 06/04/18 13:57; Admin Dose 1.6 GM; Start 06/04/18 at 11:30 SRAVANTHI YEPEZ MD Jun 04, 2018 18:25
[2018-06-04] MEDS: ATORVASTATIN 40 MG TAB PO SCH (20:12)
--- NOTE | 2018-06-04 22:12 | CONS ---
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 Consultation Date/Type/Reason Admit Date/Time May 30, 2018 at 19:04 Initial Consult Date 06/02/18 Type of Consult oncology Reason for Consultation Multiple myeloma Requesting Provider: PHILOMENA JONES Date/Time of Note DATE: 06/04/18 TIME: 13:11 24 HR Interval Summary Free Text/Dictation - on pressors for low BP -pending EEG -On HD - no new events reported last night per staff Subjective hx not possible: pt non-verbal Constitutional: requiring IVF, requiring O2 Exam/Review of Systems Exam Vitals Vital Signs Date Temp Pulse Resp B/P (MAP) Pulse Ox O2 O2 Flow FiO2 Time Delivery Rate 06/04/18 104 16 90/54 (66) 94 13:00 06/04/18 98.3 12:20 06/04/18 40 12:00 06/04/18 Mechanical 06:00 Ventilator 06/01/18 2.0 20:00 Intake and Output 06/03/18 06/03/18 06/04/18 1515:00 23:00 07:00 IntakeIntake Total 299.960 ml 289.309 ml 72.063 ml OutputOutput Total 50 ml 50 ml 70 ml BalanceBalance 249.960 ml 239.309 ml 2.063 ml Constitutional: non-verbal, frail Psych: nl mood/affect Eyes: nl lids, nl sclera Neck: other (ET tube intact) Respiratory: diminished breath sounds Cardiovascular: nl pulses, other (s1s2) Gastrointestinal: soft Musculoskeletal: muscle weakness, range of motion Extremities: edema Neurological: unresponsive Results Result Diagram: 06/04/18 0550 06/04/18 0550 Results 24hrs Laboratory Tests Test 06/03/18 16:59 06/03/18 18:28 06/03/18 19:30 06/03/18 20:00 Bedside Glucose 111 109 White Blood 6.9 Count Red Blood Count 2.52 L Hemoglobin 8.2 L Hematocrit 25.2 L Mean Corpuscular 100.0 Volume Mean Corpuscular 32.5 Hemoglobin Mean Corpuscular 32.5 Hemoglobin Mary nt Red Cell 19.2 H Distribution Width Platelet Count 100 L Mean Platelet 13.2 H Volume Immature 0.700 H Granulocytes % Neutrophils % 85.2 H Lymphocytes % 6.2 L Monocytes % 6.4 Eosinophils % 1.2 Basophils % 0.3 Nucleated Red 0.0 Blood Cells % Immature 0.050 H Granulocytes # Neutrophils # 5.9 Lymphocytes # 0.4 L Monocytes # 0.4 Eosinophils # 0.1 Basophils # 0.0 Nucleated Red 0.0 Blood Cells # Sodium Level 141 Potassium Level 4.6 Chloride Level 98 Carbon Dioxide 22 Level Anion Gap 21 H Blood Urea 61 H Nitrogen Creatinine 6.40 H Est Glomerular Filtrat Rate mL/min Glucose Level 120 Lactic Acid 1.2 Level Calcium Level 10.4 H Phosphorus Level 10.3 H Magnesium Level 2.1 Blood Gas Blood arterial Specimen Source Arterial Blood 06/03/2018 8:21:44 Date Drawn PM Arterial Blood 7.424 pH (Temp corrected) Arterial Blood 36.0 pCO2 (Temp correct) Arterial Blood 102.2 H pO2 (Temp corrected) Arterial Blood 23.2 HCO3 Arterial Blood -1.1 Base Excess Arterial Blood 97.5 Oxygen Saturatio n Ramon Test ACCEPTAB Arterial Blood Right Radial Gas Puncture Site Arterial 0.6 Blood Carboxyhem oglobin Arterial Blood 0 Methemoglobin Blood Gas A-a O2 178.6 H Differential Oxyhemoglobin 96.9 Percent Blood Gas 36.2 Temperature Blood Gas 16.0 Respiration Rate Blood Gas Actual 16 Respiration Rate Blood Gas VENT - AC Modality FiO2 45.0 Blood Gas Tidal 500.0 Volume Blood Gas Low 5.0 PEEP Setting Blood Gas KB Notified Whom Blood Gas 06/03/2018 8:26:48 Notified Time PM Test 4/6/19 00:14 06/04/18 00:17 06/04/18 02:00 06/04/18 04:05 White Blood 7.5 Count Red Blood Count 2.49 L Hemoglobin 8.1 L Hematocrit 24.9 L Mean Corpuscular 100.0 Volume Mean Corpuscular 32.5 Hemoglobin Mean Corpuscular 32.5 Hemoglobin Mary nt Red Cell 19.3 H Distribution Width Platelet Count 88 L Mean Platelet 12.6 H Volume Immature 0.700 H Granulocytes % Neutrophils % 83.7 H Lymphocytes % 6.3 L Monocytes % 7.4 Eosinophils % 1.6 Basophils % 0.3 Nucleated Red 0.3 H Blood Cells % Immature 0.050 H Granulocytes # Neutrophils # 6.3 Lymphocytes # 0.5 L Monocytes # 0.6 Eosinophils # 0.1 Basophils # 0.0 Nucleated Red 0.0 Blood Cells # Prothrombin Time 16.8 H Prothrombin Time 1.3 Ratio INR 1.35 International Normalized Ratio Activated 32.7 Partial Thrombop last Time Fibrinogen 300.0 # Sodium Level 139 Potassium Level 4.7 Chloride Level 98 Carbon Dioxide 21 Level Anion Gap 20 H Blood Urea 62 H Nitrogen Creatinine 6.91 H Est Glomerular Filtrat Rate mL/min Glucose Level 103 Calcium Level 10.2 Phosphorus Level 10.2 H Magnesium Level 2.2 Total Bilirubin 0.0 L Direct Bilirubin 0.00 Indirect 0.0 Bilirubin Aspartate Amino 21 # Transf (AST/SGOT ) Alanine 17 Aminotransferase (ALT/SGPT) Alkaline 125 H Phosphatase Total Protein 10.0 H Albumin 3.1 L Globulin 6.90 H Albumin/Globulin 0.44 Ratio Amylase Level 210 H Lipase 1922 H Bedside Glucose 102 93 Blood Gas Blood arterial Specimen Source Arterial Blood 06/04/2018 2:12:17 Date Drawn AM Arterial Blood 7.410 pH (Temp corrected) Arterial Blood 38.1 pCO2 (Temp correct) Arterial Blood 115.4 H pO2 (Temp corrected) Arterial Blood 23.7 HCO3 Arterial Blood -0.8 Base Excess Arterial Blood 97.9 Oxygen Saturatio n Ramon Test ACCEPTAB Arterial Blood Right Radial Gas Puncture Site Arterial 0.1 Blood Carboxyhem oglobin Arterial Blood 0.1 Methemoglobin Blood Gas A-a O2 126.1 H Differential Oxyhemoglobin 97.7 Percent Blood Gas 36.9 Temperature Blood Gas 16.0 Respiration Rate Blood Gas Actual 16 Respiration Rate Blood Gas VENT - AC Modality FiO2 40.0 Blood Gas Tidal 500.0 Volume Blood Gas Low 5.0 PEEP Setting Blood Gas Notified Whom Blood Gas 06/04/2018 2:19:21 Notified Time AM Test 06/04/18 05:50 06/04/18 08:45 06/04/18 12:22 White Blood 7.5 Count Red Blood Count 2.59 L Hemoglobin 8.2 L Hematocrit 25.6 L Mean Corpuscular 98.8 Volume Mean Corpuscular 31.7 Hemoglobin Mean Corpuscular 32.0 Hemoglobin Mary nt Red Cell 19.4 H Distribution Width Platelet Count 95 L Mean Platelet 13.0 H Volume Immature 0.700 H Granulocytes % Neutrophils % 82.8 H Lymphocytes % 7.1 L Monocytes % 7.9 Eosinophils % 1.2 Basophils % 0.3 Nucleated Red 0.0 Blood Cells % Immature 0.050 H Granulocytes # Neutrophils # 6.2 Lymphocytes # 0.5 L Monocytes # 0.6 Eosinophils # 0.1 Basophils # 0.0 Nucleated Red 0.0 Blood Cells # Sodium Level 140 Potassium Level 4.7 Chloride Level 99 Carbon Dioxide 20 L Level Anion Gap 21 H Blood Urea 64 H Nitrogen Creatinine 7.16 H Est Glomerular Filtrat Rate mL/min Glucose Level 90 Calcium Level 10.1 Phosphorus Level 10.1 H Magnesium Level 2.3 Random 15.0 Vancomycin Level Bedside Glucose 99 90 Medications Medication Current Medications IV Flush (NS 3 ml) 3 ml PER PROTOCOL IV ; Start 05/30/18 at 20:00 Ranitidine HCl (Zantac) 150 mg HS PO Last administered on 06/02/18at 21:45; Admin Dose 150 MG; Start 05/30/18 at 21:00; Status Hold Atorvastatin Calcium (Lipitor) 40 mg QHS PO Last administered on 06/03/18at 21:44; Admin Dose 40 MG; Start 05/31/18 at 21:00 Ondansetron HCl (Zofran Inj) 4 mg Q4H PRN IV NAUSEA AND/OR VOMITING Last administered on 06/01/18at 00:10; Admin Dose 4 MG; Start 06/01/18 at 00:00 Norepinephrine 250 ml @ 1.875 mls/ hr TITRATE IV Last administered on 06/04/18at 11:09; Admin Dose 13.125 MLS/HR; Start 06/02/18 at 02:30 Acetaminophen (Tylenol Supp) 650 mg Q4H PRN DC TEMP > 37C; Start 06/02/18 at 07:00 Acetaminophen (Tylenol Liquid) 650 mg Q4H PRN PO TEMP > 37C; Start 06/02/18 at 07:00 Acetaminophen (Tylenol Supp) 500 mg Q6H DC Last administered on 06/04/18at 06:34; Admin Dose 500 MG; Start 06/03/18 at 07:00 Acetaminophen (Tylenol Liquid) 500 mg Q6H PO Last administered on 06/04/18at 12:20; Admin Dose 500 MG; Start 06/03/18 at 07:00 Meperidine HCl (Demerol) 12.5 mg Q4H PRN IV POST OPERATIVE SHIVERING; Start 06/02/18 at 07:00 Meperidine HCl (Demerol) 25 mg Q4H PRN IV POST OPERATIVE SHIVERING; Start 06/02/18 at 07:00 Eye Lubricant (Artificial Tears Oph) 2 drop Q6 BOTH EYES Last administered on 06/04/18at 12:19; Admin Dose 2 DROP; Start 06/02/18 at 12:00 Insulin Human Regular 100 unit/ Sodium Chloride 100 ml @ 0.2 mls/hr PER PROTOCOL IV ; Start 06/02/18 at 08:00 Miscellaneous Information (* Miscellaneous Pharmacy Order) Treatment of Hypoglycemia: 1.BG 51... Per protocol XX ; Start 06/02/18 at 07:00 Dextrose (D50w Syringe) 25 ml Q15M PRN IV .DECREASED GLUCOSE; Start 06/02/18 at 07:00 Dextrose (D50w Syringe) 50 ml Q15M PRN IV .DECREASED GLUCOSE; Start 06/02/18 at 07:00 Vecuronium [place] 100 mg/ Dextrose 100 ml @ 4.55 mls/hr TITRATE PRN IV POST OPERATIVE SHIVERING Last administered on 06/02/18at 09:55; Admin Dose 4.55 MLS/HR; Start 06/02/18 at 07:30 Meperidine HCl (Demerol) 12.5 mg Q2 PRN IV POST OPERATIVE SHIVERING; Start 06/02/18 at 07:30 Vancomycin HCl (Vanco Iv Per Pharmacy) VANCOMYCIN PER PHARMACY PER PROTOCOL XX ; Start 06/02/18 at 10:00 Famotidine (Pepcid Iv) 20 mg DAILY IV Last administered on 06/04/18 09:04; Admin Dose 20 MG; Start 06/03/18 at 09:00 Propofol 100 ml @ 2.727 mls/ hr Q12H IV Last administered on 06/03/18 23:09; Admin Dose 19.089 MLS/HR; Start 06/02/18 at 12:00 Aztreonam 0.5 gm/ Sodium Chloride 50 ml @ 100 mls/hr Q12 IV Last administered on 06/04/18 09:05; Admin Dose 100 MLS/HR; Start 06/02/18 at 21:00 Diagnostic Test (Pha) (Accu-Chek) 1 ea Q4H XX Last administered on 06/04/18 12:23; Admin Dose 1 EA; Start 06/02/18 at 20:00 Hypromellose (Genteal Severe) 1 applic Q6 BOTH EYES Last administered on 06/04/18 12:21; Admin Dose 1 APPLIC; Start 06/03/18 at 12:00 Aspirin (Aspirin) 81 mg DAILY PO Last administered on 06/04/18 09:07; Admin Dose 81 MG; Start 06/03/18 at 12:30 Lorazepam (Ativan) 2 mg Q15M PRN IV SEIZURES Last administered on 06/04/18 09:07; Admin Dose 2 MG; Start 06/04/18 at 02:00 Sevelamer Carbonate (Renvela) 1.6 gm Q8H NGT ; Start 06/04/18 at 11:30 Vancomycin HCl 250 ml @ 125 mls/hr ONCE IVPB ; Start 06/04/18 at 14:00; Stop 06/04/18 at 15:59 SAVANAH RIVAS Jun 04, 2018 13:21
[2018-06-04] MEDS: PROPOFOL 100 ML IV SCH (23:36)
[2018-06-05] VITALS (103 sets, daily range): BP systolic 77–127; BP diastolic 42–70; PULSE 87–107; RESP 16–23
[2018-06-05] MEDS: SEVELAMER CARBONATE 0.8 GM PKT NGT SCH ×3 (03:30→20:53)
[2018-06-05] MEDS: ACCU-CHEK XX SCH ×5 (03:33→20:53)
--- NOTE | 2018-06-05 05:17 | CONS ---
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 Consultation Date/Type/Reason Admit Date/Time May 30, 2018 at 19:04 Initial Consult Date 06/02/18 Type of Consult oncology Reason for Consultation Multiple myeloma Requesting Provider: PHILOMENA JONES Date/Time of Note DATE: 06/05/18 TIME: 05:17 24 HR Interval Summary Free Text/Dictation sp EEG today HD no new events reported last night per staff Subjective hx not possible: pt non-verbal, pt critical status Constitutional: requiring IVF, requiring O2 Exam/Review of Systems Exam Vitals Vital Signs Date Temp Pulse Resp B/P (MAP) Pulse Ox O2 O2 Flow FiO2 Time Delivery Rate 06/05/18 105 16 100 40 05:05 06/05/18 105/55 Mechanical 05:00 (72) Ventilator 06/05/18 98.6 04:00 06/01/18 2.0 20:00 Intake and Output 06/04/18 06/04/18 06/05/18 1515:00 23:00 07:00 IntakeIntake Total 603.750 ml 507.235 ml 35.625 ml OutputOutput Total 0 ml 2230 ml 0 ml BalanceBalance 603.750 ml -1722.765 ml 35.625 ml Constitutional: non-verbal, frail Psych: nl mood/affect Eyes: nl lids, nl sclera ENMT: nl external ears & nose Neck: other (ET inatct) Respiratory: diminished breath sounds Cardiovascular: nl pulses, other (s1s2) Gastrointestinal: soft Musculoskeletal: muscle weakness, range of motion Neurological: unresponsive Results Result Diagram: 06/04/18 0550 06/04/18 0550 Results 24hrs Laboratory Tests Test 06/04/18 05:50 06/04/18 08:45 06/04/18 12:22 06/04/18 14:02 White Blood Count 7.5 Red Blood Count 2.59 L Hemoglobin 8.2 L Hematocrit 25.6 L Mean Corpuscular Volume 98.8 Mean Corpuscular 31.7 Hemoglobin Mean Corpuscular 32.0 Hemoglobin Concent Red Cell Distribution 19.4 H Width Platelet Count 95 L Mean Platelet Volume 13.0 H Immature Granulocytes % 0.700 H Neutrophils % 82.8 H Lymphocytes % 7.1 L Monocytes % 7.9 Eosinophils % 1.2 Basophils % 0.3 Nucleated Red Blood 0.0 Cells % Immature Granulocytes # 0.050 H Neutrophils # 6.2 Lymphocytes # 0.5 L Monocytes # 0.6 Eosinophils # 0.1 Basophils # 0.0 Nucleated Red Blood 0.0 Cells # Sodium Level 140 Potassium Level 4.7 Chloride Level 99 Carbon Dioxide Level 20 L Anion Gap 21 H Blood Urea Nitrogen 64 H Creatinine 7.16 H Est Glomerular Filtrat Rate mL/min Glucose Level 90 Calcium Level 10.1 Phosphorus Level 10.1 H Magnesium Level 2.3 Random Vancomycin Level 15.0 Bedside Glucose 99 90 Phenytoin (Dilantin) 15.2 Level Test 06/04/18 16:54 06/04/18 20:11 06/04/18 23:36 06/05/18 03:32 Bedside Glucose 100 77 81 81 Test 06/05/18 04:45 White Blood Count Pending Red Blood Count Pending Hemoglobin Pending Hematocrit Pending Mean Corpuscular Volume Pending Mean Corpuscular Pending Hemoglobin Mean Corpuscular Pending Hemoglobin Concent Red Cell Distribution Pending Width Platelet Count Pending Mean Platelet Volume Pending Medications Medication Current Medications IV Flush (NS 3 ml) 3 ml PER PROTOCOL IV ; Start 05/30/18 at 20:00 Ranitidine HCl (Zantac) 150 mg HS PO Last administered on 06/02/18at 21:45; Admin Dose 150 MG; Start 05/30/18 at 21:00; Status Hold Atorvastatin Calcium (Lipitor) 40 mg QHS PO Last administered on 06/04/18at 20:12; Admin Dose 40 MG; Start 05/31/18 at 21:00 Ondansetron HCl (Zofran Inj) 4 mg Q4H PRN IV NAUSEA AND/OR VOMITING Last administered on 06/01/18at 00:10; Admin Dose 4 MG; Start 06/01/18 at 00:00 Norepinephrine 250 ml @ 1.875 mls/ hr TITRATE IV Last administered on 06/04/18at 22:59; Admin Dose 9.375 MLS/HR; Start 06/02/18 at 02:30 Acetaminophen (Tylenol Liquid) 650 mg Q4H PRN PO TEMP > 37C; Start 06/02/18 at 07:00 Meperidine HCl (Demerol) 12.5 mg Q4H PRN IV POST OPERATIVE SHIVERING; Start 06/02/18 at 07:00 Meperidine HCl (Demerol) 25 mg Q4H PRN IV POST OPERATIVE SHIVERING; Start 06/02/18 at 07:00 Eye Lubricant (Artificial Tears Oph) 2 drop Q6 BOTH EYES Last administered on 06/04/18at 23:37; Admin Dose 2 DROP; Start 06/02/18 at 12:00 Insulin Human Regular 100 unit/ Sodium Chloride 100 ml @ 0.2 mls/hr PER PROTOCOL IV ; Start 06/02/18 at 08:00 Miscellaneous Information (* Miscellaneous Pharmacy Order) Treatment of Hypoglycemia: 1.BG 51... Per protocol XX ; Start 06/02/18 at 07:00 Dextrose (D50w Syringe) 25 ml Q15M PRN IV .DECREASED GLUCOSE; Start 06/02/18 at 07:00 Dextrose (D50w Syringe) 50 ml Q15M PRN IV .DECREASED GLUCOSE; Start 06/02/18 at 07:00 Vecuronium [place] 100 mg/ Dextrose 100 ml @ 4.55 mls/hr TITRATE PRN IV POST OPERATIVE SHIVERING Last administered on 06/02/18at 09:55; Admin Dose 4.55 MLS/HR; Start 06/02/18 at 07:30 Meperidine HCl (Demerol) 12.5 mg Q2 PRN IV POST OPERATIVE SHIVERING; Start 06/02/18 at 07:30 Vancomycin HCl (Vanco Iv Per Pharmacy) VANCOMYCIN PER PHARMACY PER PROTOCOL XX ; Start 06/02/18 at 10:00 Famotidine (Pepcid Iv) 20 mg DAILY IV Last administered on 06/04/18 09:04; Admin Dose 20 MG; Start 06/03/18 at 09:00 Propofol 100 ml @ 2.727 mls/ hr Q12H IV Last administered on 06/03/18 23:09; Admin Dose 19.089 MLS/HR; Start 06/02/18 at 12:00 Aztreonam 0.5 gm/ Sodium Chloride 50 ml @ 100 mls/hr Q12 IV Last administered on 06/04/18 20:13; Admin Dose 100 MLS/HR; Start 06/02/18 at 21:00 Diagnostic Test (Pha) (Accu-Chek) 1 ea Q4H XX Last administered on 06/05/18 03:33; Admin Dose 1 EA; Start 06/02/18 at 20:00 Hypromellose (Genteal Severe) 1 applic Q6 BOTH EYES Last administered on 06/04/18 23:37; Admin Dose 1 APPLIC; Start 06/03/18 at 12:00 Aspirin (Aspirin) 81 mg DAILY PO Last administered on 06/04/18 09:07; Admin Dose 81 MG; Start 06/03/18 at 12:30 Lorazepam (Ativan) 2 mg Q15M PRN IV SEIZURES Last administered on 06/04/18 22:21; Admin Dose 2 MG; Start 06/04/18 at 02:00 Sevelamer Carbonate (Renvela) 1.6 gm Q8H NGT Last administered on 06/05/18 03:30; Admin Dose 1.6 GM; Start 06/04/18 at 11:30 SAVANAH RIVAS Jun 05, 2018 05:17
[2018-06-05] MEDS: HYPROMELLOSE OPHTHALMIC LUBRICANT GEL (10 GM) BOTH EYES SCH ×3 (05:57→18:00)
[2018-06-05] MEDS: ARTIFICIAL TEARS 15 ML OPH BOTH EYES SCH ×3 (05:57→18:00)
--- NOTE | 2018-06-05 07:32 | CONS ---
Assessment/Plan Assessment/Plan Assessment/Plan (Daily) Post dated note for visit 06/04/2018 1900 Events off the last 24 hrs reviewed .. Pt gravely ill and now seizing indicating high likelihood of anoxic brain injury. I have called both son and daughter in law but no answer, I left a voice mail and will attempt to schedule a family conference today once again. Consultation Date/Type/Reason Admit Date/Time May 30, 2018 at 19:04 Date/Time of Note DATE: 06/05/18 TIME: 07:26 Past Medical History Medical History: diabetes, renal disease Home Meds Reported Medications Carvedilol* (Carvedilol*) 12.5 Mg Tablet, 12.5 MG PO QHS, #60 TAB 05/30/18 Carvedilol* (Carvedilol*) 25 Mg Tablet, 25 MG PO DAILY, #60 TAB 05/30/18 Apixaban* (Eliquis*) 2.5 Mg Tablet, 2.5 MG PO DAILY, TAB 05/30/18 Insulin Regular, Human (Humulin R) 100 Unit/1 Ml Vial, IJ, VIAL 06/01/17 Cholecalciferol* (Vitamin D3*) 1,000 Unit Tablet, 2000 UNIT PO DAILY, TAB 06/01/17 Atorvastatin* (Atorvastatin*) 40 Mg Tablet, 40 MG PO QHS, #30 TAB 06/01/17 Ranitidine Hcl* (Ranitidine Hcl*) 150 Mg Tablet, 150 MG PO HS, #30 TAB 06/01/17 Clopidogrel Bisulfate (Clopidogrel) 75 Mg Tablet, 75 MG PO DAILY, #30 TAB 06/01/17 Insulin Glargine* (Lantus*) 100 Unit/Ml Soln, 42 UNIT SC DAILY, #1 VIAL 06/01/17 Hydrochlorothiazide* (Hydrochlorothiazide*) 25 Mg Tab, 25 MG PO BID, #60 TAB 06/01/17 Lisinopril* (Lisinopril*) 20 Mg Tablet, 20 MG PO BID, #30 TAB 06/01/17 Nifedipine* (Nifedipine ER*) 30 Mg Tablet.sa, 30 MG PO DAILY, TAB.SA 06/01/17 Medications Current Medications IV Flush (NS 3 ml) 3 ml PER PROTOCOL IV ; Start 05/30/18 at 20:00 Ranitidine HCl (Zantac) 150 mg HS PO Last administered on 06/02/18at 21:45; Admin Dose 150 MG; Start 05/30/18 at 21:00; Status Hold Atorvastatin Calcium (Lipitor) 40 mg QHS PO Last administered on 06/04/18at 20:12; Admin Dose 40 MG; Start 05/31/18 at 21:00 Ondansetron HCl (Zofran Inj) 4 mg Q4H PRN IV NAUSEA AND/OR VOMITING Last administered on 06/01/18 00:10; Admin Dose 4 MG; Start 06/01/18 at 00:00 Norepinephrine 250 ml @ 1.875 mls/ hr TITRATE IV Last administered on 06/04/18 22:59; Admin Dose 9.375 MLS/HR; Start 06/02/18 at 02:30 Acetaminophen (Tylenol Liquid) 650 mg Q4H PRN PO TEMP > 37C; Start 06/02/18 at 07:00 Meperidine HCl (Demerol) 12.5 mg Q4H PRN IV POST OPERATIVE SHIVERING; Start 06/02/18 at 07:00 Meperidine HCl (Demerol) 25 mg Q4H PRN IV POST OPERATIVE SHIVERING; Start 06/02/18 at 07:00 Eye Lubricant (Artificial Tears Oph) 2 drop Q6 BOTH EYES Last administered on 06/05/18 05:57; Admin Dose 2 DROP; Start 06/02/18 at 12:00 Insulin Human Regular 100 unit/ Sodium Chloride 100 ml @ 0.2 mls/hr PER PROTOCOL IV ; Start 06/02/18 at 08:00 Miscellaneous Information (* Miscellaneous Pharmacy Order) Treatment of Hypoglycemia: 1.BG 51... Per protocol XX ; Start 06/02/18 at 07:00 Dextrose (D50w Syringe) 25 ml Q15M PRN IV .DECREASED GLUCOSE; Start 06/02/18 at 07:00 Dextrose (D50w Syringe) 50 ml Q15M PRN IV .DECREASED GLUCOSE; Start 06/02/18 at 07:00 Vecuronium [place] 100 mg/ Dextrose 100 ml @ 4.55 mls/hr TITRATE PRN IV POST OPERATIVE SHIVERING Last administered on 06/02/18 09:55; Admin Dose 4.55 MLS/HR; Start 06/02/18 at 07:30 Meperidine HCl (Demerol) 12.5 mg Q2 PRN IV POST OPERATIVE SHIVERING; Start 06/02/18 at 07:30 Vancomycin HCl (Vanco Iv Per Pharmacy) VANCOMYCIN PER PHARMACY PER PROTOCOL XX ; Start 06/02/18 at 10:00 Famotidine (Pepcid Iv) 20 mg DAILY IV Last administered on 06/04/18 09:04; Admin Dose 20 MG; Start 06/03/18 at 09:00 Propofol 100 ml @ 2.727 mls/ hr Q12H IV Last administered on 06/03/18 23:09; Admin Dose 19.089 MLS/HR; Start 06/02/18 at 12:00 Aztreonam 0.5 gm/ Sodium Chloride 50 ml @ 100 mls/hr Q12 IV Last administered on 06/04/18 20:13; Admin Dose 100 MLS/HR; Start 06/02/18 at 21:00 Diagnostic Test (Pha) (Accu-Chek) 1 ea Q4H XX Last administered on 06/05/18 03:33; Admin Dose 1 EA; Start 06/02/18 at 20:00 Hypromellose (Genteal Severe) 1 applic Q6 BOTH EYES Last administered on 06/05/18 05:57; Admin Dose 1 APPLIC; Start 06/03/18 at 12:00 Aspirin (Aspirin) 81 mg DAILY PO Last administered on 06/04/18 09:07; Admin Dose 81 MG; Start 06/03/18 at 12:30 Lorazepam (Ativan) 2 mg Q15M PRN IV SEIZURES Last administered on 06/04/18 22:21; Admin Dose 2 MG; Start 06/04/18 at 02:00 Sevelamer Carbonate (Renvela) 1.6 gm Q8H NGT Last administered on 06/05/18 03:30; Admin Dose 1.6 GM; Start 06/04/18 at 11:30 Allergies: Coded Allergies: Penicillins (Unverified Allergy, Unknown, 05/31/17) Sulfa (Sulfonamide Antibiotics) (Unverified Allergy, Unknown, 05/31/17) Past Surgical History Past Surgical Hx: no surgical history Social History Alcohol Use: none Smoking Status: Never smoker Drug Use: none Exam/Review of Systems Exam Vitals Vital Signs Date Temp Pulse Resp B/P (MAP) Pulse Ox O2 O2 Flow FiO2 Time Delivery Rate 06/05/18 102 16 127/65 99 06:45 (85) 06/05/18 Mechanical 06:00 Ventilator 06/05/18 40 05:05 06/05/18 98.6 04:00 06/01/18 2.0 20:00 Intake and Output 06/04/18 06/04/18 06/05/18 1515:00 23:00 07:00 IntakeIntake Total 603.750 ml 507.235 ml 65.125 ml OutputOutput Total 0 ml 2230 ml 0 ml BalanceBalance 603.750 ml -1722.765 ml 65.125 ml Constitutional: non-verbal Respiratory: clear to auscultation, normal air movement Cardiovascular: regular rate and rhythm, nl pulses Neurological: unresponsive, other (no response to stimuli , overbreathing the vent, slugging occulocephalics ) Results Result Diagram: 06/05/18 0445 06/05/18 0444 Results 24hrs Laboratory Tests Test 06/04/18 08:45 06/04/18 12:22 06/04/18 14:02 06/04/18 16:54 Bedside Glucose 99 90 100 Phenytoin (Dilantin) 15.2 Level Test 06/04/18 20:11 06/04/18 23:36 06/05/18 03:32 06/05/18 04:44 Bedside Glucose 77 81 81 Sodium Level 142 Potassium Level 4.1 Chloride Level 98 Carbon Dioxide Level 29 Anion Gap 15 H Blood Urea Nitrogen 39 #H Creatinine 5.12 #H Est Glomerular Filtrat Rate mL/min Glucose Level 86 Calcium Level 8.6 Test 06/05/18 04:45 06/05/18 06:15 White Blood Count 6.9 Red Blood Count 2.52 L Hemoglobin 8.0 L Hematocrit 25.0 L Mean Corpuscular 99.2 Volume Mean Corpuscular 31.7 Hemoglobin Mean Corpuscular 32.0 Hemoglobin Concent Red Cell Distribution 19.1 H Width Platelet Count 101 L Mean Platelet Volume 12.8 H Immature Granulocytes 0.600 H % Neutrophils % 81.9 H Lymphocytes % 7.4 L Monocytes % 8.9 Eosinophils % 0.9 Basophils % 0.3 Nucleated Red Blood 0.0 Cells % Immature Granulocytes 0.040 H # Neutrophils # 5.7 Lymphocytes # 0.5 L Monocytes # 0.6 Eosinophils # 0.1 Basophils # 0.0 Nucleated Red Blood 0.0 Cells # Lab Scanned Report REFERENCE LAB Medications Medication Current Medications IV Flush (NS 3 ml) 3 ml PER PROTOCOL IV ; Start 05/30/18 at 20:00 Ranitidine HCl (Zantac) 150 mg HS PO Last administered on 06/02/18at 21:45; Admin Dose 150 MG; Start 05/30/18 at 21:00; Status Hold Atorvastatin Calcium (Lipitor) 40 mg QHS PO Last administered on 06/04/18at 20:12; Admin Dose 40 MG; Start 05/31/18 at 21:00 Ondansetron HCl (Zofran Inj) 4 mg Q4H PRN IV NAUSEA AND/OR VOMITING Last administered on 06/01/18at 00:10; Admin Dose 4 MG; Start 06/01/18 at 00:00 Norepinephrine 250 ml @ 1.875 mls/ hr TITRATE IV Last administered on 06/04/18at 22:59; Admin Dose 9.375 MLS/HR; Start 06/02/18 at 02:30 Acetaminophen (Tylenol Liquid) 650 mg Q4H PRN PO TEMP > 37C; Start 06/02/18 at 07:00 Meperidine HCl (Demerol) 12.5 mg Q4H PRN IV POST OPERATIVE SHIVERING; Start 06/02/18 at 07:00 Meperidine HCl (Demerol) 25 mg Q4H PRN IV POST OPERATIVE SHIVERING; Start 06/02/18 at 07:00 Eye Lubricant (Artificial Tears Oph) 2 drop Q6 BOTH EYES Last administered on 06/05/18at 05:57; Admin Dose 2 DROP; Start 06/02/18 at 12:00 Insulin Human Regular 100 unit/ Sodium Chloride 100 ml @ 0.2 mls/hr PER PROTOCOL IV ; Start 06/02/18 at 08:00 Miscellaneous Information (* Miscellaneous Pharmacy Order) Treatment of Hypoglycemia: 1.BG 51... Per protocol XX ; Start 06/02/18 at 07:00 Dextrose (D50w Syringe) 25 ml Q15M PRN IV .DECREASED GLUCOSE; Start 06/02/18 at 07:00 Dextrose (D50w Syringe) 50 ml Q15M PRN IV .DECREASED GLUCOSE; Start 06/02/18 at 07:00 Vecuronium [place] 100 mg/ Dextrose 100 ml @ 4.55 mls/hr TITRATE PRN IV POST OPERATIVE SHIVERING Last administered on 06/02/18 09:55; Admin Dose 4.55 MLS/HR; Start 06/02/18 at 07:30 Meperidine HCl (Demerol) 12.5 mg Q2 PRN IV POST OPERATIVE SHIVERING; Start 06/02/18 at 07:30 Vancomycin HCl (Vanco Iv Per Pharmacy) VANCOMYCIN PER PHARMACY PER PROTOCOL XX ; Start 06/02/18 at 10:00 Famotidine (Pepcid Iv) 20 mg DAILY IV Last administered on 06/04/18 09:04; Admin Dose 20 MG; Start 06/03/18 at 09:00 Propofol 100 ml @ 2.727 mls/ hr Q12H IV Last administered on 06/03/18 23:09; Admin Dose 19.089 MLS/HR; Start 06/02/18 at 12:00 Aztreonam 0.5 gm/ Sodium Chloride 50 ml @ 100 mls/hr Q12 IV Last administered on 06/04/18 20:13; Admin Dose 100 MLS/HR; Start 06/02/18 at 21:00 Diagnostic Test (Pha) (Accu-Chek) 1 ea Q4H XX Last administered on 06/05/18 03:33; Admin Dose 1 EA; Start 06/02/18 at 20:00 Hypromellose (Genteal Severe) 1 applic Q6 BOTH EYES Last administered on 06/05/18 05:57; Admin Dose 1 APPLIC; Start 06/03/18 at 12:00 Aspirin (Aspirin) 81 mg DAILY PO Last administered on 06/04/18 09:07; Admin Dose 81 MG; Start 06/03/18 at 12:30 Lorazepam (Ativan) 2 mg Q15M PRN IV SEIZURES Last administered on 06/04/18 22:21; Admin Dose 2 MG; Start 06/04/18 at 02:00 Sevelamer Carbonate (Renvela) 1.6 gm Q8H NGT Last administered on 06/05/18 03:30; Admin Dose 1.6 GM; Start 06/04/18 at 11:30 CHRISTA SANCHEZ Jun 05, 2018 07:31
--- NOTE | 2018-06-05 08:44 | EEG ---
EEG NOTE Report Details DATE OF TEST: 06/04/18 HISTORY: The patient is a 83-year-old M who presents with seizure after cardiac arrest. This EEG is requested to rule out nonconvulsive status epilepticus. SEDATION: ? CONDITIONS OF RECORDING: This EEG was recorded digitally on the [employer] machine, using the International 10-20 System of electrodes plus anterior temporals and [place]. STATES SAMPLED: Comatose. FINDINGS: The background is discontinuous...though grossly symmetric...predominated by polymorphic theta and delta activity. There are frequent epileptiform discharges throughout. The normal [id number] frequency-amplitude gradient was absent. Photic stimulation does not elicit any definite driving responses or epileptiform discharges. Hyperventilation was not performed. PRESSION: Abnormal electroencephalogram due to: severe diffuse slowing and frequent epileptiform discharges. COMMENT: The slowing of the background indicates severe, diffuse cortical dysfunction of nonspecific etiology. Frequent epileptiform discharges suggest a potential epileptogenic focus. MARY JO HOLMAN Jun 05, 2018 08:44
[2018-06-05] MEDS: AZTREONAM 0.5 GM in SOD CHLORIDE 0.9% 50 ML IV SCH ×2 (09:34→20:53)
[2018-06-05] MEDS: ASPIRIN 81 MG TAB PO SCH (09:34)
[2018-06-05] MEDS: BALSAM PERU/CASTOR OIL 60 GM TUBE TOP SCH ×2 (09:34→20:54)
[2018-06-05] MEDS: FAMOTIDINE 20 MG INJ IV SCH (09:34)
--- NOTE | 2018-06-05 09:37 | CONS ---
Assessment/Plan Cardiology Heart Failure Type: Acute Heart Failure Type: Systolic Assessment/Plan Hospital Course (Demo Recall) Cardiac arrest: PEA and unclear etiology at this time. Unclear how long pt was down as he was on med/surg. Doubt cardiac. CXR 05/31 and post arrest both with pulmonary edema so possibly respiratory. PE in differential as well. s/p hypothermia protocol NSTEMI: Mild trops 0.35 in setting of cardiac arrest. No acute EKG changes. Likely type II. Echo with preserved EF Shock: possible cardiogenic component +/- septic. Improving Acute respiratory failure: intubated briefly 05/31 post procedure and then extubated. Now intubated during code. Acute diastolic CHF: EF preserved. 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 Goals of care discussion Consultation Date/Type/Reason Admit Date/Time May 30, 2018 at 19:04 Initial Consult Date 06/02/18 Type of Consult Cardiology Requesting Provider: PHILOMENA JONES Date/Time of Note DATE: 06/05/18 TIME: 09:36 24 HR Interval Summary Free Text/Dictation No events. Remains on low dose levophed. Exam/Review of Systems Vital Signs Vitals Vital Signs Date Temp Pulse Resp B/P (MAP) Pulse Ox O2 O2 Flow FiO2 Time Delivery Rate 06/05/18 103 08:00 06/05/18 16 127/65 99 06:45 (85) 06/05/18 Mechanical 06:00 Ventilator 06/05/18 40 05:05 06/05/18 98.6 04:00 06/01/18 2.0 20:00 Intake and Output 06/04/18 06/04/18 06/05/18 1515:00 23:00 07:00 IntakeIntake Total 603.750 ml 507.235 ml 65.125 ml OutputOutput Total 0 ml 2230 ml 0 ml BalanceBalance 603.750 ml -1722.765 ml 65.125 ml Exam Constitutional: No alert ENMT: intubated Neck: supple; No jvd Respiratory: diminished breath sounds; No clear to auscultation, No crackles/rales Cardiovascular: systolic murmur; No regular rate and rhythm, No edema Gastrointestinal: soft; No distended Neurological: No nl mental status, No nl speech Labs Result Diagram: 06/05/18 0445 06/05/18 0444 Results 24hrs Laboratory Tests Test 06/04/18 12:22 06/04/18 14:02 06/04/18 16:54 06/04/18 20:11 Bedside Glucose 90 100 77 Phenytoin (Dilantin) 15.2 Level Test 06/04/18 23:36 06/05/18 03:32 06/05/18 04:44 06/05/18 04:45 Bedside Glucose 81 81 Sodium Level 142 Potassium Level 4.1 Chloride Level 98 Carbon Dioxide Level 29 Anion Gap 15 H Blood Urea Nitrogen 39 #H Creatinine 5.12 #H Est Glomerular Filtrat Rate mL/min Glucose Level 86 Calcium Level 8.6 White Blood Count 6.9 Red Blood Count 2.52 L Hemoglobin 8.0 L Hematocrit 25.0 L Mean Corpuscular 99.2 Volume Mean Corpuscular 31.7 Hemoglobin Mean Corpuscular 32.0 Hemoglobin Concent Red Cell Distribution 19.1 H Width Platelet Count 101 L Mean Platelet Volume 12.8 H Immature Granulocytes 0.600 H % Neutrophils % 81.9 H Lymphocytes % 7.4 L Monocytes % 8.9 Eosinophils % 0.9 Basophils % 0.3 Nucleated Red Blood 0.0 Cells % Immature Granulocytes 0.040 H # Neutrophils # 5.7 Lymphocytes # 0.5 L Monocytes # 0.6 Eosinophils # 0.1 Basophils # 0.0 Nucleated Red Blood 0.0 Cells # Test 06/05/18 06:15 06/05/18 08:40 Lab Scanned Report REFERENCE LAB Bedside Glucose 80 Medications Medications Current Medications IV Flush (NS 3 ml) 3 ml PER PROTOCOL IV ; Start 05/30/18 at 20:00 Ranitidine HCl (Zantac) 150 mg HS PO Last administered on 06/02/18at 21:45; Admin Dose 150 MG; Start 05/30/18 at 21:00; Status Hold Atorvastatin Calcium (Lipitor) 40 mg QHS PO Last administered on 06/04/18at 20:12; Admin Dose 40 MG; Start 05/31/18 at 21:00 Ondansetron HCl (Zofran Inj) 4 mg Q4H PRN IV NAUSEA AND/OR VOMITING Last administered on 06/01/18at 00:10; Admin Dose 4 MG; Start 06/01/18 at 00:00 Norepinephrine 250 ml @ 1.875 mls/ hr TITRATE IV Last administered on 06/04/18at 22:59; Admin Dose 9.375 MLS/HR; Start 06/02/18 at 02:30 Acetaminophen (Tylenol Liquid) 650 mg Q4H PRN PO TEMP > 37C; Start 06/02/18 at 07:00 Meperidine HCl (Demerol) 12.5 mg Q4H PRN IV POST OPERATIVE SHIVERING; Start 06/02/18 at 07:00 Meperidine HCl (Demerol) 25 mg Q4H PRN IV POST OPERATIVE SHIVERING; Start 06/02/18 at 07:00 Eye Lubricant (Artificial Tears Oph) 2 drop Q6 BOTH EYES Last administered on 06/05/18at 05:57; Admin Dose 2 DROP; Start 06/02/18 at 12:00 Insulin Human Regular 100 unit/ Sodium Chloride 100 ml @ 0.2 mls/hr PER PROTOCOL IV ; Start 06/02/18 at 08:00 Miscellaneous Information (* Miscellaneous Pharmacy Order) Treatment of Hypoglycemia: 1.BG 51... Per protocol XX ; Start 06/02/18 at 07:00 Dextrose (D50w Syringe) 25 ml Q15M PRN IV .DECREASED GLUCOSE; Start 06/02/18 at 07:00 Dextrose (D50w Syringe) 50 ml Q15M PRN IV .DECREASED GLUCOSE; Start 06/02/18 at 07:00 Vecuronium [place] 100 mg/ Dextrose 100 ml @ 4.55 mls/hr TITRATE PRN IV POST OPERATIVE SHIVERING Last administered on 06/02/18at 09:55; Admin Dose 4.55 MLS/HR; Start 06/02/18 at 07:30 Meperidine HCl (Demerol) 12.5 mg Q2 PRN IV POST OPERATIVE SHIVERING; Start 06/02/18 at 07:30 Vancomycin HCl (Vanco Iv Per Pharmacy) VANCOMYCIN PER PHARMACY PER PROTOCOL XX ; Start 06/02/18 at 10:00 Famotidine (Pepcid Iv) 20 mg DAILY IV Last administered on 06/05/18 09:34; Admin Dose 20 MG; Start 06/03/18 at 09:00 Propofol 100 ml @ 2.727 mls/ hr Q12H IV Last administered on 06/03/18 23:09; Admin Dose 19.089 MLS/HR; Start 06/02/18 at 12:00 Aztreonam 0.5 gm/ Sodium Chloride 50 ml @ 100 mls/hr Q12 IV Last administered on 06/05/18 09:34; Admin Dose 100 MLS/HR; Start 06/02/18 at 21:00 Diagnostic Test (Pha) (Accu-Chek) 1 ea Q4H XX Last administered on 06/05/18 08:30; Admin Dose 1 EA; Start 06/02/18 at 20:00 Hypromellose (Genteal Severe) 1 applic Q6 BOTH EYES Last administered on 06/05/18 05:57; Admin Dose 1 APPLIC; Start 06/03/18 at 12:00 Aspirin (Aspirin) 81 mg DAILY PO Last administered on 06/05/18 09:34; Admin Dose 81 MG; Start 06/03/18 at 12:30 Lorazepam (Ativan) 2 mg Q15M PRN IV SEIZURES Last administered on 06/04/18 22:21; Admin Dose 2 MG; Start 06/04/18 at 02:00 Sevelamer Carbonate (Renvela) 1.6 gm Q8H NGT Last administered on 06/05/18 03:30; Admin Dose 1.6 GM; Start 06/04/18 at 11:30 Phenytoin (Dilantin) 100 mg Q8 IV ; Start 06/05/18 at 09:[address] Jun 05, 2018 09:37
[2018-06-05] MEDS: PHENYTOIN 100 MG INJ IV SCH ×3 (09:38→20:54)
--- NOTE | 2018-06-05 09:46 | CONS ---
Assessment/Plan Assessment/Plan Hospital Course 83 M c/ multiple comorbidities, who is admitted to the [facility] ICU following cardiac arrest. Now s/p TTM. Noted to have a clinical seizure in early am of 06/04...once paralytic and sedative weaned..which raises concern for significant hypoxic cerebral injury. EEG was reassuringly without evidence of nonconvulsive status epilepticus.. Head CT 06/02 is unremarkable. P: Cont phenytoin 100mg q8h for now, to be titrated to goal level (~20) Ativan iv prn prolonged seizure or cluster Repeat Head CT when clinically able Other medical management and supportive care per primary Will follow with you. Consultation Date/Type/Reason Admit Date/Time May 30, 2018 at 19:04 Type of Consult Neurology Reason for Consultation ams Requesting Provider: PHILOMENA JONES Date/Time of Note DATE: 06/05/18 TIME: 09:43 24 HR Interval Summary Free Text/Dictation Couple episodes c/f seizure yesterday, None overnight or this am Subjective hx not possible: pt critical Exam Vital Signs Vitals Vital Signs Date Temp Pulse Resp B/P (MAP) Pulse Ox O2 O2 Flow FiO2 Time Delivery Rate 06/05/18 103 08:00 06/05/18 16 127/65 99 06:45 (85) 06/05/18 Mechanical 06:00 Ventilator 06/05/18 40 05:05 06/05/18 98.6 04:00 06/01/18 2.0 20:00 Intake and Output 06/04/18 06/04/18 06/05/18 1515:00 23:00 07:00 IntakeIntake Total 603.750 ml 507.235 ml 65.125 ml OutputOutput Total 0 ml 2230 ml 0 ml BalanceBalance 603.750 ml -1722.765 ml 65.125 ml Exam PE: Gen Appearance: No Apparent Distress HEENT: Intubated Cardiovascular: Regular rate Abdomen: Soft Extremities: Dry NE: The patient was comatose. Cranial nerve examination was limited by mental status. Pupils were equal and reactive to light. There was no afferent pupillary defect. Funduscopic examination was limited. Face was grossly symmetric, w/ present corneal and cough reflexes. Tone was normal. Muscle bulk was normal. I did not see fasciculations. The patient did not withdrew to noxious stimulation x 4. Coordination and gait testing was limited by mental status. Arm and leg reflexes were within normal limits and symmetric. Willams's sign was absent. Plantar responses were flexor. MARY JO HOLMAN Jun 05, 2018 09:45
--- NOTE | 2018-06-05 11:29 | CONS ---
Consult Date/Type/Reason Admit Date/Time May 30, 2018 at 19:04 Initial Consult Date 06/02/18 Type of Consultation: Pulm/CCM Requesting Provider: PHILOMENA JONES Date/Time of Note DATE: 06/05/18 TIME: 11:27 Subjective Off hypothermia protocol. Remains unresponsive on [facility] ventilation. Objective Vitals Vital Signs Date Temp Pulse Resp B/P (MAP) Pulse Ox O2 O2 Flow FiO2 Time Delivery Rate 06/05/18 99 18 112/68 99 Mechanical 10:00 (83) Ventilator 06/05/18 99.0 08:00 06/05/18 40 08:00 06/01/18 2.0 20:00 Intake and Output 06/04/18 06/04/18 06/05/18 1515:00 23:00 07:00 IntakeIntake Total 603.750 ml 507.235 ml 65.125 ml OutputOutput Total 0 ml 2230 ml 0 ml BalanceBalance 603.750 ml -1722.765 ml 65.125 ml Exam HEENT: Neck supple; no JVD; no LAD; + ET tube CVS: Irreg, tachy, S1 and S2 CHEST: Coarse BS bilaterally ABD: Soft, NT, + BS EXT: + edema NEURO: Comatose, unresponsive on vent. No GAG; pupils sluggish. Results/Medications Result Diagram: 06/05/18 0445 06/05/18 0444 Results 24 hrs Laboratory Tests Test 06/04/18 12:22 06/04/18 14:02 06/04/18 16:54 06/04/18 20:11 Bedside Glucose 90 100 77 Phenytoin (Dilantin) 15.2 Level Test 06/04/18 23:36 06/05/18 03:32 06/05/18 04:44 06/05/18 04:45 Bedside Glucose 81 81 Sodium Level 142 Potassium Level 4.1 Chloride Level 98 Carbon Dioxide Level 29 Anion Gap 15 H Blood Urea Nitrogen 39 #H Creatinine 5.12 #H Est Glomerular Filtrat Rate mL/min Glucose Level 86 Calcium Level 8.6 White Blood Count 6.9 Red Blood Count 2.52 L Hemoglobin 8.0 L Hematocrit 25.0 L Mean Corpuscular 99.2 Volume Mean Corpuscular 31.7 Hemoglobin Mean Corpuscular 32.0 Hemoglobin Concent Red Cell Distribution 19.1 H Width Platelet Count 101 L Mean Platelet Volume 12.8 H Immature Granulocytes 0.600 H % Neutrophils % 81.9 H Lymphocytes % 7.4 L Monocytes % 8.9 Eosinophils % 0.9 Basophils % 0.3 Nucleated Red Blood 0.0 Cells % Immature Granulocytes 0.040 H # Neutrophils # 5.7 Lymphocytes # 0.5 L Monocytes # 0.6 Eosinophils # 0.1 Basophils # 0.0 Nucleated Red Blood 0.0 Cells # Test 06/05/18 06:15 06/05/18 08:40 Lab Scanned Report REFERENCE LAB Bedside Glucose 80 Home Meds Reported Medications Carvedilol* (Carvedilol*) 12.5 Mg Tablet, 12.5 MG PO QHS, #60 TAB 05/30/18 Carvedilol* (Carvedilol*) 25 Mg Tablet, 25 MG PO DAILY, #60 TAB 05/30/18 Apixaban* (Eliquis*) 2.5 Mg Tablet, 2.5 MG PO DAILY, TAB 05/30/18 Insulin Regular, Human (Humulin R) 100 Unit/1 Ml Vial, IJ, VIAL 06/01/17 Cholecalciferol* (Vitamin D3*) 1,000 Unit Tablet, 2000 UNIT PO DAILY, TAB 06/01/17 Atorvastatin* (Atorvastatin*) 40 Mg Tablet, 40 MG PO QHS, #30 TAB 06/01/17 Ranitidine Hcl* (Ranitidine Hcl*) 150 Mg Tablet, 150 MG PO HS, #30 TAB 06/01/17 Clopidogrel Bisulfate (Clopidogrel) 75 Mg Tablet, 75 MG PO DAILY, #30 TAB 06/01/17 Insulin Glargine* (Lantus*) 100 Unit/Ml Soln, 42 UNIT SC DAILY, #1 VIAL 06/01/17 Hydrochlorothiazide* (Hydrochlorothiazide*) 25 Mg Tab, 25 MG PO BID, #60 TAB 06/01/17 Lisinopril* (Lisinopril*) 20 Mg Tablet, 20 MG PO BID, #30 TAB 06/01/17 Nifedipine* (Nifedipine ER*) 30 Mg Tablet.sa, 30 MG PO DAILY, TAB.SA 06/01/17 Medications Current Medications IV Flush (NS 3 ml) 3 ml PER PROTOCOL IV ; Start 05/30/18 at 20:00 Ranitidine HCl (Zantac) 150 mg HS PO Last administered on 06/02/18at 21:45; Admin Dose 150 MG; Start 05/30/18 at 21:00; Status Hold Atorvastatin Calcium (Lipitor) 40 mg QHS PO Last administered on 06/04/18 20:12; Admin Dose 40 MG; Start 05/31/18 at 21:00 Ondansetron HCl (Zofran Inj) 4 mg Q4H PRN IV NAUSEA AND/OR VOMITING Last administered on 06/01/18 00:10; Admin Dose 4 MG; Start 06/01/18 at 00:00 Norepinephrine 250 ml @ 1.875 mls/ hr TITRATE IV Last administered on 06/04/18 22:59; Admin Dose 9.375 MLS/HR; Start 06/02/18 at 02:30 Acetaminophen (Tylenol Liquid) 650 mg Q4H PRN PO TEMP > 37C; Start 06/02/18 at 07:00 Meperidine HCl (Demerol) 12.5 mg Q4H PRN IV POST OPERATIVE SHIVERING; Start 06/02/18 at 07:00 Meperidine HCl (Demerol) 25 mg Q4H PRN IV POST OPERATIVE SHIVERING; Start at 07:00 Eye Lubricant (Artificial Tears Oph) 2 drop Q6 BOTH EYES Last administered on 06/05/18 05:57; Admin Dose 2 DROP; Start 06/02/18 at 12:00 Insulin Human Regular 100 unit/ Sodium Chloride 100 ml @ 0.2 mls/hr PER PROTOCOL IV ; Start 06/02/18 at 08:00 Miscellaneous Information (* Miscellaneous Pharmacy Order) Treatment of Hypoglycemia: 1.BG 51... Per protocol XX ; Start 06/02/18 at 07:00 Dextrose (D50w Syringe) 25 ml Q15M PRN IV .DECREASED GLUCOSE; Start 06/02/18 at 07:00 Dextrose (D50w Syringe) 50 ml Q15M PRN IV .DECREASED GLUCOSE; Start 06/02/18 at 07:00 Vecuronium [place] 100 mg/ Dextrose 100 ml @ 4.55 mls/hr TITRATE PRN IV POST OPERATIVE SHIVERING Last administered on 06/02/18at 09:55; Admin Dose 4.55 MLS/HR; Start 06/02/18 at 07:30 Meperidine HCl (Demerol) 12.5 mg Q2 PRN IV POST OPERATIVE SHIVERING; Start 06/02/18 at 07:30 Vancomycin HCl (Vanco Iv Per Pharmacy) VANCOMYCIN PER PHARMACY PER PROTOCOL XX ; Start 06/02/18 at 10:00 Famotidine (Pepcid Iv) 20 mg DAILY IV Last administered on 06/05/18 09:34; Admin Dose 20 MG; Start 06/03/18 at 09:00 Propofol 100 ml @ 2.727 mls/ hr Q12H IV Last administered on 06/03/18 23:09; Admin Dose 19.089 MLS/HR; Start 06/02/18 at 12:00 Aztreonam 0.5 gm/ Sodium Chloride 50 ml @ 100 mls/hr Q12 IV Last administered on 06/05/18 09:34; Admin Dose 100 MLS/HR; Start 06/02/18 at 21:00 Diagnostic Test (Pha) (Accu-Chek) 1 ea Q4H XX Last administered on 06/05/18 08:30; Admin Dose 1 EA; Start 06/02/18 at 20:00 Hypromellose (Genteal Severe) 1 applic Q6 BOTH EYES Last administered on 06/05/18 05:57; Admin Dose 1 APPLIC; Start 06/03/18 at 12:00 Aspirin (Aspirin) 81 mg DAILY PO Last administered on 06/05/18 09:34; Admin Dose 81 MG; Start 06/03/18 at 12:30 Lorazepam (Ativan) 2 mg Q15M PRN IV SEIZURES Last administered on 06/04/18 22:21; Admin Dose 2 MG; Start 06/04/18 at 02:00 Sevelamer Carbonate (Renvela) 1.6 gm Q8H NGT Last administered on 06/05/18 03:30; Admin Dose 1.6 GM; Start 06/04/18 at 11:30 Phenytoin (Dilantin) 100 mg Q8 IV Last administered on 06/05/18 09:38; Admin Dose 100 MG; Start 06/05/18 at 09:00 Assessment/Plan Assessment/Plan (Daily) IMP: 1. s/p cardiopulmonary arrest 2. Encephalopathy--too early to determine severity of anoxic brain injury, though myoclonic jerks and seizures portend a poor prognosis 3. Seizures--2/2 #1 4. Plasma Cell Dyscrasia 5. CKD RECS: 1. Vent support 2. Follow neuro status closely 3. Neuro following for management of seizures 4. Vent support 5. HD/UF per renal prognosis very poor 40 min cc time LORE LANDIS MD Jun 05, 2018 11:29
[2018-06-05] MEDS ORDERED: SOD CHLORIDE 0.9% 1,000 ML IV PRN (11:57)
--- NOTE | 2018-06-05 11:57 | CONS ---
Assessment/Plan Assessment/Plan Assessment/Plan (Daily) 1. End-stage renal disease. HD tomorrow 2. Hypercalcemia, etiology secondary to multiple myeloma. The patient's biopsy was reviewed. HD on low Ca bath 3. Anemia. Monitor hemoglobin and hematocrit levels. Will give Epogen as needed. 4. Mineral bone disorder. The patient is hyperphosphatemic secondary to end- stage renal disease. on sevelamer. 5. Status post cardiac arrest. The patient has currently been initiated on hypothermic protocol. Etiology is unclear, possible PEA. Unclear how long patient has been down. Continue current medical management. Follow up with Cardiology for recommendations. 6. Ventilator-dependent respiratory failure. Vent settings and ABG was reviewed. Continue to monitor. Follow up with pulmonary. 7. Non-STEMI. current medical management per cardiology. 8. Encephalopathy, possible anoxic injury. The patient is being evaluated by neurology. Will continue to monitor. 9. Shock, etiology is unclear, possible cardiogenic, questionable sepsis. The patient remains on pressor support and antibiotic therapy. Cultures have been reviewed. Will continue to monitor. 10. Chronic atrial fibrillation, continue medical management. Follow up with C ardiology. 11. Multiple myeloma. The patient's pathology was reviewed. We will follow up with hematology for further recommendations. 12. Thrombocytopenia. Continue to monitor. 13. History of hypertension. 14. Diabetes. Continue current insulin regimen. 15. Pathological hip fracture. Consultation Date/Type/Reason Admit Date/Time May 30, 2018 at 19:04 Initial Consult Date 06/02/18 Requesting Provider: PHILOMENA JONES Date/Time of Note DATE: 06/05/18 TIME: 11:55 24 HR Interval Summary Free Text/Dictation overnight events reviewed rewarmed s/p HD yesterday d/w rn Gen: nad, elderly male CV rrr Pulm coarse bs Abd soft, nd, nt +bs ext: no edema Exam/Review of Systems Exam Vitals Vital Signs Date Temp Pulse Resp B/P (MAP) Pulse Ox O2 O2 Flow FiO2 Time Delivery Rate 06/05/18 99 18 112/68 99 Mechanical 10:00 (83) Ventilator 06/05/18 99.0 08:00 06/05/18 40 08:00 06/01/18 2.0 20:00 Intake and Output 06/04/18 06/04/18 06/05/18 1515:00 23:00 07:00 IntakeIntake Total 603.750 ml 507.235 ml 65.125 ml OutputOutput Total 0 ml 2230 ml 0 ml BalanceBalance 603.750 ml -1722.765 ml 65.125 ml Results Result Diagram: 06/05/18 0445 06/05/18 0444 Results 24hrs Laboratory Tests Test 06/04/18 12:22 06/04/18 14:02 06/04/18 16:54 06/04/18 20:11 Bedside Glucose 90 100 77 Phenytoin (Dilantin) 15.2 Level Test 06/04/18 23:36 06/05/18 03:32 06/05/18 04:44 06/05/18 04:45 Bedside Glucose 81 81 Sodium Level 142 Potassium Level 4.1 Chloride Level 98 Carbon Dioxide Level 29 Anion Gap 15 H Blood Urea Nitrogen 39 #H Creatinine 5.12 #H Est Glomerular Filtrat Rate mL/min Glucose Level 86 Calcium Level 8.6 White Blood Count 6.9 Red Blood Count 2.52 L Hemoglobin 8.0 L Hematocrit 25.0 L Mean Corpuscular 99.2 Volume Mean Corpuscular 31.7 Hemoglobin Mean Corpuscular 32.0 Hemoglobin Concent Red Cell Distribution 19.1 H Width Platelet Count 101 L Mean Platelet Volume 12.8 H Immature Granulocytes 0.600 H % Neutrophils % 81.9 H Lymphocytes % 7.4 L Monocytes % 8.9 Eosinophils % 0.9 Basophils % 0.3 Nucleated Red Blood 0.0 Cells % Immature Granulocytes 0.040 H # Neutrophils # 5.7 Lymphocytes # 0.5 L Monocytes # 0.6 Eosinophils # 0.1 Basophils # 0.0 Nucleated Red Blood 0.0 Cells # Test 06/05/18 06:15 06/05/18 08:40 Lab Scanned Report REFERENCE LAB Bedside Glucose 80 Medications Medication Current Medications IV Flush (NS 3 ml) 3 ml PER PROTOCOL IV ; Start 05/30/18 at 20:00 Ranitidine HCl (Zantac) 150 mg HS PO Last administered on 06/02/18at 21:45; Admin Dose 150 MG; Start 05/30/18 at 21:00; Status Hold Atorvastatin Calcium (Lipitor) 40 mg QHS PO Last administered on 06/04/18at 20:12 ; Admin Dose 40 MG; Start 05/31/18 at 21:00 Ondansetron HCl (Zofran Inj) 4 mg Q4H PRN IV NAUSEA AND/OR VOMITING Last administered on 06/01/18at 00:10; Admin Dose 4 MG; Start 06/01/18 at 00:00 Norepinephrine 250 ml @ 1.875 mls/ hr TITRATE IV Last administered on 06/04/18at 22:59; Admin Dose 9.375 MLS/HR; Start 06/02/18 at 02:30 Acetaminophen (Tylenol Liquid) 650 mg Q4H PRN PO TEMP > 37C; Start 06/02/18 at 07:00 Meperidine HCl (Demerol) 12.5 mg Q4H PRN IV POST OPERATIVE SHIVERING; Start 06/02/18 at 07:00 Meperidine HCl (Demerol) 25 mg Q4H PRN IV POST OPERATIVE SHIVERING; Start 06/02/18 at 07:00 Eye Lubricant (Artificial Tears Oph) 2 drop Q6 BOTH EYES Last administered on 06/05/18at 05:57; Admin Dose 2 DROP; Start 06/02/18 at 12:00 Insulin Human Regular 100 unit/ Sodium Chloride 100 ml @ 0.2 mls/hr PER PROTOCOL IV ; Start 06/02/18 at 08:00 Miscellaneous Information (* Miscellaneous Pharmacy Order) Treatment of Hypoglycemia: 1.BG 51... Per protocol XX ; Start 06/02/18 at 07:00 Dextrose (D50w Syringe) 25 ml Q15M PRN IV .DECREASED GLUCOSE; Start 06/02/18 at 07:00 Dextrose (D50w Syringe) 50 ml Q15M PRN IV .DECREASED GLUCOSE; Start 06/02/18 at 07:00 Vecuronium [place] 100 mg/ Dextrose 100 ml @ 4.55 mls/hr TITRATE PRN IV POST OPERATIVE SHIVERING Last administered on 06/02/18at 09:55; Admin Dose 4.55 MLS/HR; Start 06/02/18 at 07:30 Meperidine HCl (Demerol) 12.5 mg Q2 PRN IV POST OPERATIVE SHIVERING; Start 06/02/18 at 07:30 Vancomycin HCl (Vanco Iv Per Pharmacy) VANCOMYCIN PER PHARMACY PER PROTOCOL XX ; Start 06/02/18 at 10:00 Famotidine (Pepcid Iv) 20 mg DAILY IV Last administered on 06/05/18 09:34; Admin Dose 20 MG; Start 06/03/18 at 09:00 Propofol 100 ml @ 2.727 mls/ hr Q12H IV Last administered on 06/03/18 23:09; Admin Dose 19.089 MLS/HR; Start 06/02/18 at 12:00 Aztreonam 0.5 gm/ Sodium Chloride 50 ml @ 100 mls/hr Q12 IV Last administered on 06/05/18 09:34; Admin Dose 100 MLS/HR; Start 06/02/18 at 21:00 Diagnostic Test (Pha) (Accu-Chek) 1 ea Q4H XX Last administered on 06/05/18 08:30; Admin Dose 1 EA; Start 06/02/18 at 20:00 Hypromellose (Genteal Severe) 1 applic Q6 BOTH EYES Last administered on 06/05/18 05:57; Admin Dose 1 APPLIC; Start 06/03/18 at 12:00 Aspirin (Aspirin) 81 mg DAILY PO Last administered on 06/05/18 09:34; Admin Dose 81 MG; Start 06/03/18 at 12:30 Lorazepam (Ativan) 2 mg Q15M PRN IV SEIZURES Last administered on 06/04/18 22:21; Admin Dose 2 MG; Start 06/04/18 at 02:00 Sevelamer Carbonate (Renvela) 1.6 gm Q8H NGT Last administered on 06/05/18 03:30; Admin Dose 1.6 GM; Start 06/04/18 at 11:30 Phenytoin (Dilantin) 100 mg Q8 IV Last administered on 06/05/18 09:38; Admin Dose 100 MG; Start 06/05/18 at 09:00 MATTHEW LANCASTER MD Jun 05, 2018 11:57
[2018-06-05] MEDS ORDERED: SODIUM CHLORIDE 0.9% 1L BAG IV PRN (12:00)
[2018-06-05] MEDS ORDERED: ALBUMIN HUMAN 25% 100 ML IV PRN (12:00)
[2018-06-05] MEDS: PROPOFOL 100 ML IV SCH (12:00)
[2018-06-05] MEDS ORDERED: HEPARIN 1000 UNITS/ML 10 ML INJ CATHETER SCH (12:00)
--- NOTE | 2018-06-05 12:22 | PN ---
Date/Time of Note Date/Time of Note DATE: 06/05/18 TIME: 12:21 Assessment/Plan VTE Prophylaxis Risk score (from Nsg)>0 risk: 9 SCD applied (from Nsg): Yes Pharmacological prophylaxis: heparin Lines/Catheters IV Catheter Type (from Nrsg): Saline Lock Urinary Cath still in place: Yes Reason Cath still needed: urinary retention Assessment/Plan Hospital Course EXAM: Intubated No response to noxious stimuli Absent gag, absent vestibular, absent corneal. Pupils slow to react RRR Coarse anterior breath sounds Trace edema 83 yo male with ESRD, DMII who has been referred for MM workup after found to have hypercalcemia and pathologic hip fracture. Then suffered cardiac arrest. 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 Anticipate palliative extubation in coming days. Family were not ready to talk about it when i infomred them yesterday and have not come back to hospital. Appreciate Dr Maldonado, Dr Hernández assitance Cardiac arrest: - Unclear precipitant - s/p hypothermia Multiple myeloma: - Unlikely to receive treatment given anoxic event ESRD: - HD per renal Atrial fibrillation: - Continue AC Pancytopenia: - likely consistent with MM DMII: - Basal/bolus insulin Hypercalcemia: - Consistent with MM Pathologic hip fracture: - management per Dr Burton CC time 30 mintus Result Diagram: 06/05/185 06/05/18 0444 Results 24hrs Laboratory Tests Test 06/04/18 12:22 06/04/18 14:02 06/04/18 16:54 06/04/18 20:11 Bedside Glucose 90 100 77 Phenytoin (Dilantin) 15.2 Level Test 06/04/18 23:36 06/05/18 03:32 06/05/18 04:44 06/05/18 04:45 Bedside Glucose 81 81 Sodium Level 142 Potassium Level 4.1 Chloride Level 98 Carbon Dioxide Level 29 Anion Gap 15 H Blood Urea Nitrogen 39 #H Creatinine 5.12 #H Est Glomerular Filtrat Rate mL/min Glucose Level 86 Calcium Level 8.6 White Blood Count 6.9 Red Blood Count 2.52 L Hemoglobin 8.0 L Hematocrit 25.0 L Mean Corpuscular 99.2 Volume Mean Corpuscular 31.7 Hemoglobin Mean Corpuscular 32.0 Hemoglobin Concent Red Cell Distribution 19.1 H Width Platelet Count 101 L Mean Platelet Volume 12.8 H Immature Granulocytes 0.600 H % Neutrophils % 81.9 H Lymphocytes % 7.4 L Monocytes % 8.9 Eosinophils % 0.9 Basophils % 0.3 Nucleated Red Blood 0.0 Cells % Immature Granulocytes 0.040 H # Neutrophils # 5.7 Lymphocytes # 0.5 L Monocytes # 0.6 Eosinophils # 0.1 Basophils # 0.0 Nucleated Red Blood 0.0 Cells # Test 06/05/18 06:15 06/05/18 08:40 Lab Scanned Report REFERENCE LAB Bedside Glucose 80 Subjective 24 Hr Interval Summary Free Text/Dictation Minimal change to clinical status Appears comatose, off of sedation Exam/Review of Systems Exam Vitals Vital Signs Date Temp Pulse Resp B/P (MAP) Pulse Ox O2 O2 Flow FiO2 Time Delivery Rate 06/05/18 81 17 99 40 11:40 06/05/18 112/68 Mechanical 10:00 (83) Ventilator 06/05/18 99.0 08:00 06/01/18 2.0 20:00 Intake and Output 06/04/18 06/04/18 06/05/18 1414:59 22:59 06:59 IntakeIntake Total 577.500 ml 540.985 ml 58.125 ml OutputOutput Total 0 ml 2230 ml 0 ml BalanceBalance 577.500 ml -1689.015 ml 58.125 ml Results Results 24hrs Laboratory Tests Test 06/04/18 12:22 06/04/18 14:02 06/04/18 16:54 06/04/18 20:11 Bedside Glucose 90 100 77 Phenytoin (Dilantin) 15.2 Level Test 06/04/18 23:36 06/05/18 03:32 06/05/18 04:44 06/05/18 04:45 Bedside Glucose 81 81 Sodium Level 142 Potassium Level 4.1 Chloride Level 98 Carbon Dioxide Level 29 Anion Gap 15 H Blood Urea Nitrogen 39 #H Creatinine 5.12 #H Est Glomerular Filtrat Rate mL/min Glucose Level 86 Calcium Level 8.6 White Blood Count 6.9 Red Blood Count 2.52 L Hemoglobin 8.0 L Hematocrit 25.0 L Mean Corpuscular 99.2 Volume Mean Corpuscular 31.7 Hemoglobin Mean Corpuscular 32.0 Hemoglobin Concent Red Cell Distribution 19.1 H Width Platelet Count 101 L Mean Platelet Volume 12.8 H Immature Granulocytes 0.600 H % Neutrophils % 81.9 H Lymphocytes % 7.4 L Monocytes % 8.9 Eosinophils % 0.9 Basophils % 0.3 Nucleated Red Blood 0.0 Cells % Immature Granulocytes 0.040 H # Neutrophils # 5.7 Lymphocytes # 0.5 L Monocytes # 0.6 Eosinophils # 0.1 Basophils # 0.0 Nucleated Red Blood 0.0 Cells # Test 06/05/18 06:15 06/05/18 08:40 Lab Scanned Report REFERENCE LAB Bedside Glucose 80 Medications Medication Current Medications IV Flush (NS 3 ml) 3 ml PER PROTOCOL IV ; Start 05/30/18 at 20:00 Ranitidine HCl (Zantac) 150 mg HS PO Last administered on 06/02/18at 21:45; Admin Dose 150 MG; Start 05/30/18 at 21:00; Status Hold Atorvastatin Calcium (Lipitor) 40 mg QHS PO Last administered on 06/04/18at 20:12; Admin Dose 40 MG; Start 05/31/18 at 21:00 Ondansetron HCl (Zofran Inj) 4 mg Q4H PRN IV NAUSEA AND/OR VOMITING Last administered on 06/01/18at 00:10; Admin Dose 4 MG; Start 06/01/18 at 00:00 Norepinephrine 250 ml @ 1.875 mls/ hr TITRATE IV Last administered on 06/04/18at 22:59; Admin Dose 9.375 MLS/HR; Start 06/02/18 at 02:30 Acetaminophen (Tylenol Liquid) 650 mg Q4H PRN PO TEMP > 37C; Start 06/02/18 at 07:00 Meperidine HCl (Demerol) 12.5 mg Q4H PRN IV POST OPERATIVE SHIVERING; Start 06/02/18 at 07:00 Meperidine HCl (Demerol) 25 mg Q4H PRN IV POST OPERATIVE SHIVERING; Start 06/02/18 at 07:00 Eye Lubricant (Artificial Tears Oph) 2 drop Q6 BOTH EYES Last administered on 06/05/18at 05:57; Admin Dose 2 DROP; Start 06/02/18 at 12:00 Insulin Human Regular 100 unit/ Sodium Chloride 100 ml @ 0.2 mls/hr PER PROTOCOL IV ; Start 06/02/18 at 08:00 Miscellaneous Information (* Miscellaneous Pharmacy Order) Treatment of Hypoglycemia: 1.BG 51... Per protocol XX ; Start 06/02/18 at 07:00 Dextrose (D50w Syringe) 25 ml Q15M PRN IV .DECREASED GLUCOSE; Start 06/02/18 at 07:00 Dextrose (D50w Syringe) 50 ml Q15M PRN IV .DECREASED GLUCOSE; Start 06/02/18 at 07:00 Vecuronium [place] 100 mg/ Dextrose 100 ml @ 4.55 mls/hr TITRATE PRN IV POST OPERATIVE SHIVERING Last administered on 06/02/18 09:55; Admin Dose 4.55 MLS/HR; Start 06/02/18 at 07:30 Meperidine HCl (Demerol) 12.5 mg Q2 PRN IV POST OPERATIVE SHIVERING; Start 06/02/18 at 07:30 Vancomycin HCl (Vanco Iv Per Pharmacy) VANCOMYCIN PER PHARMACY PER PROTOCOL XX ; Start 06/02/18 at 10:00 Famotidine (Pepcid Iv) 20 mg DAILY IV Last administered on 06/05/18 09:34; Admin Dose 20 MG; Start 06/03/18 at 09:00 Propofol 100 ml @ 2.727 mls/ hr Q12H IV Last administered on 06/03/18 23:09; Admin Dose 19.089 MLS/HR; Start 06/02/18 at 12:00 Aztreonam 0.5 gm/ Sodium Chloride 50 ml @ 100 mls/hr Q12 IV Last administered on 06/05/18 09:34; Admin Dose 100 MLS/HR; Start 06/02/18 at 21:00 Diagnostic Test (Pha) (Accu-Chek) 1 ea Q4H XX Last administered on 06/05/18 08:30; Admin Dose 1 EA; Start 06/02/18 at 20:00 Hypromellose (Genteal Severe) 1 applic Q6 BOTH EYES Last administered on 06/05/18 05:57; Admin Dose 1 APPLIC; Start 06/03/18 at 12:00 Aspirin (Aspirin) 81 mg DAILY PO Last administered on 06/05/18 09:34; Admin Dos e 81 MG; Start 06/03/18 at 12:30 Lorazepam (Ativan) 2 mg Q15M PRN IV SEIZURES Last administered on 06/04/18at 22:21; Admin Dose 2 MG; Start 06/04/18 at 02:00 Sevelamer Carbonate (Renvela) 1.6 gm Q8H NGT Last administered on 06/05/18at 03:30; Admin Dose 1.6 GM; Start 06/04/18 at 11:30 Phenytoin (Dilantin) 100 mg Q8 IV Last administered on 06/05/18at 09:38; Admin Dose 100 MG; Start 06/05/18 at 09:00 Heparin Sodium (Porcine) (Heparin (1000 Units/ml)) 4,000 unit AFTER DIALYSIS CATHETER ; Start 06/05/18 at 12:00 Sodium Chloride 1,000 ml @ 0 mls/hr Q0M PRN IV TO KEEP SBP ABOVE 90; Start 06/05/18 at 11:57 Albumin Human 100 ml @ 100 mls/hr WITH DIALYSIS PRN IV SBP <90 DURING DIALYSIS; Start 06/05/18 at 12:00 Sodium Chloride (NS) -To prime the dialy... DIRECTED FOR HD PRN IV HD; Start 06/05/18 at 12:00 SRAVANTHI YEPEZ MD Jun 05, 2018 12:22
[2018-06-05] MEDS: LORAZEPAM 2 MG INJ IV PRN (15:12)
[2018-06-05] MEDS: ATORVASTATIN 40 MG TAB PO SCH (20:54)
[2018-06-06] VITALS (81 sets, daily range): BP systolic 78–137; BP diastolic 36–79; PULSE 93–114; RESP 10–23
[2018-06-06] MEDS: PROPOFOL 100 ML IV SCH
[2018-06-06] MEDS: HYPROMELLOSE OPHTHALMIC LUBRICANT GEL (10 GM) BOTH EYES SCH ×5 (00:26→23:47)
[2018-06-06] MEDS: ARTIFICIAL TEARS 15 ML OPH BOTH EYES SCH ×5 (00:26→23:47)
[2018-06-06] MEDS: ACCU-CHEK XX SCH ×4 (04:00→12:30)
[2018-06-06] MEDS: SEVELAMER CARBONATE 0.8 GM PKT NGT SCH ×3 (04:08→19:55)
[2018-06-06] MEDS: PHENYTOIN 100 MG INJ IV SCH ×3 (06:06→21:19)
[2018-06-06] MEDS ORDERED: LORAZEPAM 2 MG INJ IV ONE (07:30)
--- NOTE | 2018-06-06 07:38 | CONS ---
Assessment/Plan Assessment/Plan Assessment/Plan (Daily) Post dated note for visit 06/05/2018 with son and daughter-in law who is a physician [employer] both have been following his failing health for months ie; HD, weight loss,generally poor quality of life. It wasn't till recently that his physician suggested a malignancy work-up. They expressed the fact that the diagnosis was MM. The son is extremely traumatized so his speaks on his behalf. We covered his current medical condition stressing that we do not know the full extent of his encephalopathy and cognitive impairment. Stressed their are many specialist assisting in his care and we will update them as often as they wish. I did not address code status although they did and were ready to make a decision at any time presumably to change to DNR. I acknowledged but requested to wait and follow his clinical course at least for a few more days...Will contact them again tomorrow. Consultation Date/Type/Reason Admit Date/Time May 30, 2018 at 19:04 Date/Time of Note DATE: 06/06/18 TIME: 07:26 Past Medical History Medical History: diabetes, renal disease Home Meds Reported Medications Carvedilol* (Carvedilol*) 12.5 Mg Tablet, 12.5 MG PO QHS, #60 TAB 05/30/18 Carvedilol* (Carvedilol*) 25 Mg Tablet, 25 MG PO DAILY, #60 TAB 05/30/18 Apixaban* (Eliquis*) 2.5 Mg Tablet, 2.5 MG PO DAILY, TAB 05/30/18 Insulin Regular, Human (Humulin R) 100 Unit/1 Ml Vial, IJ, VIAL 06/01/17 Cholecalciferol* (Vitamin D3*) 1,000 Unit Tablet, 2000 UNIT PO DAILY, TAB 06/01/17 Atorvastatin* (Atorvastatin*) 40 Mg Tablet, 40 MG PO QHS, #30 TAB 06/01/17 Ranitidine Hcl* (Ranitidine Hcl*) 150 Mg Tablet, 150 MG PO HS, #30 TAB 06/01/17 Clopidogrel Bisulfate (Clopidogrel) 75 Mg Tablet, 75 MG PO DAILY, #30 TAB 06/01/17 Insulin Glargine* (Lantus*) 100 Unit/Ml Soln, 42 UNIT SC DAILY, #1 VIAL 06/01/17 Hydrochlorothiazide* (Hydrochlorothiazide*) 25 Mg Tab, 25 MG PO BID, #60 TAB 06/01/17 Lisinopril* (Lisinopril*) 20 Mg Tablet, 20 MG PO BID, #30 TAB 06/01/17 Nifedipine* (Nifedipine ER*) 30 Mg Tablet.sa, 30 MG PO DAILY, TAB.SA 06/01/17 Medications Current Medications IV Flush (NS 3 ml) 3 ml PER PROTOCOL IV ; Start 05/30/18 at 20:00 Ranitidine HCl (Zantac) 150 mg HS PO Last administered on 06/02/18at 21:45; Admin Dose 150 MG; Start 05/30/18 at 21:00; Status Hold Atorvastatin Calcium (Lipitor) 40 mg QHS PO Last administered on 06/05/18at 20:54; Admin Dose 40 MG; Start 05/31/18 at 21:00 Ondansetron HCl (Zofran Inj) 4 mg Q4H PRN IV NAUSEA AND/OR VOMITING Last administered on 06/01/18at 00:10; Admin Dose 4 MG; Start 06/01/18 at 00:00 Norepinephrine 250 ml @ 1.875 mls/ hr TITRATE IV Last administered on 06/04/18at 22:59; Admin Dose 9.375 MLS/HR; Start 06/02/18 at 02:30 Acetaminophen (Tylenol Liquid) 650 mg Q4H PRN PO TEMP > 37C; Start 06/02/18 at 07:00 Meperidine HCl (Demerol) 12.5 mg Q4H PRN IV POST OPERATIVE SHIVERING; Start 06/02/18 at 07:00 Meperidine HCl (Demerol) 25 mg Q4H PRN IV POST OPERATIVE SHIVERING; Start 06/02/18 at 07:00 Eye Lubricant (Artificial Tears Oph) 2 drop Q6 BOTH EYES Last administered on 06/06/18at 05:30; Admin Dose 2 DROP; Start 06/02/18 at 12:00 Insulin Human Regular 100 unit/ Sodium Chloride 100 ml @ 0.2 mls/hr PER PROTOCOL IV ; Start 06/02/18 at 08:00 Miscellaneous Information (* Miscellaneous Pharmacy Order) Treatment of Hypoglycemia: 1.BG 51... Per protocol XX ; Start 06/02/18 at 07:00 Dextrose (D50w Syringe) 25 ml Q15M PRN IV .DECREASED GLUCOSE; Start 06/02/18 at 07:00 Dextrose (D50w Syringe) 50 ml Q15M PRN IV .DECREASED GLUCOSE; Start 06/02/18 at 07:00 Vecuronium [place] 100 mg/ Dextrose 100 ml @ 4.55 mls/hr TITRATE PRN IV POST OPERATIVE SHIVERING Last administered on 06/02/18 09:55; Admin Dose 4.55 MLS/HR; Start 06/02/18 at 07:30 Meperidine HCl (Demerol) 12.5 mg Q2 PRN IV POST OPERATIVE SHIVERING; Start 06/02/18 at 07:30 Vancomycin HCl (Vanco Iv Per Pharmacy) VANCOMYCIN PER PHARMACY PER PROTOCOL XX ; Start 06/02/18 at 10:00 Famotidine (Pepcid Iv) 20 mg DAILY IV Last administered on 06/05/18 09:34; Admin Dose 20 MG; Start 06/03/18 at 09:00 Propofol 100 ml @ 2.727 mls/ hr Q12H IV Last administered on 06/03/18 23:09; Admin Dose 19.089 MLS/HR; Start 06/02/18 at 12:00 Aztreonam 0.5 gm/ Sodium Chloride 50 ml @ 100 mls/hr Q12 IV Last administered on 06/05/18 20:53; Admin Dose 100 MLS/HR; Start 06/02/18 at 21:00 Diagnostic Test (Pha) (Accu-Chek) 1 ea Q4H XX Last administered on 06/06/18 04 :00; Admin Dose 1 EA; Start 06/02/18 at 20:00 Hypromellose (Genteal Severe) 1 applic Q6 BOTH EYES Last administered on 06/06/18 06:06; Admin Dose 1 APPLIC; Start 06/03/18 at 12:00 Aspirin (Aspirin) 81 mg DAILY PO Last administered on 06/05/18 09:34; Admin Dose 81 MG; Start 06/03/18 at 12:30 Lorazepam (Ativan) 2 mg Q15M PRN IV SEIZURES Last administered on 06/05/18 15:12; Admin Dose 2 MG; Start 06/04/18 at 02:00 Sevelamer Carbonate (Renvela) 1.6 gm Q8H NGT Last administered on 06/06/18at 04:08; Admin Dose 1.6 GM; Start 06/04/18 at 11:30 Phenytoin (Dilantin) 100 mg Q8 IV Last administered on 06/06/18at 06:06; Admin Dose 100 MG; Start 06/05/18 at 09:00 Heparin Sodium (Porcine) (Heparin (1000 Units/ml)) 4,000 unit AFTER DIALYSIS CATHETER ; Start 06/05/18 at 12:00 Sodium Chloride 1,000 ml @ 0 mls/hr Q0M PRN IV TO KEEP SBP ABOVE 90; Start 06/05/18 at 11:57 Albumin Human 100 ml @ 100 mls/hr WITH DIALYSIS PRN IV SBP <90 DURING DIALYSIS; Start 06/05/18 at 12:00 Sodium Chloride (NS) -To prime the dialy... DIRECTED FOR HD PRN IV HD; Start 06/05/18 at 12:00 Allergies: Coded Allergies: Penicillins (Unverified Allergy, Unknown, 05/31/17) Sulfa (Sulfonamide Antibiotics) (Unverified Allergy, Unknown, 05/31/17) Past Surgical History Past Surgical Hx: no surgical history Social History Alcohol Use: none Smoking Status: Never smoker Drug Use: none Exam/Review of Systems Exam Vitals Vital Signs Date Temp Pulse Resp B/P (MAP) Pulse Ox O2 O2 Flow FiO2 Time Delivery Rate 06/06/18 99 16 107/58 99 06:00 (74) 06/06/18 40 05:34 06/06/18 Mechanical 05:00 Ventilator 06/06/18 97.9 04:00 Intake and Output 06/05/18 06/05/18 06/06/18 1515:00 23:00 07:00 IntakeIntake Total 215.000 ml 83.750 ml OutputOutput Total 8 ml 78 ml 40 ml BalanceBalance 207.000 ml 5.750 ml -40 ml Results Result Diagram: 06/06/18 0400 06/06/18 0400 Results 24hrs Laboratory Tests Test 06/05/18 08:40 06/05/18 12:20 06/05/18 16:18 06/05/18 20:43 Bedside Glucose 80 78 83 89 Test 06/06/18 04:00 06/06/18 04:04 06/06/18 05:00 White Blood Count 5.8 Red Blood Count 2.35 L Hemoglobin 7.4 L Hematocrit 23.2 L Mean Corpuscular 98.7 Volume Mean Corpuscular 31.5 Hemoglobin Mean Corpuscular 31.9 L Hemoglobin Concent Red Cell 19.5 H Distribution Width Platelet Count 97 L Mean Platelet 12.1 H Volume Immature 0.900 H Granulocytes % Neutrophils % 75.0 Lymphocytes % 11.1 L Monocytes % 11.1 H Eosinophils % 1.4 Basophils % 0.5 Nucleated Red 0.3 H Blood Cells % Immature 0.050 H Granulocytes # Neutrophils # 4.3 Lymphocytes # 0.6 L Monocytes # 0.6 Eosinophils # 0.1 Basophils # 0.0 Nucleated Red 0.0 Blood Cells # Sodium Level 141 Potassium Level 4.7 Chloride Level 97 Carbon Dioxide 26 Level Anion Gap 18 H Blood Urea 54 H Nitrogen Creatinine 6.23 H Est Glomerular Filtrat Rate mL/min Glucose Level 84 Lactic Acid Level 1.3 Calcium Level 8.8 Random Vancomycin 17.2 Level Bedside Glucose 87 Blood Gas Specimen Blood arterial Source Arterial Blood 06/06/2018 4:50:32 Date Drawn AM Arterial Blood pH 7.445 (Temp corrected) Arterial Blood 42.3 pCO2 (Temp correct) Arterial Blood pO2 103.2 H (Temp corrected) Arterial Blood 28.4 H HCO3 Arterial Blood 4.0 H Base Excess Arterial Blood 97.6 Oxygen Saturation Ramon Test N/A Arterial Blood Gas Right Radial Puncture Site Arterial 0.8 Blood Carboxyhemog lobin Arterial Blood 0 Methemoglobin Blood Gas A-a O2 133.4 H Differential Oxyhemoglobin 96.8 Percent Blood Gas 37.0 Temperature Blood Gas 16.0 Respiration Rate Blood Gas Actual 16 Respiration Rate Blood Gas Modality VENT - AC FiO2 40.0 Blood Gas Tidal 500.0 Volume Blood Gas Low PEEP 5.0 Setting Blood Gas 27.0 Inspiratory Pressure Blood Gas Notified [facility] Blood Gas Notified 06/06/2018 4:57:34 Time AM Medications Medication Current Medications IV Flush (NS 3 ml) 3 ml PER PROTOCOL IV ; Start 05/30/18 at 20:00 Ranitidine HCl (Zantac) 150 mg HS PO Last administered on 06/02/18at 21:45; Admin Dose 150 MG; Start 05/30/18 at 21:00; Status Hold Atorvastatin Calcium (Lipitor) 40 mg QHS PO Last administered on 06/05/18at 20:54; Admin Dose 40 MG; Start 05/31/18 at 21:00 Ondansetron HCl (Zofran Inj) 4 mg Q4H PRN IV NAUSEA AND/OR VOMITING Last administered on 06/01/18at 00:10; Admin Dose 4 MG; Start 06/01/18 at 00:00 Norepinephrine 250 ml @ 1.875 mls/ hr TITRATE IV Last administered on 06/04/18at 22:59; Admin Dose 9.375 MLS/HR; Start 06/02/18 at 02:30 Acetaminophen (Tylenol Liquid) 650 mg Q4H PRN PO TEMP > 37C; Start 06/02/18 at 07:00 Meperidine HCl (Demerol) 12.5 mg Q4H PRN IV POST OPERATIVE SHIVERING; Start 06/02/18 at 07:00 Meperidine HCl (Demerol) 25 mg Q4H PRN IV POST OPERATIVE SHIVERING; Start 06/02/18 at 07:00 Eye Lubricant (Artificial Tears Oph) 2 drop Q6 BOTH EYES Last administered on 06/06/18at 05:30; Admin Dose 2 DROP; Start 06/02/18 at 12:00 Insulin Human Regular 100 unit/ Sodium Chloride 100 ml @ 0.2 mls/hr PER PROTOCOL IV ; Start 06/02/18 at 08:00 Miscellaneous Information (* Miscellaneous Pharmacy Order) Treatment of Hypoglycemia: 1.BG 51... Per protocol XX ; Start 06/02/18 at 07:00 Dextrose (D50w Syringe) 25 ml Q15M PRN IV .DECREASED GLUCOSE; Start 06/02/18 at 07:00 Dextrose (D50w Syringe) 50 ml Q15M PRN IV .DECREASED GLUCOSE; Start 06/02/18 at 07:00 Vecuronium [place] 100 mg/ Dextrose 100 ml @ 4.55 mls/hr TITRATE PRN IV POST OPERATIVE SHIVERING Last administered on 06/02/18at 09:55; Admin Dose 4.55 MLS/HR; Start 06/02/18 at 07:30 Meperidine HCl (Demerol) 12.5 mg Q2 PRN IV POST OPERATIVE SHIVERING; Start 06/02/18 at 07:30 Vancomycin HCl (Vanco Iv Per Pharmacy) VANCOMYCIN PER PHARMACY PER PROTOCOL XX ; Start 06/02/18 at 10:00 Famotidine (Pepcid Iv) 20 mg DAILY IV Last administered on 06/05/18 09:34; Admin Dose 20 MG; Start 06/03/18 at 09:00 Propofol 100 ml @ 2.727 mls/ hr Q12H IV Last administered on 06/03/18 23:09; Admin Dose 19.089 MLS/HR; Start 06/02/18 at 12:00 Aztreonam 0.5 gm/ Sodium Chloride 50 ml @ 100 mls/hr Q12 IV Last administered on 06/05/18 20:53; Admin Dose 100 MLS/HR; Start 06/02/18 at 21:00 Diagnostic Test (Pha) (Accu-Chek) 1 ea Q4H XX Last administered on 06/06/18 04:00; Admin Dose 1 EA; Start 06/02/18 at 20:00 Hypromellose (Genteal Severe) 1 applic Q6 BOTH EYES Last administered on 06/06/18 06:06; Admin Dose 1 APPLIC; Start 06/03/18 at 12:00 Aspirin (Aspirin) 81 mg DAILY PO Last administered on 06/05/18 09:34; Admin Dose 81 MG; Start 06/03/18 at 12:30 Lorazepam (Ativan) 2 mg Q15M PRN IV SEIZURES Last administered on 06/05/18 15:12; Admin Dose 2 MG; Start 06/04/18 at 02:00 Sevelamer Carbonate (Renvela) 1.6 gm Q8H NGT Last administered on 06/06/18 04: 08; Admin Dose 1.6 GM; Start 06/04/18 at 11:30 Phenytoin (Dilantin) 100 mg Q8 IV Last administered on 06/06/18 06:06; Admin Dose 100 MG; Start 06/05/18 at 09:00 Heparin Sodium (Porcine) (Heparin (1000 Units/ml)) 4,000 unit AFTER DIALYSIS CATHETER ; Start 06/05/18 at 12:00 Sodium Chloride 1,000 ml @ 0 mls/hr Q0M PRN IV TO KEEP SBP ABOVE 90; Start 06/05/18 at 11:57 Albumin Human 100 ml @ 100 mls/hr WITH DIALYSIS PRN IV SBP <90 DURING DIALYSIS; Start 06/05/18 at 12:00 Sodium Chloride (NS) -To prime the dialy... DIRECTED FOR HD PRN IV HD; Start 06/05/18 at 12:00 CHRISTA SANCHEZ Jun 06, 2018 07:37
--- NOTE | 2018-06-06 08:38 | PN ---
DATE: 06/06/2018 SUBJECTIVE: The patient remains critically ill on full ventilatory support. The patient had no sign ificant change in neuro status. No reports of hemoptysis, hematemesis or hematochezia. OBJECTIVE: VITAL SIGNS: Blood pressure is 104/59, respirations 16, pulse 102, temperature 98.6. HEENT: Head is normocephalic. NECK: Supple. HEART: Regular rate. LUNGS: Show diminished breath sounds at the base. ABDOMEN: Soft, nontender to palpation without rebound or guarding. EXTREMITIES: Negative for clubbing, cyanosis, no edema. DERMATOLOGIC: No rashes. MUSCULOSKELETAL: No joint effusion. NEUROLOGIC: No change in exam. MEDICATIONS: Reviewed. LABORATORY DATA: Has been reviewed. IMAGING STUDIES: The imaging studies were reviewed. ASSESSMENT AND PLAN: 1. End-stage renal disease. The patient is scheduled for dialysis today. We will dialyze for 3 symone rs 3k bath, calcium 2.5. 2. Hypercalcemia secondary to multiple myeloma. Continue dialysis on a low calcium bath. 3. Anemia. Monitor hemoglobin and hematocrit levels. Will give Epogen as needed. 4. Mineral bone disorder. Monitor calcium and phosphorus levels. Continue dialysis for solute eron vega. 5. Status post cardiac arrest. The patient is status post hypothermic protocol. Continue to monito r. Follow up with Cardiology. 6. Ventilator dependent respiratory failure. Vent settings and ABG were reviewed. Continue to nancy tor. 7. Non-STEMI. Continue medical management. 8. Encephalopathy, etiology is toxic metabolic, possible anoxic injury. Continue to monitor. Follo w up with neurology. 9. Status post shock. Etiology may be septic versus cardiogenic. The patient is currently off pres sor support. Continue to monitor. Continue antibiotic therapy. 10. Chronic atrial fibrillation. Continue current treatment plan. 11. Multiple myeloma, biopsy proven. Continue to monitor. Follow up with hematology. 12. Thrombocytopenia. Continue to monitor. 13. History of hypertension. 14. Diabetes. Continue current medical management. 15. Pathological hip fracture. Dictated By: TAYLOR GROVE DO NR/NTS Conf#: [id number] DID#: [id number] CC: CHEYENNE WATSON MD; SRAVANTHI YEPEZ MD;*EndCC*
--- NOTE | 2018-06-06 09:47 | CONS ---
Assessment/Plan Cardiology Heart Failure Type: Acute Heart Failure Type: Systolic Assessment/Plan Hospital Course (Demo Recall) Cardiac arrest: PEA and unclear etiology at this time. Unclear how long pt was down as he was on med/surg. Doubt cardiac. CXR 05/31 and post arrest both with pulmonary edema so possibly respiratory. PE in differential as well. s/p hypothermia protocol NSTEMI: Mild trops 0.35 in setting of cardiac arrest. No acute EKG changes. Likely type II. Echo with preserved EF Shock: possible cardiogenic component +/- septic. Improving Acute respiratory failure: intubated briefly 05/31 post procedure and then extubated. Now intubated during code. Acute diastolic CHF: EF preserved. 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 Goals of care discussion Consultation Date/Type/Reason Admit Date/Time May 30, 2018 at 19:04 Initial Consult Date 06/02/18 Type of Consult Cardiology Requesting Provider: PHILOMENA JONES Date/Time of Note DATE: 06/06/18 TIME: 09:46 24 HR Interval Summary Free Text/Dictation No events. Low dose levopohed. Unresponsive Exam/Review of Systems Vital Signs Vitals Vital Signs Date Temp Pulse Resp B/P (MAP) Pulse Ox O2 O2 Flow FiO2 Time Delivery Rate 06/06/18 105 09:15 06/06/18 16 95 40 08:10 06/06/18 104/59 Mechanical 07:36 (74) Ventilator 06/06/18 97.9 04:00 Intake and Output 06/05/18 06/05/18 06/06/18 1515:00 23:00 07:00 IntakeIntake Total 215.000 ml 83.750 ml OutputOutput Total 8 ml 78 ml 40 ml BalanceBalance 207.000 ml 5.750 ml -40 ml Exam Constitutional: No alert ENMT: intubated Neck: jvd (9cm) Respiratory: diminished breath sounds; No clear to auscultation Cardiovascular: regular rate and rhythm, edema (1+); No systolic murmur Gastrointestinal: soft; No distended Neurological: No nl mental status, No nl speech Labs Result Diagram: 06/06/18 0400 06/06/18 0400 Results 24hrs Laboratory Tests Test 06/05/18 12:20 06/05/18 16:18 06/05/18 20:43 06/06/18 04:00 Bedside Glucose 78 83 89 White Blood Count 5.8 Red Blood Count 2.35 L Hemoglobin 7.4 L Hematocrit 23.2 L Mean Corpuscular 98.7 Volume Mean Corpuscular 31.5 Hemoglobin Mean Corpuscular 31.9 L Hemoglobin Concent Red Cell 19.5 H Distribution Width Platelet Count 97 L Mean Platelet 12.1 H Volume Immature 0.900 H Granulocytes % Neutrophils % 75.0 Lymphocytes % 11.1 L Monocytes % 11.1 H Eosinophils % 1.4 Basophils % 0.5 Nucleated Red 0.3 H Blood Cells % Immature 0.050 H Granulocytes # Neutrophils # 4.3 Lymphocytes # 0.6 L Monocytes # 0.6 Eosinophils # 0.1 Basophils # 0.0 Nucleated Red 0.0 Blood Cells # Sodium Level 141 Potassium Level 4.7 Chloride Level 97 Carbon Dioxide 26 Level Anion Gap 18 H Blood Urea 54 H Nitrogen Creatinine 6.23 H Est Glomerular Filtrat Rate mL/min Glucose Level 84 Lactic Acid Level 1.3 Calcium Level 8.8 Random Vancomycin 17.2 Level Test 06/06/18 04:04 06/06/18 05:00 06/06/18 08:47 Bedside Glucose 87 81 Blood Gas Specimen Blood arterial Source Arterial Blood 06/06/2018 4:50:32 Date Drawn AM Arterial Blood pH 7.445 (Temp corrected) Arterial Blood 42.3 pCO2 (Temp correct) Arterial Blood pO2 103.2 H (Temp corrected) Arterial Blood 28.4 H HCO3 Arterial Blood 4.0 H Base Excess Arterial Blood 97.6 Oxygen Saturation Ramon Test N/A Arterial Blood Gas Right Radial Puncture Site Arterial 0.8 Blood Carboxyhemog lobin Arterial Blood 0 Methemoglobin Blood Gas A-a O2 133.4 H Differential Oxyhemoglobin 96.8 Percent Blood Gas 37.0 Temperature Blood Gas 16.0 Respiration Rate Blood Gas Actual 16 Respiration Rate Blood Gas Modality VENT - AC FiO2 40.0 Blood Gas Tidal 500.0 Volume Blood Gas Low PEEP 5.0 Setting Blood Gas 27.0 Inspiratory Pressure Blood Gas Notified [facility]om Blood Gas Notified 06/06/2018 4:57:34 Time AM Medications Medications Current Medications IV Flush (NS 3 ml) 3 ml PER PROTOCOL IV ; Start 05/30/18 at 20:00 Ranitidine HCl (Zantac) 150 mg HS PO Last administered on 06/02/18at 21:45; Admin Dose 150 MG; Start 05/30/18 at 21:00; Status Hold Atorvastatin Calcium (Lipitor) 40 mg QHS PO Last administered on 06/05/18at 20:54; Admin Dose 40 MG; Start 05/31/18 at 21:00 Ondansetron HCl (Zofran Inj) 4 mg Q4H PRN IV NAUSEA AND/OR VOMITING Last administered on 06/01/18at 00:10; Admin Dose 4 MG; Start 06/01/18 at 00:00 Norepinephrine 250 ml @ 1.875 mls/ hr TITRATE IV Last administered on 06/04/18at 22:59; Admin Dose 9.375 MLS/HR; Start 06/02/18 at 02:30 Acetaminophen (Tylenol Liquid) 650 mg Q4H PRN PO TEMP > 37C; Start 06/02/18 at 07:00 Meperidine HCl (Demerol) 12.5 mg Q4H PRN IV POST OPERATIVE SHIVERING; Start 06/02/18 at 07:00 Meperidine HCl (Demerol) 25 mg Q4H PRN IV POST OPERATIVE SHIVERING; Start 06/02/18 at 07:00 Eye Lubricant (Artificial Tears Oph) 2 drop Q6 BOTH EYES Last administered on at 05:30; Admin Dose 2 DROP; Start 06/02/18 at 12:00 Insulin Human Regular 100 unit/ Sodium Chloride 100 ml @ 0.2 mls/hr PER PROTOCOL IV ; Start 06/02/18 at 08:00 Miscellaneous Information (* Miscellaneous Pharmacy Order) Treatment of Hypoglycemia: 1.BG 51... Per protocol XX ; Start 06/02/18 at 07:00 Dextrose (D50w Syringe) 25 ml Q15M PRN IV .DECREASED GLUCOSE; Start 06/02/18 at 07:00 Dextrose (D50w Syringe) 50 ml Q15M PRN IV .DECREASED GLUCOSE; Start 06/02/18 at 07:00 Vecuronium [place] 100 mg/ Dextrose 100 ml @ 4.55 mls/hr TITRATE PRN IV POST OPERATIVE SHIVERING Last administered on 06/02/18 09:55; Admin Dose 4.55 MLS/HR; Start 06/02/18 at 07:30 Meperidine HCl (Demerol) 12.5 mg Q2 PRN IV POST OPERATIVE SHIVERING; Start 06/02/18 at 07:30 Vancomycin HCl (Vanco Iv Per Pharmacy) VANCOMYCIN PER PHARMACY PER PROTOCOL XX ; Start 06/02/18 at 10:00 Famotidine (Pepcid Iv) 20 mg DAILY IV Last administered on 06/05/18 09:34; Admin Dose 20 MG; Start 06/03/18 at 09:00 Propofol 100 ml @ 2.727 mls/ hr Q12H IV Last administered on 06/03/18 23:09; Admin Dose 19.089 MLS/HR; Start 06/02/18 at 12:00 Aztreonam 0.5 gm/ Sodium Chloride 50 ml @ 100 mls/hr Q12 IV Last administered on 06/05/18 20:53; Admin Dose 100 MLS/HR; Start 06/02/18 at 21:00 Diagnostic Test (Pha) (Accu-Chek) 1 ea Q4H XX Last administered on 06/06/18 04:00; Admin Dose 1 EA; Start 06/02/18 at 20:00 Hypromellose (Genteal Severe) 1 applic Q6 BOTH EYES Last administered on 06/06/18 06:06; Admin Dose 1 APPLIC; Start 06/03/18 at 12:00 Aspirin (Aspirin) 81 mg DAILY PO Last administered on 06/05/18 09:34; Admin Dose 81 MG; Start 06/03/18 at 12:30 Lorazepam (Ativan) 2 mg Q15M PRN IV SEIZURES Last administered on 06/05/18 15:12; Admin Dose 2 MG; Start 06/04/18 at 02:00 Sevelamer Carbonate (Renvela) 1.6 gm Q8H NGT Last administered on 06/06/18 04:08; Admin Dose 1.6 GM; Start 06/04/18 at 11:30 Phenytoin (Dilantin) 100 mg Q8 IV Last administered on 06/06/18at 06:06; Admin Dose 100 MG; Start 06/05/18 at 09:00 Heparin Sodium (Porcine) (Heparin (1000 Units/ml)) 4,000 unit AFTER DIALYSIS CATHETER ; Start 06/05/18 at 12:00 Sodium Chloride 1,000 ml @ 0 mls/hr Q0M PRN IV TO KEEP SBP ABOVE 90; Start 06/05/18 at 11:57 Albumin Human 100 ml @ 100 mls/hr WITH DIALYSIS PRN IV SBP <90 DURING DIALYSIS; Start 06/05/18 at 12:00 Sodium Chloride (NS) -To prime the dialy... DIRECTED FOR HD PRN IV HD; Start 06/05/18 at 12:[address] Jun 06, 2018 09:47
--- NOTE | 2018-06-06 10:03 | CONS ---
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 As explained to son and daughter in law, I will star the treatment in house if patient is stable enough #s/p code blue -although pt is hemodynamically stable it is unlcear how much neurologic function he will be able to regain -pt currently has some reflexes and is over breathing the vent -appreciate neurology recs -continue to monitor #Afib -currently rate controlled -now off eliquis #BAck pain -MRI of L spine demonstrates myelomatous replacement and disease at L3 and L5 -again if patient is able to stabilize will refer to rad onc #Hypercalcemia -s/p pamidronate 30 mg #ESRD -continue HD #DM -continue current medications #HTN -continue current medications Thank you for the opportunity to participate in this patients care A total of 40 minutes of face to face time was spent speaking with the patient, of which greater than 50% was spent in counseling and coordination of care and the detailed question and answer session. Consultation Date/Type/Reason Admit Date/Time May 30, 2018 at 19:04 Initial Consult Date 05/31/18 Type of Consult oncology Reason for Consultation multiple myeloma Requesting Provider: PHILOMENA JONES Date/Time of Note DATE: 06/06/18 TIME: 09:58 24 HR Interval Summary Free Text/Dictation pt does have reflexes and is noted to be over breathing the ventilator. had a seizure over the weekend Exam/Review of Systems Exam Vitals Vital Signs Date Temp Pulse Resp B/P (MAP) Pulse Ox O2 O2 Flow FiO2 Time Delivery Rate 06/06/18 105 09:15 06/06/18 16 95 40 08:10 06/06/18 104/59 Mechanical 07:36 (74) Ventilator 06/06/18 97.9 04:00 Intake and Output 06/05/18 06/05/18 06/06/18 1515:00 23:00 07:00 IntakeIntake Total 215.000 ml 83.750 ml OutputOutput Total 8 ml 78 ml 40 ml BalanceBalance 207.000 ml 5.750 ml -40 ml Constitutional: non-verbal Head: normocephalic ENMT: intubated Neck: supple Respiratory: clear to auscultation Cardiovascular: regular rate and rhythm Gastrointestinal: soft Musculoskeletal: nl extremities to inspection Results Result Diagram: 06/06/18 0400 06/06/18 0400 Results 24hrs Laboratory Tests Test 06/05/18 12:20 06/05/18 16:18 06/05/18 20:43 06/06/18 04:00 Bedside Glucose 78 83 89 White Blood Count 5.8 Red Blood Count 2.35 L Hemoglobin 7.4 L Hematocrit 23.2 L Mean Corpuscular 98.7 Volume Mean Corpuscular 31.5 Hemoglobin Mean Corpuscular 31.9 L Hemoglobin Concent Red Cell 19.5 H Distribution Width Platelet Count 97 L Mean Platelet 12.1 H Volume Immature 0.900 H Granulocytes % Neutrophils % 75.0 Lymphocytes % 11.1 L Monocytes % 11.1 H Eosinophils % 1.4 Basophils % 0.5 Nucleated Red 0.3 H Blood Cells % Immature 0.050 H Granulocytes # Neutrophils # 4.3 Lymphocytes # 0.6 L Monocytes # 0.6 Eosinophils # 0.1 Basophils # 0.0 Nucleated Red 0.0 Blood Cells # Sodium Level 141 Potassium Level 4.7 Chloride Level 97 Carbon Dioxide 26 Level Anion Gap 18 H Blood Urea 54 H Nitrogen Creatinine 6.23 H Est Glomerular Filtrat Rate mL/min Glucose Level 84 Lactic Acid Level 1.3 Calcium Level 8.8 Random Vancomycin 17.2 Level Test 06/06/18 04:04 06/06/18 05:00 06/06/18 08:47 Bedside Glucose 87 81 Blood Gas Specimen Blood arterial Source Arterial Blood 06/06/2018 4:50:32 Date Drawn AM Arterial Blood pH 7.445 (Temp corrected) Arterial Blood 42.3 pCO2 (Temp correct) Arterial Blood pO2 103.2 H (Temp corrected) Arterial Blood 28.4 H HCO3 Arterial Blood 4.0 H Base Excess Arterial Blood 97.6 Oxygen Saturation Ramon Test N/A Arterial Blood Gas Right Radial Puncture Site Arterial 0.8 Blood Carboxyhemog lobin Arterial Blood 0 Methemoglobin Blood Gas A-a O2 133.4 H Differential Oxyhemoglobin 96.8 Percent Blood Gas 37.0 Temperature Blood Gas 16.0 Respiration Rate Blood Gas Actual 16 Respiration Rate Blood Gas Modality VENT - AC FiO2 40.0 Blood Gas Tidal 500.0 Volume Blood Gas Low PEEP 5.0 Setting Blood Gas 27.0 Inspiratory Pressure Blood Gas Notified [facility] Blood Gas Notified 06/06/2018 4:57:34 Time AM Medications Medication Current Medications IV Flush (NS 3 ml) 3 ml PER PROTOCOL IV ; Start 05/30/18 at 20:00 Ranitidine HCl (Zantac) 150 mg HS PO Last administered on 06/02/18at 21:45; Admin Dose 150 MG; Start 05/30/18 at 21:00; Status Hold Atorvastatin Calcium (Lipitor) 40 mg QHS PO Last administered on 06/05/18at 20:54; Admin Dose 40 MG; Start 05/31/18 at 21:00 Ondansetron HCl (Zofran Inj) 4 mg Q4H PRN IV NAUSEA AND/OR VOMITING Last administered on 06/01/18at 00:10; Admin Dose 4 MG; Start 06/01/18 at 00:00 Norepinephrine 250 ml @ 1.875 mls/ hr TITRATE IV Last administered on 06/04/18at 22:59; Admin Dose 9.375 MLS/HR; Start 06/02/18 at 02:30 Acetaminophen (Tylenol Liquid) 650 mg Q4H PRN PO TEMP > 37C; Start 06/02/18 at 07:00 Meperidine HCl (Demerol) 12.5 mg Q4H PRN IV POST OPERATIVE SHIVERING; Start 06/02/18 at 07:00 Meperidine HCl (Demerol) 25 mg Q4H PRN IV POST OPERATIVE SHIVERING; Start 06/02/18 at 07:00 Eye Lubricant (Artificial Tears Oph) 2 drop Q6 BOTH EYES Last administered on 06/06/18at 05:30; Admin Dose 2 DROP; Start 06/02/18 at 12:00 Insulin Human Regular 100 unit/ Sodium Chloride 100 ml @ 0.2 mls/hr PER PROTOCOL IV ; Start 06/02/18 at 08:00 Miscellaneous Information (* Miscellaneous Pharmacy Order) Treatment of Hypoglycemia: 1.BG 51... Per protocol XX ; Start 06/02/18 at 07:00 Dextrose (D50w Syringe) 25 ml Q15M PRN IV .DECREASED GLUCOSE; Start 06/02/18 at 07:00 Dextrose (D50w Syringe) 50 ml Q15M PRN IV .DECREASED GLUCOSE; Start 06/02/18 at 07:00 Vecuronium [place] 100 mg/ Dextrose 100 ml @ 4.55 mls/hr TITRATE PRN IV POST OPERATIVE SHIVERING Last administered on 06/02/18 09:55; Admin Dose 4.55 MLS/HR; Start 06/02/18 at 07:30 Meperidine HCl (Demerol) 12.5 mg Q2 PRN IV POST OPERATIVE SHIVERING; Start 06/02/18 at 07:30 Vancomycin HCl (Vanco Iv Per Pharmacy) VANCOMYCIN PER PHARMACY PER PROTOCOL XX ; Start 06/02/18 at 10:00 Famotidine (Pepcid Iv) 20 mg DAILY IV Last administered on 06/05/18 09:34; Admin Dose 20 MG; Start 06/03/18 at 09:00 Propofol 100 ml @ 2.727 mls/ hr Q12H IV Last administered on 06/03/18 23:09; Admin Dose 19.089 MLS/HR; Start 06/02/18 at 12:00 Aztreonam 0.5 gm/ Sodium Chloride 50 ml @ 100 mls/hr Q12 IV Last administered on 06/05/18 20:53; Admin Dose 100 MLS/HR; Start 06/02/18 at 21:00 Diagnostic Test (Pha) (Accu-Chek) 1 ea Q4H XX Last administered on 06/06/18 04: 00; Admin Dose 1 EA; Start 06/02/18 at 20:00 Hypromellose (Genteal Severe) 1 applic Q6 BOTH EYES Last administered on 06/06/18 06:06; Admin Dose 1 APPLIC; Start 06/03/18 at 12:00 Aspirin (Aspirin) 81 mg DAILY PO Last administered on 06/05/18 09:34; Admin Dose 81 MG; Start 06/03/18 at 12:30 Lorazepam (Ativan) 2 mg Q15M PRN IV SEIZURES Last administered on 06/05/18 15:12; Admin Dose 2 MG; Start 06/04/18 at 02:00 Sevelamer Carbonate (Renvela) 1.6 gm Q8H NGT Last administered on 06/06/18 04:08; Admin Dose 1.6 GM; Start 06/04/18 at 11:30 Phenytoin (Dilantin) 100 mg Q8 IV Last administered on 4/8/19at 06:06; Admin Dose 100 MG; Start 06/05/18 at 09:00 Heparin Sodium (Porcine) (Heparin (1000 Units/ml)) 4,000 unit AFTER DIALYSIS CATHETER ; Start 06/05/18 at 12:00 Sodium Chloride 1,000 ml @ 0 mls/hr Q0M PRN IV TO KEEP SBP ABOVE 90; Start 06/05/18 at 11:57 Albumin Human 100 ml @ 100 mls/hr WITH DIALYSIS PRN IV SBP <90 DURING DIALYSIS; Start 06/05/18 at 12:00 Sodium Chloride (NS) -To prime the dialy... DIRECTED FOR HD PRN IV HD; Start 06/05/18 at 12:00 LITA BASS M.D. Jun 06, 2018 10:03
--- NOTE | 2018-06-06 10:44 | CONS ---
Assessment/Plan Assessment/Plan Assessment/Plan (Daily) Chest x-ray showing bilateral pneumonia. Ventilator setting; AC of 15, tidal volume 500, PEEP of 5, 40% FiO2. Patient is on Levophed 3 mics per minute. Assessment and recommendations; 1. Patient status post cardiac arrest status post hypothermia protocol with persistently poor mental status. 2. Chronic renal failure, on hemodialysis. 3. Bilateral pneumonia. 4. Severe anemia and thrombus cytopenia. 5. History of plasma cell dyscrasia. 6. Seizure disorder. Continue current supportive care. Dialysis per command and control systems integrator. Wean down pressor support as tolerated. Weaning from ventilator will depend upon adequate mental status recovery. Prognosis is guarded. 35 minutes of critical care time was spent evaluating the patient. Consultation Date/Type/Reason Admit Date/Time May 30, 2018 at 19:04 Initial Consult Date 06/02/18 Type of Consult Pulmonary/critical care Patient is an 83-year-old male who was admitted for workup for possible multiple myeloma with history of hypercalcemia and pathological fracture. Patient underwent bone marrow biopsy but had a cardiac arrest event requiring intubation. Patient required brief intubation was extubated transferred to medical floor where the patient again had a cardiac arrest event last evening requiring CPR lasting 10 minutes, currently patient is orally intubated and is on hypothermia protocol. History was obtained from medical records. Past medical history; 1. Chronic renal failure, on hemodialysis. 2. Possibly underlying multiple myeloma. 3. Anemia and thrombocytopenia. 4. History of hypertension. Medications; reviewed. Allergies; penicillin. Social history; not available. Family history; not available, apparently he has a supportive family. Occupational history; not available. Review of system; unable to be obtained. General exam; elderly male, orally intubated, on hypothermia protocol. Requesting Provider: PHILOMENA JONES Date/Time of Note DATE: 06/06/18 TIME: 10:41 24 HR Interval Summary Free Text/Dictation Patient's condition is critical. Has been off sedation for last 48 hours with very poor mental status. Patient also remains hemodynamically unstable requ iring low-dose Levophed. General exam; elderly male, orally intubated, unresponsive, currently in no distress. Exam/Review of Systems Exam Vitals Vital Signs Date Temp Pulse Resp B/P (MAP) Pulse Ox O2 O2 Flow FiO2 Time Delivery Rate 06/06/18 114 10:25 06/06/18 19 100 40 09:59 06/06/18 104/59 Mechanical 07:36 (74) Ventilator 06/06/18 97.9 04:00 Intake and Output 06/05/18 06/05/18 06/06/18 1515:00 23:00 07:00 IntakeIntake Total 215.000 ml 83.750 ml OutputOutput Total 8 ml 78 ml 40 ml BalanceBalance 207.000 ml 5.750 ml -40 ml Exam H EENT exam; supple neck, no JVD. No lymphadenopathy. Midline trachea. No thyromegaly. Orally intubated. Patient has fair dentition. Chest exam; diminished but clear breath sounds. No added sounds. S1-S2 audible, no murmurs. Regular rhythm. Abdomen exam; soft, no organomegaly. Bowel sounds audible. Extremity exam; no peripheral edema or clubbing. ACCOUNTANCY PROFESSOR exam; patient is unresponsive. Results Result Diagram: 06/06/18 0400 06/06/18 0400 Results 24hrs Laboratory Tests Test 06/05/18 12:20 06/05/18 16:18 06/05/18 20:43 06/06/18 04:00 Bedside Glucose 78 83 89 White Blood Count 5.8 Red Blood Count 2.35 L Hemoglobin 7.4 L Hematocrit 23.2 L Mean Corpuscular 98.7 Volume Mean Corpuscular 31.5 Hemoglobin Mean Corpuscular 31.9 L Hemoglobin Concent Red Cell 19.5 H Distribution Width Platelet Count 97 L Mean Platelet 12.1 H Volume Immature 0.900 H Granulocytes % Neutrophils % 75.0 Lymphocytes % 11.1 L Monocytes % 11.1 H Eosinophils % 1.4 Basophils % 0.5 Nucleated Red 0.3 H Blood Cells % Immature 0.050 H Granulocytes # Neutrophils # 4.3 Lymphocytes # 0.6 L Monocytes # 0.6 Eosinophils # 0.1 Basophils # 0.0 Nucleated Red 0.0 Blood Cells # Sodium Level 141 Potassium Level 4.7 Chloride Level 97 Carbon Dioxide 26 Level Anion Gap 18 H Blood Urea 54 H Nitrogen Creatinine 6.23 H Est Glomerular Filtrat Rate mL/min Glucose Level 84 Lactic Acid Level 1.3 Calcium Level 8.8 Random Vancomycin 17.2 Level Test 06/06/18 04:04 06/06/18 05:00 06/06/18 08:47 Bedside Glucose 87 81 Blood Gas Specimen Blood arterial Source Arterial Blood 06/06/2018 4:50:32 Date Drawn AM Arterial Blood pH 7.445 (Temp corrected) Arterial Blood 42.3 pCO2 (Temp correct) Arterial Blood pO2 103.2 H (Temp corrected) Arterial Blood 28.4 H HCO3 Arterial Blood 4.0 H Base Excess Arterial Blood 97.6 Oxygen Saturation Ramon Test N/A Arterial Blood Gas Right Radial Puncture Site Arterial 0.8 Blood Carboxyhemog lobin Arterial Blood 0 Methemoglobin Blood Gas A-a O2 133.4 H Differential Oxyhemoglobin 96.8 Percent Blood Gas 37.0 Temperature Blood Gas 16.0 Respiration Rate Blood Gas Actual 16 Respiration Rate Blood Gas Modality VENT - AC FiO2 40.0 Blood Gas Tidal 500.0 Volume Blood Gas Low PEEP 5.0 Setting Blood Gas 27.0 Inspiratory Pressure Blood Gas Notified [facility] Whom Blood Gas Notified 06/06/2018 4:57:34 Time AM Medications Medication Current Medications IV Flush (NS 3 ml) 3 ml PER PROTOCOL IV ; Start 05/30/18 at 20:00 Ranitidine HCl (Zantac) 150 mg HS PO Last administered on 06/02/18at 21:45; Admin Dose 150 MG; Start 05/30/18 at 21:00; Status Hold Atorvastatin Calcium (Lipitor) 40 mg QHS PO Last administered on 06/05/18at 20:54; Admin Dose 40 MG; Start 05/31/18 at 21:00 Ondansetron HCl (Zofran Inj) 4 mg Q4H PRN IV NAUSEA AND/OR VOMITING Last administered on 06/01/18at 00:10; Admin Dose 4 MG; Start 06/01/18 at 00:00 Norepinephrine 250 ml @ 1.875 mls/ hr TITRATE IV Last administered on 06/04/18at 22:59; Admin Dose 9.375 MLS/HR; Start 06/02/18 at 02:30 Acetaminophen (Tylenol Liquid) 650 mg Q4H PRN PO TEMP > 37C; Start 06/02/18 at 07:00 Meperidine HCl (Demerol) 12.5 mg Q4H PRN IV POST OPERATIVE SHIVERING; Start 06/02/18 at 07:00 Meperidine HCl (Demerol) 25 mg Q4H PRN IV POST OPERATIVE SHIVERING; Start 06/02/18 at 07:00 Eye Lubricant (Artificial Tears Oph) 2 drop Q6 BOTH EYES Last administered on 06/06/18at 05:30; Admin Dose 2 DROP; Start 06/02/18 at 12:00 Insulin Human Regular 100 unit/ Sodium Chloride 100 ml @ 0.2 mls/hr PER PROTOCOL IV ; Start 06/02/18 at 08:00 Miscellaneous Information (* Miscellaneous Pharmacy Order) Treatment of Hypoglycemia: 1.BG 51... Per protocol XX ; Start 06/02/18 at 07:00 Dextrose (D50w Syringe) 25 ml Q15M PRN IV .DECREASED GLUCOSE; Start 06/02/18 at 07:00 Dextrose (D50w Syringe) 50 ml Q15M PRN IV .DECREASED GLUCOSE; Start 06/02/18 at 07:00 Vecuronium [place] 100 mg/ Dextrose 100 ml @ 4.55 mls/hr TITRATE PRN IV POST OPERATIVE SHIVERING Last administered on 06/02/18at 09:55; Admin Dose 4.55 MLS/HR; Start 06/02/18 at 07:30 Meperidine HCl (Demerol) 12.5 mg Q2 PRN IV POST OPERATIVE SHIVERING; Start 06/02/18 at 07:30 Vancomycin HCl (Vanco Iv Per Pharmacy) VANCOMYCIN PER PHARMACY PER PROTOCOL XX ; Start 06/02/18 at 10:00 Famotidine (Pepcid Iv) 20 mg DAILY IV Last administered on 06/05/18at 09:34; Admin Dose 20 MG; Start 06/03/18 at 09:00 Propofol 100 ml @ 2.727 mls/ hr Q12H IV Last administered on 06/03/18at 23:09; Admin Dose 19.089 MLS/HR; Start 06/02/18 at 12:00 Aztreonam 0.5 gm/ Sodium Chloride 50 ml @ 100 mls/hr Q12 IV Last administered on 06/05/18at 20:53; Admin Dose 100 MLS/HR; Start 06/02/18 at 21:00 Diagnostic Test (Pha) (Accu-Chek) 1 ea Q4H XX Last administered on 06/06/18at 04:00; Admin Dose 1 EA; Start 06/02/18 at 20:00 Hypromellose (Genteal Severe) 1 applic Q6 BOTH EYES Last administered on 06/06/18 06:06; Admin Dose 1 APPLIC; Start 06/03/18 at 12:00 Aspirin (Aspirin) 81 mg DAILY PO Last administered on 06/05/18at 09:34; Admin Dose 81 MG; Start 06/03/18 at 12:30 Lorazepam (Ativan) 2 mg Q15M PRN IV SEIZURES Last administered on 06/05/18at 15:12; Admin Dose 2 MG; Start 06/04/18 at 02:00 Sevelamer Carbonate (Renvela) 1.6 gm Q8H NGT Last administered on 06/06/18 04:08; Admin Dose 1.6 GM; Start 06/04/18 at 11:30 Phenytoin (Dilantin) 100 mg Q8 IV Last administered on 06/06/18 06:06; Admin Dose 100 MG; Start 06/05/18 at 09:00 Heparin Sodium (Porcine) (Heparin (1000 Units/ml)) 4,000 unit AFTER DIALYSIS CATHETER ; Start 06/05/18 at 12:00 Sodium Chloride 1,000 ml @ 0 mls/hr Q0M PRN IV TO KEEP SBP ABOVE 90; Start 06/05/18 at 11:57 Albumin Human 100 ml @ 100 mls/hr WITH DIALYSIS PRN IV SBP <90 DURING DIALYSIS; Start 06/05/18 at 12:00 Sodium Chloride (NS) -To prime the dialy... DIRECTED FOR HD PRN IV HD; Start 06/05/18 at 12:00 UDAY CHRISTENSEN Jun 06, 2018 10:44
[2018-06-06] MEDS: BALSAM PERU/CASTOR OIL 60 GM TUBE TOP SCH ×2 (11:06→20:02)
[2018-06-06] MEDS: NORepinephrine 8MG/250 ML (PMX 250 ML IV SCH (11:07)
[2018-06-06] MEDS: FAMOTIDINE 20 MG INJ IV SCH (11:21)
[2018-06-06] MEDS: ASPIRIN 81 MG TAB PO SCH (11:21)
[2018-06-06] MEDS: AZTREONAM 0.5 GM in SOD CHLORIDE 0.9% 50 ML IV SCH ×2 (11:21→20:02)
--- NOTE | 2018-06-06 12:32 | CONS ---
Assessment/Plan Assessment/Plan Hospital Course 83 M c/ multiple comorbidities, who is admitted to the [facility] ICU following cardiac arrest. Now s/p TTM. Noted to have a clinical seizure in early am of 06/04...once paralytic and sedative weaned..which raises concern for significant hypoxic cerebral injury. EEG was reassuringly without evidence of nonconvulsive status epilepticus.. Head CT 06/02 is unremarkable. P: Cont phenytoin 100mg q8h for now, to be titrated to goal level (~20) Ativan iv prn prolonged seizure or cluster Repeat Head CT when clinically able Other medical management and supportive care per primary Will follow with you. Consultation Date/Type/Reason Admit Date/Time May 30, 2018 at 19:04 Type of Consult Neurology Requesting Provider: PHILOMENA JONES Date/Time of Note DATE: 06/06/18 TIME: 12:32 Exam Vital Signs Vitals Vital Signs Date Temp Pulse Resp B/P (MAP) Pulse Ox O2 O2 Flow FiO2 Time Delivery Rate 06/06/18 99 17 100 40 11:44 06/06/18 104/59 Mechanical 07:36 (74) Ventilator 06/06/18 97.9 04:00 Intake and Output 06/05/18 06/05/18 06/06/18 1515:00 23:00 07:00 IntakeIntake Total 215.000 ml 83.750 ml OutputOutput Total 8 ml 78 ml 40 ml BalanceBalance 207.000 ml 5.750 ml -40 ml CAMRYN GARRIDO LEAD PRINTER Jun 06, 2018 12:32
--- NOTE | 2018-06-06 13:00 | CONS ---
Assessment/Plan Assessment/Plan Hospital Course 83 M c/ multiple comorbidities, who is admitted to the [facility] ICU following cardiac arrest. Now s/p TTM. Noted to have a clinical seizure in early am of 06/04...once paralytic and sedative weaned..which raises concern for significant hypoxic cerebral injury. EEG was reassuringly without evidence of nonconvulsive status epilepticus.. Head CT 06/02 is unremarkable. P: Cont phenytoin 100mg q8h for now, to be titrated to goal level (~20) Ativan iv prn prolonged seizure or cluster Repeat Head CT when clinically able Other medical management and supportive care per primary Will follow with you. Consultation Date/Type/Reason Admit Date/Time May 30, 2018 at 19:04 Type of Consult Neurology Reason for Consultation ams Requesting Provider: PHILOMENA JONES Date/Time of Note DATE: 06/06/18 TIME: 12:58 24 HR Interval Summary Free Text/Dictation Continues icu care Exam Vital Signs Vitals Vital Signs Date Temp Pulse Resp B/P (MAP) Pulse Ox O2 O2 Flow FiO2 Time Delivery Rate 06/06/18 99 17 100 40 11:44 06/06/18 104/59 Mechanical 07:36 (74) Ventilator 06/06/18 97.9 04:00 Intake and Output 06/05/18 06/05/18 06/06/18 1515:00 23:00 07:00 IntakeIntake Total 215.000 ml 83.750 ml OutputOutput Total 8 ml 78 ml 40 ml BalanceBalance 207.000 ml 5.750 ml -40 ml Exam PE: Gen Appearance: No Apparent Distress HEENT: Intubated Cardiovascular: Regular rate Abdomen: Soft Extremities: Dry NE: The patient was comatose. Cranial nerve examination was limited by mental status. Pupils were equal and reactive to light. There was no afferent pupillary defect. Funduscopic examination was limited. Face was grossly symmetric, w/ present corneal and cough reflexes. Tone was normal. Muscle bulk was normal. I did not see fasciculations. The patient withdrew to noxious stimulation x 4. Coordination and gait testing was limited by mental status. Arm and leg reflexes were within normal limits and symmetric. Willams's sign was absent. Plantar responses were flexor. MARY JO HOLMAN Jun 06, 2018 13:00 CAMRYN GARRIDO NP Jun 06, 2018 14:19
[2018-06-06] MEDS ORDERED: EPOETIN ALFA-EPBX (ESRD) 10,000 UNIT/ML VIAL SC ONE (13:30)
[2018-06-06] MEDS ORDERED: VANCOMYCIN 1 GM 250 ML IVPB SCH (15:00)
--- NOTE | 2018-06-06 19:33 | PN ---
Date/Time of Note Date/Time of Note DATE: 06/06/18 TIME: 19:31 Assessment/Plan VTE Prophylaxis Risk score (from [facility])>0 risk: 9 SCD applied (from [facility]): Yes Pharmacological prophylaxis: NA/contraindicated Pharm contraindication: blood coag disorder Assessment/Plan Hospital Course 83 yo male with ESRD, DMII who has been referred for MM workup after found to have hypercalcemia and pathologic hip fracture. Then suffered cardiac arrest. 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 -Palliative care and neurology following Cardiac arrest: - Unclear precipitant - s/p hypothermia Multiple myeloma: - Unlikely to receive treatment given anoxic event ESRD: - HD per renal Atrial fibrillation: - Continue AC Pancytopenia: - likely consistent with MM DMII: - Basal/bolus insulin Hypercalcemia: - Consistent with MM Pathologic hip fracture: - management per Dr Burton Prophylaxis: SCDs Result Diagram: 06/06/18 1206 06/06/18 0400 Results 24hrs Laboratory Tests Test 06/05/18 20:43 06/06/18 04:00 06/06/18 04:04 06/06/18 05:00 Bedside Glucose 89 87 White Blood Count 5.8 Red Blood Count 2.35 L Hemoglobin 7.4 L Hematocrit 23.2 L Mean Corpuscular 98.7 Volume Mean Corpuscular 31.5 Hemoglobin Mean Corpuscular 31.9 L Hemoglobin Concent Red Cell 19.5 H Distribution Width Platelet Count 97 L Mean Platelet 12.1 H Volume Immature 0.900 H Granulocytes % Neutrophils % 75.0 Lymphocytes % 11.1 L Monocytes % 11.1 H Eosinophils % 1.4 Basophils % 0.5 Nucleated Red 0.3 H Blood Cells % Immature 0.050 H Granulocytes # Neutrophils # 4.3 Lymphocytes # 0.6 L Monocytes # 0.6 Eosinophils # 0.1 Basophils # 0.0 Nucleated Red 0.0 Blood Cells # Sodium Level 141 Potassium Level 4.7 Chloride Level 97 Carbon Dioxide 26 Level Anion Gap 18 H Blood Urea 54 H Nitrogen Creatinine 6.23 H Est Glomerular Filtrat Rate mL/min Glucose Level 84 Lactic Acid Level 1.3 Calcium Level 8.8 Random Vancomycin 17.2 Level Blood Gas Specimen Blood arterial Source Arterial Blood 06/06/2018 4:50:32 Date Drawn AM Arterial Blood pH 7.445 (Temp corrected) Arterial Blood 42.3 pCO2 (Temp correct) Arterial Blood pO2 103.2 H (Temp corrected) Arterial Blood 28.4 H HCO3 Arterial Blood 4.0 H Base Excess Arterial Blood 97.6 Oxygen Saturation Ramon Test N/A Arterial Blood Gas Right Radial Puncture Site Arterial 0.8 Blood Carboxyhemog lobin Arterial Blood 0 Methemoglobin Blood Gas A-a O2 133.4 H Differential Oxyhemoglobin 96.8 Percent Blood Gas 37.0 Temperature Blood Gas 16.0 Respiration Rate Blood Gas Actual 16 Respiration Rate Blood Gas Modality VENT - AC FiO2 40.0 Blood Gas Tidal 500.0 Volume Blood Gas Low PEEP 5.0 Setting Blood Gas 27.0 Inspiratory Pressure Blood Gas Notified [facility] Blood Gas Notified 06/06/2018 4:57:34 Time AM Test 06/06/18 08:47 06/06/18 12:06 06/06/18 13:12 Bedside Glucose 81 80 Hemoglobin 7.6 L Hematocrit 23.6 L Subjective 24 Hr Interval Summary Subjective hx not possible: pt non-verbal Exam/Review of Systems Exam Vitals Vital Signs Date Temp Pulse Resp B/P (MAP) Pulse Ox O2 O2 Flow FiO2 Time Delivery Rate 06/06/18 108 16 100 40 19:01 06/06/18 122/68 18:30 (86) 06/06/18 Mechanical 18:00 Ventilator 06/06/18 98.2 16:00 Intake and Output 06/05/18 06/05/18 06/06/18 1515:00 23:00 07:00 IntakeIntake Total 215.000 ml 83.750 ml 5.625 ml OutputOutput Total 8 ml 78 ml 40 ml BalanceBalance 207.000 ml 5.750 ml -34.375 ml Constitutional: non-verbal Respiratory: clear to auscultation Cardiovascular: regular rate and rhythm Gastrointestinal: soft; No distended Musculoskeletal: nl extremities to inspection Results Results 24hrs Laboratory Tests Test 06/05/18 20:43 06/06/18 04:00 06/06/18 04:04 06/06/18 05:00 Bedside Glucose 89 87 White Blood Count 5.8 Red Blood Count 2.35 L Hemoglobin 7.4 L Hematocrit 23.2 L Mean Corpuscular 98.7 Volume Mean Corpuscular 31.5 Hemoglobin Mean Corpuscular 31.9 L Hemoglobin Concent Red Cell 19.5 H Distribution Width Platelet Count 97 L Mean Platelet 12.1 H Volume Immature 0.900 H Granulocytes % Neutrophils % 75.0 Lymphocytes % 11.1 L Monocytes % 11.1 H Eosinophils % 1.4 Basophils % 0.5 Nucleated Red 0.3 H Blood Cells % Immature 0.050 H Granulocytes # Neutrophils # 4.3 Lymphocytes # 0.6 L Monocytes # 0.6 Eosinophils # 0.1 Basophils # 0.0 Nucleated Red 0.0 Blood Cells # Sodium Level 141 Potassium Level 4.7 Chloride Level 97 Carbon Dioxide 26 Level Anion Gap 18 H Blood Urea 54 H Nitrogen Creatinine 6.23 H Est Glomerular Filtrat Rate mL/min Glucose Level 84 Lactic Acid Level 1.3 Calcium Level 8.8 Random Vancomycin 17.2 Level Blood Gas Specimen Blood arterial Source Arterial Blood 06/06/2018 4:50:32 Date Drawn AM Arterial Blood pH 7.445 (Temp corrected) Arterial Blood 42.3 pCO2 (Temp correct) Arterial Blood pO2 103.2 H (Temp corrected) Arterial Blood 28.4 H HCO3 Arterial Blood 4.0 H Base Excess Arterial Blood 97.6 Oxygen Saturation Ramon Test N/A Arterial Blood Gas Right Radial Puncture Site Arterial 0.8 Blood Carboxyhemog lobin Arterial Blood 0 Methemoglobin Blood Gas A-a O2 133.4 H Differential Oxyhemoglobin 96.8 Percent Blood Gas 37.0 Temperature Blood Gas 16.0 Respiration Rate Blood Gas Actual 16 Respiration Rate Blood Gas Modality VENT - AC FiO2 40.0 Blood Gas Tidal 500.0 Volume Blood Gas Low PEEP 5.0 Setting Blood Gas 27.0 Inspiratory Pressure Blood Gas Notified [facility] Blood Gas Notified 06/06/2018 4:57:34 Time AM Test 06/06/18 08:47 06/06/18 12:06 06/06/18 13:12 Bedside Glucose 81 80 Hemoglobin 7.6 L Hematocrit 23.6 L Medications Medication Current Medications IV Flush (NS 3 ml) 3 ml PER PROTOCOL IV ; Start 05/30/18 at 20:00 Ranitidine HCl (Zantac) 150 mg HS PO Last administered on 06/02/18at 21:45; Admin Dose 150 MG; Start 05/30/18 at 21:00; Status Hold Atorvastatin Calcium (Lipitor) 40 mg QHS PO Last administered on 06/05/18at 20:54; Admin Dose 40 MG; Start 05/31/18 at 21:00 Ondansetron HCl (Zofran Inj) 4 mg Q4H PRN IV NAUSEA AND/OR VOMITING Last administered on 06/01/18at 00:10; Admin Dose 4 MG; Start 06/01/18 at 00:00 Norepinephrine 250 ml @ 1.875 mls/ hr TITRATE IV Last administered on 06/06/18at 11:07; Admin Dose 5.625 MLS/HR; Start 06/02/18 at 02:30 Acetaminophen (Tylenol Liquid) 650 mg Q4H PRN PO TEMP > 37C; Start 06/02/18 at 07:00 Meperidine HCl (Demerol) 12.5 mg Q4H PRN IV POST OPERATIVE SHIVERING; Start 06/02/18 at 07:00 Meperidine HCl (Demerol) 25 mg Q4H PRN IV POST OPERATIVE SHIVERING; Start 06/02/18 at 07:00 Eye Lubricant (Artificial Tears Oph) 2 drop Q6 BOTH EYES Last administered on 06/06/18at 18:41; Admin Dose 2 DROP; Start 06/02/18 at 12:00 Insulin Human Regular 100 unit/ Sodium Chloride 100 ml @ 0.2 mls/hr PER PROTOCOL IV ; Start 06/02/18 at 08:00 Miscellaneous Information (* Miscellaneous Pharmacy Order) Treatment of Hypoglycemia: 1.BG 51... Per protocol XX ; Start 06/02/18 at 07:00 Dextrose (D50w Syringe) 25 ml Q15M PRN IV .DECREASED GLUCOSE; Start 06/02/18 at 07:00 Dextrose (D50w Syringe) 50 ml Q15M PRN IV .DECREASED GLUCOSE; Start 06/02/18 at 07:00 Meperidine HCl (Demerol) 12.5 mg Q2 PRN IV POST OPERATIVE SHIVERING; Start 06/02/18 at 07:30 Vancomycin HCl (Vanco Iv Per Pharmacy) VANCOMYCIN PER PHARMACY PER PROTOCOL XX ; Start 06/02/18 at 10:00 Famotidine (Pepcid Iv) 20 mg DAILY IV Last administered on 06/06/18at 11:21; Admin Dose 20 MG; Start 06/03/18 at 09:00 Aztreonam 0.5 gm/ Sodium Chloride 50 ml @ 100 mls/hr Q12 IV Last administered on 06/06/18 11:21; Admin Dose 100 MLS/HR; Start 06/02/18 at 21:00 Hypromellose (Genteal Severe) 1 applic Q6 BOTH EYES Last administered on 06/06/18 18:41; Admin Dose 1 APPLIC; Start 06/03/18 at 12:00 Aspirin (Aspirin) 81 mg DAILY PO Last administered on 06/06/18 11:21; Admin Dose 81 MG; Start 06/03/18 at 12:30 Lorazepam (Ativan) 2 mg Q15M PRN IV SEIZURES Last administered on 06/05/18 15:12; Admin Dose 2 MG; Start 06/04/18 at 02:00 Sevelamer Carbonate (Renvela) 1.6 gm Q8H NGT Last administered on 06/06/18 11:21; Admin Dose 1.6 GM; Start 06/04/18 at 11:30 Phenytoin (Dilantin) 100 mg Q8 IV Last administered on 06/06/18 14:44; Admin Dose 100 MG; Start 06/05/18 at 09:00 Heparin Sodium (Porcine) (Heparin (1000 Units/ml)) 4,000 unit AFTER DIALYSIS CATHETER ; Start 06/05/18 at 12:00 Sodium Chloride 1,000 ml @ 0 mls/hr Q0M PRN IV TO KEEP SBP ABOVE 90; Start 06/05/18 at 11:57 Albumin Human 100 ml @ 100 mls/hr WITH DIALYSIS PRN IV SBP <90 DURING DIALYSIS; Start 06/05/18 at 12:00 Sodium Chloride (NS) -To prime the dialy... DIRECTED FOR HD PRN IV HD; Start 06/05/18 at 12:00 Vancomycin HCl 250 ml @ 125 mls/hr Q96H IVPB Last administered on 06/06/18 15:53; Admin Dose 125 MLS/HR; Start 06/06/18 at 15:00 TOYIN RUEDA Jun 06, 2018 19:33
[2018-06-06] MEDS: ATORVASTATIN 40 MG TAB PO SCH (20:02)
[2018-06-07] VITALS (74 sets, daily range): BP systolic 71–132; BP diastolic 43–72; PULSE 0–104; RESP 0–24
[2018-06-07] MEDS: SEVELAMER CARBONATE 0.8 GM PKT NGT SCH ×2 (04:09→11:35)
[2018-06-07] MEDS: PHENYTOIN 100 MG INJ IV SCH ×2 (05:42→14:10)
[2018-06-07] MEDS: ARTIFICIAL TEARS 15 ML OPH BOTH EYES SCH ×3 (05:43→18:01)
[2018-06-07] MEDS: HYPROMELLOSE OPHTHALMIC LUBRICANT GEL (10 GM) BOTH EYES SCH ×3 (05:43→18:01)
[2018-06-07] MEDS: LORAZEPAM 2 MG INJ IV PRN ×3 (06:27→17:57)
--- NOTE | 2018-06-07 06:48 | CONS ---
Assessment/Plan Assessment/Plan Assessment/Plan (Daily) Status post cardiac arrest x2 currently on hypothermia protocol Bilateral pneumonia with pleural effusions Pancytopenia Questionable history of multiple myeloma Hypercalcemia Chronic renal disease on hemodialysis Type 2 diabetes Hypertension Long discussion with daughter in law this morning . Family are not interested in a prolonged post cardiac arrest, post stroke period of possible full neuro logical recovery. They were prepared for the worst even prior to hospitalization since he was declining as per my prior note. I have discussed all the new labs and CT findings. I have encouraged her to speak with neuro... she is a Radiation Oncology physician. At this time she wants to change code to DNR. I told her if that is their decision they can change back to full code at any time. Consultation Date/Type/Reason Admit Date/Time May 30, 2018 at 19:04 Initial Consult Date 06/02/18 Requesting Provider: PHILOMENA JONES Date/Time of Note DATE: 06/07/18 TIME: 06:37 Exam/Review of Systems Exam Vitals Vital Signs Date Temp Pulse Resp B/P (MAP) Pulse Ox O2 O2 Flow FiO2 Time Delivery Rate 06/07/18 103 15 132/60 100 05:30 (84) 06/07/18 Mechanical 05:00 Ventilator 06/07/18 35 04:49 06/07/18 98.4 04:00 Intake and Output 06/06/18 06/06/18 06/07/18 1515:00 23:00 07:00 IntakeIntake Total 154.750 ml 346.250 ml 98.500 ml OutputOutput Total 2605 ml 10 ml 0 ml BalanceBalance -2450.250 ml 336.250 ml 98.500 ml Constitutional: non-verbal Eyes: nl conjunctiva, EOMI, nl lids, nl sclera, PERRL ENMT: nl external ears & nose, nl lips & teeth, nl nasal mucosa & septum Cardiovascular: regular rate and rhythm, nl pulses Neurological: unresponsive, other (overbreathing the vent, sluggish occulocephalics, myoclonic jerks, non purposeful movements) Results Result Diagram: 06/06/18 1206 06/07/18 0447 Results 24hrs Laboratory Tests Test 06/06/18 08:47 06/06/18 12:06 06/06/18 13:12 06/07/18 04:47 Bedside Glucose 81 80 Hemoglobin 7.6 L Hematocrit 23.6 L Sodium Level 140 Potassium Level 4.5 Chloride Level 95 L Carbon Dioxide Level 27 Anion Gap 18 H Blood Urea Nitrogen 44 H Creatinine 5.64 H Est Glomerular Filtrat Rate mL/min Glucose Level 87 Calcium Level 8.0 L Phosphorus Level 6.6 H Magnesium Level 2.1 Phenytoin (Dilantin) 7.2 L Level Medications Medication Current Medications IV Flush (NS 3 ml) 3 ml PER PROTOCOL IV ; Start 05/30/18 at 20:00 Ranitidine HCl (Zantac) 150 mg HS PO Last administered on 06/02/18at 21:45; Admin Dose 150 MG; Start 05/30/18 at 21:00; Status Hold Atorvastatin Calcium (Lipitor) 40 mg QHS PO Last administered on 06/06/18at 20:02; Admin Dose 40 MG; Start 05/31/18 at 21:00 Ondansetron HCl (Zofran Inj) 4 mg Q4H PRN IV NAUSEA AND/OR VOMITING Last administered on 06/01/18at 00:10; Admin Dose 4 MG; Start 06/01/18 at 00:00 Norepinephrine 250 ml @ 1.875 mls/ hr TITRATE IV Last administered on 06/06/18at 11:07; Admin Dose 5.625 MLS/HR; Start 06/02/18 at 02:30 Acetaminophen (Tylenol Liquid) 650 mg Q4H PRN PO TEMP > 37C; Start 06/02/18 at 07:00 Meperidine HCl (Demerol) 12.5 mg Q4H PRN IV POST OPERATIVE SHIVERING; Start 06/02/18 at 07:00 Meperidine HCl (Demerol) 25 mg Q4H PRN IV POST OPERATIVE SHIVERING; Start 06/02/18 at 07:00 Eye Lubricant (Artificial Tears Oph) 2 drop Q6 BOTH EYES Last administered on 06/07/18at 05:43; Admin Dose 2 DROP; Start 06/02/18 at 12:00 Insulin Human Regular 100 unit/ Sodium Chloride 100 ml @ 0.2 mls/hr PER HI OTOCOL IV ; Start 06/02/18 at 08:00 Miscellaneous Information (* Miscellaneous Pharmacy Order) Treatment of Hypoglycemia: 1.BG 51... Per protocol XX ; Start 06/02/18 at 07:00 Dextrose (D50w Syringe) 25 ml Q15M PRN IV .DECREASED GLUCOSE; Start 06/02/18 at 07:00 Dextrose (D50w Syringe) 50 ml Q15M PRN IV .DECREASED GLUCOSE; Start 06/02/18 at 07:00 Meperidine HCl (Demerol) 12.5 mg Q2 PRN IV POST OPERATIVE SHIVERING; Start 06/02/18 at 07:30 Vancomycin HCl (Vanco Iv Per Pharmacy) VANCOMYCIN PER PHARMACY PER PROTOCOL XX ; Start 06/02/18 at 10:00 Famotidine (Pepcid Iv) 20 mg DAILY IV Last administered on 06/06/18 11:21; Admin Dose 20 MG; Start 06/03/18 at 09:00 Aztreonam 0.5 gm/ Sodium Chloride 50 ml @ 100 mls/hr Q12 IV Last administered on 06/06/18 20:02; Admin Dose 100 MLS/HR; Start 06/02/18 at 21:00 Hypromellose (Genteal Severe) 1 applic Q6 BOTH EYES Last administered on 06/07/18at 05:43; Admin Dose 1 APPLIC; Start 06/03/18 at 12:00 Aspirin (Aspirin) 81 mg DAILY PO Last administered on 06/06/18 11:21; Admin Dose 81 MG; Start 06/03/18 at 12:30 Lorazepam (Ativan) 2 mg Q15M PRN IV SEIZURES Last administered on 06/07/18 06:27; Admin Dose 2 MG; Start 06/04/18 at 02:00 Sevelamer Carbonate (Renvela) 1.6 gm Q8H NGT Last administered on 06/07/18at 04:09; Admin Dose 1.6 GM; Start 06/04/18 at 11:30 Phenytoin (Dilantin) 100 mg Q8 IV Last administered on 06/07/18 05:42; Admin Dose 100 MG; Start 06/05/18 at 09:00 Heparin Sodium (Porcine) (Heparin (1000 Units/ml)) 4,000 unit AFTER DIALYSIS CATHETER ; Start 06/05/18 at 12:00 Sodium Chloride 1,000 ml @ 0 mls/hr Q0M PRN IV TO KEEP SBP ABOVE 90; Start 06/05/18 at 11:57 Albumin Human 100 ml @ 100 mls/hr WITH DIALYSIS PRN IV SBP <90 DURING DIALYSIS; Start 06/05/18 at 12:00 Sodium Chloride (NS) -To prime the dialy... DIRECTED FOR HD PRN IV HD; Start 06/05/18 at 12:00 Vancomycin HCl 250 ml @ 125 mls/hr Q96H IVPB Last administered on 06/06/18at 15:53; Admin Dose 125 MLS/HR; Start 06/06/18 at 15:00 Phenytoin 300 mg/ Sodium Chloride 56 ml @ 112 mls/hr ONCE STAT IV ; Start 06/07/18 at 06:04; Stop 06/07/18 at 06:33; Status UNV CHRISTA SANCHEZ Jun 07, 2018 06:48
[2018-06-07] MEDS ORDERED: PHENYTOIN 300 MG in SOD CHLORIDE 0.9% 50 ML IV SCH (07:00)
--- NOTE | 2018-06-07 08:57 | PN ---
DATE: 06/07/2018 SUBJECTIVE: The patient remains critically ill on full ventilatory support. The patient has had min imal neurologic improvement. The patient is off pressor support. No other acute events noted. OBJECTIVE: VITAL SIGNS: Blood pressure is 132/60, respirations 15, pulse 103, temperature 98.6. HEENT: Head is normocephalic. NECK: Supple. HEART: Regular rate. LUNGS: Show diminished breath sounds at the base. ABDOMEN: Soft, nontender to palpation without rebound or guarding. EXTREMITIES: Negative for clubbing, cyanosis, no edema. DERMATOLOGIC: No rashes. MUSCULOSKELETAL: No joint effusion. NEUROLOGIC: No change in exam. MEDICATIONS: Reviewed. LABORATORY DATA: Reviewed. IMAGING STUDIES: Reviewed. MICROBIOLOGY: Reviewed. ASSESSMENT AND PLAN: 1. End-stage renal disease. The patient had hemodialysis yesterday, tolerated well. Plan is for di alysis again tomorrow. 2. Hypercalcemia secondary to multiple myeloma, improving. Continue dialysis on low calcium bath. 3. Anemia. Continue to monitor hemoglobin and hematocrit levels. The patient is status post Epogen . Continue to monitor. 4. Mineral bone disorder, monitor calcium and phosphorus level. Continue dialysis for solute cleara nce. 5. Status post cardiac arrest, status post hypothermic protocol. Continue to monitor. 6. Ventilator dependent respiratory failure. Vent settings and ABG was reviewed. Continue to monit or. 7. Non-ST elevation myocardial infarction. Continue medical management. 8. Encephalopathy, etiology is toxic metabolic, possible anoxic injury. Continue to monitor. Follo w up with neurology. 9. Status post shock. The patient is on pressor support. Continue current antibiotic regimen. 10. Chronic atrial fibrillation. Continue treatment plan. 11. Multiple myeloma. Continue to monitor. Follow up with hematology. 12. Thrombocytopenia. Continue current treatment plan. 13. History of hypertension. 14. Diabetes. Continue current medical management. 15. Pathological hip fracture. Dictated By: TAYLOR GROVE DO NR/NTS Conf#: [id number] DID#: [id number] CC: TOYIN RUEDA MD; CHEYENNE WATSON MD; SRAVANTHI YEPEZ MD;*EndCC*
--- NOTE | 2018-06-07 09:06 | CONS ---
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 Consultation Date/Type/Reason Admit Date/Time May 30, 2018 at 19:04 Initial Consult Date 05/31/18 Type of Consult oncology Reason for Consultation multiple myeloma Requesting Provider: PHILOMENA JONES Date/Time of Note DATE: 06/07/18 TIME: 08:57 24 HR Interval Summary Free Text/Dictation pt currently has no gag. not overbreathing the vent. he was restarted on low dose pressor support this morning. had seizure activity overnight Exam/Review of Systems Exam Vitals Vital Signs Date Temp Pulse Resp B/P (MAP) Pulse Ox O2 O2 Flow FiO2 Time Delivery Rate 06/07/18 103 15 132/60 100 05:30 (84) 06/07/18 Mechanical 05:00 Ventilator 06/07/18 35 04:49 06/07/18 98.4 04:00 Intake and Output 06/06/18 06/06/18 06/07/18 1515:00 23:00 07:00 IntakeIntake Total 154.750 ml 346.250 ml 118.500 ml OutputOutput Total 2605 ml 10 ml 0 ml BalanceBalance -2450.250 ml 336.250 ml 118.500 ml Constitutional: non-verbal Head: normocephalic Eyes: nl conjunctiva ENMT: nl external ears & nose, intubated Neck: supple Respiratory: clear to auscultation Cardiovascular: regular rate and rhythm Gastrointestinal: soft Musculoskeletal: nl extremities to inspection Extremities: normal pulses Results Result Diagram: 06/06/18 1206 06/07/18 0447 Results 24hrs Laboratory Tests Test 06/06/18 12:06 06/06/18 13:12 06/07/18 04:47 Hemoglobin 7.6 L Hematocrit 23.6 L Bedside Glucose 80 Sodium Level 140 Potassium Level 4.5 Chloride Level 95 L Carbon Dioxide Level 27 Anion Gap 18 H Blood Urea Nitrogen 44 H Creatinine 5.64 H Est Glomerular Filtrat Rate mL/min Glucose Level 87 Calcium Level 8.0 L Phosphorus Level 6.6 H Magnesium Level 2.1 Phenytoin (Dilantin) Level 7.2 L Medications Medication Current Medications IV Flush (NS 3 ml) 3 ml PER PROTOCOL IV ; Start 05/30/18 at 20:00 Ranitidine HCl (Zantac) 150 mg HS PO Last administered on 06/02/18at 21:45; Admin Dose 150 MG; Start 05/30/18 at 21:00; Status Hold Atorvastatin Calcium (Lipitor) 40 mg QHS PO Last administered on 06/06/18at 20:02; Admin Dose 40 MG; Start 05/31/18 at 21:00 Ondansetron HCl (Zofran Inj) 4 mg Q4H PRN IV NAUSEA AND/OR VOMITING Last administered on 06/01/18at 00:10; Admin Dose 4 MG; Start 06/01/18 at 00:00 Norepinephrine 250 ml @ 1.875 mls/ hr TITRATE IV Last administered on 06/06/18at 11:07; Admin Dose 5.625 MLS/HR; Start 06/02/18 at 02:30 Acetaminophen (Tylenol Liquid) 650 mg Q4H PRN PO TEMP > 37C; Start 06/02/18 at 07:00 Meperidine HCl (Demerol) 12.5 mg Q4H PRN IV POST OPERATIVE SHIVERING; Start 06/02/18 at 07:00 Meperidine HCl (Demerol) 25 mg Q4H PRN IV POST OPERATIVE SHIVERING; Start 06/02/18 at 07:00 Eye Lubricant (Artificial Tears Oph) 2 drop Q6 BOTH EYES Last administered on 06/07/18 05:43; Admin Dose 2 DROP; Start 06/02/18 at 12:00 Insulin Human Regular 100 unit/ Sodium Chloride 100 ml @ 0.2 mls/hr PER PROTOCOL IV ; Start 06/02/18 at 08:00 Miscellaneous Information (* Miscellaneous Pharmacy Order) Treatment of Hypoglycemia: 1.BG 51... Per protocol XX ; Start 06/02/18 at 07:00 Dextrose (D50w Syringe) 25 ml Q15M PRN IV .DECREASED GLUCOSE; Start 06/02/18 at 07:00 Dextrose (D50w Syringe) 50 ml Q15M PRN IV .DECREASED GLUCOSE; Start 06/02/18 at 07:00 Meperidine HCl (Demerol) 12.5 mg Q2 PRN IV POST OPERATIVE SHIVERING; Start 06/02/18 at 07:30 Vancomycin HCl (Vanco Iv Per Pharmacy) VANCOMYCIN PER PHARMACY PER PROTOCOL XX ; Start 06/02/18 at 10:00 Famotidine (Pepcid Iv) 20 mg DAILY IV Last administered on 06/06/18 11:21; Admin Dose 20 MG; Start 06/03/18 at 09:00 Aztreonam 0.5 gm/ Sodium Chloride 50 ml @ 100 mls/hr Q12 IV Last administered on 06/06/18 20:02; Admin Dose 100 MLS/HR; Start 06/02/18 at 21:00 Hypromellose (Genteal Severe) 1 applic Q6 BOTH EYES Last administered on 06/07/18 05:43; Admin Dose 1 APPLIC; Start 06/03/18 at 12:00 Aspirin (Aspirin) 81 mg DAILY PO Last administered on 06/06/18 11:21; Admin Dose 81 MG; Start 06/03/18 at 12:30 Lorazepam (Ativan) 2 mg Q15M PRN IV SEIZURES Last administered on 06/07/18 06:27; Admin Dose 2 MG; Start 06/04/18 at 02:00 Sevelamer Carbonate (Renvela) 1.6 gm Q8H NGT Last administered on 06/07/18 04:09; Admin Dose 1.6 GM; Start 06/04/18 at 11:30 Phenytoin (Dilantin) 100 mg Q8 IV Last administered on 06/07/18at 05:42; Admin Dose 100 MG; Start 06/05/18 at 09:00 Heparin Sodium (Porcine) (Heparin (1000 Units/ml)) 4,000 unit AFTER DIALYSIS CATHETER ; Start 06/05/18 at 12:00 Sodium Chloride 1,000 ml @ 0 mls/hr Q0M PRN IV TO KEEP SBP ABOVE 90; Start 06/05/18 at 11:57 Albumin Human 100 ml @ 100 mls/hr WITH DIALYSIS PRN IV SBP <90 DURING DIALYSI S; Start 06/05/18 at 12:00 Sodium Chloride (NS) -To prime the dialy... DIRECTED FOR HD PRN IV HD; Start 06/05/18 at 12:00 Vancomycin HCl 250 ml @ 125 mls/hr Q96H IVPB Last administered on 06/06/18at 15:53; Admin Dose 125 MLS/HR; Start 06/06/18 at 15:00 LITA BASS M.D. Jun 07, 2018 09:06
[2018-06-07] MEDS: FAMOTIDINE 20 MG INJ IV SCH (09:11)
[2018-06-07] MEDS: AZTREONAM 0.5 GM in SOD CHLORIDE 0.9% 50 ML IV SCH (09:11)
[2018-06-07] MEDS: ASPIRIN 81 MG TAB PO SCH (09:11)
[2018-06-07] MEDS: BALSAM PERU/CASTOR OIL 60 GM TUBE TOP SCH ×2 (09:12→19:52)
[2018-06-07] MEDS: NORepinephrine 8MG/250 ML (PMX 250 ML IV SCH (09:44)
--- NOTE | 2018-06-07 10:31 | CONS ---
Assessment/Plan Assessment/Plan Assessment/Plan (Daily) Chest x-ray showing bilateral patchy infiltrates. Ventilator setting; AC of 16, tidal volume 500, PEEP of 5, 35% FiO2. Patient is currently on Levophed 1 mcg. Assessment and recommendations; 1. 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 2. History of multiple myeloma, status post bone marrow biopsy. 3. Chronic renal failure, on hemodialysis. 4. Anemia and thrombocytopenia. 5. Bilateral pneumonia. 6. Seizure disorder. Continue current supportive care. Prognosis appears very poor. CODE STATUS needs to be addressed with the family. Consultation Date/Type/Reason Admit Date/Time May 30, 2018 at 19:04 Initial Consult Date 06/02/18 Type of Consult Pulmonary/critical care Patient is an 83-year-old male who was admitted for workup for possible multiple myeloma with history of hypercalcemia and pathological fracture. Patient underwent bone marrow biopsy but had a cardiac arrest event requiring intubation. Patient required brief intubation was extubated transferred to medical floor where the patient again had a cardiac arrest event last evening requiring CPR lasting 10 minutes, currently patient is orally intubated and is on hypothermia protocol. History was obtained from medical records. Past medical history; 1. Chronic renal failure, on hemodialysis. 2. Possibly underlying multiple myeloma. 3. Anemia and thrombocytopenia. 4. History of hypertension. Medications; reviewed. Allergies; penicillin. Social history; not available. Family history; not available, apparently he has a supportive family. Occupational history; not available. Review of system; unable to be obtained. General exam; elderly male, orally intubated, on hypothermia protocol. Requesting Provider: PHILOMENA JONES Date/Time of Note DATE: 06/07/18 TIME: 10:28 24 HR Interval Summary Free Text/Dictation Patient's condition remains critical. Remains completely unresponsive. Patient also exhibiting breakthrough seizure activity. General exam; elderly male, orally intubated, unresponsive. No overt seizure activity noted. Exam/Review of Systems Exam Vitals Vital Signs Date Temp Pulse Resp B/P (MAP) Pulse Ox O2 O2 Flow FiO2 Time Delivery Rate 06/07/18 94 24 110/64 100 Mechanical 10:00 (79) Ventilator 06/07/18 98.4 08:00 06/07/18 35 04:49 Intake and Output 06/06/18 06/06/18 06/07/18 1515:00 23:00 07:00 IntakeIntake Total 154.750 ml 346.250 ml 118.500 ml OutputOutput Total 2605 ml 10 ml 0 ml BalanceBalance -2450.250 ml 336.250 ml 118.500 ml Exam H EENT exam; supple neck, no JVD. No lymphadenopathy. Midline trachea. No thyromegaly. Patient has fair dentition. No neck masses. Orally intubated. Chest exam; diminished but clear breath sounds. S1-S2 audible, no murmurs. Regular rhythm. Abdomen exam; soft, no organomegaly. Bowel sounds audible. Extremity exam; no peripheral edema. MUD MIXER exam; patient remains unresponsive. Results Result Diagram: 06/06/18 1206 06/07/18 0447 Results 24hrs Laboratory Tests Test 06/06/18 12:06 06/06/18 13:12 06/07/18 04:47 Hemoglobin 7.6 L Hematocrit 23.6 L Bedside Glucose 80 Sodium Level 140 Potassium Level 4.5 Chloride Level 95 L Carbon Dioxide Level 27 Anion Gap 18 H Blood Urea Nitrogen 44 H Creatinine 5.64 H Est Glomerular Filtrat Rate mL/min Glucose Level 87 Calcium Level 8.0 L Phosphorus Level 6.6 H Magnesium Level 2.1 Phenytoin (Dilantin) Level 7.2 L Medications Medication Current Medications IV Flush (NS 3 ml) 3 ml PER PROTOCOL IV ; Start 05/30/18 at 20:00 Ranitidine HCl (Zantac) 150 mg HS PO Last administered on 06/02/18at 21:45; Admin Dose 150 MG; Start 05/30/18 at 21:00; Status Hold Atorvastatin Calcium (Lipitor) 40 mg QHS PO Last administered on 06/06/18at 20:02; Admin Dose 40 MG; Start 05/31/18 at 21:00 Ondansetron HCl (Zofran Inj) 4 mg Q4H PRN IV NAUSEA AND/OR VOMITING Last administered on 06/01/18at 00:10; Admin Dose 4 MG; Start 06/01/18 at 00:00 Norepinephrine 250 ml @ 1.875 mls/ hr TITRATE IV Last administered on 06/07/18at 09:44; Admin Dose 1.875 MLS/HR; Start 06/02/18 at 02:30 Acetaminophen (Tylenol Liquid) 650 mg Q4H PRN PO TEMP > 37C; Start 06/02/18 at 07:00 Meperidine HCl (Demerol) 12.5 mg Q4H PRN IV POST OPERATIVE SHIVERING; Start 06/02/18 at 07:00 Meperidine HCl (Demerol) 25 mg Q4H PRN IV POST OPERATIVE SHIVERING; Start 06/02/18 at 07:00 Eye Lubricant (Artificial Tears Oph) 2 drop Q6 BOTH EYES Last administered on 06/07/18at 05:43; Admin Dose 2 DROP; Start 06/02/18 at 12:00 Insulin Human Regular 100 unit/ Sodium Chloride 100 ml @ 0.2 mls/hr PER PROTOCOL IV ; Start 06/02/18 at 08:00 Miscellaneous Information (* Miscellaneous Pharmacy Order) Treatment of Hypoglycemia: 1.BG 51... Per protocol XX ; Start 06/02/18 at 07:00 Dextrose (D50w Syringe) 25 ml Q15M PRN IV .DECREASED GLUCOSE; Start 06/02/18 at 07:00 Dextrose (D50w Syringe) 50 ml Q15M PRN IV .DECREASED GLUCOSE; Start 06/02/18 at 07:00 Meperidine HCl (Demerol) 12.5 mg Q2 PRN IV POST OPERATIVE SHIVERING; Start 06/02/18 at 07:30 Vancomycin HCl (Vanco Iv Per Pharmacy) VANCOMYCIN PER PHARMACY PER PROTOCOL XX ; Start 06/02/18 at 10:00 Famotidine (Pepcid Iv) 20 mg DAILY IV Last administered on 06/07/18at 09:11; Admin Dose 20 MG; Start 06/03/18 at 09:00 Aztreonam 0.5 gm/ Sodium Chloride 50 ml @ 100 mls/hr Q12 IV Last administered on 06/07/18 09:11; Admin Dose 100 MLS/HR; Start 06/02/18 at 21:00 Hypromellose (Genteal Severe) 1 applic Q6 BOTH EYES Last administered on 06/07/18 05:43; Admin Dose 1 APPLIC; Start 06/03/18 at 12:00 Aspirin (Aspirin) 81 mg DAILY PO Last administered on 06/07/18 09:11; Admin Dose 81 MG; Start 06/03/18 at 12:30 Lorazepam (Ativan) 2 mg Q15M PRN IV SEIZURES Last administered on 06/07/18at 09:38; Admin Dose 2 MG; Start 06/04/18 at 02:00 Sevelamer Carbonate (Renvela) 1.6 gm Q8H NGT Last administered on 06/07/18at 04:09; Admin Dose 1.6 GM; Start 06/04/18 at 11:30 Phenytoin (Dilantin) 100 mg Q8 IV Last administered on 06/07/18at 05:42; Admin Dose 100 MG; Start 06/05/18 at 09:00 Heparin Sodium (Porcine) (Heparin (1000 Units/ml)) 4,000 unit AFTER DIALYSIS CATHETER ; Start 06/05/18 at 12:00 Sodium Chloride 1,000 ml @ 0 mls/hr Q0M PRN IV TO KEEP SBP ABOVE 90; Start 06/05/18 at 11:57 Albumin Human 100 ml @ 100 mls/hr WITH DIALYSIS PRN IV SBP <90 DURING DIALYSIS; Start 06/05/18 at 12:00 Sodium Chloride (NS) -To prime the dialy... DIRECTED FOR HD PRN IV HD; Start 06/05/18 at 12:00 Vancomycin HCl 250 ml @ 125 mls/hr Q96H IVPB Last administered on 06/06/18at 15:53; Admin Dose 125 MLS/HR; Start 06/06/18 at 15:00 UDAY CHRISTENSEN Jun 07, 2018 10:31
--- NOTE | 2018-06-07 10:36 | CONS ---
Assessment/Plan Assessment/Plan Hospital Course 83 M c/ multiple comorbidities, who is admitted to the [facility] ICU following cardiac arrest. Now s/p TTM. Noted to have a clinical seizure in early am of 06/04...once paralytic and sedative weaned..which raises concern for significant hypoxic cerebral injury. EEG was reassuringly without evidence of nonconvulsive status epilepticus.. Head CT 06/02 was without obvious acute pathology. Repeat Head CT on 06/06 was concerning for a new L basal ganglia infarction. P: Cont phenytoin, 300mg iv x 1 this am, then continue 100mg q8h for now... to be titrated to goal level (~20) Ativan iv prn prolonged seizure or cluster Continue asa/lipitor daily for secondary prevention for now Other medical management and supportive care per primary Will follow with you. Consultation Date/Type/Reason Admit Date/Time May 30, 2018 at 19:04 Type of Consult Neurology Reason for Consultation ams Requesting Provider: PHILOMENA JONES Date/Time of Note DATE: 06/07/18 TIME: 10:33 24 HR Interval Summary Free Text/Dictation s/p Head CT Exam Vital Signs Vitals Vital Signs Date Temp Pulse Resp B/P (MAP) Pulse Ox O2 O2 Flow FiO2 Time Delivery Rate 06/07/18 94 24 110/64 100 Mechanical 10:00 (79) Ventilator 06/07/18 98.4 08:00 06/07/18 35 04:49 Intake and Output 06/06/18 06/06/18 06/07/18 1515:00 23:00 07:00 IntakeIntake Total 154.750 ml 346.250 ml 118.500 ml OutputOutput Total 2605 ml 10 ml 0 ml BalanceBalance -2450.250 ml 336.250 ml 118.500 ml Exam PE: Gen Appearance: No Apparent Distress HEENT: Intubated Cardiovascular: Regular rate Abdomen: Soft Extremities: Dry NE: The patient was comatose. Cranial nerve examination was limited by mental status. Pupils were equal and reactive to light. There was no afferent pupillary defect. Funduscopic examination was limited. Face was grossly symmetric, w/ present corneal and cough reflexes. Tone was normal. Muscle bulk was normal. I did not see fasciculations. The patient withdrew to noxious stimulation x 4. Coordination and gait testing was limited by mental status. Arm and leg reflexes were within normal limits and symmetric. Willams's sign was absent. Plantar responses were flexor. MARY JO HOLMAN Jun 07, 2018 10:36 CAMRYN GARRIDO NP Jun 07, 2018 14:10
--- NOTE | 2018-06-07 15:02 | PN ---
Date/Time of Note Date/Time of Note DATE: 06/07/18 TIME: 15:02 Assessment/Plan VTE Prophylaxis [place] [facility] [place] risk: 17 [place]CD applied [place] [facility] [place] Yes Pharmacological prophylaxis: NA/contraindicated Pharm contraindication: other Assessment/Plan Hospital Course 83 yo male with ESRD, DMII who has been referred for MM workup after found to have hypercalcemia and pathologic hip fracture. Then suffered cardiac arrest. 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 -Palliative care and neurology following Cardiac arrest: - Unclear precipitant - s/p hypothermia Multiple myeloma: - Unlikely to receive treatment given anoxic event ESRD: - HD per renal Atrial fibrillation: - Continue AC Pancytopenia: - likely consistent with MM DMII: - Basal/bolus insulin Hypercalcemia: - Consistent with MM Pathologic hip fracture: - management per Dr Burton Prophylaxis: SCDs Result Diagram: 06/06/18 1206 06/07/18 0447 Results 24hrs Laboratory Tests Test 06/07/18 04:47 06/07/18 09:24 06/07/18 11:34 06/07/18 13:41 Sodium Level 140 Potassium Level 4.5 Chloride Level 95 L Carbon Dioxide Level 27 Anion Gap 18 H Blood Urea Nitrogen 44 H Creatinine 5.64 H Est Glomerular Filtrat Rate mL/min Glucose Level 87 Calcium Level 8.0 L Phosphorus Level 6.6 H Magnesium Level 2.1 Phenytoin (Dilantin) 7.2 L 7.3 L 5.7 L Level Bedside Glucose 98 Subjective 24 Hr Interval Summary Subjective hx not possible: pt non-verbal Exam/Review of Systems Exam Vitals Vital Signs Date Temp Pulse Resp B/P (MAP) Pulse Ox O2 O2 Flow FiO2 Time Delivery Rate 06/07/18 95 16 93/52 (66) 100 13:15 06/07/18 Mechanical 13:00 Ventilator 06/07/18 98.4 12:00 06/07/18 35 11:10 Intake and Output 06/06/18 06/06/18 06/07/18 1515:00 23:00 07:00 IntakeIntake Total 154.750 ml 346.250 ml 118.500 ml OutputOutput Total 2605 ml 10 ml 0 ml BalanceBalance -2450.250 ml 336.250 ml 118.500 ml Constitutional: non-verbal Respiratory: clear to auscultation Cardiovascular: regular rate and rhythm Gastrointestinal: soft; No distended Musculoskeletal: nl extremities to inspection Results Results 24hrs Laboratory Tests Test 06/07/18 04:47 06/07/18 09:24 06/07/18 11:34 06/07/18 13:41 Sodium Level 140 Potassium Level 4.5 Chloride Level 95 L Carbon Dioxide Level 27 Anion Gap 18 H Blood Urea Nitrogen 44 H Creatinine 5.64 H Est Glomerular Filtrat Rate mL/min Glucose Level 87 Calcium Level 8.0 L Phosphorus Level 6.6 H Magnesium Level 2.1 Phenytoin (Dilantin) 7.2 L 7.3 L 5.7 L Level Bedside Glucose 98 Medications Medication Current Medications IV Flush (NS 3 ml) 3 ml PER PROTOCOL IV ; Start 05/30/18 at 20:00 Ranitidine HCl (Zantac) 150 mg HS PO Last administered on 06/02/18at 21:45; Admin Dose 150 MG; Start 05/30/18 at 21:00; Status Hold Atorvastatin Calcium (Lipitor) 40 mg QHS PO Last administered on 06/06/18at 20:02; Admin Dose 40 MG; Start 05/31/18 at 21:00 Ondansetron HCl (Zofran Inj) 4 mg Q4H PRN IV NAUSEA AND/OR VOMITING Last administered on 06/01/18at 00:10; Admin Dose 4 MG; Start 06/01/18 at 00:00 Norepinephrine 250 ml @ 1.875 mls/ hr TITRATE IV Last administered on 06/07/18at 09:44; Admin Dose 1.875 MLS/HR; Start 06/02/18 at 02:30 Acetaminophen (Tylenol Liquid) 650 mg Q4H PRN PO TEMP > 37C; Start 06/02/18 at 07:00 Meperidine HCl (Demerol) 12.5 mg Q4H PRN IV POST OPERATIVE SHIVERING; Start 06/02/18 at 07:00 Meperidine HCl (Demerol) 25 mg Q4H PRN IV POST OPERATIVE SHIVERING; Start 06/02/18 at 07:00 Eye Lubricant (Artificial Tears Oph) 2 drop Q6 BOTH EYES Last administered on 06/07/18at 11:35; Admin Dose 2 DROP; Start 06/02/18 at 12:00 Insulin Human Regular 100 unit/ Sodium Chloride 100 ml @ 0.2 mls/hr PER PROTOCOL IV ; Start 06/02/18 at 08:00 Miscellaneous Information (* Miscellaneous Pharmacy Order) Treatment of Hypoglycemia: 1.BG 51... Per protocol XX ; Start 06/02/18 at 07:00 Dextrose (D50w Syringe) 25 ml Q15M PRN IV .DECREASED GLUCOSE; Start 06/02/18 at 07:00 Dextrose (D50w Syringe) 50 ml Q15M PRN IV .DECREASED GLUCOSE; Start 06/02/18 at 07:00 Meperidine HCl (Demerol) 12.5 mg Q2 PRN IV POST OPERATIVE SHIVERING; Start 06/02/18 at 07:30 Famotidine (Pepcid Iv) 20 mg DAILY IV Last administered on 06/07/18at 09:11; Ad min Dose 20 MG; Start 06/03/18 at 09:00 Hypromellose (Genteal Severe) 1 applic Q6 BOTH EYES Last administered on 06/07/18at 11:35; Admin Dose 1 APPLIC; Start 06/03/18 at 12:00 Aspirin (Aspirin) 81 mg DAILY PO Last administered on 06/07/18at 09:11; Admin Dose 81 MG; Start 06/03/18 at 12:30 Lorazepam (Ativan) 2 mg Q15M PRN IV SEIZURES Last administered on 06/07/18at 09:38; Admin Dose 2 MG; Start 06/04/18 at 02:00 Sevelamer Carbonate (Renvela) 1.6 gm Q8H NGT Last administered on 06/07/18at 11:35; Admin Dose 1.6 GM; Start 06/04/18 at 11:30 Phenytoin (Dilantin) 100 mg Q8 IV Last administered on 06/07/18at 14:10; Admin Dose 100 MG; Start 06/05/18 at 09:00 Heparin Sodium (Porcine) (Heparin (1000 Units/ml)) 4,000 unit AFTER DIALYSIS CATHETER ; Start 06/05/18 at 12:00 Sodium Chloride 1,000 ml @ 0 mls/hr Q0M PRN IV TO KEEP SBP ABOVE 90; Start 06/05/18 at 11:57 Albumin Human 100 ml @ 100 mls/hr WITH DIALYSIS PRN IV SBP <90 DURING DIALYSIS; Start 06/05/18 at 12:00 Sodium Chloride (NS) -To prime the dialy... DIRECTED FOR HD PRN IV HD; Start 06/05/18 at 12:00 Cefazolin Sodium/ Dextrose 50 ml @ 100 mls/hr Q24H IVPB ; Start 06/08/18 at 16:00 Phenytoin 750 mg/ Sodium Chloride 115 ml @ 240 mls/hr ONCE ONCE IV ; Start 06/07/18 at 15:00; Stop 06/07/18 at 15:28; Status TOYIN WARREN Jun 07, 2018 15:02
[2018-06-07] MEDS ORDERED: ARTIFICIAL TEARS 15 ML OPH BOTH EYES PRN (16:00)
[2018-06-07] MEDS ORDERED: DIMETHICONE STICK TOP PRN (16:00)
[2018-06-07] MEDS ORDERED: PHENYTOIN 750 MG in SOD CHLORIDE 0.9% 100 ML IV ONE (16:00)
[2018-06-07] MEDS ORDERED: morphine (DRIP) 100 MG/100 ML 100 ML IV SCH (17:00)
--- NOTE | 2018-06-07 17:18 | CONS ---
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 Should pass away shortly after -will sign off Consultation Date/Type/Reason Admit Date/Time May 30, 2018 at 19:04 Initial Consult Date 06/02/18 Type of Consult Cardiology Requesting Provider: PHILOMENA JONES Date/Time of Note DATE: 06/07/18 TIME: 17:16 24 HR Interval Summary Free Text/Dictation Pt will be self extubated per family request Exam/Review of Systems Vital Signs Vitals Vital Signs Date Temp Pulse Resp B/P (MAP) Pulse Ox O2 O2 Flow FiO2 Time Delivery Rate 06/07/18 87 16:00 06/07/18 22 111/58 100 15:30 (75) 06/07/18 Mechanical 15:00 Ventilator 06/07/18 98.4 12:00 06/07/18 35 11:10 Intake and Output 06/06/18 06/06/18 06/07/18 1515:00 23:00 07:00 IntakeIntake Total 154.750 ml 346.250 ml 138.500 ml OutputOutput Total 2605 ml 10 ml 0 ml BalanceBalance -2450.250 ml 336.250 ml 138.500 ml Exam Constitutional: No alert, No oriented ENMT: intubated Neck: No jvd Cardiovascular: No regular rate and rhythm, No edema, No systolic murmur Gastrointestinal: soft; No distended Neurological: No nl mental status, No nl speech Labs Result Diagram: 06/06/18 1206 06/07/18 0447 Results 24hrs Laboratory Tests Test 06/07/18 04:47 06/07/18 09:24 06/07/18 11:34 06/07/18 13:41 Sodium Level 140 Potassium Level 4.5 Chloride Level 95 L Carbon Dioxide Level 27 Anion Gap 18 H Blood Urea Nitrogen 44 H Creatinine 5.64 H Est Glomerular Filtrat Rate mL/min Glucose Level 87 Calcium Level 8.0 L Phosphorus Level 6.6 H Magnesium Level 2.1 Phenytoin (Dilantin) 7.2 L 7.3 L 5.7 L Level Bedside Glucose 98 Test 06/07/18 14:45 Phenytoin (Dilantin) 6.9 L Level Medications Medications Current Medications IV Flush (NS 3 ml) 3 ml PER PROTOCOL IV ; Start 05/30/18 at 20:00 Ondansetron HCl (Zofran Inj) 4 mg Q4H PRN IV NAUSEA AND/OR VOMITING Last administered on 06/01/18 00:10; Admin Dose 4 MG; Start 06/01/18 at 00:00 Acetaminophen (Tylenol Liquid) 650 mg Q4H PRN PO TEMP > 37C; Start 06/02/18 at 07:00 Eye Lubricant (Artificial Tears Oph) 2 drop Q6 BOTH EYES Last administered on 06/07/18 11:35; Admin Dose 2 DROP; Start 06/02/18 at 12:00 Hypromellose (Genteal Severe) 1 applic Q6 BOTH EYES Last administered on 06/07/18 11:35; Admin Dose 1 APPLIC; Start 06/03/18 at 12:00 Lorazepam (Ativan) 2 mg Q15M PRN IV SEIZURES Last administered on 06/07/18 09:38; Admin Dose 2 MG; Start 06/04/18 at 02:00 Phenytoin (Dilantin) 100 mg Q8 IV Last administered on 06/07/18 14:10; Admin Dose 100 MG; Start 06/05/18 at 09:00 Morphine Sulfate/ Sodium Chloride 100 ml @ 1 mls/hr TITRATE IV Last administered on 06/07/18 16:43; Admin Dose 1 MLS/HR; Start 06/07/18 at 17:00 Eye Lubricant (Artificial Tears Oph) 2 drop EACH SHIFT PRN BOTH EYES DRY EYES; Start 06/07/18 at 16:00 Dimethicone (Blistex Lip [place]) 1 applic EACH SHIFT PRN TOP DRY LIP(S); Start 06/07/18 at 16:[address] Jun 07, 2018 17:18
--- NOTE | 2018-06-07 21:46 | EN ---
Date/Time of Note Date/Time of Note DATE: 06/07/18 TIME: 21:41 Event Note Medicine Medicine Event Note I was called by nurse to pronounce pt. Pt was terminally extubated. on physical exam, there was no pulse, no gag or corneal reflex and pupils unreactive to light. He was pronounced at 21:35. ANAID SILVEIRA MD Jun 07, 2018 21:46
--- NOTE | 2018-06-08 15:17 | DES ---
Date/Time of Note Date/Time of Note DATE: 06/08/18 TIME: 15:11 Discharge/ Summary Admission/Discharge Info Admit Date/Time May 30, 2018 at 19:04 Date/Time June 07, 2018 Final Diagnosis Cardiopulmonary failure secondary to anoxic encephalopathy, history of multiple myeloma, end stage renal disease and cardiac arrest Preliminary Cause of Cardiopulmonary failure secondary to anoxic encephalopathy, history of multiple myeloma, end stage renal disease and cardiac arrest Hospital Course Patient is a 83 yo male with ESRD, DMII who has been referred for MM workup after found to have hypercalcemia and pathologic hip fracture. Then suffered cardiac arrest. Now s/p hypothermia protocol with persistent evidence of anoxic encephalopathy. After discussion with patient's family it was decided to make patient comfort care, DNR and withdraw care. Patient was pronounced at 2135 on 06/07/2018. TOYIN RUEDA Jun 08, 2018 15:17
[2018-06-08] MEDS ORDERED: CEFAZOLIN 2 GM/50 ML (PMX) 50 ML IVPB SCH (16:00)
--- NOTE | 2018-06-09 13:08 | RADRPT ---
Vent Rate: 107 bpm RR Interval: 560 msec [place] Interval: 144 msec QRS Duration: 83 msec QT Interval: 334 msec QTC Interval: 446 msec P-R-T [place]: 83 - 2 - 191 degrees Sinus tachycardia...rate> 99 Borderline low voltage, extremity leads...all extremity leads <0.6mV Repol abnrm suggests ischemia, lateral leads...ST dep, T neg, I aVL V5 V6 Electronically Signed By: Jose L Carrera
--- NOTE | 2018-06-09 13:19 | RADRPT ---
Vent Rate: 91 bpm RR Interval: 0 msec [place] Interval: 0 msec QRS Duration: 84 msec QT Interval: 396 msec QTC Interval: 487 msec P-R-T [place]: 0 - 18 - 0 degrees Atrial flutter with variable AV block ST & T wave abnormality, consider inferior ischemia Prolonged QT Abnormal ECG Electronically Signed By: Jose L Carrera
--- NOTE | 2018-06-09 13:20 | RADRPT ---
Vent Rate: 75 bpm RR Interval: 0 msec DC Interval: 0 msec QRS Duration: 80 msec QT Interval: 428 msec QTC Interval: 477 msec P-R-T [place]: 0 - 20 - -[address] & T wave abnormality, consider inferior ischemia or digitalis effect Prolonged QT Abnormal ECG Electronically Signed By: Jose L Carrera
--- NOTE | 2018-06-09 13:22 | RADRPT ---
Vent Rate: 57 bpm RR Interval: 0 msec [place] Interval: 0 msec QRS Duration: 80 msec QT Interval: 482 msec QTC Interval: 469 msec P-R-T [place]: 0 - 36 - 0 degrees Atrial fibrillation with slow ventricular response ST & T wave abnormality, consider inferior ischemia or digitalis effect Prolonged QT Abnormal ECG Electronically Signed By: Jose L Carrera
--- NOTE | 2018-06-09 13:28 | RADRPT ---
Vent Rate: 92 bpm RR Interval: 0 msec [place] Interval: 0 msec QRS Duration: 84 msec QT Interval: 374 msec QTC Interval: 462 msec P-R-T [place]: 0 - -17 - 0 degrees Atrial fibrillation Septal infarct , age undetermined ST & T wave abnormality, consider inferolateral ischemia or digitalis effect Abnormal ECG Electronically Signed By: Jose L Carrera
== END 2018-06-07 21:35 | disposition expired | DRG 840 ==
LOC: E/R 15:20 → 2NE 19:04 → ICU 05-31 13:09 → 2NE 05-31 17:28 → ICU 06-02 02:16
PROVIDERS: ADMIT Internal Medicine; ATTEND Internal Medicine
PROC: 07DR3ZX Extraction of Iliac Bone Marrow, Percutaneous Approach, Diagnostic (ICD-10-PCS; principal; 2018-05-31)
PROC: 5A12012 Performance of Cardiac Output, Single, Manual (ICD-10-PCS; 2018-06-02)
PROC: 0BH17EZ Insertion of Endotracheal Airway into Trachea, Via Natural or Artificial Opening (ICD-10-PCS; 2018-06-02)
PROC: 5A1955Z Respiratory Ventilation, Greater than 96 Consecutive Hours (ICD-10-PCS; 2018-06-02)
DX: C90.00 Multiple myeloma not having achieved remission (principal); L89.323 Pressure ulcer of left buttock, stage 3; L89.313 Pressure ulcer of right buttock, stage 3; I21.4 Non-ST elevation (NSTEMI) myocardial infarction; N18.6 End stage renal disease; J96.00 Acute respiratory failure, unspecified whether with hypoxia or hypercapnia; I50.31 Acute diastolic (congestive) heart failure; J18.9 Pneumonia, unspecified organism; M84.550A Pathological fracture in neoplastic disease, pelvis, initial encounter for fracture; D61.818 Other pancytopenia; R18.8 Other ascites; G93.1 Anoxic brain damage, not elsewhere classified; I13.2 Hypertensive heart and chronic kidney disease with heart failure and with stage 5 chronic kidney disease, or end stage renal disease; I48.92 Unspecified atrial flutter; M48.56XD Collapsed vertebra, not elsewhere classified, lumbar region, subsequent encounter for fracture with routine healing; I46.9 Cardiac arrest, cause unspecified; E11.22 Type 2 diabetes mellitus with diabetic chronic kidney disease; Z99.2 Dependence on renal dialysis; Z86.73 Personal history of transient ischemic attack (TIA), and cerebral infarction without residual deficits; I48.0 Paroxysmal atrial fibrillation; E78.5 Hyperlipidemia, unspecified; K80.20 Calculus of gallbladder without cholecystitis without obstruction; E83.9 Disorder of mineral metabolism, unspecified; E11.21 Type 2 diabetes mellitus with diabetic nephropathy; R00.1 Bradycardia, unspecified; I48.2 Chronic atrial fibrillation; R56.9 Unspecified convulsions; E88.09 Other disorders of plasma-protein metabolism, not elsewhere classified; Z66 Do not resuscitate
CPT/HCPCS: 31500; 36415; 36600; 70450; 71045; 72146; 72148; 74018; 74176; 76705; 77012; 80048; 80053; 80185; 80202; 82150; 82550; 82553; 82784; 82785; 82803; 82962; 83036; 83605; 83615; 83690; 83735; 84100; 84155; 84165; 84484; 85014; 85018; 85025; 85378; 85384; 85610; 85730; 86320; 86704; 86709; 86803; 87070; 87081; 87340; 88305; 88311; 88313; 89220; 90935; 92950; 93005; 93306; 94002; 94003; 94770; 95819; 97161; J2430; J0171; J0461; J1165; J1170; J1815; J2060; J2250; J2270; J2310; J2405; J3010; J3370; J7030; J7040; Q5105